=== PATIENT | female | born 1930 | race Caucasian/White ===

== ENCOUNTER 2016-10-31 07:40 | Observation (INO) | payer MEDICARE, OTHER ==
[~2016-10-31] VITALS: Ht 162.6 cm; Wt 54.0 kg
[~2016-10-31 07:40] MED LIST: AC325T PO; ACET-2267 PO; ASP81TEC PO; ASPI-983 PO; ATOR40TA70 PO; CALC-656 PO; CALC-80 PO; CIPR-226 PO; DIGO250T PO; DIGO250T96 PO; ESCI10TA PO; HYDR25TA4 PO; KCL10CCR PO; LOTE5DRO4 OU; MECL-105 PO; MECL25TA3 PO; MULT1TAB63 PO; NF-LOTEOS OU; OMG1KC PO; ONDA4TAB8 PO; PANT40TA PO; PANT40TA3 PO; PNT40TEC PO; POTA10TA10 PO; POTA10TA14 PO; PRAV40TA PO; PROM25TA14 PO; PROP10DR3 OU; SCOP1PAT TD; TYLENOL PO; WARF-47 PO; WARF4TAB PO; WARF4TAB7 PO; WARF6TAB19 PO; WARF6TAB6 PO; WRF2T PO; WRF5T PO
--- OUTSIDE RECORDS SUMMARY | 2016-10-31 07:45 | XMS REPORT | Continuity of Care Document ---
Author Author [facility] Organization [facility] Address Unknown Phone Unavailable Care Team Providers Care Fire Patrol Name Role Phone KAT VIGIL DO PCP Insurance Providers Payer Name Policy Number Subscriber Name Relationship [employer] [id number] Rishi Potter 19 Self / Same As Patient Comm Crossover Enter Ins Name [id number] Rishi Potter Self / Same As Patient Advance Directives Directive Response Recorded Date/Time Advance Directives Yes 08/26/16 1:00pm Health Care Power of Talk Show Host No 08/26/16 1:00pm Organ Donor No 08/26/16 1:00pm Resuscitation Status DNR-Pt Request 08/26/16 1:00pm Chief Complaint and Reason for Visit Chief Complaint Eye Problems Reason for Visit Right eye injury Problems Active Problems Medical Problem Onset Date Status Altered mental status Unknown Acute BPPV (benign paroxysmal positional vertigo) Unknown Acute Cerebral microvascular disease Unknown Acute Cholelithiasis without cholecystitis Unknown Acute Gastroenteritis Unknown Acute Generalized abdominal pain Unknown Acute Hallucinations Unknown Acute Right eye injury Unknown Acute Urinary tract infection Unknown Acute Medications Current Home Medications Medication Dose Units Route Directions Days/Qty Instructions Start Date Calcium Carbonate/Vitamin D3 1 Each 1 Tab Oral Twice A Day 04/20/14 Fish Oil 1,000 Mg 1,000 Mg Oral Three Times A Day 04/20/14 Atorvastatin Calcium 40 Mg 40 Mg Oral Bedtime 04/18/15 Loteprednol Etabonate 5 Ml 1 Drop Each Eye Daily 04/18/15 Digoxin 250 Mcg 250 Mcg Oral Every 48 Hours 04/18/15 Acetaminophen 500 Mg 500 Mg Oral Every 4HRS as needed for Pain 02/03 Warfarin Sodium 6 Mg 6 Mg Oral 1500 02/04/16 Pantoprazole Sodium 40 Mg 40 Mg Oral Twice A Day 02/04/16 Past Home Medications Medication Directions Ordered Status Calcium Carbonate/Vitamin D3 1 Each Tablet, 2 Tab Oral Daily 08/12/11 Discontinued Loteprednol Etabonate 5 Ml Drops.susp, 1 Drop Each Eye Daily 08/12/11 Discontinued Propylene Glycol 10 Ml Drops, 1 Drop Each Eye As Needed 08/12/11 Discontinued Aspirin 81 Mg Tabec, 162 Mg Oral Daily 08/12/11 Discontinued Acetaminophen 325 Mg Tablet, 650 Mg Oral Every 4HRS as needed 08/12/11 Discontinued Pravastatin Sodium 40 Mg Tablet, 40 Mg Oral Daily 08/12/11 Discontinued Digoxin 0.25 Mg Tab, 0.25 Mg Oral Daily 02/13/13 Discontinued Potassium Chloride 10 Meq Capcr, 10 Meq Oral Give Every 12 Hrs On Schedule Discontinued Warfarin Sodium 5 Mg Tablet, 1 Each Oral Daily 02/13/13 Discontinued Pantoprazole Sod 40 Mg Tab, 40 Mg Oral Daily@07,19 02/13/13 Discontinued Aspirin 81 Mg Tabec, 81 Mg Oral Daily 02/13/13 Discontinued Warfarin Sodium 2 Mg Tablet, 2 Mg Oral As Directed 02/14/13 Discontinued Warfarin Sodium 4 Mg Tablet, 4 Mg Oral As Directed 02/14/13 Discontinued Warfarin Sodium 4 Mg Tablet, 8 Mg Oral 04/20/14 Discontinued Warfarin Sodium 6 Mg Tablet, 6 Mg Oral 04/20/14 Discontinued Pantoprazole Sodium 40 Mg Tablet.dr, 40 Mg Oral Daily 04/20/14 Discontinued Acetaminophen 325 Mg Tab, 325 Mg Oral 04/20/14 Discontinued [Tylenol] , 500 Mg Oral As Needed 04/20/14 Discontinued Meclizine Hcl 25 Mg Tablet, 25 Mg Oral Bedtime 04/20/14 Discontinued Scopolamine 1 Each Patch.td72, 1 Each Transderm Q72 Hours for Dizziness 04/14 Discontinued Ondansetron 4 Mg Tab.rapdis, 4 Mg Oral Every 4HRS for Nausea/Vomiting Discontinued Meclizine Hcl 25 Mg Tablet, 1-2 Tab Oral Every 6 Hours for Dizziness Discontinued Ciprofloxacin Hcl 250 Mg Tablet, 250 Mg Oral Twice A Day 04/16/15 Discontinued Scopolamine 1 Each Patch.td72, 1 Patch Transderm Every 72 Hours 04/18/15 Discontinued Promethazine Hcl (Phenergan Tablet) 25 Mg Tablet, 25 Mg Oral Twice A Day as needed for Nausea/Vomiting 04/18/15 Discontinued Warfarin Sodium 2 Mg Tablet, 6 Mg Oral Daily 04/18/15 Discontinued Pantoprazole Sodium 40 Mg Tablet.dr, 40 Mg Oral Twice A Day 04/18/15 Discontinued Potassium Chloride 10 Meq Tablet.er, 10 Meq Oral Twice A Day 04/18/15 Discontinued Ciprofloxacin Hcl 250 Mg Tablet, 250 Mg Oral Twice A Day 04/18/15 Discontinued Aspirin 81 Mg Tablet.dr, 81 Mg Oral Daily 04/22/15 Discontinued Warfarin Sodium 2 Mg Tablet, 4 Mg Oral Daily 04/22/15 Discontinued Escitalopram Oxalate 10 Mg Tablet, 10 Mg Oral Daily 04/22/15 Discontinued Hydrochlorothiazide 25 Mg Tablet, 25 Mg Oral Daily 02/04/16 Discontinued Potassium Chloride 10 Meq Tab.er.prt, 10 Meq Oral Twice A Day 02/04/16 Discontinued Social History Social History Problem Response Recorded Date/Time Alcohol Use Denies Use 02/04/2016 7:00am Recreational Drug Use No 02/04/2016 7:00am Recent Foreign Travel No 08/26/2016 12:52pm Recent Infectious Disease Exposure No 08/26/2016 12:52pm Sexually Transmitted Disease No 08/26/2016 1:00pm Smoking Status Never a Smoker 08/26/2016 1:00pm Do you dip or chew tobacco? No 02/04/2016 2:11am Recent Hopitalizations Y GALLBLADDER IN DECEMBER OR JANUARY 2016 08/26/2016 1:00pm Sexually Transmitted Disease No 08/26/2016 1:00pm Query Response Start Date Stop Date Smoking Status Never a Smoker Hospital Discharge Instructions No hospital discharge instructions. Plan of Care Discharge Date 08/26/16 2:32pm Disposition 01 HOME, SELF-CARE Condition at Discharge Stable Instructions/Education Provided Eye Contusion (DC) Prescriptions See Medication Section Referrals KAT VIGIL DO - Primary Care Physician Additional Instructions/Education All discharge instructions reviewed with patient and/or family. Voiced understanding. Follow-up with your eye doctor directly after leaving here. Return for worse pain, fever, vomiting, vision or balance problems, weakness, headache, coordination problems or other concerns as needed. Functional Status No functional status results. Allergies, Adverse Reactions, Alerts Allergen Type Severity Reaction Status Last Updated Penicillins ([id number]) Allergy Mild Active 04/18/15 Sulfa (Sulfonamide Antibiotics) ([id number]) Allergy Mild Active guaifenesin ([id number]) Allergy Unknown Active 04/18/15 potassium guaiacolsulfonate Allergy Unknown Active 04/18/15 nitrofurantoin ([id number]) Allergy Intermediate Active 04/18/15 Omeprazole Allergy Mild Active 04/18/15 Celecoxib Adverse Reaction Unknown SICK TO STOMACH Active 04/18/15 Rosuvastatin Adverse Reaction Unknown NAUSEA Active 04/18/15 Protoni Allergy Mild Active 02/05/16 Immunizations No immunization records. Vital Signs Acute Vital Signs Vital Response Date/Time Temperature (Fahrenheit) 98.3 degrees F (97.6 - 99.5) 08/26/2016 12:52pm Temperature (Calculated Celsius) 36.40226 degrees C (36.4 - 37.5) 08/26/2016 12:52pm Temperature Source Temporal 08/26/2016 12:52pm Pulse Rate (adult) 100 bpm (60 - 90) 08/26/2016 12:52pm Respiratory Rate 20 bpm (12 - 24) 08/26/2016 12:52pm O2 Sat by Pulse Oximetry 96 % (88 - 100) 08/26/2016 12:52pm Blood Pressure 121/74 mm Hg 08/26/2016 12:52pm Blood Pressure Mean 90 mm Hg 08/26/2016 12:52pm Pain Numeric Pain Scale 1 08/26/2016 12:52pm Height (Feet) 5 feet 08/26/2016 12:52pm Height (Inches) 7.00 inches 08/26/2016 12:52pm Height (Calculated Centimeters) 170.632205 cm 08/26/2016 12:52pm Weight (Pounds) 119 pounds 08/26/2016 12:52pm Weight (Ounces) 0.0 oz 08/26/2016 12:52pm Weight (Calculated Grams) 79768.493 gm 08/26/2016 12:52pm Weight (Calculated Kilograms) 53.957132 kilograms 08/26/2016 12:52pm Calculated BMI 18.6 08/26/2016 12:52pm Capillary Refill Capillary Refill Less Than 3 Seconds 08/26/2016 12:52pm Results No known relevant diagnostic tests, laboratory data and/or discharge summary. Procedures No known history of procedures. Encounters Encounter Location Arrival/Admit Date Discharge/Depart Date Attending Provider Departed Emergency Room [facility] 08/26/16 12:30pm 2:32pm TENNILLE MCCRAY MD Recent Diagnosis
--- NOTE | 2016-10-31 07:54 | ED Chest Pain ---
General Stated Complaint: CP Source: patient, EMS Exam Limitations: no limitations History of Present Illness Time seen by provider: 07:51 Initial Comments This 86-year-old white female presents after she experienced chest pain this morning after she awoke. The chest pain which was sharp and anterior in character and location was spontaneously resolved within 10 minutes. The patient had a similar episode of chest pain self-limited yesterday. The patient has a history of cardiac disease specifically congestive heart failure. She denies previous myocardial infarction, cardiac catheterization, or bypass surgery. She is under the care of Dr. Menon. The patient's previous EKG. March 2015 demonstrates atrial fibrillation. Patient is on Protonix. She is on Digoxin. The patient takes Coumadin. EMS gave for 4 baby aspirins in route. Allergies and Home Medications Allergies Coded Allergies: nitrofurantoin (Verified Allergy, Intermediate, 04/18/15) Penicillins (Verified Allergy, Mild, 04/18/15) Sulfa (Sulfonamide Antibiotics) (Verified Allergy, Mild, 04/18/15) omeprazole (Verified Allergy, Mild, 04/18/15) guaifenesin (Verified Allergy, Unknown, 04/18/15) potassium guaiacolsulfonate (Verified Allergy, Unknown, 04/18/15) celecoxib (Unverified Adverse Reaction, Unknown, SICK TO STOMACH, 04/18/15) rosuvastatin (Unverified Adverse Reaction, Unknown, NAUSEA, 04/18/15) Uncoded Allergies: Protoni (Allergy, Mild, 02/05/16) NOTE THAT PT TAKES PROTONIX AT HOME Home Medications Acetaminophen 500 Mg Tablet 500 MG PO Q4H PRN PRN PAIN (Reported) Atorvastatin Calcium 40 Mg Tablet 40 MG PO HS (Reported) Calcium Carbonate/Vitamin D3 1 Each Tablet 1 TAB PO BID (Reported) Digoxin 250 Mcg Tablet 250 MCG PO Q48H (Reported) Loteprednol Etabonate 5 Ml Drops 1 DROP OU DAILY (Reported) [place] 3 Polyunsat Fatty Acids 1,000 Mg Cap 1,000 MG PO TID (Reported) Pantoprazole Sodium 40 Mg Tablet.dr 40 MG PO BID (Reported) Warfarin Sodium 6 Mg Tablet 6 MG PO 1500 (Reported) Review of Systems Constitutional: No chills, No fever, No weakness EENTM: No Symptoms Reported Respiratory: Denies Cough, Shortness of Air Cardiovascular: Chest PainDenies Palpitations Gastrointestinal: Denies Abdominal Pain, Denies Diarrhea, Denies Nausea Genitourinary: Denies Burning, Denies Frequency Musculoskeletal: No back pain Skin: No rash Psychiatric/Neurological: Anxiety (the patient clearly was anxious in the emergency department concerning her presentation.) Endocrine: No Symptoms Reported Hematologic/Lymphatic: No Symptoms Reported Past Lviuinc-Nmfjnh-Cqerne Hx Patient Social History Recent Hopitalizations: Yes (GALLBLADDER IN DECEMBER OR JANUARY 2016) Immunizations Up To Date Tetanus Booster (TDap): Less than 5yrs PED Vaccines UTD: No Date of Pneumonia Vaccine: Aug 30, 2015 Date of Influenza Vaccine: Jun 12, 2012 Seasonal Allergies Seasonal Allergies: No Surgeries HX Surgeries: Yes (FISTULA REPAIR,CORNEA TRANSPLANT,CARDIAC CATH,SKYLAR W/ PERF ESOPHAGUS/REPAIR ) Surgeries: Abdominal, Cardiac, Eye Surgery, Gallbladder, Hysterectomy, Tracheostomy Respiratory Hx Respiratory Disorders: Yes (RESP.FAILURE-TRACH/VENTILATOR/REMOVAL, CHEST TUBE/REMOVAL) Respiratory Disorders: Pneumonia Cardiovascular Hx Cardiac Disorders: Yes (CHF) Cardiac Disorders: Atrial Fibrillation, Cardiomyopathy, Coronary Artery Disease , High Cholesterol, Hypertension, Irregular Heartbeat Neurological Hx Neurological Disorders: No (DENIES, BUT HAS PARESTHESIAS TO TOES) Reproductive System Hx Reproductive Disorders: No 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, 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 Genitourinary Hx Genitourinary Disorders: Yes Genitourinary Disorders: UTI-Chronic Gastrointestinal Hx Gastrointestinal Disorders: Yes (PERFORATED ESOPHAGUS/REPAIR, G-TUBE/ REMOVAL,DYSPHAGIA) Gastrointestinal Disorders: Gastroesophageal Reflux, Polyps Musculoskeletal Hx Musculoskeletal Disorders: Yes (WALKS WITH WALKER) Musculoskeletal Disorders: Osteoporosis, Arthritis, Chronic Back Pain Endocrine Hx Endocrine Disorders: No HEENT HX ENT Disorders: Yes HEENT Disorders: Cataract Loss of Vision: Bilateral Hearing Impairment: Hard of Hearing Cancer Hx Cancer: No Psychosocial Hx Psychiatric Problems: No Integumentary HX Skin/Integumentary Disorder: No Blood Transfusions Hx Blood Disorders: No Adverse Reaction to a Blood Tr: No Reviewed Nursing Assessment Reviewed/Agree w Nursing PMH: Yes Family Medical History Significant Family History: Cancer Family Medial History: FH: arrhythmia FH: breast cancer Physical Exam Vital Signs Vital Sign - Last 12Hours 10/31/16 07:40 Temp 97.5 Pulse 115 Resp 18 B/P 108/78 Pulse Ox 95 O2 Delivery Room Air Capillary Refill : General Appearance: Cachetic Mild Distress HEENT: No Scleral Icterus (L) Neck: No Non Tender, No Supple Respiratory: Lungs Clear Cardiovascular: No No Murmur, Irregularly Irregular Gastrointestinal: Normal Bowel Sounds No Pulsatile Mass Extremity: Normal Capillary Refill Normal Range of Motion Neurologic/Psychiatric: Oriented x3 No Motor/Sensory Deficits Skin: Normal Color Warm/Dry Date of ETT Placement: Feb 07, 2016 Time of ETT Placement: 1710 Progress/Results/Core Measures Results/Orders Lab Results Laboratory Tests Test 10/31/16 08:00 Range/Units Activated Partial Thromboplast Time 34 24-35 SEC Alanine Aminotransferase (ALT/SGPT) 35 0-55 U/L Albumin 3.1 L 3.2-4.5 G/DL Alkaline Phosphatase 74 40-136 U/L Anion Gap 15 H 5-14 MMOL/L Aspartate Amino Transf (AST/SGOT) 31 5-34 U/L B-Type Natriuretic Peptide 794.2 H <100.0 PG/ML BUN/Creatinine Ratio 29 Basophils # (Auto) 0.0 0.0-0.1 10^3/uL Basophils (%) (Auto) 0 0-10 % Blood Urea Nitrogen 30 H 7-18 MG/DL Calcium Level 8.7 8.5-10.1 MG/DL Carbon Dioxide Level 27 21-32 MMOL/L Chloride Level 102 98-107 MMOL/L Creatinine 1.02 0.60-1.30 MG/DL D-Dimer 0.34 0.00-0.49 UG/ML Digoxin Level < 0.30 L 0.80-2.00 NG/ML Eosinophils # (Auto) 0.0 0.0-0.3 10^3/uL Eosinophils (%) (Auto) 0 0-10 % Estimat Glomerular Filtration Rate 52 Glucose Level 91 70-105 MG/DL Hematocrit 41 35-52 % Hemoglobin 13.2 11.5-16.0 G/DL INR Comment 3.3 H 0.8-1.4 Lymphocytes # (Auto) 0.6 L 1.0-4.0 X 10^3 Lymphocytes (%) (Auto) 10 L 12-44 % Magnesium Level 1.5 L 1.8-2.4 MG/DL Mean Corpuscular Hemoglobin 29 25-34 PG Mean Corpuscular Hemoglobin Concent 32 32-36 G/DL Mean Corpuscular Volume 91 80-99 FL Mean Platelet Volume 11.4 H 7.4-10.4 FL Monocytes # (Auto) 0.4 0.0-1.0 X 10^3 Monocytes (%) (Auto) 6 0-12 % Myoglobin 71.6 10.0-92.0 NG/ML Neutrophils # (Auto) 5.3 1.8-7.8 X 10^3 Neutrophils (%) (Auto) 84 H 42-75 % Platelet Count 125 L 130-400 10^3/uL Potassium Level 3.8 3.6-5.0 MMOL/L Prothrombin Time 33.7 H 12.2-14.7 SEC Red Blood Count 4.56 4.35-5.85 10^6/uL Red Cell Distribution Width 15.6 H 10.0-14.5 % Sodium Level 144 135-145 MMOL/L Total Bilirubin 1.8 H 0.1-1.0 MG/DL Total Protein 5.4 L 6.4-8.2 G/DL Troponin I < 0.30 <0.30 NG/ML White Blood Count 6.2 4.3-11.0 10^3/uL My Orders Orders-TRISH, LORY Roach MD Cbc With Automated Diff (10/31/16 07:44) Magnesium (10/31/16 07:44) Chest 1 View, Ap/Pa Only (10/31/16 07:44) Ekg Tracing (10/31/16 07:44) Cardiac Profile 1 (10/31/16 07:44) Comprehensive Metabolic Panel (10/31/16 07:44) Myoglobin Serum (10/31/16 07:44) Protime With Inr (10/31/16 07:44) Partial Thromboplastin Time (10/31/16 07:44) O2 (10/31/16 07:44) Monitor-Rhythm Ecg Trace Only (10/31/16 07:44) Lipid Panel (11/01/16 06:00) Saline Lock/Iv-Start (10/31/16 07:44) BNP (10/31/16 07:44) Fibrin Degradation Products (10/31/16 07:44) Digoxin (10/31/16 07:54) Vital Signs/I&O Vital Sign - Last 12Hours 10/31/16 10/31/16 07:40 07:40 Temp 97.5 Pulse 115 Resp 18 B/P 108/78 Pulse Ox 95 O2 Delivery Room Air Room Air Progress Note : Time: 09:33 Progress Note The patient's evaluation demonstrated atrial fibrillation on the EKG unchanged from the patient's previous tracing. The patient's troponin was normal. The patient's BNP was normal. The patient's d-dimer was normal. The patient's digoxin level was subtherapeutic at less than 0.3. The patient's INR was elevated at 3.3. Consultation with Dr. Bond was undertaken. Given the patient's cardiac history and the presentation for her chest pain this morning the patient was admitted to an observation bed. Orders were then written for repeat troponins and EKGs 3. At the time of the patient's admission she had remained pain-free in the emergency department. Departure Communication Time/Spoke to Admitting Phy: 09:[address] Beltran. Impression Impression: Primary Impression: Chest pain Qualified Code: R07.9 - Chest pain, unspecified Disposition: ADMITTED INPATIENT Condition: Improved Decision to Admit Reason: Admit from ER (General) Decision to Admit/Date: Oct 31, 2016 Time/Decision to Admit Time: 09:35 Departure-Patient Inst. Referrals: KAT VIGIL DO (PCP/Family) Primary Care Physician LORY CHAMBERS MD Oct 31, 2016 07:54
[2016-10-31 08:11] LABS: BASOPHILS % (AUTO) 0 % (0-10); EOSINOPHILS % (AUTO) 0 % (0-10); LYMPHOCYTES # (AUTO) 0.6 X 10^3 (1.0-4.0); LYMPHOCYTES % (AUTO) 10 % (12-44); MEAN CORPUSCULAR HEMOGLOBIN 29 PG (25-34); MEAN CORPUSCULAR HGB CONC 32 G/DL (32-36); MEAN CORPUSCULAR VOLUME 91 FL (80-99); MEAN PLATELET VOLUME 11.4 FL (7.4-10.4); MONOCYTES # (AUTO) 0.4 X 10^3 (0.0-1.0); MONOCYTES % (AUTO) 6 % (0-12); NEUTROPHILS # (AUTO) 5.3 X 10^3 (1.8-7.8); NEUTROPHILS % (AUTO) 84 % (42-75); PLATELET COUNT 125 10^3/uL (130-400); RED BLOOD COUNT 4.56 10^6/uL (4.35-5.85); RED CELL DISTRIBUTION WIDTH 15.6 % (10.0-14.5); WHITE BLOOD COUNT 6.2 10^3/uL (4.3-11.0)
[2016-10-31 08:24] LABS: INR 3.3 (0.8-1.4); PROTHROMBIN TIME PATIENT 33.7 SEC (12.2-14.7)
[2016-10-31 08:29] LABS: ALANINE AMINOTRANSFERASE 35 U/L (0-55); ALBUMIN 3.1 G/DL (3.2-4.5); ANION GAP 15 MMOL/L (5-14); ASPARTATE AMINO TRANSFERASE 31 U/L (5-34); BILIRUBIN,TOTAL 1.8 MG/DL (0.1-1.0); BLOOD UREA NITROGEN 30 MG/DL (7-18); BUN/CREATININE RATIO 29; CALCIUM 8.7 MG/DL (8.5-10.1); CARBON DIOXIDE 27 MMOL/L (21-32); CHLORIDE 102 MMOL/L (98-107); CREATININE SERUM 1.02 MG/DL (0.60-1.30); GFR ESTIMATED 52; GLUCOSE 91 MG/DL (70-105); MAGNESIUM 1.5 MG/DL (1.8-2.4); POTASSIUM 3.8 MMOL/L (3.6-5.0); SODIUM 144 MMOL/L (135-145); TOTAL PROTEIN 5.4 G/DL (6.4-8.2)
[2016-10-31 08:36] LABS: MYOGLOBIN SERUM 71.6 NG/ML (10.0-92.0)
--- NOTE | 2016-10-31 11:00 | Consultation-Cardiology ---
HPI-Cardiology Cardiology Consultation Date of Consultation 10/31/16 Date of Admission Indication: chest pain HPI 86-year-old lady with history of mitral valve stenosis, permanent atrial fibrillation, was in her usual state of health until this morning woke up, started having chest pain and felt lightheaded. Came into the emergency room. Currently feeling better. No further episode of chest pain, patient expressed that she is hungry and asking for food. Did not eat breakfast this morning. Denied any palpitation, syncope or near syncopal episodes. Denied any claudication. Denied any chest pain prior to that but reporting episodes of dizziness in the morning. Home Medications & Allergies Allergies: Coded Allergies: nitrofurantoin (Verified Allergy, Intermediate, 04/18/15) Penicillins (Verified Allergy, Mild, 04/18/15) Sulfa (Sulfonamide Antibiotics) (Verified Allergy, Mild, 04/18/15) omeprazole (Verified Allergy, Mild, 04/18/15) guaifenesin (Verified Allergy, Unknown, 04/18/15) potassium guaiacolsulfonate (Verified Allergy, Unknown, 04/18/15) celecoxib (Unverified Adverse Reaction, Unknown, SICK TO STOMACH, 04/18/15) rosuvastatin (Unverified Adverse Reaction, Unknown, NAUSEA, 04/18/15) Uncoded Allergies: Protoni (Allergy, Mild, 02/05/16) NOTE THAT PT TAKES PROTONIX AT HOME Home Medication List Reviewed: Yes TUG-Dgzony-Xwymdt Hx Patient Social History Alcohol Use: Denies Use Recreational Drug Use: No Smoking Status: Never a Smoker Recent Foreign Travel: No Recent Infectious Disease Expo: No Recent Hopitalizations: Yes (GALLBLADDER IN DECEMBER OR JANUARY 2016) Immunizations Up To Date Tetanus Booster (TDap): Less than 5yrs Date of Pneumonia Vaccine: Aug 30, 2015 Date of Influenza Vaccine: Jun 12, 2012 Past Medical History past medical history as discussed below Family Medical History Significant Family History: Cancer Family History: FH: arrhythmia FH: breast cancer Constitutional: see HPI malaise weight loss EENTM: no symptoms reported see HPI Respiratory: see HPI dyspnea on exertion Cardiovascular: see HPI chest painNo edema, No Hx of Intervention, No palpitations, No syncope, No vascular heart diseas, No other Gastrointestinal: see HPI loss of appetite Genitourinary: no symptoms reported see HPI Musculoskeletal: no symptoms reported see HPI Skin: no symptoms reported see HPI Psychiatric/Neurological: No Symptoms Reported See HPI Reviewed Test Results Reviewed Test Results Lab Laboratory Tests Test 10/31/16 08:00 Range/Units Activated Partial Thromboplast Time 34 24-35 SEC Alanine Aminotransferase (ALT/SGPT) 35 0-55 U/L Albumin 3.1 L 3.2-4.5 G/DL Alkaline Phosphatase 74 40-136 U/L Anion Gap 15 H 5-14 MMOL/L Aspartate Amino Transf (AST/SGOT) 31 5-34 U/L B-Type Natriuretic Peptide 794.2 H <100.0 PG/ML BUN/Creatinine Ratio 29 Basophils # (Auto) 0.0 0.0-0.1 10^3/uL Basophils (%) (Auto) 0 0-10 % Blood Urea Nitrogen 30 H 7-18 MG/DL Calcium Level 8.7 8.5-10.1 MG/DL Carbon Dioxide Level 27 21-32 MMOL/L Chloride Level 102 98-107 MMOL/L Creatinine 1.02 0.60-1.30 MG/DL D-Dimer 0.34 0.00-0.49 UG/ML Digoxin Level < 0.30 L 0.80-2.00 NG/ML Eosinophils # (Auto) 0.0 0.0-0.3 10^3/uL Eosinophils (%) (Auto) 0 0-10 % Estimat Glomerular Filtration Rate 52 Glucose Level 91 70-105 MG/DL Hematocrit 41 35-52 % Hemoglobin 13.2 11.5-16.0 G/DL INR Comment 3.3 H 0.8-1.4 Lymphocytes # (Auto) 0.6 L 1.0-4.0 X 10^3 Lymphocytes (%) (Auto) 10 L 12-44 % Magnesium Level 1.5 L 1.8-2.4 MG/DL Mean Corpuscular Hemoglobin 29 25-34 PG Mean Corpuscular Hemoglobin Concent 32 32-36 G/DL Mean Corpuscular Volume 91 80-99 FL Mean Platelet Volume 11.4 H 7.4-10.4 FL Monocytes # (Auto) 0.4 0.0-1.0 X 10^3 Monocytes (%) (Auto) 6 0-12 % Myoglobin 71.6 10.0-92.0 NG/ML Neutrophils # (Auto) 5.3 1.8-7.8 X 10^3 Neutrophils (%) (Auto) 84 H 42-75 % Platelet Count 125 L 130-400 10^3/uL Potassium Level 3.8 3.6-5.0 MMOL/L Prothrombin Time 33.7 H 12.2-14.7 SEC Red Blood Count 4.56 4.35-5.85 10^6/uL Red Cell Distribution Width 15.6 H 10.0-14.5 % Sodium Level 144 135-145 MMOL/L Total Bilirubin 1.8 H 0.1-1.0 MG/DL Total Protein 5.4 L 6.4-8.2 G/DL Troponin I < 0.30 <0.30 NG/ML White Blood Count 6.2 4.3-11.0 10^3/uL Physical Exam Vital Signs Vital Sign - Last 12Hours 10/31/16 07:40 Temp 97.5 Pulse 115 Resp 18 B/P 108/78 Pulse Ox 95 O2 Delivery Room Air Capillary Refill : Less Than 3 Seconds General Appearance: No Apparent Distress WD/WN Eyes: Bilateral Eye EOMI, Bilateral Eye Normal Inspection, Bilateral Eye PERRL HEENT: PERRL/EOMI TMs Normal Normal ENT Inspection Pharynx Normal Neck: Full Range of Motion Normal Inspection Non Tender Supple Respiratory: Chest Non Tender Lungs Clear Normal Breath Sounds No Accessory Muscle Use No Respiratory Distress Cardiovascular: No Edema No JVD Normal Peripheral Pulses Diastolic Murmur Systolic Murmur Gallop/S3 Irregularly Irregular Gastrointestinal: Normal Bowel Sounds No Organomegaly No Pulsatile Mass Non Tender Soft Back: Normal Inspection No CVA Tenderness No Vertebral Tenderness Extremity: Normal Capillary Refill Normal Inspection Normal Range of Motion Non Tender No Calf Tenderness No Pedal Edema Neurologic/Psychiatric: Alert Oriented x3 No Motor/Sensory Deficits Normal Mood/Affect Skin: Normal Color Warm/Dry Lymphatic: No Adenopathy A/P-Cardiology Admission Diagnosis chest pain nonspecific etiology Coronary artery disease Permanent atrial fibrillation Mitral valve stenosis Assessment/Plan Chest pain, nonspecific etiology, atypical in presentation lasted for about 10 minutes this morning, had a stress test done with Dr. Menon in April 2016 and reported no significant ischemia. Mild to moderate coronary artery disease per cardiac catheterization July 2011, continue to monitor Status post trauma to the face with bruise on her right periorbital area, had recent surgery. Permanent atrial fibrillation, on Coumadin therapy, rate is controlled. Continue to monitor Status post esophageal tear status post repair in November 2012, currently stable. Valvular heart disease, severe mitral valve stenosis, severe pulmonary hypertension, followed and managed by Dr. Menon. Loss of appetite, weight loss. Has been deteriorating over the past 6 months. Advised to start on protein supplement, was initiated on boost but could not afford it. History of vent-dependent respiratory failure-resolved, continue to monitor. Hypertension, restart medication and monitor blood pressure Hyperlipidemia, continue to monitor lipids History of elevated LFTs when on statin therapy, monitor liver enzymes. Mild bilateral carotid stenosis, last ultrasound was done in November 2015, continue to monitor Clinical Quality Measures AMI/AHF: ASA po Prior to arrival: Yes ADDIE MONTEIRO MD Oct 31, 2016 11:00
[2016-10-31] MEDS ORDERED: NITROGLYCERIN SUBLINGUAL 0.4 MG TAB (NITROSTAT) SL PRN (11:45)
[2016-10-31] MEDS ORDERED: ACETAMINOPHEN 325 MG TABLET/CAPLET (TYLENOL) PO PRN (11:45)
[2016-10-31 12:06] VITALS: BP 107/58
[2016-10-31] MEDS ORDERED: WARF6TAB6 PO (12:43)
[2016-10-31] MEDS ORDERED: HYDR12.56 PO (12:43)
[2016-10-31] MEDS ORDERED: [UNRECOGNIZED DRUG - CODE] PO (12:44)
[2016-10-31] MEDS: ASPIRIN 81 MG CHEW (CHILDREN'S ASA) PO SCH (12:58)
[2016-10-31] MEDS ORDERED: HYPR10GE4 OD (13:03)
[2016-10-31] MEDS ORDERED: DIFL5DRO OD (13:03)
--- NOTE | 2016-10-31 15:40 | Diagnostic Imaging Report ---
EXAMINATION: Chest radiograph, portable AP view. DATE: October 31, 2016 at 0823 hours. INDICATION: 86-year-old female, chest pain. COMPARISON: April 28, 2016. FINDINGS: There is redemonstrated cardiomegaly. There is no identified pneumothorax. There is nonspecific left basilar airspace consolidation which appears increased since comparison exam. There are bilateral interstitial opacities which are also increased. There are somewhat nodular opacities projecting over the right upper lobe measuring 9 and 8 mm in size which are not seen previously. IMPRESSION: 1. Nonspecific left basilar airspace consolidation which may relate to small effusion, atelectasis, and/or infiltrate. This also could potentially relate to overlapping soft tissues. 2. New bilateral predominantly interstitial opacities. Differential diagnostic considerations would include pulmonary interstitial edema and atypical infection. 3. Newly noted nodular opacities projecting over the right upper lobe which measure 9 and 8 mm in size. Consider dedicated CT chest for further assessment. Dictated by: Dictated on workstation # [id number]
--- NOTE | 2016-10-31 15:50 | History & Physicial ---
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 THE PATIENT STATES THAT SHE IS FEELING BETTER COMPARED TO HOW SHE FELT ON ADMISSION TO THE HOSPITAL. SHE STATES THAT SHE HAD CHEST PAIN ON AWAKENING THIS MORNING. SHE STATES THAT SHE HAD A SMALL PIECE OF MEAT LAST NIGHT, AND THEN CHEST PAIN THIS MORNING. Date of Admission Oct 31, 2016 at 09:27 I consulted on this patient on 10/31/16 15:38 Attending Physician Peace Vigil DO Admitting Physician WEST LOPEZ MD Consult Allergies and Home Medications Allergies Coded Allergies: nitrofurantoin (Verified Allergy, Intermediate, 04/18/15) Penicillins (Verified Allergy, Mild, 04/18/15) Sulfa (Sulfonamide Antibiotics) (Verified Allergy, Mild, 04/18/15) omeprazole (Verified Allergy, Mild, 04/18/15) guaifenesin (Verified Allergy, Unknown, 04/18/15) potassium guaiacolsulfonate (Verified Allergy, Unknown, 04/18/15) celecoxib (Unverified Adverse Reaction, Unknown, SICK TO STOMACH, 04/18/15) rosuvastatin (Unverified Adverse Reaction, Unknown, NAUSEA, 04/18/15) Uncoded Allergies: Protoni (Allergy, Mild, 02/05/16) NOTE THAT PT TAKES PROTONIX AT HOME Home Medications Acetaminophen 500 Mg Tablet 500 MG PO Q4H PRN PRN PAIN (Reported) Atorvastatin Calcium 40 Mg Tablet 40 MG PO HS (Reported) Calcium Carbonate/Vitamin D3 1 Each Tablet 1 TAB PO BID (Reported) Difluprednate 5 Ml Drops 5 ML OD BID (Reported) Digoxin 250 Mcg Tablet 250 MCG PO Q48H (Reported) Hydrochlorothiazide 12.5 Mg Tablet 12.5 MG PO Q48HRS (Reported) Hypromellose 10 Gm Gel..gram. 10 GM OD QID (Reported) Loteprednol Etabonate 5 Ml Drops 1 DROP OU DAILY (Reported) [place] 3 Polyunsat Fatty Acids 1,000 Mg Cap 1,000 MG PO TID (Reported) Pantoprazole Sodium 40 Mg Tablet.dr 40 MG PO BID (Reported) Phenazopyrid/Cran/Vit C/B.coag 1 Each Tablet 2 EACH PO DAILY (Reported) Warfarin Sodium 6 Mg Tablet 6 MG PO M,W,T,F,S,S (Reported) TAKE ONE TABLET BY MOUTH ONCE DAILY EXCEPT ONE AND A HALF TABLETS WEDNESDAY ONLY Warfarin Sodium 6 Mg Tablet 9 MG PO WEDNESDAY (Reported) Past [id number] Hx Patient Social History Marrital Status: Living Status: LIVES WITH FAMILY Employed/Student: retired Alcohol Use: Denies Use Recreational Drug Use: No Smoking Status: Never a Smoker 2nd Hand Smoke Exposure: Yes Physical Abuse Screen: No Sexual Abuse: No Recent Foreign Travel: No Contact w/other who traveled: No Recent Hopitalizations: Yes (GALLBLADDER IN DECEMBER OR JANUARY 2016) Recent Infectious Disease Expo: No Immunizations Up To Date Tetanus Booster (TDap): Less than 5yrs Date of Pneumonia Vaccine: Aug 30, 2015 Date of Influenza Vaccine: Jun 12, 2012 Seasonal Allergies Seasonal Allergies: No Surgeries HX Surgeries: Yes (FISTULA REPAIR,CORNEA TRANSPLANT,CARDIAC CATH,SKYLAR W/ PERF ESOPHAGUS/REPAIR ) Surgeries: Abdominal, Cardiac, Eye Surgery, Gallbladder, Hysterectomy, Tracheostomy Respiratory Hx Respiratory Disorders: Yes (RESP.FAILURE-TRACH/VENTILATOR/REMOVAL, CHEST TUBE/REMOVAL) Cardiovascular Hx Cardiovascular Disorders: Yes (CHF) Cardiac Disorders: Atrial Fibrillation, Cardiomyopathy, Coronary Artery Disease , High Cholesterol, Hypertension, Irregular Heartbeat Neurological Hx Neurological Disorders: Yes (DENIES, BUT HAS PARESTHESIAS TO TOES) Reproductive System : No Hx Reproductive Disorders: No Sexually Transmitted Disease: No Female Reproductive Disorders: Denies Genitourinary Hx Genitourinary Disorders: Yes Genitourinary Disorders: UTI-Chronic Gastrointestinal Hx Gastrointestinal Disorders: Yes (PERFORATED ESOPHAGUS/REPAIR, G-TUBE/ REMOVAL,DYSPHAGIA) Gastrointestinal Disorders: Gastroesophageal Reflux, Polyps Musculoskeletal Hx Musculoskeletal Disorders: Yes (WALKS WITH WALKER) Musculoskeletal Disorders: Osteoporosis, Arthritis, Chronic Back Pain Endocrine Hx Endocrine Disorders: No HEENT HX ENT Disorders: Yes HEENT Disorders: Cataract Loss of Vision: Bilateral Hearing Impairment: Hard of Hearing Cancer Hx Cancer: No Psychosocial Hx Psychiatric Problems: No Integumentary HX Skin/Integumentary Disorder: No Blood Transfusions Hx Blood Disorders: No Adverse Reaction to a Blood Tr: No Reviewed Nursing Assessment Reviewed/Agree w Nursing PMH: Yes Family Medical History Significant Family History: Cancer Family Hx: FH: arrhythmia FH: breast cancer Constitutional: No chills, No fever, malaise weakness EENTM: No hoarseness, No throat pain Respiratory: No cough, No dyspnea on exertion, short of breath Cardiovascular: chest painNo palpitations Gastrointestinal: abdominal pain (EPIGASTRIC DISCOMFORT) Genitourinary: no symptoms reported Musculoskeletal: muscle weakness Skin: no symptoms reported Psychiatric/Neurological: Numbness All Other Systems Reviewed Negative Unless Noted: Yes Physical Exam Vital Signs Vital Sign - Last 12Hours 10/31/16 07:40 Temp 97.5 Pulse 115 Resp 18 B/P 108/78 Pulse Ox 95 O2 Delivery Room Air Capillary Refill : Less Than 3 Seconds General Appearance: No Apparent Distress Thin Eyes: Bilateral Eye EOMI, Bilateral Eye Normal Inspection, Bilateral Eye PERRL HEENT: PERRL/EOMI Pharynx Normal Neck: Full Range of Motion Supple Respiratory: Chest Non Tender Lungs Clear Normal Breath Sounds No Accessory Muscle Use No Respiratory Distress Cardiovascular: Regular Rate, Rhythm Gastrointestinal: Normal Bowel Sounds Soft Tenderness (IN EPIGASTRIUM) Rectal: Deferred Extremity: No Calf Tenderness No Pedal Edema Neurologic/Psychiatric: Alert No Motor/Sensory Deficits Normal Mood/Affect Other (ORIENTED TO SELF AND PLACE) Skin: Warm/Dry Lymphatic: No Adenopathy Assessment/Plan Assessment and Plan CHEST PAIN EPIGASTRIC DISCOMFORT ATRIAL FIBRILLATION CHRONIC ANTICOAGULATION ESOPHAGEAL REFLUX CHEST PAIN - CONSULT TO DR. MONTEIRO - CHEST PAIN RESOLVED AND CARDIAC ENZYMES ARE NORMALIZED. EPIGASTRIC DISCOMFORT - RESTART PPI - START CARAFATE ATRIAL FIBRILLATION - PT ON DIGOXIN - CONTINUE - CHRONIC ANTICOAGULATION - CONTINUE WITH WARFARIN CHRONIC ANTICOAGULATION- CONTINUE WITH WARFARIN ESOPHAGEAL REFLUX - RESTART PPI AND CARAFATE. Admission Diagnosis CHEST PAIN EPIGASTRIC DISCOMFORT ATRIAL FIBRILLATION CHRONIC ANTICOAGULATION ESOPHAGEAL REFLUX Clinical Quality Measures AMI/AHF: ASA po Prior to arrival: Yes WEST LOPEZ MD Oct 31, 2016 15:50
[2016-10-31 16:00] VITALS: BP 107/61
[2016-10-31] MEDS ORDERED: FLU TRIvalent (5 YOA+) 2016-17 (AFLURIA) 0.5 ML IM ONE (16:45)
[2016-10-31] MEDS: DIGOXIN 0.25 MG (LANOXIN) TAB PO SCH (17:57)
[2016-10-31 20:01] VITALS: BP 104/62
[2016-10-31] MEDS: ATORVASTATIN 40 MG (LIPITOR) TABLET PO SCH (20:44)
[2016-10-31] MEDS: PANTOPRAZOLE 40 MG (PROTONIX) TAB PO SCH (20:44)
[2016-10-31] MEDS: SUCRALFATE 1 GM (CARAFATE) TAB PO SCH (20:44)
[2016-10-31] MEDS: ACETAMINOPHEN 500 MG TAB (TYLENOL) PO PRN (20:44)
[2016-11-01] VITALS: BP 99/55
[2016-11-01 04:00] VITALS: BP 102/61
[2016-11-01 05:39] LABS: CHOLESTEROL 112 MG/DL (< 200); DIRECT LDL 56 MG/DL (1-129); TRIGLYCERIDES 34 MG/DL (<150); VLDL CHOLESTEROL 7 MG/DL (5-40)
[2016-11-01] MEDS: SUCRALFATE 1 GM (CARAFATE) TAB PO SCH ×4 (06:22→20:12)
[2016-11-01 07:50] VITALS: BP 116/57
[2016-11-01] MEDS: ASPIRIN 81 MG CHEW (CHILDREN'S ASA) PO SCH (08:46)
[2016-11-01] MEDS: PANTOPRAZOLE 40 MG (PROTONIX) TAB PO SCH ×2 (08:46→20:12)
[2016-11-01 11:39] LABS: BILIRUBIN,URINE NEGATIVE (NEGATIVE); KETONES,URINE NEGATIVE (NEGATIVE); LEUKOCYTE ESTERASE ,URINE 1+ (NEGATIVE); NITRITE,URINE NEGATIVE (NEGATIVE); PH,URINE 5 (5-9); PROTEIN,URINE 2+ (NEGATIVE); UROBILINOGEN,URINE 1 MG/DL (NORMAL)
[2016-11-01 11:41] VITALS: BP 105/51
[2016-11-01 11:47] LABS: SQUAMOUS EPITHELIAL CELL,UR 25-50 /HPF
--- NOTE | 2016-11-01 12:13 | Diagnostic Imaging Report ---
EXAMINATION: CHEST (PA AND LATERAL) CLINICAL INDICATION: 86-year-old female, fever and chest pain. COMPARISON: October 31, 2016. FINDINGS: Stable overall appearance of the cardiomediastinal silhouette. The heart is enlarged. There is no identified pneumothorax. There is no large layering pleural effusion. The lungs are hyperexpanded with widening of the retrosternal airspace. There is nonspecific left basilar airspace consolidation. Areas of previously noted nodularity in the right upper lung are not well-seen on the current exam. IMPRESSION: 1. Findings of emphysema with nonspecific left basilar airspace consolidation. Bilateral interstitial opacities appear similar to recent exam. 2. Previously noted areas of nodularity in the right upper lung are not well seen on today's radiograph. Dictated by: Dictated on workstation # [id number]
[2016-11-01] MEDS ORDERED: PATIENT MAY USE OWN MEDS, ALL MC SCH (13:45)
[2016-11-01] MEDS: [UNRECOGNIZED DRUG - OTHER] OD SCH ×4 (14:26→20:12)
[2016-11-01] MEDS: LOTEMAX 0.5% OU SCH (14:28)
[2016-11-01] MEDS ORDERED: ENOXAPARIN 30 MG/0.3 ML (LOVENOX) SYR SC SCH (14:45)
--- NOTE | 2016-11-01 14:50 | Progress Note (SOAP) ---
Subjective Subjective/Events-last exam PT STATES THAT SHE IS FEELING BETTER TODAY. SHE REPORTS THAT SHE IS NOT HAVING ANY ABDOMINAL PAIN, NO DIZZINESS, NO CHEST PAIN. Review of Systems General: No Chills, Fatigue HEENT: No Head Aches Pulmonary: No Dyspnea, No Cough Gastrointestinal: No: Constipation, Nausea Genitourinary: No Dysuria Neurological: : Confusion: Weakness Objective Exam Vital Signs Date Time Temp Pulse Resp B/P Pulse Ox O2 Delivery O2 Flow Rate FiO2 11/01/16 11:41 99.9 95 20 105/51 92 Room Air 11/01/16 09:19 100.1 11/01/16 07:50 100.0 104 20 116/57 93 Room Air 11/01/16 04:00 99.2 84 21 102/61 94 Room Air 11/01/16 01:00 100 11/01/16 00:00 99.3 92 19 99/55 92 Room Air 10/31/16 20:30 92 Room Air 10/31/16 20:01 100.0 98 16 104/62 92 Room Air 10/31/16 19:00 101 10/31/16 16:00 99.8 93 20 107/61 97 Room Air I & O 11/01/16 07:00 Intake Total 1200 ml Output Total 100 ml Balance 1100 ml Capillary Refill : Less Than 3 Seconds General Appearance: No Apparent Distress WD/WN HEENT: PERRL/EOMI Pharynx Normal Neck: Full Range of Motion Supple Respiratory: Chest Non Tender Lungs Clear Normal Breath Sounds Cardiovascular: Regular Rate, Rhythm Gastrointestinal: normal bowel sounds non tender soft Extremity: Normal Capillary Refill No Calf Tenderness No Pedal Edema Neurologic/Psychiatric: Alert No Motor/Sensory Deficits Normal Mood/Affect Skin: Warm/Dry Lymphatic: No Adenopathy Results Lab Laboratory Tests 10/31/16 16:05: Troponin I < 0.30 10/31/16 22:00: Troponin I < 0.30 11/01/16 04:00: Troponin I < 0.30, Cholesterol Level 112, HDL Cholesterol 42, LDL Cholesterol Direct 56, Triglycerides Level 34, VLDL Cholesterol 7 11/01/16 11:15: Urine Bacteria FEWH, Urine Bilirubin NEGATIVE, Urine Casts NONE, Urine Clarity CLEAR, Urine Color YELLOW, Urine Crystals NONE, Urine Culture Indicated YES, Urine Glucose (UA) NEGATIVE, Urine Ketones NEGATIVE, Urine Leukocyte Esterase 1+ H, Urine Mucus NEGATIVE, Urine Nitrite NEGATIVE, Urine Protein 2+H, Urine RBC 0- 2, Urine RBC (Auto) 2+H, Urine Specific [place] 1.015L, Urine Squamous Epithelial Cells 25-50H, Urine Urobilinogen 1, Urine WBC 10-25H, Urine pH 5 Assessment/Plan Assessment/Plan Assess & Plan/Chief Complaint CHEST PAIN EPIGASTRIC DISCOMFORT ATRIAL FIBRILLATION CHRONIC ANTICOAGULATION ESOPHAGEAL REFLUX URINARY TRACT INFECTION CHEST PAIN - CONSULT TO DR. MONTEIRO - CHEST PAIN RESOLVED AND CARDIAC ENZYMES ARE NORMALIZED. EPIGASTRIC DISCOMFORT - RESTART PPI - START CARAFATE ATRIAL FIBRILLATION - PT ON DIGOXIN - CONTINUE - CHRONIC ANTICOAGULATION - CONTINUE WITH WARFARIN CHRONIC ANTICOAGULATION- CONTINUE WITH WARFARIN - CHECK INR TOMORROW. URINARY TRACT INFECTION - START ON LEVAQUIN ESOPHAGEAL REFLUX - RESTART PPI AND CARAFATE. Clinical Quality Measures AMI/AHF: ASA po Prior to arrival: Yes DVT/VTE Risk/Contraindication: Risk Factor Score Per Nursin RFS Level Per Nursing on Admit: 2=Moderate WEST LOPEZ MD Nov 01, 2016 14:50
[2016-11-01] MEDS ORDERED: LEVOFLOXACIN 500 MG/100 ML IV 100 ML IV SCH (15:00)
[2016-11-01 16:00] VITALS: BP 108/71
[2016-11-01] MEDS: ACETAMINOPHEN 500 MG TAB (TYLENOL) PO PRN (16:12)
[2016-11-01 20:00] VITALS: BP 103/67
[2016-11-01] MEDS: ATORVASTATIN 40 MG (LIPITOR) TABLET PO SCH (20:12)
[2016-11-02] VITALS: BP 96/63
[2016-11-02 04:00] VITALS: BP 100/70
[2016-11-02] MEDS: SUCRALFATE 1 GM (CARAFATE) TAB PO SCH ×4 (05:26→21:26)
[2016-11-02 05:53] LABS: MEAN PLATELET VOLUME 11.4 FL (7.4-10.4); RED BLOOD COUNT 4.15 10^6/uL (4.35-5.85); RED CELL DISTRIBUTION WIDTH 15.4 % (10.0-14.5); WHITE BLOOD COUNT 6.4 10^3/uL (4.3-11.0)
[2016-11-02 05:54] LABS: PROTHROMBIN TIME PATIENT 30.7 SEC (12.2-14.7)
[2016-11-02 06:16] LABS: ALANINE AMINOTRANSFERASE 26 U/L (0-55); ALBUMIN 2.6 G/DL (3.2-4.5); ANION GAP 9 MMOL/L (5-14); ASPARTATE AMINO TRANSFERASE 20 U/L (5-34); BILIRUBIN,TOTAL 1.1 MG/DL (0.1-1.0); BLOOD UREA NITROGEN 28 MG/DL (7-18); BUN/CREATININE RATIO 37; CARBON DIOXIDE 28 MMOL/L (21-32); CHLORIDE 104 MMOL/L (98-107); CREATININE SERUM 0.76 MG/DL (0.60-1.30); GFR ESTIMATED > 60; GLUCOSE 98 MG/DL (70-105); POTASSIUM 3.6 MMOL/L (3.6-5.0); SODIUM 141 MMOL/L (135-145); TOTAL PROTEIN 4.7 G/DL (6.4-8.2)
[2016-11-02] MEDS ORDERED: CATHETER FLUSH 10 ML SYR IV PRN (07:30)
[2016-11-02 08:00] VITALS: BP 110/67
[2016-11-02] MEDS: ASPIRIN 81 MG CHEW (CHILDREN'S ASA) PO SCH (09:37)
[2016-11-02] MEDS: PANTOPRAZOLE 40 MG (PROTONIX) TAB PO SCH ×2 (09:37→21:26)
[2016-11-02] MEDS: LOTEMAX 0.5% OU SCH (09:37)
[2016-11-02] MEDS: [UNRECOGNIZED DRUG - OTHER] OD SCH ×4 (09:39→21:32)
[2016-11-02] MEDS ORDERED: WARF-48 PO ×2 (11:32)
--- NOTE | 2016-11-02 11:50 | Physical Therapy Evaluation ---
PT Evaluation-General Medical Diagnosis Admission Date Oct 31, 2016 at 09:27 Medical Diagnosis: CP/possible angina Onset Date: Oct 31, 2016 Therapy Diagnosis Therapy Diagnosis: debility Height/Weight Height (Feet): 5 Height (Inches): 4.00 Weight (Pounds): 119 Weight (Ounces): 0.0 Precautions Precautions/Isolations: Fall Prevention, Standard Precautions Referral Physician: Richard Reason for Referral: Evaluation/Treatment Medical History Pertinent Medical History: Atrial Fib, CAD, Dementia, GERD, HTN Current History woke up with sharp CP Reviewed History: Yes Social History Home: Single Level Current Living Status: Other Family Prior/Core FIM Prior Level of Function Functional [place] Measure 0=Not Assessed/NA 4=Minimal Assistance 1=Total Assistance 5=Supervision or Setup 2=Maximal Assistance 6=Modified [place] 3=Moderate Assistance 7=Complete [place] Bed Mobility: 5 Transfers (B,C,W/C) (FIM): 5 Gait: 5 uses FWW at home PT Evaluation-Current Subjective Patient agrees to PT. Pain Numeric Pain Scale: 0-No Pain Location: No Pain Reported Objective Patient Orientation: Confused Problem Solving: Fair ROM/Strength ROM Lower Extremities bilateral LE WFL Strenght Lower Extremities bilateral LE WFL Integumentary/Posture Integumentary refer to nursing notes Bowel Incontinence: No Bladder Incontinence: No Posture slightly kyphotic Neuromuscular (Tone, Coordination, Reflexes) diminished coordination Sensory Vision: Functional Hearing: Impaired Sensation Right Lower Extremit: Intact Sensation Left Lower Extremity: Intact Transfers Functional [place] Measure 0=Not Assessed/NA 4=Minimal Assistance 1=Total Assistance 5=Supervision or Setup 2=Maximal Assistance 6=Modified [place] 3=Moderate Assistance 7=Complete [place] Transfers (B, C, W/C) (FIM): 5 Scootin Rollin Supine to/from Sit: 5 Sit to/from Stand: 5 Gait Mode of Locomotion: Walk Anticipated Mode of Locomotion: Walk Gait (FIM): 5 Distance (FIM): 3=150 ft Distance: 150' Gait Level of Assist: 5 Gait Persons Needed: 1 Gait Assistive Device: FWW Comments/Gait Description shuffle gait sequence with minimal foot clearance Balance Sitting Static: Normal Sitting Dynamic: Normal Standing Static: Normal Standing Dynamic: Good Assessment/Needs 86 y.o. female, will benefit from short term skilled PT to address functional strength and mobility to ensure safe return to home with family. Rehab Potential: Fair Post Rehab Potential-Barriers: dementia PT Alf Goals Pharmacist Goals PT Alf Goals Time Frame: Nov 06, 2016 Transfers (B,C,W/C) (FIM): 5 Gait (FIM): 5 Gait distance (FIM): 3=150 ft Distance: 200' Gait Level of Assist: 5 Gait Assistive Device: FWW PT Plan Problem List Problem List: Functional Strength, Safety, Gait Treatment/Plan Treatment Plan: Continue Plan of Care Treatment Plan: Bed Mobility, Education, Functional Activity Monty, Functional Strength, Gait, Safety, Therapeutic Exercise, Transfers Treatment Duration: Nov 06, 2016 # of days/week 5 Visits Per Week: 5 Pt/Family Agrees w/Plan: Yes Safety Risks/Education Patient Education: Safety Issues Teaching Recipient: Patient Teaching Methods: Discussion Response to Teaching: Reinforcement Needed Discharge Recommendations Therapy D/C Recommendations: Home w/ Family Support Time/GCodes Time In: 1051 Time Out: 1111 Total Billed Treatment Time: 20 Total Billed Treatment 1 visit EVLowC 20 min G Codes Necessary: Yes PT/OT Therapy GCodes Therapy Functional Limitation: Physical Therapy Test(s)/Tool used to determine: Level of Assistance Scale Functional Limitation-Current Charge Code: MOBCUR Modifier: CJ Functional Limitation-Goal Charge Code: MOBGOAL Modifier: COURTNEY DANG PT Nov 02, 2016 11:50
[2016-11-02 12:00] VITALS: BP 108/71
[2016-11-02] MEDS: CATHETER FLUSH 10 ML SYR IV SCH ×2 (13:35→22:00)
[2016-11-02] MEDS ORDERED: LEVOFLOXACIN 500 MG TAB (LEVAQUIN) PO SCH (15:00)
[2016-11-02] MEDS: DIGOXIN 0.25 MG (LANOXIN) TAB PO SCH (15:32)
[2016-11-02 16:08] VITALS: BP 96/54
--- NOTE | 2016-11-02 19:17 | Progress Note (SOAP) ---
Subjective Subjective/Events-last exam Fwup chest pain, chronic atrial fibrillation, GERD, weakness, UTI. No further CP. Has not been up to ambulate yet. Objective Exam Vital Signs Date Time Temp Pulse Resp B/P Pulse Ox O2 Delivery O2 Flow Rate FiO2 11/02/16 16:08 97.9 99 16 96/54 97 Room Air 11/02/16 13:00 100 11/02/16 12:00 98.5 88 16 108/71 95 Room Air 11/02/16 08:00 98.0 51 20 110/67 91 Room Air 11/02/16 07:00 105 11/02/16 04:00 99.1 106 18 100/70 92 Room Air 11/02/16 00:00 98.2 109 20 96/63 92 Room Air 11/01/16 20:00 98.6 91 20 103/67 94 Room Air I & O 11/02/16 07:00 Intake Total 940 ml Output Total 625 ml Balance 315 ml Capillary Refill : Less Than 3 Seconds General Appearance: No Apparent Distress Respiratory: Lungs Clear Cardiovascular: Systolic Murmur Irregularly Irregular Gastrointestinal: normal bowel sounds non tender soft Extremity: Non Tender No Calf Tenderness No Pedal Edema Neurologic/Psychiatric: Alert Results Lab Laboratory Tests 11/02/16 05:10: Alanine Aminotransferase (ALT/SGPT) 26, Albumin 2.6L, Alkaline Phosphatase 71, Anion Gap 9, Aspartate Amino Transf (AST/SGOT) 20, BUN/Creatinine Ratio 37, Blood Urea Nitrogen 28H, Calcium Level 8.0L, Carbon Dioxide Level 28, Chloride Level 104, Creatinine 0.76, Estimat Glomerular Filtration Rate > 60, Glucose Level 98, Hematocrit 38, Hemoglobin 11.8, INR Comment 3.0H, Mean Corpuscular Hemoglobin 28, Mean Corpuscular Hemoglobin Concent 32, Mean Corpuscular Volume 90, Mean Platelet Volume 11.4H, Platelet Count 116L, Potassium Level 3.6, Prothrombin Time 30.7H, Red Blood Count 4.15L, Red Cell Distribution Width 15.4H , Sodium Level 141, Total Bilirubin 1.1H, Total Protein 4.7L, White Blood Count 6.4 Microbiology 11/01/16 Urine Culture - Preliminary, Resulted NO GROWTH Assessment/Plan Assessment/Plan Assess & Plan/Chief Complaint 1. Chest Pain--resolved, appears noncardiac 2. Chronic Atrial Fibrillation--rate controlled 3. GERD--on protonix 4. UTI--on Levaquin 5. Weakness--start PT Clinical Quality Measures AMI/AHF: ASA po Prior to arrival: Yes DVT/VTE Risk/Contraindication: Risk Factor Score Per Nursin RFS Level Per Nursing on Admit: 2=Moderate KAT VIGIL DO Nov 02, 2016 19:17
[2016-11-02 20:08] VITALS: BP 115/56
[2016-11-02] MEDS: ATORVASTATIN 40 MG (LIPITOR) TABLET PO SCH (21:25)
[2016-11-03 00:10] VITALS: BP 114/56
[2016-11-03 04:00] VITALS: BP 97/67
[2016-11-03] MEDS: SUCRALFATE 1 GM (CARAFATE) TAB PO SCH ×2 (06:39→11:58)
[2016-11-03] MEDS: CATHETER FLUSH 10 ML SYR IV SCH (06:41)
[2016-11-03 08:04] VITALS: BP 109/74
[2016-11-03] MEDS ORDERED: MILK OF MAGNESIA 400 MG/5 ML 30 ML UDC PO NR (09:09)
[2016-11-03] MEDS ORDERED: SENNA W/DOCUSATE (SENOKOT S) TABLET PO NR (09:10)
[2016-11-03] MEDS: ASPIRIN 81 MG CHEW (CHILDREN'S ASA) PO SCH (09:15)
[2016-11-03] MEDS: PANTOPRAZOLE 40 MG (PROTONIX) TAB PO SCH (09:15)
[2016-11-03] MEDS: LOTEMAX 0.5% OU SCH (09:16)
[2016-11-03] MEDS: [UNRECOGNIZED DRUG - OTHER] OD SCH ×2 (09:16→12:57)
--- NOTE | 2016-11-03 09:26 | Discharge Inst-Simple/Standard ---
Discharge Inst-Standard Patient Instructions/Follow Up Plan of Care/Instructions/FU: Fwup 1 month Activity as Tolerated: Yes Discharge Diet: Low Sodium Diet, Cardiac Diet KAT VIGIL DO Nov 03, 2016 9:26 am
--- NOTE | 2016-11-03 11:58 | Physical Therapy Daily Note ---
PT Daily Note-Current Subjective Patient is in recliner, dressed and agrees to ambulate. Pain Numeric Pain Scale: 0-No Pain Location: No Pain Reported Mental Status Patient Orientation: Confused Transfers Functional [place] Measure 0=Not Assessed/NA 4=Minimal Assistance 1=Total Assistance 5=Supervision or Setup 2=Maximal Assistance 6=Modified [place] 3=Moderate Assistance 7=Complete IndependenceIRFPAI Quality Coding Scale 6 Independent with activity with or without an assistive device 5 Patient requires set up or clean up by helper. Patient completes activity by themselves 4 Supervision or touching assist (CGA). [place] provide cues , steadying assist 3 The helper provides less than half the effort to complete the activity 2 The helper provides more than half the effort to complete the activity 1 Dependent. The helper does all the effort to complete an activity 7 Patient refused to complete or attempt activity 9 The patient did not perform the activity before the current illness or injury 88 Not attempted due to Medical conditions or safety concerns Transfers (B, C, W/C) (FIM): 6 Scootin Sit to/from Stand: 6 Gait Training Gait (FIM): 6 Distance (FIM): 3=150 ft Distance: 350' Gait Level of Assist: 6 Gait Assistive Device: FWW steady; patient is easily distracted by environment Assessment Patient dismissing to home on this date with family. Goals met. 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 Goals PT Usp Goals Time Frame: Nov 06, 2016 Transfers (B,C,W/C) (FIM): 5 Gait (FIM): 5 Gait distance (FIM): 3=150 ft Distance: 200' Gait Level of Assist: 5 Gait Assistive Device: FWW PT Plan Treatment/Plan Treatment Plan: Discontinue PT Treatment Plan: Bed Mobility, Education, Functional Activity Monty, Functional Strength, Gait, Safety, Therapeutic Exercise, Transfers Treatment Duration: Nov 06, 2016 Visits Per Week: 5 Time/GCodes Time In: 1126 Time Out: 1134 Total Billed Treatment Time: 8 Total Billed Treatment 1 visit GT 8 min DC G Codes Necessary: Yes PT/OT Therapy GCodes Therapy Functional Limitation: Physical Therapy Test(s)/Tool used to determine: Level of Assistance Scale Functional Limitation-Current Charge Code: MOBCUR Modifier: CJ Functional Limitation-Goal Charge Code: MOBGOAL Modifier: CI Functional Limitation-D/C Charge Codes: [facility] Modifier: CI COURTNEY MARTINEZ PT Nov 03, 2016 11:57
[2016-11-03 12:58] VITALS: BP 112/55
--- NOTE | 2016-11-03 22:00 | Discharge Summary ---
Diagnosis/Chief Complaint Date of Admission Oct 31, 2016 at 11:30 am Date of Discharge Nov 03, 2016 at 1:15 pm Discharge Date: Nov 03, 2016 Admission Diagnosis Admission Diagnosis CHEST PAIN EPIGASTRIC DISCOMFORT ATRIAL FIBRILLATION CHRONIC ANTICOAGULATION ESOPHAGEAL REFLUX Discharge Diagnosis 1. Chest Pain--resolved, noncardiac in etiology, likely GI 2. GERD--stable 3. Chronic Atrial Fibrillation--rate controlled 4. Weakness--improving 5. Hypotension--stable Discharge Summary Hospital Course Hospital Course This is an 86 year old female admitted to [facility] with complaint of chest pain. She had no further chest pain after her hospital admission. She was seen by cardiology and it was felt that her chest pain was noncardiac in nature. She did have epigastric pain as well and was covered with protonix for GI etiology of her chest pain. She was also covered for a possible UTI but her urine culture was negative at the time of discharge. She remained in chronic atrial fibrillation with controlled rate. PT was started for gait and the patient was able to ambulate with a walker with frequent cues. It was decided she could be discharged home with homehealth for nursing and PT. Labs Laboratory Tests 10/31/16 22:00: 11/01/16 04:00: 11/01/16 11:15: Urine Bacteria FEWH, Urine Leukocyte Esterase 1+H, Urine Protein 2+H, Urine RBC (Auto) 2+H, Urine Specific [place] 1.015L, Urine Squamous Epithelial Cells 25- 50H, Urine WBC 10-25H 11/02/16 05:10: Albumin 2.6L, Blood Urea Nitrogen 28H, Calcium Level 8.0L, INR Comment 3.0H, Mean Platelet Volume 11.4H, Platelet Count 116L, Prothrombin Time 30.7H, Red Blood Count 4.15L, Red Cell Distribution Width 15.4H, Total Bilirubin 1.1H, Total Protein 4.7L Procedures None. Discharge Physical Examination Allergies: Coded Allergies: nitrofurantoin (Verified Allergy, Intermediate, 04/18/15) Penicillins (Verified Allergy, Mild, 04/18/15) Sulfa (Sulfonamide Antibiotics) (Verified Allergy, Mild, 04/18/15) omeprazole (Verified Allergy, Mild, 04/18/15) guaifenesin (Verified Allergy, Unknown, 04/18/15) potassium guaiacolsulfonate (Verified Allergy, Unknown, 04/18/15) celecoxib (Unverified Adverse Reaction, Unknown, SICK TO STOMACH, 04/18/15) rosuvastatin (Unverified Adverse Reaction, Unknown, NAUSEA, 04/18/15) Uncoded Allergies: Protoni (Allergy, Mild, 02/05/16) NOTE THAT PT TAKES PROTONIX AT HOME Vitals & I&Os Vital Signs Date Time Temp Pulse Resp B/P Pulse Ox O2 Delivery O2 Flow Rate FiO2 11/03/16 13:14 11/03/16 12:58 98.0 104 16 95 Room Air General Appearance: Alert, Cooperative, No Acute Distress Respiratory: Clear to Auscultation Cardiovascular: Other (irregularly irregular) Abdominal: Normal Bowel Sounds, Soft, No Tenderness Extremities: No Clubbing, No Cyanosis, No Edema Psych/Mental Status: Mood NL Discharge Home Medications Reviewed and agree with Discharge Medication list on patient's Discharge Instruction sheet Instructions to Patient/Family Please see electonic discharge instructions given to patient. Clinical Quality Measures AMI/AHF: ASA po Prior to arrival: Yes DVT/VTE Risk/Contraindication: Risk Factor Score Per Nursin RFS Level Per Nursing on Admit: 2=Moderate KAT VIGIL DO Nov 03, 2016 10:00 pm
[2016-11-13] MEDS ORDERED: MAGN400T6 PO (10:42)
[2016-11-13] MEDS ORDERED: ESCI10TA PO (10:46)
== END 2016-11-03 09:24 | disposition home health service (06) ==
LOC: EDUNIT# 07:40 → ER 07:41 → UNDOADMOB 09:27 → 4TH 09:27
PROVIDERS: ADMIT Family Medicine; ATTEND Family Medicine
DX: R07.89 Other chest pain (principal); K21.9 Gastro-esophageal reflux disease without esophagitis; I48.2 Chronic atrial fibrillation; R53.1 Weakness; I95.9 Hypotension, unspecified; I11.0 Hypertensive heart disease with heart failure; I50.9 Heart failure, unspecified; I05.0 Rheumatic mitral stenosis; I42.9 Cardiomyopathy, unspecified; I25.10 Atherosclerotic heart disease of native coronary artery without angina pectoris; I27.2 Other secondary pulmonary hypertension; E78.5 Hyperlipidemia, unspecified; I65.23 Occlusion and stenosis of bilateral carotid arteries; Z79.01 Long term (current) use of anticoagulants
CPT/HCPCS: 36415; 71010; 71020; 80053; 80061; 80162; 81000; 83735; 83874; 83880; 84484; 85025; 85027; 85379; 85610; 85730; 87088; 93005; 93041; G0378

== ENCOUNTER 2016-11-07 17:10 | Inpatient (IN) | payer MEDICARE, OTHER ==
[~2016-11-07] VITALS: Ht 170.2 cm; Wt 54.9 kg
[~2016-11-07 17:10] MED LIST changes: +DIFL5DRO OD; +HYDR12.56 PO; +HYPR10GE4 OD; +WARF-48 PO; +[UNRECOGNIZED DRUG - CODE] PO
--- OUTSIDE RECORDS SUMMARY | 2016-11-07 17:15 | XMS REPORT | Continuity of Care Document ---
Author Author [facility] Organization [facility] Address Unknown Phone Unavailable Care Team Providers Care Cook Box Filler Name Role Phone KAT VIGIL DO PCP Insurance Providers Payer Name Policy Number Subscriber Name Relationship [employer] [id number] Rishi Potter 19 Self / Same As Patient Comm Crossover Enter Ins Name [id number] Rishi Potter Self / Same As Patient Advance Directives Directive Response Recorded Date/Time Advance Directives Yes 08/26/16 1:00pm Health Care Power of Tile Ditcher No 08/26/16 1:00pm Organ Donor No 08/26/16 [...] Type Severity Reaction Status Last Updated Penicillins ([id number]) Allergy Mild Active 04/18/15 Sulfa (Sulfonamide Antibiotics) ([id number]) Allergy Mild Active guaifenesin ([id number]) Allergy Unknown Active 04/18/15 potassium guaiacolsulfonate Allergy Unknown Active 04/18/15 nitrofurantoin ([id number]) Allergy Intermediate Active 04/18/15 Omeprazole Allergy Mild Active 04/18/15 Celecoxib Adverse Reaction Unknown SICK TO STOMACH Active 04/18/15 Rosuvastatin Adverse Reaction Unknown NAUSEA Active 04/18/15 Protoni Allergy Mild Active 02/05/16 Immunizations No immunization records. Vital Signs Acute Vital Signs Vital Response Date/Time Temperature (Fahrenheit) 98.3 degrees F (97.6 - 99.5) 08/26/2016 12:52pm Temperature (Calculated Celsius) 36.87407 degrees C (36.4 - 37.5) 08/26/2016 12:52pm [...] 7.00 inches 08/26/2016 12:52pm Height (Calculated Centimeters) 170.831727 cm 08/26/2016 12:52pm Weight (Pounds) 119 pounds 08/26/2016 12:52pm Weight (Ounces) 0.0 oz 08/26/2016 12:52pm Weight (Calculated Grams) 08708.493 gm 08/26/2016 12:52pm Weight (Calculated Kilograms) 53.901475 kilograms 08/26/2016 12:52pm Calculated BMI 18.6 08/26/2016 12:52pm Capillary Refill Capillary Refill Less Than 3 Seconds 08/26/2016 12:52pm Results No known relevant diagnostic tests, laboratory data and/or discharge summary. Procedures No known history of procedures. Encounters Encounter Location Arrival/Admit Date Discharge/Depart Date Attending Provider Departed Emergency Room [facility] 08/26/16 12:30pm 2:32pm TENNILLE MCCRAY MD Recent Diagnosis
[2016-11-07 18:56] LABS: BASOPHILS % (AUTO) 0 % (0-10); EOSINOPHILS % (AUTO) 0 % (0-10); LYMPHOCYTES # (AUTO) 0.9 X 10^3 (1.0-4.0); LYMPHOCYTES % (AUTO) 10 % (12-44); MEAN CORPUSCULAR HEMOGLOBIN 29 PG (25-34); MEAN CORPUSCULAR HGB CONC 32 G/DL (32-36); MEAN CORPUSCULAR VOLUME 89 FL (80-99); MEAN PLATELET VOLUME 10.2 FL (7.4-10.4); MONOCYTES # (AUTO) 0.5 X 10^3 (0.0-1.0); MONOCYTES % (AUTO) 5 % (0-12); NEUTROPHILS # (AUTO) 7.2 X 10^3 (1.8-7.8); NEUTROPHILS % (AUTO) 84 % (42-75); PLATELET COUNT 168 10^3/uL (130-400); RED BLOOD COUNT 4.69 10^6/uL (4.35-5.85); RED CELL DISTRIBUTION WIDTH 15.1 % (10.0-14.5); WHITE BLOOD COUNT 8.5 10^3/uL (4.3-11.0)
[2016-11-07] MEDS ORDERED: NS IV 1000 ML 1,000 ML IV ONE (19:05)
[2016-11-07] MEDS ORDERED: fentaNYL INJECTION 100 MCG/2 ML AMP IVP ONE (19:15)
--- NOTE | 2016-11-07 19:15 | ED Abdominal Pain ---
General Chief Complaint: Abdominal/GI Problems Stated Complaint: STOMACH PAIN Nursing Triage Note: TO ER WITH COMPLAINTS OF MIDLINE ABDOMINAL PAIN SINCE THIS AFTERNOON. PATIENT WAS RECENTLY ADMITTED FOR UTI. PATIENT DENIES ANY FURTHER COMPLAINTS. Sepsis Screen: No Definite Risk Source of Information: Patient Exam Limitations: No Limitations History of Present Illness Time Seen By Provider: 18:20 Initial Comments This 86-year-old woman presents to the emergency room with complaints of upper abdominal pain starting this afternoon. She denies nausea, vomiting, diarrhea, constipation, or fever. She was recently discharged from the hospital after being evaluated for chest pain. She was admitted from October 31 through November 03. She was diagnosed with noncardiac chest pain thought to be of GI origin. She was started on Protonix. A stress test performed last April was negative. She denies any respiratory symptoms. She is a relatively poor historian and seems distracted by her pain. She requests DNR. Dr. Ramos is her primary care provider and Dr. 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 She has atrial fibrillation and is on warfarin for anticoagulation. Allergies and Home Medications Allergies Coded Allergies: nitrofurantoin (Verified Allergy, Intermediate, 04/18/15) Penicillins (Verified Allergy, Mild, 04/18/15) Sulfa (Sulfonamide Antibiotics) (Verified Allergy, Mild, 04/18/15) omeprazole (Verified Allergy, Mild, 04/18/15) guaifenesin (Verified Allergy, Unknown, 04/18/15) potassium guaiacolsulfonate (Verified Allergy, Unknown, 04/18/15) celecoxib (Unverified Adverse Reaction, Unknown, SICK TO STOMACH, 04/18/15) rosuvastatin (Unverified Adverse Reaction, Unknown, NAUSEA, 04/18/15) Uncoded Allergies: Protoni (Allergy, Mild, 02/05/16) NOTE THAT PT TAKES PROTONIX AT HOME Home Medications Acetaminophen 500 Mg Tablet 500 MG PO Q4H PRN PRN PAIN (Reported) Atorvastatin Calcium 40 Mg Tablet 40 MG PO HS (Reported) Calcium Carbonate/Vitamin D3 1 Each Tablet 1 TAB PO BID (Reported) Difluprednate 5 Ml Drops 1 DROP OD UD (Reported) 1 DROP OD TID X 7 DAYS, 1 DROP OD BID X 7, THEN 1 DROP OD DAILY X 7 PATIENT STATES THAT SHE SHOULD START HER 1 DROP OD DAILY SCHEDULE TOMORROW. Digoxin 250 Mcg Tablet 250 MCG PO Q48H (Reported) Hydrochlorothiazide 12.5 Mg Tablet 12.5 MG PO Q48HRS (Reported) Hypromellose 10 Gm Gel..gram. 1 DROP OD QID (Reported) Loteprednol Etabonate 5 Ml Drops 1 DROP OU DAILY (Reported) [place] 3 Polyunsat Fatty Acids 1,000 Mg Cap 1,000 MG PO TID (Reported) Pantoprazole Sodium 40 Mg Tablet.dr 40 MG PO BID (Reported) Phenazopyrid/Cran/Vit C/B.coag 1 Each Tablet 2 TAB PO DAILY@1200 (Reported) Warfarin Sodium 5 Mg Tablet 7.5 MG PO Tu (Reported) TAKES 1 & 1/2 OF A (5 MG) TABLET Warfarin Sodium 5 Mg Tablet 5 MG PO SuMoWe (Reported) Review of Systems Constitutional: no symptoms reported EENTM: No Symptoms Reported Respiratory: No Symptoms Reported Cardiovascular: No Symptoms Reported Gastrointestinal: See HPI Genitourinary: No Symptoms Reported Musculoskeletal: no symptoms reported Skin: no symptoms reported Psychiatric/Neurological: No Symptoms Reported Endocrine: No Symptoms Reported Past Epvprbq-Xuanxt-Fugwll Hx Patient Social History Alcohol Use: Denies Use Recreational Drug Use: No Smoking Status: Never a Smoker 2nd Hand Smoke Exposure: Yes Recent Foreign Travel: No Contact w/Someone Who Travel: No Recent Infectious Disease Expo: No Recent Hopitalizations: Yes Immunizations Up To Date Tetanus Booster (TDap): Less than 5yrs PED Vaccines UTD: No Date of Pneumonia Vaccine: Aug 30, 2015 Date of Influenza Vaccine: Jun 12, 2012 Seasonal Allergies Seasonal Allergies: No Surgeries HX Surgeries: Yes (FISTULA REPAIR,CORNEA TRANSPLANT,CARDIAC CATH,SKYLAR W/ PERF ESOPHAGUS/REPAIR ) Surgeries: Abdominal, Cardiac, Eye Surgery, Gallbladder, Hysterectomy, Tracheostomy Respiratory Hx Respiratory Disorders: Yes (RESP.FAILURE-TRACH/VENTILATOR/REMOVAL, CHEST TUBE/REMOVAL) Respiratory Disorders: Pneumonia Cardiovascular Hx Cardiac Disorders: Yes (CHF) Cardiac Disorders: Atrial Fibrillation, Cardiomyopathy, Coronary Artery Disease , High Cholesterol, Hypertension, Irregular Heartbeat Neurological Hx Neurological Disorders: Yes (DENIES, BUT HAS PARESTHESIAS TO TOES) Reproductive System Hx Reproductive Disorders: No Sexually Transmitted Disease: No HIV/AIDS: No Female Reproductive Disorders: 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, Menopausal Genitourinary Hx Genitourinary Disorders: Yes Genitourinary Disorders: UTI-Chronic Gastrointestinal Hx Gastrointestinal Disorders: Yes (PERFORATED ESOPHAGUS/REPAIR, G-TUBE/ REMOVAL,DYSPHAGIA) Gastrointestinal Disorders: Gastroesophageal Reflux, Polyps Musculoskeletal Hx Musculoskeletal Disorders: Yes (WALKS WITH WALKER) Musculoskeletal Disorders: Osteoporosis, Arthritis, Chronic Back Pain Endocrine Hx Endocrine Disorders: No HEENT HX ENT Disorders: Yes HEENT Disorders: Cataract, Eye Injury Loss of Vision: Bilateral Hearing Impairment: Hard of Hearing, Bilateral Hearing Aide Cancer Hx Cancer: No Psychosocial Hx Psychiatric Problems: No Integumentary HX Skin/Integumentary Disorder: No Blood Transfusions Hx Blood Disorders: No Adverse Reaction to a Blood Tr: No Family Medical History Significant Family History: Cancer Family Medial History: FH: arrhythmia FH: breast cancer Physical Exam Vital Signs VS - Last 72 Hours, by Label 11/07/16 11/07/16 18:40 19:12 Temp 98.5 98.5 Pulse 99 Resp 18 B/P 149/100 Pulse Ox 94 O2 Delivery Room Air Capillary Refill : Less Than 3 Seconds General Appearance: WD/WN moderate distress HEENT: PERRL/EOMI normal ENT inspection other (oropharynx dry.) Neck: normal inspection Respiratory: lungs clear normal breath sounds no respiratory distress no accessory muscle use Cardiovascular: regular rate, rhythm no edema no murmur Gastrointestinal: normal bowel sounds soft tenderness (epigastrium and central abdomen) Extremities: normal inspection no pedal edema Neurologic/Psychiatric: 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 tested no motor/sensory deficits alert oriented x 3 other ([place] somewhat dulled) Skin: normal color warm/dry Date of ETT Placement: Feb 07, 2016 Time of ETT Placement: 1710 Progress/Results/Core Measures Results/Orders Lab Results Laboratory Tests Test 11/07/16 18:47 11/07/16 20:28 Range/Units Activated Partial Thromboplast Time 33 24-35 SEC Alanine Aminotransferase (ALT/SGPT) 42 0-55 U/L Albumin 3.3 3.2-4.5 G/DL Alkaline Phosphatase 79 40-136 U/L Anion Gap 12 5-14 MMOL/L Aspartate Amino Transf (AST/SGOT) 29 5-34 U/L BUN/Creatinine Ratio 29 Basophils # (Auto) 0.0 0.0-0.1 10^3/uL Basophils (%) (Auto) 0 0-10 % Blood Urea Nitrogen 23 H 7-18 MG/DL Calcium Level 8.8 8.5-10.1 MG/DL Carbon Dioxide Level 28 21-32 MMOL/L Chloride Level 103 98-107 MMOL/L Creatinine 0.79 0.60-1.30 MG/DL Eosinophils # (Auto) 0.0 0.0-0.3 10^3/uL Eosinophils (%) (Auto) 0 0-10 % Estimat Glomerular Filtration Rate > 60 Glucose Level 109 H 70-105 MG/DL Hematocrit 42 35-52 % Hemoglobin 13.4 11.5-16.0 G/DL INR Comment 2.2 H 0.8-1.4 Lipase 19 8-78 U/L Lymphocytes # (Auto) 0.9 L 1.0-4.0 X 10^3 Lymphocytes (%) (Auto) 10 L 12-44 % Mean Corpuscular Hemoglobin 29 25-34 PG Mean Corpuscular Hemoglobin Concent 32 32-36 G/DL Mean Corpuscular Volume 89 80-99 FL Mean Platelet Volume 10.2 7.4-10.4 FL Monocytes # (Auto) 0.5 0.0-1.0 X 10^3 Monocytes (%) (Auto) 5 0-12 % Neutrophils # (Auto) 7.2 1.8-7.8 X 10^3 Neutrophils (%) (Auto) 84 H 42-75 % Platelet Count 168 130-400 10^3/uL Potassium Level 3.9 3.6-5.0 MMOL/L Prothrombin Time 24.6 H 12.2-14.7 SEC Red Blood Count 4.69 4.35-5.85 10^6/uL Red Cell Distribution Width 15.1 H 10.0-14.5 % Sodium Level 143 135-145 MMOL/L Total Bilirubin 0.7 0.1-1.0 MG/DL Total Protein 5.7 L 6.4-8.2 G/DL White Blood Count 8.5 4.3-11.0 10^3/uL Urine Bacteria TRACE /HPF Urine Bilirubin NEGATIVE NEGATIVE Urine Casts NONE /LPF Urine Clarity SLIGHTLY CLOUDY Urine Color YELLOW Urine Crystals NONE /LPF Urine Culture Indicated YES Urine Glucose (UA) NEGATIVE NEGATIVE Urine Ketones NEGATIVE NEGATIVE Urine Leukocyte Esterase 2+ H NEGATIVE Urine Mucus MODERATE H /LPF Urine Nitrite NEGATIVE NEGATIVE Urine Protein 1+ H NEGATIVE Urine RBC NONE /HPF Urine RBC (Auto) 1+ H NEGATIVE Urine Specific [place] 1.020 1.016-1.022 Urine Squamous Epithelial Cells 5-10 /HPF Urine Urobilinogen NORMAL NORMAL MG/DL Urine WBC 25-50 H /HPF Urine pH 5 5-9 My Orders Orders-MADDIE KAYE MD Cbc With Automated Diff (11/07/16 18:20) Comprehensive Metabolic Panel (11/07/16 18:20) Lipase (11/07/16 18:20) Ua Culture If Indicated (11/07/16 18:20) Saline Lock/Iv-Start (11/07/16 18:20) Fentanyl Injection (Sublimaze Injection (11/07/16 19:15) Ns Iv 1000 Ml (Sodium Chloride 0.9%) (11/07/16 19:05) Protime With Inr (11/07/16 19:15) Partial Thromboplastin Time (11/07/16 19:15) Ct Abdomen/Pelvis W (11/07/16 19:35) Iohexol Injection (Omnipaque 350 Mg/Ml 1 (11/07/16 20:00) Ns (Ivpb) (Sodium Chloride 0.9% Ivpb Bag (11/07/16 20:00) Urine Culture (11/07/16 20:28) Meropenem (Merrem 500 Mg) (11/07/16 21:00) Sodium Chloride (Add-[place]) (Ns (Add-V (11/07/16 20:53) Meropenem (Merrem 500 Mg) (11/07/16 20:53) Famotidine Injection (Pepcid Injection) (11/07/16 21:15) Magnesium (11/07/16 21:10) Medications Given in ED Current Medications Medications Dose Ordered Sig/Daniella Route Start Time Stop Time Status Last Admin Dose Admin Fentanyl Citrate 25 mcg 25 mcg ONCE ONCE IVP 11/07/16 19:15 11/07/16 19:16 DC 11/07/16 19:12 25 MCG Iohexol 100 ml ONCE ONCE IV 11/07/16 20:00 11/07/16 20:01 DC 11/07/16 20:00 100 ML Meropenem/Sodium Chloride 100 ml @ 200 mls/hr ONCE ONCE IV 11/07/16 21:00 11/07/16 21:29 11/07/16 21:00 200 MLS/HR Sodium Chloride 1,000 ml @ 0 mls/hr Q0M ONCE IV 11/07/16 19:05 11/07/16 19:06 DC 11/07/16 19:12 0 MLS/HR Sodium Chloride 100 ml 100 ml ONCE ONCE IV 11/07/16 20:00 11/07/16 20:01 DC 11/07/16 20:00 80 ML Vital Signs/I&O Vital Sign - Last 12Hours 11/07/16 11/07/16 18:40 19:12 Temp 98.5 98.5 Pulse 99 Resp 18 B/P 149/100 Pulse Ox 94 O2 Delivery Room Air Blood Pressure Mean: 116 Progress Note #1: Progress Note Patient was treated with fentanyl for pain. A liter of normal saline was infused. CT scan was performed with contrast that showed ileus versus early small bowel obstruction. Progress Note #2: Time: 21:13 Progress Note Case was discussed with Evan Shell who is agreeable to admission. He agrees with treatment of urinary tract infection with meropenem. Meropenem was selected because of penicillin allergy. Fluoroquinolones were avoided because of age and use of warfarin. Dr. Shell requested consultation with surgery. Dr. Landis was contacted and is agreeable to consultation. He requested a magnesium level be checked and a 2 view abdominal x-ray be performed in the morning. He requested only ice chips for diet and GI prophylaxis with antacids. Pepcid and Protonix were ordered. Patient remains comfortable after receiving fentanyl. Meropenem and Pepcid were administered in the ER. Diagnostic Imaging Diagonstic Imaging: CT Plain Films/CT/US/NM/MRI: abdomen, pelvis Comments CT abdomen and pelvis viewed by me and report reviewed. See report below: NAME: RISHI CHILEL [facility] REC#: [id number] PT STATUS: REG ER : 1930 PHYSICIAN: MADDIE KAYE MD ADMIT DATE: 11/07/16/ER Draft Date of Exam:11/07/16 CT ABDOMEN/PELVIS W PROCEDURE: CT abdomen and pelvis with contrast. TECHNIQUE: Multiple contiguous axial images were obtained through the abdomen and pelvis after administration of intravenous contrast. Indication: Severe midabdominal pain starting today. Comparison: 02/04/2016. Discussion: Subsegmental atelectasis present within the bilateral lung bases. Cardiomegaly is stable. Small bilateral pleural effusions are present. Mild ascites is present. The liver, pancreas, spleen, stomach, and adrenal glands are unremarkable. Exophytic left renal cyst is stable. 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 No renal stone or hydronephrosis. The uterus is surgically absent. The urinary bladder is unremarkable. There are multiple fluid-filled small bowel loops noted throughout the abdomen. There is additional gas and stool noted within the colon. Findings are nonspecific and could represent adynamic ileus or early or partial small bowel obstruction. The distal most small bowel loops are not completely decompressed though are less dilated than the more proximal small bowel. Recommend continued radiographic followup. The abdominal aorta is normal in caliber. No pneumatosis or pneumoperitoneum. No pathologically enlarged lymph nodes identified. No acute osseous abnormality identified. Impression: 1. Abnormal small bowel gas pattern is nonspecific. There is gas and stool within the colon. Findings could represent adynamic ileus or early or partial small bowel obstruction. Recommend continued followup. No free air. 2. Mild ascites. 3. Small bilateral pleural effusions. 4. Cardiomegaly. Dictated on workstation # [id number] Dict: 11/07/162027 Trans: 11/07/162036 [facility] [id number] Interpreted by: KUMAR AVELAR MD Departure Communication Communication Dr. Evan Shell Communication/Consulting Dr. Landis Impression Impression: Primary Impression: Upper abdominal pain Additional Impressions: Ileus Urinary tract infection Qualified Code: N39.0 - Urinary tract infection, site not specified Disposition: ADMITTED INPATIENT Condition: Improved Time/Decision to Admit Time: 20:45 Departure-Patient Inst. Referrals: KAT RAMOS DO (PCP/Family) Primary Care Physician MADDIE KAYE MD Nov 07, 2016 19:15
[2016-11-07 19:19] LABS: ALANINE AMINOTRANSFERASE 42 U/L (0-55); ALBUMIN 3.3 G/DL (3.2-4.5); ANION GAP 12 MMOL/L (5-14); ASPARTATE AMINO TRANSFERASE 29 U/L (5-34); BILIRUBIN,TOTAL 0.7 MG/DL (0.1-1.0); BLOOD UREA NITROGEN 23 MG/DL (7-18); BUN/CREATININE RATIO 29; CALCIUM 8.8 MG/DL (8.5-10.1); CARBON DIOXIDE 28 MMOL/L (21-32); CHLORIDE 103 MMOL/L (98-107); CREATININE SERUM 0.79 MG/DL (0.60-1.30); GFR ESTIMATED > 60; GLUCOSE 109 MG/DL (70-105); LIPASE 19 U/L (8-78); POTASSIUM 3.9 MMOL/L (3.6-5.0); SODIUM 143 MMOL/L (135-145); TOTAL PROTEIN 5.7 G/DL (6.4-8.2)
[2016-11-07 19:35] LABS: INR 2.2 (0.8-1.4); PROTHROMBIN TIME PATIENT 24.6 SEC (12.2-14.7)
[2016-11-07] MEDS ORDERED: NS 100 ML (IVPB) BAG IV ONE (20:00)
[2016-11-07] MEDS ORDERED: IOHEXOL 350 MG/ML 100 ML (OMNIPAQUE 350) VIAL IV ONE (20:00)
[2016-11-07 20:32] LABS: BILIRUBIN,URINE NEGATIVE (NEGATIVE); KETONES,URINE NEGATIVE (NEGATIVE); LEUKOCYTE ESTERASE ,URINE 2+ (NEGATIVE); NITRITE,URINE NEGATIVE (NEGATIVE); PH,URINE 5 (5-9); PROTEIN,URINE 1+ (NEGATIVE); UROBILINOGEN,URINE NORMAL (NORMAL)
--- NOTE | 2016-11-07 20:37 | Diagnostic Imaging Report ---
PROCEDURE: CT abdomen and pelvis with contrast. TECHNIQUE: Multiple contiguous axial images were obtained through the abdomen and pelvis after administration of intravenous contrast. Indication: Severe midabdominal pain starting today. Comparison: 02/04/2016. Discussion: Subsegmental atelectasis present within the bilateral lung bases. Cardiomegaly is stable. Small bilateral pleural effusions are present. Mild ascites is present. The liver, pancreas, spleen, stomach, and adrenal glands are unremarkable. Exophytic left renal cyst is stable. 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 No renal stone or hydronephrosis. The uterus is surgically absent. The urinary bladder is unremarkable. There are multiple fluid-filled small bowel loops noted throughout the abdomen. There is additional gas and stool noted within the colon. Findings are nonspecific and could represent adynamic ileus or early or partial small bowel obstruction. The distal most small bowel loops are not completely decompressed though are less dilated than the more proximal small bowel. Recommend continued radiographic followup. The abdominal aorta is normal in caliber. No pneumatosis or pneumoperitoneum. No pathologically enlarged lymph nodes identified. No acute osseous abnormality identified. Impression: 1. Abnormal small bowel gas pattern is nonspecific. There is gas and stool within the colon. Findings could represent adynamic ileus or early or partial small bowel obstruction. Recommend continued followup. No free air. 2. Mild ascites. 3. Small bilateral pleural effusions. 4. Cardiomegaly. Dictated by: Dictated on workstation # [id number]
[2016-11-07 20:45] LABS: WBC,URINE 25-50 /HPF
[2016-11-07] MEDS ORDERED: SODIUM CHLORIDE (ADD-VANTAGE) 100 ML IV ONE (20:53)
[2016-11-07] MEDS ORDERED: MEROPENEM 500 MG VIAL (MERREM) IV ONE (20:53)
[2016-11-07] MEDS ORDERED: MEROPENEM 500 MG in NS (IVPB) 100 ML IV ONE (21:00)
[2016-11-07] MEDS ORDERED: FAMOTIDINE 20MG/2ML IV (PEPCID) IVP ONE (21:15)
[2016-11-07] MEDS ORDERED: ONDANSETRON 4 MG/2 ML (SDV) Z0FRAN ONE (22:25)
[2016-11-07 22:35] VITALS: BP 124/69
[2016-11-07] MEDS ORDERED: MAGNESIUM 1 GM/D5W 100 ML IVPB IV ONE (23:15)
[2016-11-07] MEDS ORDERED: ONDANSETRON 4 MG/2 ML (SDV) Z0FRAN IV PRN (23:15)
[2016-11-07] MEDS ORDERED: fentaNYL INJECTION 100 MCG/2 ML AMP IV PRN (23:15)
[2016-11-07] MEDS: D5 1/2 NS W/KCL 20 MEQ/L 1,000 ML IV SCH (23:31)
[2016-11-07] MEDS: PANTOPRAZOLE 40 MG/10 ML (PROTONIX) VIAL IV SCH (23:31)
[2016-11-08] VITALS: BP 131/84
[2016-11-08 04:00] VITALS: BP 106/60
[2016-11-08 05:35] LABS: BASOPHILS % (AUTO) 0 % (0-10); EOSINOPHILS % (AUTO) 0 % (0-10); LYMPHOCYTES # (AUTO) 0.8 X 10^3 (1.0-4.0); LYMPHOCYTES % (AUTO) 10 % (12-44); MEAN CORPUSCULAR HEMOGLOBIN 28 PG (25-34); MEAN CORPUSCULAR HGB CONC 31 G/DL (32-36); MEAN CORPUSCULAR VOLUME 91 FL (80-99); MONOCYTES # (AUTO) 0.3 X 10^3 (0.0-1.0); MONOCYTES % (AUTO) 4 % (0-12); NEUTROPHILS # (AUTO) 6.7 X 10^3 (1.8-7.8); NEUTROPHILS % (AUTO) 86 % (42-75); PLATELET COUNT 140 10^3/uL (130-400); RED BLOOD COUNT 4.02 10^6/uL (4.35-5.85); WHITE BLOOD COUNT 7.8 10^3/uL (4.3-11.0)
[2016-11-08] MEDS: MEROPENEM 500 MG/NS 100 ML IVPB IV SCH ×6 (05:48→20:01)
[2016-11-08 06:01] LABS: ALANINE AMINOTRANSFERASE 31 U/L (0-55); ALBUMIN 2.6 G/DL (3.2-4.5); ANION GAP 7 MMOL/L (5-14); ASPARTATE AMINO TRANSFERASE 24 U/L (5-34); BILIRUBIN,TOTAL 0.5 MG/DL (0.1-1.0); BLOOD UREA NITROGEN 17 MG/DL (7-18); BUN/CREATININE RATIO 23; CALCIUM 7.7 MG/DL (8.5-10.1); CARBON DIOXIDE 30 MMOL/L (21-32); CHLORIDE 107 MMOL/L (98-107); CREATININE SERUM 0.74 MG/DL (0.60-1.30); GFR ESTIMATED > 60; GLUCOSE 126 MG/DL (70-105); LIPASE 22 U/L (8-78); SODIUM 144 MMOL/L (135-145); TOTAL PROTEIN 4.4 G/DL (6.4-8.2)
[2016-11-08] MEDS ORDERED: FLU TRIvalent (5 YOA+) 2016-17 (AFLURIA) 0.5 ML IM ONE (07:30)
[2016-11-08 08:00] VITALS: BP 101/69
[2016-11-08] MEDS: FAMOTIDINE 20MG/2ML IV (PEPCID) IVP SCH ×2 (09:47→20:01)
--- NOTE | 2016-11-08 10:44 | History & Physicial ---
History of Present Illness History of Present Illness Reason for visit/HPI cc: severe abdominal pain 86 yo F admitted for concern for ileus vs early pSBO- Onset was earlier in the day of 11/07/16. Pt was actually recently discharged from [facility]16 for chest discomfort due to GERD. Current pain is severe in mid-abdomen- Denies hematoemesis or hematochezia. Pt this AM reports feeling a little better. She denies flatus or BM. She was asleep when I talked with her and was not very conversant. Fentanyl is controlling her pain but also makes her drowsy. IVF started, ice chips for po. Pt also noted to have UTI, culture pending - ED started her on meropenem due to penicillin/sulfa/macrobid allergy. Pt has history of afib with INR 2.[address] Landis consulted. no significant number of abdominal surgeries. Date of Admission Nov 07, 2016 at 21:41 I consulted on this patient on 11/08/16 10:38 Attending Physician Peace Ramos DO Admitting Physician Evan Arzola MD Consult Dr. Landis Allergies and Home Medications Allergies Coded Allergies: nitrofurantoin (Verified Allergy, Intermediate, 04/18/15) Penicillins (Verified Allergy, Mild, 04/18/15) Sulfa (Sulfonamide Antibiotics) (Verified Allergy, Mild, 04/18/15) omeprazole (Verified Allergy, Mild, 04/18/15) guaifenesin (Verified Allergy, Unknown, 04/18/15) potassium guaiacolsulfonate (Verified Allergy, Unknown, 04/18/15) celecoxib (Unverified Adverse Reaction, Unknown, SICK TO STOMACH, 04/18/15) rosuvastatin (Unverified Adverse Reaction, Unknown, NAUSEA, 04/18/15) Uncoded Allergies: Protoni (Allergy, Mild, 02/05/16) NOTE THAT PT TAKES PROTONIX AT HOME Home Medications Acetaminophen 500 Mg Tablet 500 MG PO Q4H PRN PRN PAIN (Reported) Atorvastatin Calcium 40 Mg Tablet 40 MG PO HS (Reported) Calcium Carbonate/Vitamin D3 1 Each Tablet 1 TAB PO BID (Reported) Difluprednate 5 Ml Drops 1 DROP OD UD (Reported) 1 DROP OD TID X 7 DAYS, 1 DROP OD BID X 7, THEN 1 DROP OD DAILY X 7 PATIENT STATES THAT SHE SHOULD START HER 1 DROP OD DAILY SCHEDULE TOMORROW. Digoxin 250 Mcg Tablet 250 MCG PO Q48H (Reported) Hydrochlorothiazide 12.5 Mg Tablet 12.5 MG PO Q48HRS (Reported) Hypromellose 10 Gm Gel..gram. 1 DROP OD QID (Reported) Loteprednol Etabonate 5 Ml Drops 1 DROP OU DAILY (Reported) [place] 3 Polyunsat Fatty Acids 1,000 Mg Cap 1,000 MG PO TID (Reported) Pantoprazole Sodium 40 Mg Tablet.dr 40 MG PO BID (Reported) Phenazopyrid/Cran/Vit C/B.coag 1 Each Tablet 2 TAB PO DAILY@1200 (Reported) Warfarin Sodium 5 Mg Tablet 7.5 MG PO Tu (Reported) TAKES 1 & 1/2 OF A (5 MG) TABLET Warfarin Sodium 5 Mg Tablet 5 MG PO SuMoWe (Reported) Past Lpluivg-Vlbrag-Bijfcp Hx Patient Social History Alcohol Use: Denies Use Recreational Drug Use: No Smoking Status: Never a Smoker 2nd Hand Smoke Exposure: Yes Physical Abuse Screen: No Sexual Abuse: No Recent Foreign Travel: No Contact w/other who traveled: No Recent Hopitalizations: Yes Recent Infectious Disease Expo: No Immunizations Up To Date Tetanus Booster (TDap): Less than 5yrs Date of Pneumonia Vaccine: Aug 30, 2015 Date of Influenza Vaccine: Jun 12, 2012 Seasonal Allergies Seasonal Allergies: No Surgeries HX Surgeries: Yes (FISTULA REPAIR,CORNEA TRANSPLANT,CARDIAC CATH,SKYLAR W/ PERF ESOPHAGUS/REPAIR ) Surgeries: Abdominal, Cardiac, Eye Surgery, Gallbladder, Hysterectomy, Tracheostomy Respiratory Hx Respiratory Disorders: Yes (RESP.FAILURE-TRACH/VENTILATOR/REMOVAL, CHEST TUBE/REMOVAL) Cardiovascular Hx Cardiovascular Disorders: Yes (CHF) Cardiac Disorders: Atrial Fibrillation, Cardiomyopathy, Coronary Artery Disease , High Cholesterol, Hypertension, Irregular Heartbeat Neurological Hx Neurological Disorders: Yes (DENIES, BUT HAS PARESTHESIAS TO TOES) Reproductive System Hx Reproductive Disorders: No Sexually Transmitted Disease: No HIV/AIDS: No Female Reproductive Disorders: Denies Genitourinary Hx Genitourinary Disorders: Yes Genitourinary Disorders: UTI-Chronic Gastrointestinal Hx Gastrointestinal Disorders: Yes (PERFORATED ESOPHAGUS/REPAIR, G-TUBE/ REMOVAL,DYSPHAGIA) Gastrointestinal Disorders: Gastroesophageal Reflux, Polyps Musculoskeletal Hx Musculoskeletal Disorders: Yes (WALKS WITH WALKER) Musculoskeletal Disorders: Osteoporosis, Arthritis, Chronic Back Pain Endocrine Hx Endocrine Disorders: No HEENT HX ENT Disorders: Yes HEENT Disorders: Cataract, Eye Injury Loss of Vision: Bilateral Hearing Impairment: Hard of Hearing, Bilateral Hearing Aide Cancer Hx Cancer: No Psychosocial Hx Psychiatric Problems: No Behavioral Health Disorders: Depression Integumentary HX Skin/Integumentary Disorder: No Blood Transfusions Hx Blood Disorders: No Adverse Reaction to a Blood Tr: No Family Medical History Significant Family History: Cancer Family Hx: FH: arrhythmia FH: breast cancer Constitutional: No chills, No diaphoresis EENTM: No eye pain Respiratory: No cough, No dyspnea on exertion Cardiovascular: No chest pain Gastrointestinal: abdominal painNo hematemesis, heartburnNo melena, No nausea , No vomiting Genitourinary: No dysuria Musculoskeletal: No back pain, No joint pain Skin: no symptoms reported Psychiatric/Neurological: Denies Anxiety, Denies Depressed Physical Exam Vital Signs Vital Sign - Last 12Hours 11/07/16 11/07/16 18:40 22:30 Temp 98.5 Pulse 99 Resp 18 B/P 149/100 Pulse Ox 94 O2 Delivery Room Air O2 Flow Rate 2.00 Capillary Refill : Less Than 3 Seconds General Appearance: No Apparent Distress (sleeping) HEENT: PERRL/EOMI Neck: Non Tender Supple Respiratory: Chest Non Tender Lungs Clear Cardiovascular: Regular Rate, Rhythm Gastrointestinal: Non Tender Soft Abnormal Bowel Sounds (hypoactive) Distended (slight)No Guarding Rectal: Deferred Back: No CVA Tenderness Extremity: Non Tender Pedal Edema (1+, venous stasis) Neurologic/Psychiatric: Normal Mood/Affect Other (sleeping, awakens to talk but was ready to go back to sleep after I examined her.) Skin: Warm/Dry Assessment/Plan Assessment and Plan 86 yo F admitted 11/07/16 Abdominal pain secondary to ileus vs early pSBO- diffuse- bowel rest, IVF, pain control (fentanyl 25mcg q4hr prn)- Dr. Landis consulted urinary tract infection- culture pending, meropenem. was on levofloxacin for UTI 11/02/16 Atrial Fibrillation- INR 2.2- follows with Dr Menon. rechecking INR in AM. resume warfarin for now. continue digoxin HTN- cont hctz GERD- continue PPI hypomagnesemia- rechecking in AM Dispo: urine culture pending, tincture time to see if her bowels improve. Clinical Quality Measures DVT/VTE Risk/Contraindication: Risk Factor Score Per Nursin RFS Level Per Nursing on Admit: 3=High EVAN ARZOLA MD Nov 08, 2016 10:44
[2016-11-08] MEDS: D5 1/2 NS W/KCL 20 MEQ/L 1,000 ML IV SCH ×3 (11:09→23:34)
[2016-11-08] MEDS: DIGOXIN 0.25 MG (LANOXIN) TAB PO SCH (11:10)
[2016-11-08 12:00] VITALS: BP 128/67
--- NOTE | 2016-11-08 12:36 | CONSULTATION REPORT ---
DATE OF ADMISSION: 11/07/2016 DATE OF CONSULTATION: 11/08/2016 ATTENDING PRIMARY CARE PHYSICIAN: Dr. Peace Ramos. ADMITTING PHYSICIAN: Dr. Evan Shell. Ms. Tana Potter is an 86-year-old female who was brought in by her family members due to epigastric pain. She was just recently discharged from the hospital for chest discomfort due to gastroesophageal reflux disease. On presentation she reported that the pain was her chief complaint. She did not report any nausea or vomiting. She also reported that she had a bowel movement home however has not since being here in the hospital. She reports that she feels much better and the pain has improved. She is currently on Protonix IV daily. She is also tolerating ice chips without any difficulty. Urinary tract infection was also identified upon what upon work-up. PAST MEDICAL HISTORY: 1. Atrial fibrillation. 2. Cardiomyopathy. 3. Coronary artery disease. 4. Hypercholesterolemia. 5. Hypertension. 6. Chronic urinary tract infection. 7. Gastroesophageal reflux disease. 8. Osteoporosis. 9. Degenerative joint disease. 10. Hearing loss. 11. Visual loss. 12. Depression. PAST SURGERIES: 1. Total hysterectomy. 2. Laparoscopic cholecystectomy. 3. Tracheostomy. 4. Bilateral corneal implants. ALLERGIES: 1. NITROFURANTOIN. 2. PENICILLIN. 3. SULFA. 4. OMEPRAZOLE. 5. KLONOPIN. 6. POTASSIUM. 7. CELECOXIB. 8. ROSUVASTATIN. MEDICATIONS: 1. Atorvastatin 40 mg daily. 2. Difluprednate eyedrops daily. 3. Digoxin 250 mcg q OD. 4. Hydrochlorothiazide 12.5 mg q OD. 5. Protonix 40 mg b.i.d. 6. Coumadin 7.5 mg one day a week, 5 mg 6 days a week. SOCIAL HISTORY: Negative smoke. Negative alcohol. FAMILY HISTORY: Noncontributory. VITAL SIGNS: Temperature 96, blood pressure 101/69, pulse 85, respirations 16, pulse oximetry 97% on 2 liters nasal cannula. REVIEW OF SYSTEMS: This is a well-nourished female currently in no acute distress. She is not experiencing any shortness of breath or difficulty breathing. No chest pain, palpitations, diaphoresis. No nausea, vomiting, with no abdominal pain at this time. There is mild abdominal distention. No fever, chills, no recent inadvertent weight loss. PHYSICAL EXAMINATION: CHEST: Bilateral rhonchi. HEART: Regular. EXTREMITIES: No lower extremity edema negative Homans sign. HEENT: No scleral icterus, no cervical lymphadenopathy. ABDOMEN: Soft, mildly distended. There is no abdominal pain upon palpation. LABS: WBC 7.8, hemoglobin 11.4, hematocrit 37, platelets 140, UA leukocyte esterase +2. ASSESSMENT AND PLAN: This is an 86-year-old female with an ileus most likely secondary to urinary tract infection. She also has a long-standing history of gastroesophageal reflux disease, as well as peptic ulcer disease, requiring Protonix 40 mg b.i.d. She reports that her pain was more epigastric. Since receiving IV Protonix she does not report any pain. At this time, we will start a clear liquid diet and advance as tolerated. We will also proceed with ambulation to facilitate bowel function as well. Job ID: [id number] Dictated Date: 11/08/2016 11:32:41 School Crossing Guard Date: 11/08/2016 12:23:57/jama
--- NOTE | 2016-11-08 13:54 | Diagnostic Imaging Report ---
INDICATION: Lower abdominal pain. TECHNIQUE: Supine and upright view of the abdomen 10:28 AM CORRELATION STUDY: None FINDINGS: Scattered gas filled loops of bowel to be present. No differentiating air-fluid levels requiring high degree bowel obstruction. There is some gas within small bowel. Suture line over the left mid abdomen. There is presence of small pleural effusions. Cardiac enlargement. IMPRESSION: 1. Nonobstructive appearing bowel gas pattern. A few gas-filled loops of bowel may reflect mild ileus. 2. Findings compatible with bilateral pleural effusion along with atelectasis or infiltrate at the lung bases. Dictated by: Dictated on workstation # [id number]
[2016-11-08 16:00] VITALS: BP 122/68
[2016-11-08] MEDS: warFARin 5 MG (COUMADIN) TAB PO SCH (17:49)
[2016-11-08 20:00] VITALS: BP 120/56
[2016-11-08] MEDS: PANTOPRAZOLE 40 MG/10 ML (PROTONIX) VIAL IV SCH (23:34)
[2016-11-09] VITALS: BP 91/62
[2016-11-09 04:00] VITALS: BP 120/74
[2016-11-09] MEDS: MEROPENEM 500 MG/NS 100 ML IVPB IV SCH ×2 (04:53)
[2016-11-09 05:21] LABS: BASOPHILS % (AUTO) 0 % (0-10); EOSINOPHILS % (AUTO) 0 % (0-10); LYMPHOCYTES # (AUTO) 0.4 X 10^3 (1.0-4.0); LYMPHOCYTES % (AUTO) 6 % (12-44); MEAN CORPUSCULAR HEMOGLOBIN 29 PG (25-34); MEAN CORPUSCULAR HGB CONC 31 G/DL (32-36); MEAN CORPUSCULAR VOLUME 94 FL (80-99); MEAN PLATELET VOLUME 10.9 FL (7.4-10.4); MONOCYTES # (AUTO) 0.5 X 10^3 (0.0-1.0); MONOCYTES % (AUTO) 7 % (0-12); NEUTROPHILS # (AUTO) 6.9 X 10^3 (1.8-7.8); NEUTROPHILS % (AUTO) 88 % (42-75); PLATELET COUNT 138 10^3/uL (130-400); RED BLOOD COUNT 4.63 10^6/uL (4.35-5.85); RED CELL DISTRIBUTION WIDTH 15.4 % (10.0-14.5); WHITE BLOOD COUNT 7.8 10^3/uL (4.3-11.0)
[2016-11-09 05:30] LABS: INR 2.2 (0.8-1.4); PROTHROMBIN TIME PATIENT 24.2 SEC (12.2-14.7)
[2016-11-09 05:45] LABS: ANION GAP 8 MMOL/L (5-14); BLOOD UREA NITROGEN 8 MG/DL (7-18); BUN/CREATININE RATIO 11; CALCIUM 8.2 MG/DL (8.5-10.1); CARBON DIOXIDE 30 MMOL/L (21-32); CHLORIDE 105 MMOL/L (98-107); CREATININE SERUM 0.71 MG/DL (0.60-1.30); GFR ESTIMATED > 60; GLUCOSE 105 MG/DL (70-105); MAGNESIUM 1.7 MG/DL (1.8-2.4); POTASSIUM 4.5 MMOL/L (3.6-5.0); SODIUM 143 MMOL/L (135-145)
[2016-11-09 08:00] VITALS: BP 130/76
[2016-11-09] MEDS: cefTRIAXone INJECTION 1,000 MG in NS (IVPB) 50 ML IV SCH (08:42)
--- NOTE | 2016-11-09 09:37 | Physical Therapy Evaluation ---
PT Evaluation-General Medical Diagnosis Admission Date Nov 07, 2016 at 21:41 Medical Diagnosis: UTI/ileus Onset Date: Nov 07, 2016 Therapy Diagnosis Therapy Diagnosis: generalized weakness/debility Height/Weight Height (Feet): 5 Height (Inches): 7.00 Weight (Pounds): 121 Weight (Ounces): 6.0 Precautions Precautions/Isolations: Fall Prevention, Standard Precautions Referral Physician: Suleman Medical History Pertinent Medical History: Atrial Fib, CAD, Dementia, GERD, Heart Failure, HTN Additional Medical History recent DC from hospital 11/03/16 secondary to GERD Current History midline abdominal pain Reviewed History: Yes Social History Home: Single Level Current Living Status: Alone (family live near by) Entry Into Home: Level Entry Prior/Core FIM Prior Level of Function Functional [place] Measure 0=Not Assessed/NA 4=Minimal Assistance 1=Total Assistance 5=Supervision or Setup 2=Maximal Assistance 6=Modified [place] 3=Moderate Assistance 7=Complete P[place] Bed Mobility: 6 Transfers (B,C,W/C) (FIM): 6 Gait: 6 uses FWW PT Evaluation-Current Subjective Patient agrees to PT. No c/o at this time. Pain Numeric Pain Scale: 0-No Pain Location: No Pain Reported Objective Patient Orientation: Person, Time, Situation Problem Solving: Fair Attachments: Oxygen (2L), IV ROM/Strength ROM Lower Extremities bilateral LE WFL Strenght Lower Extremities right knee flexion/extension 4/5; hip flexion 4/5; ankle dorsi/plantarflexion 4/ 5 left knee flexion/extension 4/5; hip flexion 4/5; ankle dorsi/plantarflexion 4/5 Integumentary/Posture Integumentary refer to nursing notes Bowel Incontinence: No Bladder Incontinence: No Posture WFL Neuromuscular (Tone, Coordination, Reflexes) slightly diminished coordination Sensory Vision: Blind Legally Hearing: Functional Sensation Right Lower Extremit: Intact Sensation Left Lower Extremity: Intact Transfers Functional [place] Measure 0=Not Assessed/NA 4=Minimal Assistance 1=Total Assistance 5=Supervision or Setup 2=Maximal Assistance 6=Modified [place] 3=Moderate Assistance 7=Complete [place] Transfers (B, C, W/C) (FIM): 5 Scootin Rollin Supine to/from Sit: 5 Gait Mode of Locomotion: Walk Anticipated Mode of Locomotion: Walk Gait (FIM): 1 Distance (FIM): 1=up to 49 ft (45') Distance: 45' Gait Level of Assist: 5 Gait Assistive Device: FWW Comments/Gait Description functional Balance Sitting Static: Normal Sitting Dynamic: Normal Standing Static: Fair Standing Dynamic: Fair Assessment/Needs 86 y.o. female, will benefit from skilled PT to address functional mobility to improve current LOF and to safely return to home at maximum LOF. Rehab Potential: Fair Post Rehab Potential-Barriers: multiple hospital stays PT Jail Goals Jail Goals PT Jail Goals Time Frame: Nov 16, 2016 Transfers (B,C,W/C) (FIM): 6 Gait (FIM): 6 Gait distance (FIM): 3=150 ft Gait Level of Assist: 6 Gait Assistive Device: FWW PT Plan Problem List Problem List: Activity Tolerance, Functional Strength Treatment/Plan Treatment Plan: Continue Plan of Care Treatment Plan: Education, Functional Activity Monty, Functional Strength, Gait , Safety, Therapeutic Exercise, Transfers Treatment Duration: Nov 16, 2016 # of days/week 5-6 Visits Per Week: 5-6 Pt/Family Agrees w/Plan: Yes Safety Risks/Education Patient Education: Safety Issues Teaching Recipient: Patient Teaching Methods: Discussion Response to Teaching: Verbalize Understanding Discharge Recommendations Therapy D/C Recommendations: Home w/ Family Support, Physical Therapy Home Care Time/GCodes Time In: 856 Time Out: 916 Total Billed Treatment Time: 20 Total Billed Treatment visit EVModC 20 min COURTNEY MARTINEZ PT Nov 09, 2016 09:37
[2016-11-09] MEDS: HYDROCHLOROTHIAZIDE 12.5 MG (HCTZ) CAP PO SCH (11:09)
[2016-11-09] MEDS: D5 1/2 NS W/KCL 20 MEQ/L 1,000 ML IV SCH ×2 (11:10→23:56)
[2016-11-09 12:00] VITALS: BP 104/39
[2016-11-09 16:00] VITALS: BP 111/58
[2016-11-09] MEDS: warFARin 5 MG (COUMADIN) TAB PO SCH (17:42)
--- NOTE | 2016-11-09 19:14 | Progress Note (SOAP) ---
Subjective Subjective/Events-last exam Fwup UTI, ileus, weakness, chronic atrial fibillation. No complaints of abdominal pain. Objective Exam Vital Signs Date Time Temp Pulse Resp B/P Pulse Ox O2 Delivery O2 Flow Rate FiO2 11/09/16 16:00 99.0 84 20 111/58 93 2.00 11/09/16 12:00 99.4 88 20 104/39 98 2.00 11/09/16 09:00 96 Nasal Cannula 2.00 11/09/16 08:00 99.4 99 20 130/76 96 2.00 11/09/16 04:00 94 16 120/74 94 Nasal Cannula 2.00 11/09/16 00:00 99.4 86 20 91/62 92 Nasal Cannula 2.00 11/08/16 20:00 97.5 76 18 120/56 98 Nasal Cannula 1.50 11/08/16 20:00 97 Nasal Cannula 2.00 I & O 11/09/16 07:00 Intake Total 3540 ml Output Total 1435 ml Balance 2105 ml Capillary Refill : Less Than 3 Seconds General Appearance: No Apparent Distress Respiratory: Lungs Clear Cardiovascular: Systolic Murmur Irregularly Irregular Gastrointestinal: normal bowel sounds non tender soft Extremity: Non Tender No Calf Tenderness No Pedal Edema Neurologic/Psychiatric: Alert Results Lab Laboratory Tests 11/09/16 04:35: Anion Gap 8, BUN/Creatinine Ratio 11, Basophils # (Auto) 0.0, Basophils (%) ( Auto) 0, Blood Urea Nitrogen 8, Calcium Level 8.2L, Carbon Dioxide Level 30, Chloride Level 105, Creatinine 0.71, Eosinophils # (Auto) 0.0, Eosinophils (%) ( Auto) 0, Estimat Glomerular Filtration Rate > 60, Glucose Level 105, Hematocrit 43, Hemoglobin 13.2, INR Comment 2.2H, Lymphocytes # (Auto) 0.4L, Lymphocytes (% ) (Auto) 6L, Magnesium Level 1.7L, Mean Corpuscular Hemoglobin 29, Mean Corpuscular Hemoglobin Concent 31L, Mean Corpuscular Volume 94, Mean Platelet Volume 10.9H, Monocytes # (Auto) 0.5, Monocytes (%) (Auto) 7, Neutrophils # ( Auto) 6.9, Neutrophils (%) (Auto) 88H, Platelet Count 138, Potassium Level 4.5, Prothrombin Time 24.2H, Red Blood Count 4.63, Red Cell Distribution Width 15.4H , Sodium Level 143, White Blood Count 7.8 Microbiology 11/07/16 Urine Culture - Final, Complete Escherichia Coli Assessment/Plan Assessment/Plan Assess & Plan/Chief Complaint 1. UTI--growing out E. Coli, change meropenem to rocephin 2. Ileus--improving, advance to soft diet 3. Weakness--start PT 4. Chronic Atrial Fibrillation--rate controlled, on Coumadin, Monitor PT/INR Clinical Quality Measures DVT/VTE Risk/Contraindication: Risk Factor Score Per Nursin RFS Level Per Nursing on Admit: 3=High KAT VIGIL DO Nov 09, 2016 7:14 pm
[2016-11-09 20:00] VITALS: BP 127/68
[2016-11-09] MEDS ORDERED: MAGNESIUM OXIDE (MAG-OX)400 MG TAB PO NR (20:00)
[2016-11-09] MEDS ORDERED: FAMOTIDINE 20MG/2ML IV (PEPCID) IV SCH (21:00)
[2016-11-09] MEDS: PANTOPRAZOLE 40 MG/10 ML (PROTONIX) VIAL IV SCH (22:24)
[2016-11-10 04:00] VITALS: BP 112/67
[2016-11-10 07:34] LABS: INR 2.1 (0.8-1.4); PROTHROMBIN TIME PATIENT 23.6 SEC (12.2-14.7)
[2016-11-10 08:00] VITALS: BP 97/59
--- NOTE | 2016-11-10 08:23 | Progress Note (SOAP) ---
Subjective Subjective/Events-last exam Fwup UTI, ileus, weakness, chronic atrial fibillation. Eating well. Minimal abdominal pain. Had 2 BMs per patient. Objective Exam Vital Signs Date Time Temp Pulse Resp B/P Pulse Ox O2 Delivery O2 Flow Rate FiO2 11/10/16 04:00 97.9 80 20 112/67 95 Nasal Cannula 2.00 2.00 11/09/16 22:00 2.00 11/09/16 21:00 Nasal Cannula 2.00 11/09/16 20:00 100.5 97 20 127/68 95 2.00 11/09/16 16:00 99.0 84 20 111/58 93 2.00 11/09/16 12:00 99.4 88 20 104/39 98 2.00 11/09/16 09:00 96 Nasal Cannula 2.00 I & O 11/10/16 07:00 Intake Total 3220 ml Output Total 1350 ml Balance 1870 ml Capillary Refill : Less Than 3 Seconds General Appearance: No Apparent Distress Respiratory: Lungs Clear Cardiovascular: Systolic Murmur Irregularly Irregular Gastrointestinal: normal bowel sounds soft tenderness (epigastrice, RLQ/LLQ/ suprapubic) Extremity: Non Tender No Calf Tenderness No Pedal Edema Neurologic/Psychiatric: Alert Results Lab Laboratory Tests 11/10/16 07:05: INR Comment 2.1H, Prothrombin Time 23.6H Microbiology 11/07/16 Urine Culture - Final, Complete Escherichia Coli Assessment/Plan Assessment/Plan Assess & Plan/Chief Complaint 1. UTI--growing out E. Coli, continue rocephin 2. Ileus--improving, on soft diet 3. Weakness--continue PT 4. Chronic Atrial Fibrillation--rate controlled, on Coumadin, Monitor PT/INR 5. Artist And Repertoire Manager for discharge planning--may need to consider SNF Clinical Quality Measures DVT/VTE Risk/Contraindication: Risk Factor Score Per Nursin RFS Level Per Nursing on Admit: 3=High KAT VIGIL DO Nov 10, 2016 08:23
[2016-11-10] MEDS: MAGNESIUM OXIDE (MAG-OX)400 MG TAB PO SCH ×2 (08:55→18:07)
[2016-11-10] MEDS: cefTRIAXone INJECTION 1,000 MG in NS (IVPB) 50 ML IV SCH (08:55)
[2016-11-10] MEDS ORDERED: PANTOPRAZOLE 40 MG/10 ML (PROTONIX) VIAL IV SCH (09:00)
--- NOTE | 2016-11-10 10:39 | Physical Therapy Daily Note ---
PT Daily Note-Current Subjective Patient is very agreeable to participate with PT. No c/o at this time. Pain Numeric Pain Scale: 0-No Pain Location: No Pain Reported Mental Status Patient Orientation: Normal For Age Attachments: Oxygen (2L NC) Transfers Functional [place] Measure 0=Not Assessed/NA 4=Minimal Assistance 1=Total Assistance 5=Supervision or Setup 2=Maximal Assistance 6=Modified [place] 3=Moderate Assistance 7=Complete IndependenceIRFPAI Quality Coding Scale 6 Independent with activity with or without an assistive device 5 Patient requires set up or clean up by helper. Patient completes activity by themselves 4 Supervision or touching assist (CGA). [place] provide cues , steadying assist 3 The helper provides less than half the effort to complete the activity 2 The helper provides more than half the effort to complete the activity 1 Dependent. The helper does all the effort to complete an activity 7 Patient refused to complete or attempt activity 9 The patient did not perform the activity before the current illness or injury 88 Not attempted due to Medical conditions or safety concerns Transfers (B, C, W/C) (FIM): 5 Scootin Sit to/from Stand: 5 Gait Training Gait (FIM): 5 Distance (FIM): 3=150 ft Distance: 300' x 2 Gait Level of Assist: 5 Gait Assistive Device: FWW assist for O2 tank; safe and functional with FWW Assessment Current Status: Good Progress Patient progressing with treatment and is highly motivated. PT to continue with POC. PT Fleet Mechanic Goals Fleet Mechanic Goals PT Halfway Goals Time Frame: Nov 16, 2016 Transfers (B,C,W/C) (FIM): 6 Gait (FIM): 6 Gait distance (FIM): 3=150 ft Gait Level of Assist: 6 Gait Assistive Device: FWW PT Plan Treatment/Plan Treatment Plan: Continue Plan of Care Treatment Plan: Education, Functional Activity Monty, Functional Strength, Gait , Safety, Therapeutic Exercise, Transfers Treatment Duration: Nov 16, 2016 Visits Per Week: 5-6 Time/GCodes Time In: 1005 Time Out: 1028 Total Billed Treatment Time: 23 Total Billed Treatment 1 visit FA x 2 23 min COURTNEY MARTINEZ PT Nov 10, 2016 10:39
[2016-11-10] MEDS ORDERED: CATHETER FLUSH 10 ML SYR IV PRN (11:00)
[2016-11-10] MEDS: DIGOXIN 0.25 MG (LANOXIN) TAB PO SCH (11:17)
--- NOTE | 2016-11-10 12:11 | Progress Note (SOAP) ---
Subjective Subjective/Events-last exam doing well. no abd pain. tolerating reg diet and having BM's. Objective Exam Vital Signs Date Time Temp Pulse Resp B/P Pulse Ox O2 Delivery O2 Flow Rate FiO2 11/10/16 11:28 2.00 11/10/16 09:00 96 Nasal Cannula 3.00 11/10/16 08:00 98.2 114 20 97/59 96 Nasal Cannula 3.00 11/10/16 04:00 97.9 80 20 112/67 95 Nasal Cannula 2.00 2.00 11/09/16 22:00 2.00 11/09/16 21:00 Nasal Cannula 2.00 11/09/16 20:00 100.5 97 20 127/68 95 2.00 11/09/16 16:00 99.0 84 20 111/58 93 2.00 I & O 11/10/16 06:59 Intake Total 3220 ml Output Total 1350 ml Balance 1870 ml Capillary Refill : Less Than 3 Seconds General Appearance: No Apparent Distress HEENT: PERRL/EOMI Neck: Full Range of Motion Respiratory: Decreased Breath Sounds Cardiovascular: Regular Rate, Rhythm Gastrointestinal: normal bowel sounds non tender soft Extremity: Normal Capillary Refill Neurologic/Psychiatric: Alert Oriented x3 Skin: Normal Color Lymphatic: No Adenopathy Results Lab Laboratory Tests 11/10/16 07:05: INR Comment 2.1H, Prothrombin Time 23.6H Microbiology 11/07/16 Urine Culture - Final, Complete Escherichia Coli Assessment/Plan Assessment/Plan Assess & Plan/Chief Complaint ileus secondary UTI. doing better now. continue PT and ambulation. ok for home when ok with PMD Clinical Quality Measures DVT/VTE Risk/Contraindication: Risk Factor Score Per Nursin RFS Level Per Nursing on Admit: 3=High SUSAN LLAMAS MD Nov 10, 2016 12:11 pm
[2016-11-10] MEDS: CATHETER FLUSH 10 ML SYR IV SCH ×2 (13:32→22:00)
[2016-11-10 16:30] VITALS: BP 117/68
[2016-11-10] MEDS ORDERED: ONDANSETRON 4 MG (ZOFRAN) ORAL DISSOLVE TAB PO PRN (17:15)
[2016-11-10] MEDS: warFARin 5 MG (COUMADIN) TAB PO SCH (18:07)
[2016-11-10] MEDS: PANTOPRAZOLE 40 MG (PROTONIX) TAB PO SCH (18:07)
[2016-11-10] MEDS: FAMOTIDINE 20 MG (PEPCID) TABLET PO SCH (20:33)
[2016-11-11] VITALS: BP 122/81
[2016-11-11 05:39] LABS: INR 1.9 (0.8-1.4); PROTHROMBIN TIME PATIENT 21.7 SEC (12.2-14.7)
[2016-11-11] MEDS: CATHETER FLUSH 10 ML SYR IV SCH ×3 (06:00→22:00)
[2016-11-11] MEDS: PANTOPRAZOLE 40 MG (PROTONIX) TAB PO SCH ×2 (06:46→17:51)
[2016-11-11] MEDS: MAGNESIUM OXIDE (MAG-OX)400 MG TAB PO SCH ×2 (08:43→17:51)
[2016-11-11] MEDS: LIDOCAINE 1% INJ 20 ML (XYLOCAINE) VIAL INJ SCH (08:43)
[2016-11-11] MEDS: cefTRIAXone 1 GM (ROCEPHIN) VIAL IM SCH (08:44)
--- NOTE | 2016-11-11 09:29 | Progress Note (SOAP) ---
Subjective Subjective/Events-last exam This note is for 11/09/16. Patient seen with Dr. Landis. Patient report doing well. no abdominal pain. Having BMs. Tolerating soft diet with no N/V. Objective Exam Vital Signs Date Time Temp Pulse Resp B/P Pulse Ox O2 Delivery O2 Flow Rate FiO2 11/11/16 07:49 96 2.00 11/11/16 00:00 97.7 89 18 122/81 96 Nasal Cannula 2.00 11/10/16 21:00 Nasal Cannula 2.00 11/10/16 16:30 97.6 88 21 117/68 96 Nasal Cannula 2.00 11/10/16 11:28 2.00 I & O 11/11/16 07:00 Intake Total 1340 ml Output Total 150 ml Balance 1190 ml Capillary Refill : Less Than 3 Seconds General Appearance: No Apparent Distress WD/WN HEENT: PERRL/EOMI Neck: Full Range of Motion Normal Inspection Non Tender Supple Respiratory: No Accessory Muscle Use No Respiratory Distress Decreased Breath Sounds Cardiovascular: Regular Rate, Rhythm No Edema No JVD Gastrointestinal: normal bowel sounds non tender soft Extremity: Normal Capillary Refill Normal Inspection Neurologic/Psychiatric: Alert Oriented x3 Skin: Normal Color Warm/Dry Lymphatic: No Adenopathy Results Lab Laboratory Tests 11/11/16 04:40: INR Comment 1.9H, Prothrombin Time 21.7H Microbiology 11/07/16 Urine Culture - Final, Complete Escherichia Coli Assessment/Plan Assessment/Plan Assess & Plan/Chief Complaint A 86 year old female with ileus secondary to UTI. PT and Ambulation. Will increase diet to DYS3. Continue with ABX and medical management at his time. Clinical Quality Measures DVT/VTE Risk/Contraindication: Risk Factor Score Per Nursin RFS Level Per Nursing on Admit: 3=High CAROLINA PEDRO APRN Nov 11, 2016 9:29 am
[2016-11-11] MEDS: HYDROCHLOROTHIAZIDE 12.5 MG (HCTZ) CAP PO SCH (12:21)
--- NOTE | 2016-11-11 14:01 | Physical Therapy Daily Note ---
PT Daily Note-Current Subjective Pt seems vague at times (muttering) but able to state her history and show me her leg exercises independently. Denies pain. Mental Status Patient Orientation: Person Transfers Functional [place] Measure 0=Not Assessed/NA 4=Minimal Assistance 1=Total Assistance 5=Supervision or Setup 2=Maximal Assistance 6=Modified [place] 3=Moderate Assistance 7=Complete IndependenceIRFPAI Quality Coding Scale 6 Independent with activity with or without an assistive device 5 Patient requires set up or clean up by helper. Patient completes activity by themselves 4 Supervision or touching assist (CGA). [place] provide cues , steadying assist 3 The helper provides less than half the effort to complete the activity 2 The helper provides more than half the effort to complete the activity 1 Dependent. The helper does all the effort to complete an activity 7 Patient refused to complete or attempt activity 9 The patient did not perform the activity before the current illness or injury 88 Not attempted due to Medical conditions or safety concerns Transfers (B, C, W/C) (FIM): 5 Scootin Supine to/from Sit: 4 Sit to/from Stand: 5 Bed to/from Chair: 5 Weight Bearing Weight Bearing Restriction: Weight Bearing/Tolerated Gait Training Gait (FIM): 5 Distance: 200 ft with FWW Gait Level of Assist: 5 Gait Persons Needed: 1 Moves well with walker. 200 ft on room air. O2 sats range from 89% to 91%. Exercises Supine Ex: Bridging, Ankle pumps, Glut sets, Heel Slides, Hip abd/add Supine Reps: 10 Seated Therapy Exercises: Biceps, Sit to stand, Shoulder Flex, Long arc quads Seated Reps: 10 Standing: Heel/toe raises, Marching, Sit to Stand Standing Reps: 10 Assessment Current Status: Good Progress Incontinent of urine walking to the bathroom. Moves well with FWW. Surprised me by demonstrating all her LE strengthening ex by herself. Needs standby assist for safe transfers and amb. PT [facility] Goals Sap Data Architect Goals PT Sap Data Architect Goals Time Frame: Nov 16, 2016 Transfers (B,C,W/C) (FIM): 6 Gait (FIM): 6 Gait distance (FIM): 3=150 ft Gait Level of Assist: 6 Gait Assistive Device: FWW PT Plan Treatment/Plan Treatment Plan: Continue Plan of Care Treatment Plan: Education, Functional Activity Monty, Functional Strength, Gait , Safety, Therapeutic Exercise, Transfers Treatment Duration: Nov 16, 2016 Visits Per Week: 5-6 Time/GCodes Time In: 115 Time Out: 145 Total Billed Treatment Time: 30 Total Billed Treatment Visit, Gt, Ex G Codes Necessary: TAMIA Pedraza PT Nov 11, 2016 14:01
[2016-11-11 16:20] VITALS: BP 125/75
[2016-11-11] MEDS: warFARin 5 MG (COUMADIN) TAB PO SCH (17:51)
--- NOTE | 2016-11-11 18:26 | Progress Note (SOAP) ---
Subjective Subjective/Events-last exam Fwup UTI, ileus, weakness, chronic atrial fibillation. Eating well and had BM this AM. Denies abdominal pain. Objective Exam Vital Signs Date Time Temp Pulse Resp B/P Pulse Ox O2 Delivery O2 Flow Rate FiO2 11/11/16 16:20 97.4 81 24 125/75 93 2.00 11/11/16 09:00 Room Air 11/11/16 08:00 98.4 96 20 98 2.00 11/11/16 07:49 96 2.00 11/11/16 00:00 97.7 89 18 122/81 96 Nasal Cannula 2.00 11/10/16 21:00 Nasal Cannula 2.00 I & O 11/11/16 07:00 Intake Total 1540 ml Output Total 950 ml Balance 590 ml Capillary Refill : Less Than 3 Seconds General Appearance: No Apparent Distress Neck: Supple Respiratory: Lungs Clear Cardiovascular: Systolic Murmur Irregularly Irregular Gastrointestinal: normal bowel sounds non tender soft Extremity: Non Tender No Calf Tenderness No Pedal Edema Neurologic/Psychiatric: Alert Results Lab Laboratory Tests 11/11/16 04:40: INR Comment 1.9H, Prothrombin Time 21.7H Microbiology 11/07/16 Urine Culture - Final, Complete Escherichia Coli Assessment/Plan Assessment/Plan Assess & Plan/Chief Complaint 1. UTI--growing out E. Coli, continue rocephin 2. Ileus--improving, advance diet 3. Weakness--continue PT 4. Chronic Atrial Fibrillation--rate controlled, on Coumadin, Monitor PT/INR 5. SWING bed eval Clinical Quality Measures DVT/VTE Risk/Contraindication: Risk Factor Score Per Nursin RFS Level Per Nursing on Admit: 3=High KAT VIGIL DO Nov 11, 2016 6:26 pm
[2016-11-11 19:25] VITALS: BP 124/61
[2016-11-11] MEDS: FAMOTIDINE 20 MG (PEPCID) TABLET PO SCH (22:10)
[2016-11-12 01:30] VITALS: BP 127/86
[2016-11-12] MEDS: CATHETER FLUSH 10 ML SYR IV SCH ×3 (06:00→21:01)
[2016-11-12] MEDS: PANTOPRAZOLE 40 MG (PROTONIX) TAB PO SCH ×2 (06:59→17:25)
[2016-11-12 07:22] LABS: INR 1.9 (0.8-1.4); PROTHROMBIN TIME PATIENT 21.3 SEC (12.2-14.7)
[2016-11-12 08:00] VITALS: BP 127/86
[2016-11-12] MEDS: cefTRIAXone 1 GM (ROCEPHIN) VIAL IM SCH (09:53)
[2016-11-12] MEDS: LIDOCAINE 1% INJ 20 ML (XYLOCAINE) VIAL INJ SCH (09:53)
[2016-11-12] MEDS: MAGNESIUM OXIDE (MAG-OX)400 MG TAB PO SCH ×2 (09:53→18:29)
[2016-11-12] MEDS: DIGOXIN 0.25 MG (LANOXIN) TAB PO SCH (11:47)
--- NOTE | 2016-11-12 11:57 | Physical Therapy Daily Note ---
PT Daily Note-Current Subjective Patient is in bed and agrees to PT. Pain Numeric Pain Scale: 0-No Pain Location: No Pain Reported Mental Status Patient Orientation: Person, Time, Situation Attachments: Oxygen (2L) Transfers Functional [place] Measure 0=Not Assessed/NA 4=Minimal Assistance 1=Total Assistance 5=Supervision or Setup 2=Maximal Assistance 6=Modified [place] 3=Moderate Assistance 7=Complete IndependenceIRFPAI Quality Coding Scale 6 Independent with activity with or without an assistive device 5 Patient requires set up or clean up by helper. Patient completes activity by themselves 4 Supervision or touching assist (CGA). [place] provide cues , steadying assist 3 The helper provides less than half the effort to complete the activity 2 The helper provides more than half the effort to complete the activity 1 Dependent. The helper does all the effort to complete an activity 7 Patient refused to complete or attempt activity 9 The patient did not perform the activity before the current illness or injury 88 Not attempted due to Medical conditions or safety concerns Transfers (B, C, W/C) (FIM): 5 Scootin Rollin Supine to/from Sit: 5 Sit to/from Stand: 5 Gait Training Gait (FIM): 5 Distance (FIM): 3=150 ft Distance: 750' Gait Level of Assist: 5 Gait Assistive Device: FWW safe and functional with FWW; assist for O2 tank Exercises Supine Ex: Ankle pumps, Quad Set, Heel Slides, Straight leg raise Supine Reps: 10 Seated Therapy Exercises: Ankle pumps, Long arc quads Seated Reps: 10 Assessment Patient tolerated treatment well and is up in recliner with needs met. PT Long-Term Goals Raking Machine Operator Goals PT Raking Machine Operator Goals Time Frame: Nov 16, 2016 Transfers (B,C,W/C) (FIM): 6 Gait (FIM): 6 Gait distance (FIM): 3=150 ft Gait Level of Assist: 6 Gait Assistive Device: FWW PT Plan Treatment/Plan Treatment Plan: Continue Plan of Care Treatment Plan: Education, Functional Activity Monty, Functional Strength, Gait , Safety, Therapeutic Exercise, Transfers Treatment Duration: Nov 16, 2016 Visits Per Week: 5-6 Time/GCodes Time In: 1100 Time Out: 1123 Total Billed Treatment Time: 23 Total Billed Treatment 1 visit FA x 2 23 min COURTNEY MARTINEZ PT Nov 12, 2016 11:57
--- NOTE | 2016-11-12 12:31 | Progress Note (SOAP) ---
Subjective Subjective/Events-last exam Fwup UTI, ileus, weakness, chronic atrial fibillation. Tolerating regular diet. No increase in abdominal pain. Objective Exam Vital Signs Date Time Temp Pulse Resp B/P Pulse Ox O2 Delivery O2 Flow Rate FiO2 11/12/16 08:00 97.9 93 16 127/86 98 Nasal Cannula 2.00 11/12/16 07:54 99 2.00 11/12/16 01:30 98.0 81 16 127/86 90 Nasal Cannula 2.50 11/11/16 21:00 Room Air 11/11/16 19:25 98.8 83 20 124/61 93 Room Air 11/11/16 16:20 97.4 81 24 125/75 93 2.00 I & O 11/12/16 07:00 Intake Total 1120 ml Output Total 1050 ml Balance 70 ml Capillary Refill : Less Than 3 Seconds General Appearance: No Apparent Distress Neck: Supple Respiratory: Lungs Clear Cardiovascular: Systolic Murmur Irregularly Irregular Gastrointestinal: normal bowel sounds non tender soft Extremity: Non Tender No Calf Tenderness No Pedal Edema Neurologic/Psychiatric: Alert Other (confused at times) Results Lab Laboratory Tests 11/12/16 06:50: INR Comment 1.9H, Prothrombin Time 21.3H Microbiology 11/07/16 Urine Culture - Final, Complete Escherichia Coli Assessment/Plan Assessment/Plan Assess & Plan/Chief Complaint 1. UTI--growing out E. Coli, continue rocephin 2. Ileus--improving, tolerating advanced diet 3. Weakness--continue PT 4. Chronic Atrial Fibrillation--rate controlled, on Coumadin, Monitor PT/INR 5. SWING bed eval--awaiting Clinical Quality Measures DVT/VTE Risk/Contraindication: Risk Factor Score Per Nursin RFS Level Per Nursing on Admit: 3=High KAT VIGIL DO Nov 12, 2016 12:31 pm
[2016-11-12 15:30] VITALS: BP 109/64
[2016-11-12] MEDS: warFARin 5 MG (COUMADIN) TAB PO SCH (18:29)
[2016-11-12] MEDS: FAMOTIDINE 20 MG (PEPCID) TABLET PO SCH (21:01)
[2016-11-13] VITALS: BP 120/76
[2016-11-13] MEDS: CATHETER FLUSH 10 ML SYR IV SCH (04:23)
[2016-11-13] MEDS: PANTOPRAZOLE 40 MG (PROTONIX) TAB PO SCH (05:58)
[2016-11-13 07:15] LABS: INR 1.8 (0.8-1.4); PROTHROMBIN TIME PATIENT 20.8 SEC (12.2-14.7)
[2016-11-13 08:00] VITALS: BP_SYST 111; BP_SYST 113; BP_DIAS 47; BP_DIAS 68
[2016-11-13] MEDS: LIDOCAINE 1% INJ 20 ML (XYLOCAINE) VIAL INJ SCH (10:01)
[2016-11-13] MEDS: MAGNESIUM OXIDE (MAG-OX)400 MG TAB PO SCH (10:01)
[2016-11-13] MEDS: cefTRIAXone 1 GM (ROCEPHIN) VIAL IM SCH (10:01)
[2016-11-13] MEDS: HYDROCHLOROTHIAZIDE 12.5 MG (HCTZ) CAP PO SCH (10:02)
[2016-11-13] MEDS ORDERED: MAGN400T6 PO (10:42)
--- NOTE | 2016-11-13 10:45 | Discharge Inst-Skilled Nursing ---
Discharge Inst-Skilled NF Patient Instructions Patient Problems: Weakness Confusion/Vascular Dementia Recurrent UTIs Chronic Atrial Fibrillation Goal: Get stronger and transition to assisted living facility Consult/Follow Up/Orders Follow Up Appt.: Fwup with me in 2 weeks Skilled NF Admit to: [facility] Certification (SNF) I certify that SNF services are required to be given on an inpatient basis because of the above named patient's need for long-term care on a continuing basis for the conditions(s) for which he/she was receiving inpatient hospital services prior to his/her transfer to the SNF. Long-Term Facility Order: Nursing Services, Applications Support Engineer-Evaluate & Treat, Physical Therapy-Evaluate & Treat Discharge Diet: Cardiac Diet Daily Activity as Tolerated: Yes New & Resume Previous Orders New & Resume Previous Orders PT/INR in 1 week Peace Ramos Nov 13, 2016 10:43 PEACE RAMOS DO Nov 13, 2016 10:45 am
[2016-11-13] MEDS ORDERED: ESCI10TA PO (10:46)
--- NOTE | 2016-11-13 10:48 | Physical Therapy Daily Note ---
PT Daily Note-Current Subjective Patient is in bed and agrees to PT. Patient states she is going to NH today. Pain Numeric Pain Scale: 0-No Pain Location: No Pain Reported Mental Status Patient Orientation: Confused Transfers Functional [place] Measure 0=Not Assessed/NA 4=Minimal Assistance 1=Total Assistance 5=Supervision or Setup 2=Maximal Assistance 6=Modified [place] 3=Moderate Assistance 7=Complete IndependenceIRFPAI Quality Coding Scale 6 Independent with activity with or without an assistive device 5 Patient requires set up or clean up by helper. Patient completes activity by themselves 4 Supervision or touching assist (CGA). [place] provide cues , steadying assist 3 The helper provides less than half the effort to complete the activity 2 The helper provides more than half the effort to complete the activity 1 Dependent. The helper does all the effort to complete an activity 7 Patient refused to complete or attempt activity 9 The patient did not perform the activity before the current illness or injury 88 Not attempted due to Medical conditions or safety concerns Transfers (B, C, W/C) (FIM): 5 Scootin Rollin Supine to/from Sit: 5 Sit to/from Stand: 5 safe and functional with SBA due to confusion Gait Training Gait (FIM): 5 Distance (FIM): 3=150 ft Distance: 700' Gait Level of Assist: 5 Gait Assistive Device: FWW slow, steady, functional gait sequence. Patient does fatigue with activity. Exercises Supine Ex: Ankle pumps, Heel Slides, Straight leg raise Supine Reps: 10 (to increase functional strength and mobility) Assessment Patient is very upset she is not returning to home and going to NH. Patient is unaware of safety concerns secondary to confusion. PT Jail Goals Jail Goals PT Jail Goals Time Frame: Nov 16, 2016 Transfers (B,C,W/C) (FIM): 6 Gait (FIM): 6 Gait distance (FIM): 3=150 ft Gait Level of Assist: 6 Gait Assistive Device: FWW PT Plan Treatment/Plan Treatment Plan: Discontinue PT Treatment Plan: Education, Functional Activity Monty, Functional Strength, Gait , Safety, Therapeutic Exercise, Transfers Treatment Duration: Nov 16, 2016 Visits Per Week: 5-6 Time/GCodes Time In: 1005 Time Out: 1028 Total Billed Treatment Time: 23 Total Billed Treatment 1 visit FA x 2 23 min COURTNEY MARTINEZ PT Nov 13, 2016 10:48
--- NOTE | 2016-11-13 10:52 | Progress Note (SOAP) ---
Subjective Subjective/Events-last exam Fwup UTI, ileus, weakness, chronic atrial fibillation. Patient confused this AM. Long discussion with her about going to SNF to get stronger then transitioning to assisted living. Also, discussed with son, Ramana, who agrees. She is agreeable at this time to exploring [facility] for snf. Objective Exam Vital Signs Date Time Temp Pulse Resp B/P Pulse Ox O2 Delivery O2 Flow Rate FiO2 11/13/16 09:39 2.00 11/13/16 08:00 98.5 80 20 113/68 99 Nasal Cannula 2.00 11/13/16 00:00 98.4 59 18 120/76 97 Room Air 11/12/16 21:00 Room Air 11/12/16 15:30 98.6 77 20 109/64 98 Nasal Cannula 2.00 I & O 11/13/16 07:00 Intake Total 1630 ml Output Total 675 ml Balance 955 ml Capillary Refill : Less Than 3 Seconds General Appearance: No Apparent Distress Respiratory: Lungs Clear Cardiovascular: Systolic Murmur Irregularly Irregular Gastrointestinal: normal bowel sounds non tender soft Extremity: Non Tender No Calf Tenderness No Pedal Edema Neurologic/Psychiatric: Alert Results Lab Laboratory Tests 11/13/16 06:06: INR Comment 1.8H, Prothrombin Time 20.8H Microbiology 11/07/16 Urine Culture - Final, Complete Escherichia Coli Assessment/Plan Assessment/Plan Assess & Plan/Chief Complaint 1. UTI--growing out E. Coli, treatment complete 2. Ileus--improving, tolerating advanced diet 3. Weakness--continue PT/OT 4. Chronic Atrial Fibrillation--rate controlled, on Coumadin, Monitor PT/INR 5. To SNF today if possible Clinical Quality Measures DVT/VTE Risk/Contraindication: Risk Factor Score Per Nursin RFS Level Per Nursing on Admit: 3=High KAT VIGIL DO Nov 13, 2016 10:52
[2016-11-13 15:10] VITALS: BP 113/68
[2016-11-13] MEDS ORDERED: warFARin 3 MG (COUMADIN) TAB PO SCH (18:00)
--- NOTE | 2016-11-25 19:36 | Discharge Summary ---
Diagnosis/Chief Complaint Date of Admission Nov 07, 2016 at 21:41 Date of Discharge Nov 13, 2016 at 14:50 Admission Diagnosis Admission Diagnosis 86 yo F admitted 11/07/16 Abdominal pain secondary to ileus vs early pSBO- diffuse- bowel rest, IVF, pain control (fentanyl 25mcg q4hr prn)- Dr. Landis consulted urinary tract infection- culture pending, meropenem. was on levofloxacin for UTI 11/02/16 Atrial Fibrillation- INR 2.2- follows with Dr Menon. rechecking INR in AM. resume warfarin for now. continue digoxin HTN- cont hctz GERD- continue PPI hypomagnesemia- rechecking in AM Dispo: urine culture pending, tincture time to see if her bowels improve. Discharge Diagnosis 1. UTI--growing out E. Coli, treatment complete 2. Ileus--improving, tolerating advanced diet 3. Weakness--continue PT/OT 4. Chronic Atrial Fibrillation--rate controlled, on Coumadin, Monitor PT/INR 5. Patient agreeable to SNF Discharge Summary Hospital Course Hospital Course This is an 86 year old female admitted with ileus and UTI. He abdominal pain improved by hospital day number 2 and she was tolerating clear liquids. Her urine culture grew out E. coli which was sensitive to rocephin and she completed a full treatment course during her hospital stay. Her diet was slowly advanced with no increase in abdominal pain and she was having normal bowel movements. PT was started for strengthening. It was noted that the patient had intermittent confusion during her hospital stay and this prolonged her hospital stay. She was resistant to SNF placement initially but after a long discussion with her, she agreed to short-term placement for strengthening. I discussed this with her son who has POA and he was agreeable to the SNF as well and we discussed possible transition for SNF to [place]. Procedures None. Discharge Physical Examination Allergies: Coded Allergies: nitrofurantoin (Verified Allergy, Intermediate, 04/18/15) Penicillins (Verified Allergy, Mild, 04/18/15) Sulfa (Sulfonamide Antibiotics) (Verified Allergy, Mild, 04/18/15) omeprazole (Verified Allergy, Mild, 04/18/15) guaifenesin (Verified Allergy, Unknown, 04/18/15) potassium guaiacolsulfonate (Verified Allergy, Unknown, 04/18/15) celecoxib (Unverified Adverse Reaction, Unknown, SICK TO STOMACH, 04/18/15) rosuvastatin (Unverified Adverse Reaction, Unknown, NAUSEA, 04/18/15) Uncoded Allergies: Protoni (Allergy, Mild, 02/05/16) NOTE THAT PT TAKES PROTONIX AT HOME General Appearance: Alert, No Acute Distress Respiratory: Clear to Auscultation Cardiovascular: Other (irregularly irregular) Abdominal: Normal Bowel Sounds, Soft, No Tenderness Extremities: No Clubbing, No Cyanosis, No Edema Neuro: Other (walker to ambulate) Psych/Mental Status: Other (confused) Discharge Home Medications Reviewed and agree with Discharge Medication list on patient's Discharge Instruction sheet Instructions to Patient/Family Please see electonic discharge instructions given to patient. Clinical Quality Measures DVT/VTE Risk/Contraindication: Risk Factor Score Per Nursin RFS Level Per Nursing on Admit: 3=High KAT VIGIL DO Nov 25, 2016 19:36
== END 2016-11-13 14:50 | DRG 389 ==
LOC: EDUNIT# 17:10 → ER 17:11 → 4TH 21:41
PROVIDERS: ADMIT Family Medicine; ATTEND Family Medicine
DX: K56.7 Ileus, unspecified (principal); N39.0 Urinary tract infection, site not specified; B96.20 Unspecified Escherichia coli [E. coli] as the cause of diseases classified elsewhere; K21.9 Gastro-esophageal reflux disease without esophagitis; I48.2 Chronic atrial fibrillation; I42.9 Cardiomyopathy, unspecified; I10 Essential (primary) hypertension; Z66 Do not resuscitate; I25.10 Atherosclerotic heart disease of native coronary artery without angina pectoris; E78.00 Pure hypercholesterolemia, unspecified; E83.42 Hypomagnesemia; M81.0 Age-related osteoporosis without current pathological fracture; F32.9 Major depressive disorder, single episode, unspecified; M19.91 Primary osteoarthritis, unspecified site; M54.9 Dorsalgia, unspecified; H91.93 Unspecified hearing loss, bilateral; H54.3 Unqualified visual loss, both eyes; Z79.01 Long term (current) use of anticoagulants; Z86.79 Personal history of other diseases of the circulatory system
CPT/HCPCS: 36415; 74020; 74177; 80048; 80053; 81000; 83690; 83735; 85025; 85610; 85730; 87088; 87186; 94664; 94760; 96361; 96365; 96375

== ENCOUNTER → 2017-02-14 | Outpatient (CLI) | payer MEDICARE, OTHER ==
[~2017-02-14] MED LIST changes: +MAGN400T6 PO
== END ==
LOC: LAB 11:15
PROVIDERS: ATTEND Nurse Practitioner Family
DX: N30.91 Cystitis, unspecified with hematuria (principal)
CPT/HCPCS: 87088; 87186

== ENCOUNTER 2017-02-21 07:54 | Outpatient (RCR) | payer MEDICARE, OTHER ==
[2017-02-19 10:59] VITALS: BP 94/77
[2017-02-19] MEDS: SODIUM CHLORIDE IV SCH ×2 (11:29)
[2017-02-19] MEDS: GENTAMICIN IV SCH ×2 (11:29)
[2017-02-19 12:55] VITALS: BP 94/77
[2017-02-20] MEDS: CATHETER FLUSH 10 ML SYR IV PRN ×2 (08:10→09:10)
[2017-02-20] MEDS: GENTAMICIN IV SCH ×2 (08:11)
[2017-02-20] MEDS: SODIUM CHLORIDE IV SCH ×2 (08:11)
[2017-02-20 09:12] VITALS: BP 91/61
[~2017-02-21] VITALS: Ht 170.2 cm; Wt 52.2 kg
[2017-02-21] MEDS: CATHETER FLUSH 10 ML SYR IV PRN ×2 (07:58→08:58)
[2017-02-21] MEDS: SODIUM CHLORIDE IV SCH ×2 (07:59)
[2017-02-21] MEDS: GENTAMICIN IV SCH ×2 (07:59)
[2017-02-21 09:00] VITALS: BP 102/67
== END 2017-05-20 | disposition home or self-care (01) ==
LOC: SDC 07:54
PROVIDERS: ATTEND Family Medicine
DX: N39.0 Urinary tract infection, site not specified (principal); B96.20 Unspecified Escherichia coli [E. coli] as the cause of diseases classified elsewhere
CPT/HCPCS: 96365

== ENCOUNTER 2017-03-01 21:26 | Emergency (ER) | payer MEDICARE, OTHER ==
[~2017-03-01] VITALS: Ht 160 cm; Wt 49.9 kg
--- NOTE | 2017-03-01 21:56 | ED EENT ---
History of Present Illness General Chief Complaint: Eye Problems Stated Complaint: CONTACT LENSE STUCK IN LT EYE Nursing Triage Note: pt ambulated to room. pt states that her left contact lens is stuck. Source: patient, family Exam Limitations: no limitations History of Present Illness Time seen by provider: 21:53 Initial Comments To ER accompanied by her son from [place] assisted living with reports of a possible contact being stuck in the left eye. She wears hard contact lenses and was attempting to remove the left contact lens tonight and was unable to do so. She feels as though it may still be in her eye. She had her roommate at the long term also attempt to remove it with her fingers. 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 Timing/Duration: abrupt Severity: mild Associated Symptoms: denies symptoms Allergies and Home Medications Allergies Coded Allergies: nitrofurantoin (Verified Allergy, Intermediate, 04/18/15) Penicillins (Verified Allergy, Mild, 04/18/15) Sulfa (Sulfonamide Antibiotics) (Verified Allergy, Mild, 04/18/15) omeprazole (Verified Allergy, Mild, 04/18/15) guaifenesin (Verified Allergy, Unknown, 04/18/15) potassium guaiacolsulfonate (Verified Allergy, Unknown, 04/18/15) celecoxib (Unverified Adverse Reaction, Unknown, SICK TO STOMACH, 04/18/15) rosuvastatin (Unverified Adverse Reaction, Unknown, NAUSEA, 04/18/15) Uncoded Allergies: Protoni (Allergy, Mild, 02/05/16) NOTE THAT PT TAKES PROTONIX AT HOME Home Medications Acetaminophen 500 Mg Tablet, 500 MG PO Q4H PRN for PAIN, (Reported) Atorvastatin Calcium 40 Mg Tablet, 40 MG PO HS, (Reported) Difluprednate 5 Ml Drops, 1 DROP OD UD, (Reported) 1 DROP OD TID X 7 DAYS, 1 DROP OD BID X 7, THEN 1 DROP OD DAILY X 7 PATIENT STATES THAT SHE SHOULD START HER 1 DROP OD DAILY SCHEDULE TOMORROW. Digoxin 250 Mcg Tablet, 250 MCG PO Q48H, (Reported) Escitalopram Oxalate 10 Mg Tablet, 10 MG PO DAILY, #30 Prescribed by: KAT VIGIL on 11/13/16 1046 Hydrochlorothiazide 12.5 Mg Tablet, 12.5 MG PO Q48HRS, (Reported) Hypromellose 10 Gm Gel..gram., 1 DROP OD QID, (Reported) Loteprednol Etabonate 5 Ml Drops, 1 DROP OU DAILY, (Reported) Magnesium Oxide 400 Mg Tablet, 400 MG PO DAILY, #30 Prescribed by: KAT VIGIL on 11/13/16 1042 Pantoprazole Sodium 40 Mg Tablet.dr, 40 MG PO BID, (Reported) Warfarin Sodium 5 Mg Tablet, 7.5 MG PO Tu, (Reported) TAKES 1 & 1/2 OF A (5 MG) TABLET Warfarin Sodium 5 Mg Tablet, 5 MG PO [id number], (Reported) Review of Systems Constitutional: see HPI Eyes: See HPI Ears: No Symptoms Reported Nose: no symptoms reported Mouth: no symptoms reported Throat: no symptoms reported Respiratory: no symptoms reported Cardiovascular: no symptoms reported Musculoskeletal: no symptoms reported Past [id number]-Edtyvb-Jmmvvn Hx Patient Social History Alcohol Use: Denies Use Recreational Drug Use: No Smoking Status: Never a Smoker 2nd Hand Smoke Exposure: No Recent Foreign Travel: No Contact w/Someone Who Travel: No Recent Infectious Disease Expo: No Recent Hopitalizations: Yes Immunizations Up To Date Tetanus Booster (TDap): Less than 5yrs PED Vaccines UTD: No Date of Pneumonia Vaccine: Aug 30, 2015 Date of Influenza Vaccine: Jun 12, 2012 Seasonal Allergies Seasonal Allergies: No Surgeries HX Surgeries: Yes (FISTULA REPAIR,CORNEA TRANSPLANT,CARDIAC CATH,SKYLAR W/ PERF ESOPHAGUS/REPAIR ) Surgeries: Abdominal, Cardiac, Eye Surgery, Gallbladder, Hysterectomy, Tracheostomy Respiratory Hx Respiratory Disorders: Yes (RESP.FAILURE-TRACH/VENTILATOR/REMOVAL, CHEST TUBE/REMOVAL) Respiratory Disorders: Pneumonia Cardiovascular Hx Cardiac Disorders: Yes (CHF) Cardiac Disorders: Atrial Fibrillation, Cardiomyopathy, Coronary Artery Disease , High Cholesterol, Hypertension, Irregular Heartbeat Neurological Hx Neurological Disorders: Yes (DENIES, BUT HAS PARESTHESIAS TO TOES) Reproductive System Hx Reproductive Disorders: No Sexually Transmitted Disease: No HIV/AIDS: No Female Reproductive Disorders: Denies AUDIT INTERN History: Hysterectomy, Menopausal Genitourinary Hx Genitourinary Disorders: Yes Genitourinary Disorders: UTI-Chronic Gastrointestinal Hx Gastrointestinal Disorders: Yes (PERFORATED ESOPHAGUS/REPAIR, G-TUBE/ REMOVAL,DYSPHAGIA) Gastrointestinal Disorders: Gastroesophageal Reflux, Polyps Musculoskeletal Hx Musculoskeletal Disorders: Yes (WALKS WITH WALKER) Musculoskeletal Disorders: Osteoporosis, Arthritis, Chronic Back Pain Endocrine Hx Endocrine Disorders: No HEENT HX ENT Disorders: Yes HEENT Disorders: Cataract, Eye Injury Loss of Vision: Bilateral Hearing Impairment: Hard of Hearing, Bilateral Hearing Aide Cancer Hx Cancer: No Psychosocial Hx Psychiatric Problems: No Behavioral Health Disorders: Depression Integumentary HX Skin/Integumentary Disorder: No Blood Transfusions Hx Blood Disorders: No Adverse Reaction to a Blood Tr: No Family Medical History Significant Family History: Cancer Family Medial History: FH: arrhythmia FH: breast cancer Physical Exam Vital Signs Vital Sign - Last 12Hours 03/01/17 21:37 Temp 97.9 Pulse 86 Resp 16 B/P (MAP) 141/86 Pulse Ox 96 O2 Delivery Room Air General Appearance: WD/WN, no apparent distress Eyes: bilateral eye EOMI, bilateral eye PERRL, bilateral eye normal inspection , bilateral eye other (there is no scleral injection left eye. There is no corneal abrasion. There is no area of dye uptake. There is no hyphema. There is no contact lens seen either on the cornea or within the upper or lower conjunctival sacs.) Mouth/Throat: normal mouth inspection, pharynx normal Neck: non-tender, full range of motion Respiratory: no respiratory distress, no accessory muscle use Gastrointestinal: non tender, soft Skin: normal color, warm/dry Date of ETT Placement: Feb 07, 2016 Time of ETT Placement: 1710 Progress/Results/Core Measures Results/Orders My Orders Orders - JHON RAHMAN APRN Tetracaine 0.5% Ophth Lulu Sdv (Tetracai (03/01/17 22:00) Fluorescein Strips ([id number]) (03/01/17 22:00) Balanced Salt Irrigation Soln (Bss Irrig (03/01/17 22:00) Vital Signs/I&O Vital Sign - Last 12Hours 03/01/17 21:37 Temp 97.9 Pulse 86 Resp 16 B/P (MAP) 141/86 Pulse Ox 96 O2 Delivery Room Air Blood Pressure Mean: 104 Departure Communication Progress Notes I did advise the patient and her son that we should prescribe an antibiotic so that she does not get these corneal transplants infected. They both state that they would like to withhold antibiotics as she is scheduled to see her sweet dough mixer in 2 days. If the sweet dough mixer feels that she needs an antibiotic then they could prescribe it at that time. Impression Impression: Primary Impression: left eye foreign body sensation Disposition: 01 HOME, SELF-CARE Condition: Stable Departure-Patient Inst. Decision time for Depature: 21:56 Referrals: KAT VIGIL DO (PCP/Family) Primary Care Physician Patient Instructions: NO INSTRUCTIONS GIVEN Add. Discharge Instructions: All discharge instructions reviewed with patient and/or family. Voiced understanding. JHON RAHMAN OUTREACH ASSISTANT Mar 01, 2017 21:56
[2017-03-01] MEDS ORDERED: TETRACAINE 0.5% OPHTH SOLN 4 ML BTL (SINGLE DOSE ONLY) OP ONE (22:00)
[2017-03-01] MEDS ORDERED: BSS 15 ML IR ONE (22:00)
[2017-03-01] MEDS ORDERED: FLUORESCEIN (FLUOR-I-STRIPS) 1 MG STRP OU ONE (22:00)
[2017-03-01 22:07] VITALS: BP 141/86
[2017-03-02] MEDS ORDERED: TETRACAINE 0.5% OPHTH SOLN 4 ML BTL (SINGLE DOSE ONLY) ONE (05:19)
[2017-03-02] MEDS ORDERED: FLUORESCEIN (FLUOR-I-STRIPS) 1 MG STRP ONE (05:19)
[2017-03-02] MEDS ORDERED: BSS 15 ML ONE (05:19)
== END 2017-03-01 22:07 | disposition home or self-care (01) ==
LOC: EDUNIT# 21:26 → ER 21:27
DX: H57.8 Other specified disorders of eye and adnexa (principal); F32.9 Major depressive disorder, single episode, unspecified; I48.91 Unspecified atrial fibrillation; I11.0 Hypertensive heart disease with heart failure; I50.9 Heart failure, unspecified; I25.10 Atherosclerotic heart disease of native coronary artery without angina pectoris; E78.00 Pure hypercholesterolemia, unspecified; K21.9 Gastro-esophageal reflux disease without esophagitis; M19.90 Unspecified osteoarthritis, unspecified site; M81.0 Age-related osteoporosis without current pathological fracture; M54.9 Dorsalgia, unspecified; G89.29 Other chronic pain; Z79.01 Long term (current) use of anticoagulants; Z93.0 Tracheostomy status; Z98.41 Cataract extraction status, right eye; Z98.42 Cataract extraction status, left eye; Z94.7 Corneal transplant status
CPT/HCPCS: 99282

== ENCOUNTER → 2017-09-02 | Outpatient (CLI) | payer MEDICARE, OTHER ==
[~2017-09-02] MED LIST changes: +HYDR-757 PO
--- NOTE | 2017-09-02 16:04 | Diagnostic Imaging Report ---
INDICATION: Right shoulder pain status post fall. COMPARISON: None. FINDINGS: Three views of the right shoulder were obtained. There is no fracture, dislocation, or other acute bony abnormality identified. The soft tissues appear unremarkable. No radiopaque foreign bodies identified. The visualized portions of the right lung are clear. IMPRESSION: No acute fractures or dislocations of the right shoulder. Dictated by: Dictated on workstation # [id number]
--- NOTE | 2017-09-02 16:05 | Diagnostic Imaging Report ---
INDICATION: Wrist pain status post recent fall. COMPARISON: None. FINDINGS: Three views of the right wrist demonstrate no acute fracture or dislocation. Old ulnar styloid fracture is noted. Moderate degenerative changes at the first carpometacarpal joint space are also present. There are no focal osseous lesions. No avascular necrosis is seen. The visualized soft tissue structures are unremarkable. There are no radiopaque foreign bodies. IMPRESSION: 1. No acute fracture or dislocation in the right wrist. 2. Old ulnar styloid fracture. Dictated by: Dictated on workstation # [id number]
--- NOTE | 2017-09-02 16:21 | Diagnostic Imaging Report ---
INDICATION: Fall. COMPARISON: None. FINDINGS: Four radiographic views of the right elbow were obtained. There is abnormal elevation of the anterior fat pad. There is also subtle obliquely oriented lucency involving the proximal ulna. There is extension into the humeroulnar joint space and displacement of the fracture fragment by approximately 4 mm. Proximal radius and distal humerus appear to be intact. Joint spaces are otherwise maintained. Note is made of moderate soft tissue swelling. IMPRESSION: Acute fracture of the proximal ulna of the right elbow as described above. Dictated by: Dictated on workstation # [id number]
== END ==
LOC: RAD 15:27
PROVIDERS: ATTEND Family Medicine
DX: S52.001A Unspecified fracture of upper end of right ulna, initial encounter for closed fracture (principal); M25.511 Pain in right shoulder; M25.531 Pain in right wrist; Z87.81 Personal history of (healed) traumatic fracture; W19.XXXA Unspecified fall, initial encounter
CPT/HCPCS: 73030; 73080; 73110

== ENCOUNTER 2017-09-03 12:24 | Emergency (ER) | payer MEDICARE, OTHER ==
[~2017-09-03] VITALS: Ht 170.2 cm; Wt 59.0 kg
[~2017-09-03 12:24] MED LIST changes: -HYDR-757 PO
[2017-09-03] MEDS ORDERED: HYDR-757 PO (13:03)
--- NOTE | 2017-09-03 13:03 | ED Upper Extremity ---
General Chief Complaint: Upper Extremity Stated Complaint: ELBOW INJ Source: patient, family Exam Limitations: no limitations History of Present Illness Time seen by provider: 12:58 Initial Comments To ER accompanied by her son from [facility] with reports of a right elbow fracture. Patient states that she [facility] was [facility] some [facility]. She was sent here for outpatient x-rays. Upon review of these x-rays by radiology was determined a proximal ulnar fracture. She presents today for splinting and evaluation. Onset: yesterday Severity: moderate Pain/Injury Location: right elbow Method of Injury: fell Modifying Factors: Worse With Movement Allergies and Home Medications Allergies Coded Allergies: nitrofurantoin (Verified Allergy, Intermediate, 04/18/15) Penicillins (Verified Allergy, Mild, 04/18/15) Sulfa (Sulfonamide Antibiotics) (Verified Allergy, Mild, 04/18/15) omeprazole (Verified Allergy, Mild, 04/18/15) guaifenesin (Verified Allergy, Unknown, 04/18/15) potassium guaiacolsulfonate (Verified Allergy, Unknown, 04/18/15) celecoxib (Unverified Adverse Reaction, Unknown, SICK TO STOMACH, 04/18/15) rosuvastatin (Unverified Adverse Reaction, Unknown, NAUSEA, 04/18/15) Uncoded Allergies: Protoni (Allergy, Mild, 02/05/16) NOTE THAT PT TAKES PROTONIX AT HOME Home Medications Acetaminophen 500 Mg Tablet, 500 MG PO Q4H PRN for PAIN, (Reported) Atorvastatin Calcium 40 Mg Tablet, 40 MG PO HS, (Reported) Difluprednate 5 Ml Drops, 1 DROP OD UD, (Reported) 1 DROP OD TID X 7 DAYS, 1 DROP OD BID X 7, THEN 1 DROP OD DAILY X 7 PATIENT STATES THAT SHE SHOULD START HER 1 DROP OD DAILY SCHEDULE TOMORROW. Digoxin 250 Mcg Tablet, 250 MCG PO Q48H, (Reported) Escitalopram Oxalate 10 Mg Tablet, 10 MG PO DAILY, #30 Prescribed by: KAT VIGIL on 11/13/16 1046 Hydrochlorothiazide 12.5 Mg Tablet, 12.5 MG PO Q48HRS, (Reported) Hydrocodone/Acetaminophen 1 Each Tablet, 0.5 EACH PO Q4H PRN for PAIN-MODERATE TO SEVERE, #10 Prescribed by: JHON RAHMAN on 09/03/17 1303 Hypromellose 10 Gm Gel..gram., 1 DROP OD QID, (Reported) Loteprednol Etabonate 5 Ml Drops, 1 DROP OU DAILY, (Reported) Magnesium Oxide 400 Mg Tablet, 400 MG PO DAILY, #30 Prescribed by: KAT VIGIL on 11/13/16 1042 Pantoprazole Sodium 40 Mg Tablet.dr, 40 MG PO BID, (Reported) Warfarin Sodium 5 Mg Tablet, 7.5 MG PO Tu, (Reported) TAKES 1 & 1/2 OF A (5 MG) TABLET Warfarin Sodium 5 Mg Tablet, 5 MG PO [id number], (Reported) Constitutional: see HPI EENTM: see HPI Respiratory: no symptoms reported Cardiovascular: no symptoms reported Genitourinary: no symptoms reported Musculoskeletal: see HPI Skin: no symptoms reported Psychiatric/Neurological: No Symptoms Reported Past Tnzquoh-[id number]-Oqysmg Hx Patient Social History 2nd Hand Smoke Exposure: No Recent Foreign Travel: No Contact w/Someone Who Travel: No Recent Hopitalizations: Yes Immunizations Up To Date Tetanus Booster (TDap): Less than 5yrs PED Vaccines UTD: No Date of Pneumonia Vaccine: Aug 30, 2015 Date of Influenza Vaccine: Jun 12, 2012 Seasonal Allergies Seasonal Allergies: No Surgeries History of Surgeries: Yes (FISTULA REPAIR,CORNEA TRANSPLANT,CARDIAC CATH,SKYLAR W / PERF ESOPHAGUS/REPAIR ) Surgeries: Abdominal, Cardiac, Eye Surgery, Gallbladder, Hysterectomy, Tracheostomy Respiratory History of Respiratory Disorde: Yes (RESP.FAILURE-TRACH/VENTILATOR/REMOVAL, CHEST TUBE/REMOVAL) Respiratory Disorders: Pneumonia Currently Using CPAP: No Currently Using BIPAP: No Cardiovascular History of Cardiac Disorders: Yes (CHF) Cardiac Disorders: Atrial Fibrillation, Cardiomyopathy, Coronary Artery Disease , High Cholesterol, Hypertension, Irregular Heartbeat Neurological History of Neurological Disord: Yes (DENIES, BUT HAS PARESTHESIAS TO TOES) Reproductive System Hx Reproductive Disorders: No Sexually Transmitted Disease: No HIV/AIDS: No Female 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, 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 Genitourinary History of Genitourinary Disor: Yes Genitourinary Disorders: UTI-Chronic Gastrointestinal History of Gastrointestinal Di: Yes (PERFORATED ESOPHAGUS/REPAIR, G-TUBE/ REMOVAL,DYSPHAGIA) Gastrointestinal Disorders: Gastroesophageal Reflux, Polyps Musculoskeletal History of Musculoskeletal Dis: Yes (WALKS WITH WALKER) Musculoskeletal Disorders: Osteoporosis, Arthritis, Chronic Back Pain Endocrine History of Endocrine Disorders: No HEENT HEENT Disorders: Cataract, Eye Injury Loss of Vision: Bilateral Hearing Impairment: Hard of Hearing, Bilateral Hearing Aide Cancer History of Cancer: No Did You Recieve Any Treatments: No Psychosocial History of Psychiatric Problem: Yes Behavioral Health Disorders: Depression Integumentary History of Skin or Integumenta: No Blood Transfusions History of Blood Disorders: No Adverse Reaction to a Blood Tr: No Family Medical History Significant Family History: Cancer Family Medial History: FH: arrhythmia FH: breast cancer Physical Exam Vital Signs Vital Sign - Last 12Hours 09/03/17 12:54 Temp 98.0 Pulse 71 Resp 20 B/P (MAP) 102/57 (72) Pulse Ox 94 O2 Delivery Room Air Capillary Refill : General Appearance: WD/WN, no apparent distress HEENT: PERRL/EOMI, normal ENT inspection Neck: non-tender, full range of motion Respiratory: normal breath sounds, no respiratory distress, no accessory muscle use Gastrointestinal: normal bowel sounds, non tender, soft Shoulder: normal inspection, non-tender Elbow/Forearm: Right, ecchymosis, swelling (the skin is not tight. She has increased pain with range of motion of the elbow. Distally she is neurovascularly intact. No evidence of compartment syndrome. No increased pain with passive range of motion of the wrist.) Wrist: Yes normal inspection, Yes non-tender Hand: normal inspection, non-tender Neurologic/Tendon: normal sensation, normal motor functions Neurologic/Psychiatric: alert, normal mood/affect Skin: normal color, warm/dry Date of ETT Placement: Feb 07, 2016 Time of ETT Placement: 1710 Progress/Results/Core Measures Results/Orders Vital Signs/I&O Vital Sign - Last 12Hours 09/03/17 12:54 Temp 98.0 Pulse 71 Resp 20 B/P (MAP) 102/57 (72) Pulse Ox 94 O2 Delivery Room Air Departure Communication (Admissions) Progress Notes We'll place the patient in a posterior long-arm splint and have her follow-up orthopedics. Since she uses a walker to ambulate I will write for an arm attachment for the walker. Impression Impression: Primary Impression: Elbow fracture, right Disposition: 01 HOME, SELF-CARE Condition: Stable Departure-Patient Inst. Decision time for Depature: 13:00 Referrals: MADIE FOX MD, [facility]ATHAN [facility],MIKEL SUMMERS,KAT MALDONADO DO (PCP/Family) Primary Care Physician MAN ZAMBRANO DO Patient Instructions: Elbow Fracture (DC) Add. Discharge Instructions: 1. Return to ER for any concerns 2. Keep the splint on at all times. 3. Call an orthopedist today to make appointment for follow up. Kay listed the local orthopedists. All discharge instructions reviewed with patient and/or family. Voiced understanding. Scripts Hydrocodone/Acetaminophen ([place] 5-325 Tablet) 1 Each Tablet 0.5 EACH PO Q4H Y for PAIN-MODERATE TO SEVERE, #10 TAB Prov: JHON RAHMAN APRN 09/03/17 Copy Copies To 1: KAT VIGIL PETER J APRN Sep 03, 2017 13:03
[2017-09-03 14:30] VITALS: BP 106/69
--- OUTSIDE RECORDS SUMMARY | 2017-09-04 00:20 | XMS REPORT | Continuity of Care Document ---
Author Author [facility] Organization [facility] Address Unknown Phone Unavailable Allergies Active Description Code Type Severity Reaction Onset Reported/Identified Relationship to Patient Clinical Status Yes nitrofurantoin [id number] Drug Allergy Moderate N/A 04/18/2015 Yes omeprazole [id number] Drug Allergy Mild N/A 04/18/2015 Yes Penicillins [id number] Drug Allergy Mild N/A 04/18/2015 Yes Sulfa (Sulfonamide Antibiotics) [id number] Drug Allergy Mild N/A 2014 Yes celecoxib [id number] Drug Allergy Unknown SICK TO STOMACH 04/18/2015 Yes guaifenesin [id number] Drug Allergy Unknown N/A 04/18/2015 Yes potassium guaiacolsulfonate [id number] Drug Allergy Unknown N/A 2014 Yes rosuvastatin [id number] Drug Allergy Unknown NAUSEA 04/18/2015 Yes Protoni Protoni Mild N/A 02/05/2016 Medications There is no data. 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 08/12/2011 Ot 424.1 AORTIC VALVE DISORDER 08/12/2011 Ot 794.30 ABN CARDIOVASC STUDY NOS 12/06/2012 Ot 272.4 HYPERLIPIDEMIA NEC/NOS 12/06/2012 Ot 401.9 HYPERTENSION NOS 12/06/2012 Ot 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 12/06/2012 Ot 427.31 ATRIAL FIBRILLATION 12/06/2012 Ot 428.0 CONGESTIVE HEART FAILURE NOS 12/06/2012 Ot 428.31 ACUTE DIASTOLIC HRT FAILURE 12/06/2012 Ot 429.89 ILL-DEFINED HRT DIS NEC 12/06/2012 Ot 512.1 IATROGENIC PNEUMOTHORAX 12/06/2012 Ot 530.81 ESOPHAGEAL REFLUX 12/06/2012 Ot 715.90 OSTEOARTHROS NOS-UNSPEC 12/06/2012 Ot 785.51 CARDIOGENIC SHOCK 02/15/2013 HARLEEN GREER MD Ot 272.4 HYPERLIPIDEMIA NEC/NOS 02/15/2013 HARLEEN GREER MD E Ot 273.8 DIS PLAS PROTEIN MET NEC 02/15/2013 HARLEEN GREER MD Ot 276.8 HYPOPOTASSEMIA 02/15/2013 HARLEEN GREER MD Ot 285.9 ANEMIA NOS 02/15/2013 HARLEEN GREER MD Ot 401.9 HYPERTENSION NOS 02/15/2013 HARLEEN GREER MD E Ot 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 02/15/2013 HARLEEN GREER MD Ot 427.31 ATRIAL FIBRILLATION 02/15/2013 HARLEEN GREER MD E Ot 510.9 EMPYEMA W/O FISTULA 02/15/2013 HARLEEN GREER MD E Ot 530.81 ESOPHAGEAL REFLUX 02/15/2013 HARLEEN GREER MD Ot 715.90 OSTEOARTHROS NOS-UNSPEC 02/15/2013 HARLEEN GREER MD Ot 796.3 LOW BLOOD PRESS READING 02/15/2013 HARLEEN GREER MD Ot 799.3 DEBILITY NOS 02/15/2013 HARLEEN GREER MD Ot V57.1 PHYSICAL THERAPY NEC 02/15/2013 HARLEEN GREER MD Ot V57.21 ENCOUNTER FOR OCCUPATIONAL THERAPY 02/15/2013 HARLEEN GREER MD Ot V58.75 AFTERCARE POST SURGERY TEETH,ORAL CAVITY 04/20/2014 Ot 386.11 BENIGN PARXYSMAL VERTIGO 04/20/2014 Ot 427.31 ATRIAL FIBRILLATION 04/20/2014 Ot 428.0 CONGESTIVE HEART FAILURE NOS 04/20/2014 Ot 780.4 DIZZINESS AND GIDDINESS 04/20/2014 Ot V58.61 ANTICOAGULANTS,LT,CURRENT USE 04/20/2014 Ot V58.69 OTH MED,LT, CURRENT USE 04/14/2015 MITZI ANGUIANO DO Ot 272.0 PURE HYPERCHOLESTEROLEM 04/14/2015 MITZI ANGUIANO DO Ot 386.11 BENIGN PARXYSMAL VERTIGO 04/14/2015 MITZI ANGUIANO DO Ot 401.9 HYPERTENSION NOS 04/14/2015 MITZI ANGUIANO DO Ot 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 04/14/2015 MITZI ANGUIANO DO Ot 425.4 PRIM CARDIOMYOPATHY NEC 04/14/2015 MITZI ANGUIANO DO Ot 427.31 ATRIAL FIBRILLATION 04/14/2015 MITZI ANGUIANO DO Ot 780.4 DIZZINESS AND GIDDINESS 04/16/2015 VARGAS BRENNAN, MADDIE Pittman Ot 348.9 BRAIN CONDITION NOS 04/16/2015 VARGAS BRENNAN, MADDIE Pittman Ot 427.31 ATRIAL FIBRILLATION 04/16/2015 VARGAS BRENNAN, MADDIE Pittman Ot 599.0 URIN TRACT INFECTION NOS 04/16/2015 VARGAS BRENNAN, MADDIE T Ot 780.1 HALLUCINATIONS 04/16/2015 VARGAS BRENNAN, MADDIE T Ot 780.97 ALTERED MENTAL STATUS 04/16/2015 VARGAS BRENNAN, MADDIE Pittman Ot V58.61 ANTICOAGULANTS,LT,CURRENT USE 04/16/2015 MADDIE KAYE MD Ot V58.69 OTH MED,LT,CURRENT USE 04/20/2015 KAT VIGIL DO S Ot 272.0 04/20/2015 EVANGELISTANDFUAD GALLARDO DOQUELINE S Ot 276.51 04/20/2015 EVANGELISTAND DOFUADKAT S Ot 294.20 04/20/2015 EVANGELISTAND DO, KAT S Ot 308.9 04/20/2015 EVANGELISTANDSAMI DOFUADKAT S Ot 338.29 04/20/2015 EVANGELISTANDSAMI DOFUADKAT S Ot 401.9 04/20/2015 EVANGELISTANDFUAD GALLARDO DOQUELINE S Ot 414.01 04/20/2015 EVANGELISTANDGURWINDER GALLARDO DOLINE S Ot 425.4 04/20/2015 EVANGELISTANDFUAD GALLARDO DOQUELINE S Ot 427.31 04/20/2015 ORENDER DO, KAT S Ot 428.0 04/20/2015 ORENDER DO, KAT S Ot 530.81 04/20/2015 ORENDER DO, KAT S Ot 593.9 04/20/2015 [facility] Ot 599.0 04/20/2015 [facility], KAT S Ot 716.90 04/20/2015 [facility], KAT S Ot 724.5 04/20/2015 [facility], KAT S Ot 733.00 04/20/2015 [facility], KAT S Ot 782.0 04/20/2015 [facility], KAT S Ot 788.30 04/20/2015 [facility], KAT S Ot V15.88 04/21/2015 [facility], KAT S Ot 272.0 04/21/2015 [facility], KAT S Ot 276.51 04/21/2015 [facility], KAT S Ot 294.20 04/21/2015 [facility], KAT S Ot 308.9 04/21/2015 [facility], KAT S Ot 338.29 04/21/2015 [facility], KAT S Ot 401.9 04/21/2015 [facility], KAT S Ot 414.01 04/21/2015 [facility], KAT S Ot 425.4 04/21/2015 [facility], KAT S Ot 427.31 04/21/2015 [facility], KAT S Ot 428.0 04/21/2015 [facility], KAT S Ot 530.81 04/21/2015 [facility], KAT S Ot 593.9 04/21/2015 [facility], KAT S Ot 599.0 04/21/2015 [facility], KAT S Ot 716.90 04/21/2015 [facility], KAT S Ot 724.5 04/21/2015 [facility], KAT S Ot 733.00 04/21/2015 [facility], KAT S Ot 782.0 04/21/2015 [facility], KAT S Ot 788.30 04/21/2015 [facility], KAT S Ot V15.88 04/22/2015 [facility], KAT S Ot 272.0 04/22/2015 [facility], KAT S Ot 276.51 04/22/2015 [facility], KAT S Ot 294.20 04/22/2015 [facility], KAT S Ot 308.9 04/22/2015 [facility], KAT S Ot 338.29 04/22/2015 [facility], KAT S Ot 401.9 04/22/2015 [facility] DO, KAT S Ot 414.01 04/22/2015 [facility] DO, KAT S Ot 425.4 04/22/2015 [facility] DO, KAT S Ot 427.31 04/22/2015 [facility] DO, KAT S Ot 428.0 04/22/2015 [facility], KAT S Ot 530.81 04/22/2015 [facility], KAT S Ot 593.9 04/22/2015 [facility] DO, KAT S Ot 599.0 04/22/2015 [facility] DO, KAT S Ot 716.90 04/22/2015 [facility], KAT S Ot 724.5 04/22/2015 [facility], KAT S Ot 733.00 04/22/2015 [facility], KAT S Ot 782.0 04/22/2015 [facility], KAT S Ot 788.30 04/22/2015 [facility], KAT S Ot V15.88 04/22/2015 [facility], KAT S Ot 272.0 PURE HYPERCHOLESTEROLEM 04/22/2015 [facility], KAT S Ot 276.51 DEHYDRATION 04/22/2015 [facility], KAT S Ot 294.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, UNSPECIFIED, 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 04/22/2015 [facility], KAT S Ot 308.9 ACUTE STRESS REACT NOS 04/22/2015 [facility], KAT S Ot 311 DEPRESSIVE DISORDER NEC 04/22/2015 [facility], KAT S Ot 338.29 OTHER CHRONIC PAIN 04/22/2015 GURWINDER VIGIL DOLINE S Ot 401.9 HYPERTENSION NOS 04/22/2015 GURWINDER VIGIL DOLINE S Ot 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 04/22/2015 MUSA VALDEZ KAT S Ot 425.4 PRIM CARDIOMYOPATHY NEC 04/22/2015 GURWINDER VIGIL DOLINE S Ot 427.31 ATRIAL FIBRILLATION 04/22/2015 GURWINDER VIGIL DOLINE S Ot 428.0 CONGESTIVE HEART FAILURE NOS 04/22/2015 FUAD VIGIL DOQUELINE S Ot 530.81 ESOPHAGEAL REFLUX 04/22/2015 GURWINDER VIGIL DOLINE S Ot 593.9 RENAL URETERAL DIS NOS 04/22/2015 GURWINDER VIGIL DOLINE S Ot 599.0 URIN TRACT INFECTION NOS 04/22/2015 GURWINDER VIGIL DOLINE S Ot 716.90 ARTHROPATHY NOS-UNSPEC 04/22/2015 MUSA VALDEZ KAT S Ot 724.5 BACKACHE NOS 04/22/2015 MUSA VALDEZ KAT S Ot 733.00 OSTEOPOROSIS NOS 04/22/2015 GURWINDER VIGIL DOLINE S Ot 780.79 OTH MALAISE FATIGUE 04/22/2015 GURWINDER VIGIL DOLINE S Ot 782.0 SKIN SENSATION DISTURB 04/22/2015 GURWINDER VIGIL DOLINE S Ot 788.30 04/22/2015 MUSA VALDEZ KAT S Ot V15.88 HISTORY OF FALL 05/21/2015 JAYCESAMI KAT S Ot 427.31 05/21/2015 MUSA VALDEZ KAT S Ot 428.0 06/05/2015 ADDIE MONTEIRO MD Ot V58.61 06/05/2015 ADDIE MONTEIRO MD Ot V58.83 06/24/2015 ADDIE MONTEIRO MD Ot V58.61 06/24/2015 ADDIE MONTEIRO MD Ot V58.83 12/30/2015 Ot V76.12 OTH SCREEN MAMMO-MALIGN NEOPLASM OF [place] 12/30/2015 Ot 429.3 CARDIOMEGALY 12/30/2015 Ot 786.2 COUGH 12/30/2015 Ot 786.50 CHEST PAIN NOS 12/30/2015 Ot 401.9 HYPERTENSION NOS 12/30/2015 Ot 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 12/30/2015 Ot 786.50 CHEST PAIN NOS 12/30/2015 Ot V58.66 LONG-TERM ( CURRENT) USE OF ASPIRIN 12/30/2015 Ot V58.69 OTH MED,LT, CURRENT USE 12/30/2015 ADDIE MONTEIRO MD Ot 427.31 ATRIAL FIBRILLATION 12/30/2015 ADDIE MONTEIRO MD, Ot V58.61 ANTICOAGULANTS,LT,CURRENT USE 12/30/2015 ADDIE MONTEIRO MD, Ot V58.83 ENCOUNTER FOR THERAPEUTIC DRUG MONITORIN 12/30/2015 ADDIE MONTEIRO MD, Ot V58.61 ANTICOAGULANTS,LT,CURRENT USE 12/30/2015 ADDIE MONTEIRO MD, Ot V58.61 ANTICOAGULANTS,LT,CURRENT USE 12/30/2015 ADDIE MONTEIRO MD, Ot V58.83 ENCOUNTER FOR THERAPEUTIC DRUG MONITORIN 12/30/2015 ADDIE MONTEIRO MD, Ot V58.61 ANTICOAGULANTS,LT,CURRENT USE 12/30/2015 ADDIE MONTEIRO MD Ot V67.9 FOLLOW-UP EXAM NOS 12/30/2015 KAT VIGIL DO S Ot 397.0 TRICUSPID VALVE DISEASE 12/30/2015 GURWINDER VIGIL DOLINE S Ot 416.8 CHR PULMON HEART DIS NEC 12/30/2015 FUAD VIGIL DOQUELINE S Ot 424.0 MITRAL VALVE DISORDER 12/30/2015 GURWINDER VIGIL DOLINE S Ot 427.31 ATRIAL FIBRILLATION 12/30/2015 GURWINDER VIGIL DOLINE S Ot 433.10 CAROTID ARTERY OCCLUSION W O CEREBRAL IN 12/30/2015 GURWINDER VIGIL DOLINE S Ot 785.2 CARDIAC MURMURS NEC 12/30/2015 GURWINDER VIGIL DOLINE S Ot 427.31 ATRIAL FIBRILLATION 12/30/2015 GURWINDER VIGIL DOLINE S Ot 428.0 CONGESTIVE HEART FAILURE NOS 12/30/2015 ADDIE MONTEIRO MD, Ot V58.61 ANTICOAGULANTS,LT,CURRENT USE 12/30/2015 ADDIE MONTEIRO MD, Ot V58.83 ENCOUNTER FOR THERAPEUTIC DRUG MONITORIN 12/30/2015 ADDIE MONTEIRO MD, Ot V58.61 ANTICOAGULANTS,LT,CURRENT USE 12/30/2015 ADDIE MONTEIRO MD Ot V58.83 ENCOUNTER FOR THERAPEUTIC DRUG MONITORIN 01/01/2016 ADDIE MONTEIRO MD Ot E78.2 MIXED HYPERLIPIDEMIA 01/01/2016 ADDIE MONTEIRO MD Ot I10 ESSENTIAL (PRIMARY) HYPERTENSION 01/01/2016 ADDIE MONTEIRO MD Ot I25.10 ATHSCL HEART DISEASE OF [place] CORONARY 01/01/2016 ADDIE MONTEIRO MD Ot R07.9 CHEST PAIN, UNSPECIFIED 01/01/2016 ADDIE MONTEIRO MD Ot E78.2 MIXED HYPERLIPIDEMIA 01/01/2016 ADDIE MONTEIRO MD Ot I10 ESSENTIAL (PRIMARY) HYPERTENSION 01/01/2016 ADDIE MONTEIRO MD Ot I25.10 ATHSCL HEART DISEASE OF [place] CORONARY 01/01/2016 ADDIE MONTEIRO MD Ot R07.9 CHEST PAIN, UNSPECIFIED 01/03/2016 ADDIE MONTEIRO MD Ot E78.2 MIXED HYPERLIPIDEMIA 01/03/2016 ADDIE MONTEIRO MD Ot I10 ESSENTIAL (PRIMARY) HYPERTENSION 01/03/2016 ADDIE MONTEIRO MD Ot I25.10 ATHSCL HEART DISEASE OF [place] CORONARY 01/03/2016 ADDIE MONTEIRO MD Ot R07.9 CHEST PAIN, UNSPECIFIED 01/03/2016 ADDIE MONTEIRO MD Ot E78.2 MIXED HYPERLIPIDEMIA 01/03/2016 ADDIE MONTEIRO MD Ot I10 ESSENTIAL (PRIMARY) HYPERTENSION 01/03/2016 ADDIE MONTEIRO MD Ot I25.10 ATHSCL HEART DISEASE OF [place] CORONARY 01/03/2016 ADDIE MONTEIRO MD Ot R07.9 CHEST PAIN, UNSPECIFIED 01/21/2016 ADDIE MONTEIRO MD Ot E78.2 MIXED HYPERLIPIDEMIA 01/21/2016 ADDIE MONTEIRO MD Ot I10 ESSENTIAL (PRIMARY) HYPERTENSION 01/21/2016 ADDIE MONTEIRO MD Ot I25.10 ATHSCL HEART DISEASE OF [place] CORONARY 01/21/2016 ADDIE MONTEIRO MD Ot R07.9 CHEST PAIN, UNSPECIFIED 01/24/2016 ADDIE MONTEIRO MD Ot E78.2 MIXED HYPERLIPIDEMIA 01/24/2016 ADDIE MONTEIRO MD Ot I10 ESSENTIAL (PRIMARY) HYPERTENSION 01/24/2016 ADDIE MONTEIRO MD Ot I25.10 ATHSCL HEART DISEASE OF [place] CORONARY 01/24/2016 ADDIE MONTEIRO MD Ot R07.9 CHEST PAIN, UNSPECIFIED 02/04/2016 Ot V76.12 OTH SCREEN MAMMO-MALIGN NEOPLASM OF [place] 02/04/2016 Ot 429.3 CARDIOMEGALY 02/04/2016 Ot 786.2 COUGH 02/04/2016 Ot 786.50 CHEST PAIN NOS 02/04/2016 Ot 401.9 HYPERTENSION NOS 02/04/2016 Ot 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 02/04/2016 Ot 786.50 CHEST PAIN NOS 02/04/2016 Ot V58.66 LONG-TERM ( CURRENT) USE OF ASPIRIN 02/04/2016 Ot V58.69 OTH MED,LT, CURRENT USE 02/04/2016 DADIE MONTEIRO MD Ot 427.31 ATRIAL FIBRILLATION 02/04/2016 ADDIE MONTEIRO MD, Ot V58.61 ANTICOAGULANTS,LT,CURRENT USE 02/04/2016 ADDIE MONTEIRO MD Ot V58.83 ENCOUNTER FOR THERAPEUTIC DRUG MONITORIN 02/04/2016 ADDIE MONTEIRO MD Ot V58.61 ANTICOAGULANTS,LT,CURRENT USE 02/04/2016 ADDIE MONTEIRO MD, Ot V58.61 ANTICOAGULANTS,LT,CURRENT USE 02/04/2016 ADDIE MONTEIRO MD Ot V58.83 ENCOUNTER FOR THERAPEUTIC DRUG MONITORIN 02/04/2016 ADDIE MONTEIRO MD, Ot V58.61 ANTICOAGULANTS,LT,CURRENT USE 02/04/2016 ADDIE MONTEIRO MD Ot V67.9 FOLLOW-UP EXAM NOS 02/04/2016 KAT VIGIL DO Ot 397.0 TRICUSPID VALVE DISEASE 02/04/2016 KAT VIGIL DO Ot 416.8 CHR PULMON HEART DIS NEC 02/04/2016 KAT VIGIL DO Ot 424.0 MITRAL VALVE DISORDER 02/04/2016 KAT VIGIL DO Ot 427.31 ATRIAL FIBRILLATION 02/04/2016 KAT VIGIL DO Ot 433.10 CAROTID ARTERY OCCLUSION W O CEREBRAL IN 02/04/2016 KAT VIGIL DO Ot 785.2 CARDIAC MURMURS NEC 02/04/2016 KAT VIGIL DO Ot 427.31 ATRIAL FIBRILLATION 02/04/2016 KAT VIGIL DO Ot 428.0 CONGESTIVE HEART FAILURE NOS 02/04/2016 ADDIE MONTEIRO MD Ot V58.61 ANTICOAGULANTS,LT,CURRENT USE 02/04/2016 ADDIE MONTEIRO MD Ot V58.83 ENCOUNTER FOR THERAPEUTIC DRUG MONITORIN 02/04/2016 ADDIE MONTEIRO MD Ot V58.61 ANTICOAGULANTS,LT,CURRENT USE 02/04/2016 ADDIE MONTEIRO MD Ot V58.83 ENCOUNTER FOR THERAPEUTIC DRUG MONITORIN 02/04/2016 ADDIE MONTEIRO MD Ot E78.2 MIXED HYPERLIPIDEMIA 02/04/2016 ADDIE MONTEIRO MD Ot I10 ESSENTIAL (PRIMARY) HYPERTENSION 02/04/2016 ADDIE MONTEIRO MD Ot I25.10 ATHSCL HEART DISEASE OF [place] CORONARY 02/04/2016 ADDIE MONTEIRO MD Ot R07.9 CHEST PAIN, UNSPECIFIED 02/12/2016 MARIFER DICKERSON MD Ot D69.6 THROMBOCYTOPENIA, UNSPECIFIED 02/12/2016 MARIFER DICKERSON MD Ot E44.1 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[place]ORIE MALNUTRITION 02/12/2016 MARIFER DICKERSON MD Ot E78.0 PURE HYPERCHOLESTEROLEMIA 02/12/2016 MARIFER DICKERSON MD Ot E86.0 DEHYDRATION 02/12/2016 MARIFER DICKERSON MD Ot E87.6 HYPOKALEMIA 02/12/2016 MARIFER DICKERSON MD Ot G89.29 OTHER CHRONIC PAIN 02/12/2016 MARIFER DICKERSON MD Ot 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 02/12/2016 MARIFER DICKERSON MD Ot I10 ESSENTIAL (PRIMARY) HYPERTENSION 02/12/2016 MARIFER DICKERSON MD Ot I25.10 ATHSCL HEART DISEASE OF [place] CORONARY 02/12/2016 MARIFER DICKERSON MD Ot I42.9 CARDIOMYOPATHY, UNSPECIFIED 02/12/2016 MARIFER DICKERSON MD Ot I48.2 CHRONIC ATRIAL FIBRILLATION 02/12/2016 MARIFER DICKERSON MD Ot I50.9 HEART FAILURE, UNSPECIFIED 02/12/2016 MARIFER DICKERSON MD Ot I95.9 HYPOTENSION, UNSPECIFIED 02/12/2016 MARIFER DICKERSON MD Ot J95.821 ACUTE POSTPROCEDURAL RESPIRATORY FAILURE 02/12/2016 MARIFER DICKERSON MD Ot K21.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 02/12/2016 TUAN BRENNAN, MARIFER Canales Ot K80.00 CALCULUS OF GALLBLADDER W ACUTE CHOLECYS 02/12/2016 MARIFER DICKERSON MD Ot M19.90 UNSPECIFIED OSTEOARTHRITIS, UNSPECIFIED 02/12/2016 MARIFER DICKERSON MD Ot M54.9 DORSALGIA, UNSPECIFIED 02/12/2016 MARIFER DICKERSON MD Ot M81.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 02/12/2016 MARIFER DICKERSON MD Ot N39.0 URINARY TRACT INFECTION, SITE NOT SPECIF 02/12/2016 MARIFER DICKERSON MD Ot R64 CACHEXIA 02/12/2016 MARIFER DICKERSON MD Ot D69.6 THROMBOCYTOPENIA, UNSPECIFIED 02/12/2016 MARIFER DICKERSON MD Ot E44.1 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[place]IE MALNUTRITION 02/12/2016 MARIFER DICKERSON MD Ot E78.0 PURE HYPERCHOLESTEROLEMIA 02/12/2016 MARIFER DICKERSON MD Ot E86.0 DEHYDRATION 02/12/2016 MARIFER DICKERSON MD Ot E87.6 HYPOKALEMIA 02/12/2016 MARIFER DICKERSON MD Ot G89.29 OTHER CHRONIC PAIN 02/12/2016 MARIFER DICKERSON MD Ot 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 02/12/2016 MARIFER DICKERSON MD Ot I10 ESSENTIAL (PRIMARY) HYPERTENSION 02/12/2016 MARIFER DICKERSON MD Ot I25.10 ATHSCL HEART DISEASE OF [place] CORONARY 02/12/2016 MARIFER DICKERSON MD Ot I42.9 CARDIOMYOPATHY, UNSPECIFIED 02/12/2016 MARIFER DICKERSON MD Ot I48.2 CHRONIC ATRIAL FIBRILLATION 02/12/2016 MARIFER DICKERSON MD Ot I50.9 HEART FAILURE, UNSPECIFIED 02/12/2016 MARIFER DICKERSON MD Ot I95.9 HYPOTENSION, UNSPECIFIED 02/12/2016 MARIFER DICKERSON MD Ot J95.821 ACUTE POSTPROCEDURAL RESPIRATORY FAILURE 02/12/2016 MARIFER DICKERSON MD Ot K21.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 02/12/2016 MARIFER DICKERSON MD Ot K80.00 CALCULUS OF GALLBLADDER W ACUTE CHOLECYS 02/12/2016 MARIFER DICKERSON MD Ot M19.90 UNSPECIFIED OSTEOARTHRITIS, UNSPECIFIED 02/12/2016 MARIFER DICKERSON MD Ot M54.9 DORSALGIA, UNSPECIFIED 02/12/2016 MARIFER DICKERSON MD Ot M81.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 02/12/2016 MARIFER DICKERSON MD, Ot N39.0 URINARY TRACT INFECTION, SITE NOT SPECIF 02/12/2016 MARIFER DICKERSON MD Ot R64 CACHEXIA 02/20/2016 ORENDER DO, KAT S Ot I10 ESSENTIAL (PRIMARY) HYPERTENSION 02/20/2016 ORENDER DO, KAT S Ot Z79.01 SENIOR LIVING (CURRENT) USE OF ANTICOAGULANT 03/17/2016 ORENDER DO, KAT S Ot I10 ESSENTIAL (PRIMARY) HYPERTENSION 03/17/2016 FUAD VIGIL DOQUELINE S Ot Z79.01 THREAD SPOOLER (CURRENT) USE OF ANTICOAGULANT 03/18/2016 ADDIE MONTEIRO MD, Ot Z79.01 THREAD SPOOLER (CURRENT) USE OF ANTICOAGULANT 03/18/2016 ADDIE MONTEIRO MD Ot Z51.81 ENCOUNTER FOR THERAPEUTIC DRUG LEVEL MON 03/18/2016 ADDIE MONTEIRO MD Ot Z79.01 THREAD SPOOLER (CURRENT) USE OF ANTICOAGULANT 03/20/2016 ADDIE MONTEIRO MD Ot Z51.81 ENCOUNTER FOR THERAPEUTIC DRUG LEVEL MON 03/20/2016 ADDIE MONTEIRO MD Ot Z79.01 SENIOR LIVING (CURRENT) USE OF ANTICOAGULANT 04/10/2016 ADDIE MONTEIRO MD Ot Z51.81 ENCOUNTER FOR THERAPEUTIC DRUG LEVEL MON 04/10/2016 ADDIE MONTEIRO MD Ot Z79.01 SENIOR LIVING (CURRENT) USE OF ANTICOAGULANT 04/17/2016 ADDIE MONTEIRO MD Ot Z51.81 ENCOUNTER FOR THERAPEUTIC DRUG LEVEL MON 04/17/2016 ADDIE MONTEIRO MD Ot Z79.01 THREAD SPOOLER (CURRENT) USE OF ANTICOAGULANT 04/28/2016 Ot V76.12 OTH SCREEN MAMMO-MALIGN NEOPLASM OF [place] 04/28/2016 Ot 429.3 CARDIOMEGALY 04/28/2016 Ot 786.2 COUGH 04/28/2016 Ot 786.50 CHEST PAIN NOS 04/28/2016 Ot 401.9 HYPERTENSION NOS 04/28/2016 Ot 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 04/28/2016 Ot 786.50 CHEST PAIN NOS 04/28/2016 Ot V58.66 LONG-TERM ( CURRENT) USE OF ASPIRIN 04/28/2016 Ot V58.69 OTH MED,LT, CURRENT USE 04/28/2016 ADDIE MONTEIRO MD Ot 427.31 ATRIAL FIBRILLATION 04/28/2016 ADDIE MONTEIRO MD Ot V58.61 ANTICOAGULANTS,LT,CURRENT USE 04/28/2016 ADDIE MONTEIRO MD Ot V58.83 ENCOUNTER FOR THERAPEUTIC DRUG MONITORIN 04/28/2016 ADDIE MONTEIRO MD Ot V58.61 ANTICOAGULANTS,LT,CURRENT USE 04/28/2016 ADDIE MONTEIRO MD Ot V58.61 ANTICOAGULANTS,LT,CURRENT USE 04/28/2016 ADDIE MONTEIRO MD Ot V58.83 ENCOUNTER FOR THERAPEUTIC DRUG MONITORIN 04/28/2016 ADDIE MONTEIRO MD Ot V58.61 ANTICOAGULANTS,LT,CURRENT USE 04/28/2016 ADDIE MONTEIRO MD Ot V67.9 FOLLOW-UP EXAM NOS 04/28/2016 KAT VIGIL DO S Ot 397.0 TRICUSPID VALVE DISEASE 04/28/2016 FUAD VIGIL DOQUELINE S Ot 416.8 CHR PULMON HEART DIS NEC 04/28/2016 FUAD VIGIL DOQUELINE S Ot 424.0 MITRAL VALVE DISORDER 04/28/2016 FUAD VIGIL DOQUELINE S Ot 427.31 ATRIAL FIBRILLATION 04/28/2016 FUAD VIGIL DOQUELINE S Ot 433.10 CAROTID ARTERY OCCLUSION W O CEREBRAL IN 04/28/2016 GURWINDER VIGIL DOLINE S Ot 785.2 CARDIAC MURMURS NEC 04/28/2016 FUAD VIGIL DOQUELINE S Ot 427.31 ATRIAL FIBRILLATION 04/28/2016 FUAD VIGIL DOQUELINE S Ot 428.0 CONGESTIVE HEART FAILURE NOS 04/28/2016 ADDIE MONTEIRO MD Ot V58.61 ANTICOAGULANTS,LT,CURRENT USE 04/28/2016 ADDIE MONTEIRO MD Ot V58.83 ENCOUNTER FOR THERAPEUTIC DRUG MONITORIN 04/28/2016 ADDIE MONTEIRO MD Ot V58.61 ANTICOAGULANTS,LT,CURRENT USE 04/28/2016 ADDIE MONTEIRO MD Ot V58.83 ENCOUNTER FOR THERAPEUTIC DRUG MONITORIN 04/28/2016 ADDIE MONTEIRO MD, Ot E78.2 MIXED HYPERLIPIDEMIA 04/28/2016 ADDIE MONTEIRO MD Ot I10 ESSENTIAL (PRIMARY) HYPERTENSION 04/28/2016 ADDIE MONTEIRO MD Ot I25.10 ATHSCL HEART DISEASE OF [place] CORONARY 04/28/2016 ADDIE MONTEIRO MD Ot R07.9 CHEST PAIN, UNSPECIFIED 04/28/2016 ORENDER GURWINDER VALDEZLINE S Ot I10 ESSENTIAL (PRIMARY) HYPERTENSION 04/28/2016 KAT VIGIL DO S Ot Z79.01 SENIOR LIVING (CURRENT) USE OF ANTICOAGULANT 04/28/2016 ADDIE MONTEIRO MD Ot Z51.81 ENCOUNTER FOR THERAPEUTIC DRUG LEVEL MON 04/28/2016 ADDIE MONTEIRO MD, Ot Z79.01 THREAD SPOOLER (CURRENT) USE OF ANTICOAGULANT 04/28/2016 ADDIE MONTEIRO MD, Ot Z51.81 ENCOUNTER FOR THERAPEUTIC DRUG LEVEL MON 04/28/2016 ADDIE MONTEIRO MD, Ot Z79.01 THREAD SPOOLER (CURRENT) USE OF ANTICOAGULANT 04/29/2016 ROBSON ADAIR DIRECTOR BUSINESS TRAVEL Ot R05 COUGH 04/29/2016 ROBSON ADAIR DIRECTOR BUSINESS TRAVEL Ot R20.2 PARESTHESIA OF SKIN 04/29/2016 ROBSON ADAIR DIRECTOR BUSINESS TRAVEL Ot Z86.73 PRSNL HX OF TIA (TIA), AND CEREB INFRC W 05/04/2016 ROBSON ADAIR DIRECTOR BUSINESS TRAVEL Ot R05 COUGH 05/04/2016 ROBSON ADAIR DIRECTOR BUSINESS TRAVEL Ot R20.2 PARESTHESIA OF SKIN 05/04/2016 ROBSON ADAIR DIRECTOR BUSINESS TRAVEL Ot Z86.73 PRSNL HX OF TIA (TIA), AND CEREB INFRC W 05/21/2016 MENDEL SALDANA MD, FACC, FACP CCDS Ot I25.10 ATHSCL HEART DISEASE OF [place] CORONARY 05/21/2016 MENDEL SALDANA MD, FACC, FACP CCDS Ot I25.10 ATHSCL HEART DISEASE OF [place] CORONARY 05/21/2016 MENDEL SALDANA MD, FACC, FACP CCDS Ot I34.0 NONRHEUMATIC MITRAL (VALVE) INSUFFICIENC 05/21/2016 MENDEL SALDANA MD, FACC, FACP CCDS Ot I48.2 CHRONIC ATRIAL FIBRILLATION 05/21/2016 LES MD FACC, ALI FACP CCDS Ot I51.7 CARDIOMEGALY 05/22/2016 LES BRENNAN [facility], MENDEL FACP CCDS Ot I25.10 ATHSCL HEART DISEASE OF [place] CORONARY 05/22/2016 LES BRENNAN FACC, MENDEL FACP CCDS Ot I34.0 NONRHEUMATIC MITRAL (VALVE) INSUFFICIENC 05/22/2016 LES NUÑEZ, MENDEL FACP CCDS Ot I48.2 CHRONIC ATRIAL FIBRILLATION 05/22/2016 LES BRENNAN FACC, MENDEL FACP CCDS Ot I51.7 CARDIOMEGALY 05/27/2016 ROBSON ADAIR DIRECTOR BUSINESS TRAVEL Ot R05 COUGH 05/27/2016 GIOVANY ROBSON N DIRECTOR BUSINESS TRAVEL Ot R20.2 PARESTHESIA OF SKIN 05/27/2016 GIOVANY ROBSON N DIRECTOR BUSINESS TRAVEL Ot Z86.73 PRSNL HX OF TIA (TIA), AND CEREB INFRC W 05/28/2016 ROBSON ADAIR DIRECTOR BUSINESS TRAVEL Ot R05 COUGH 05/28/2016 GIOVANY ROBSON N DIRECTOR BUSINESS TRAVEL Ot R20.2 PARESTHESIA OF SKIN 05/28/2016 ROBSON ADAIR DIRECTOR BUSINESS TRAVEL Ot Z86.73 PRSNL HX OF TIA (TIA), AND CEREB INFRC W 06/04/2016 Ot 429.3 CARDIOMEGALY 06/04/2016 Ot 786.2 COUGH 06/04/2016 Ot 786.50 CHEST PAIN NOS 06/04/2016 Ot 401.9 HYPERTENSION NOS 06/04/2016 Ot 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 06/04/2016 Ot 786.50 CHEST PAIN NOS 06/04/2016 Ot V58.66 LONG-TERM ( CURRENT) USE OF ASPIRIN 06/04/2016 Ot V58.69 OTH MED,LT, CURRENT USE 06/04/2016 ADDIE MONTEIRO MD Ot 427.31 ATRIAL FIBRILLATION 06/04/2016 ADDIE MONTEIRO MD Ot V58.61 ANTICOAGULANTS,LT,CURRENT USE 06/04/2016 ADDIE MONTEIRO MD Ot V58.83 ENCOUNTER FOR THERAPEUTIC DRUG MONITORIN 06/04/2016 ADDIE MONTEIRO MD Ot V58.61 ANTICOAGULANTS,LT,CURRENT USE 06/04/2016 ADDIE MONTEIRO MD Ot V58.61 ANTICOAGULANTS,LT,CURRENT USE 06/04/2016 ADDIE MONTEIRO MD Ot V58.83 ENCOUNTER FOR THERAPEUTIC DRUG MONITORIN 06/04/2016 ADDIE MONTEIRO MD Ot V58.61 ANTICOAGULANTS,LT,CURRENT USE 06/04/2016 ADDIE MONTEIRO MD Ot V67.9 FOLLOW-UP EXAM NOS 06/04/2016 FUAD VIGIL DOQUELINE S Ot 397.0 TRICUSPID VALVE DISEASE 06/04/2016 MUSA VALDEZ KAT S Ot 416.8 CHR PULMON HEART DIS NEC 06/04/2016 MUSA VALDEZ KAT S Ot 424.0 MITRAL VALVE DISORDER 06/04/2016 EVANGELISTANDSAMI DO, KAT S Ot 427.31 ATRIAL FIBRILLATION 06/04/2016 MUSA VALDEZ KAT S Ot 433.10 CAROTID ARTERY OCCLUSION W O CEREBRAL IN 06/04/2016 MUSA VALDEZ KAT S Ot 785.2 CARDIAC MURMURS NEC 06/04/2016 MUSA VALDEZ KAT S Ot 427.31 ATRIAL FIBRILLATION 06/04/2016 MUSA VALDEZ KAT S Ot 428.0 CONGESTIVE HEART FAILURE NOS 06/04/2016 ADDIE MONTEIRO MD Ot V58.61 ANTICOAGULANTS,LT,CURRENT USE 06/04/2016 ADDIE MONTEIRO MD Ot V58.83 ENCOUNTER FOR THERAPEUTIC DRUG MONITORIN 06/04/2016 ADDIE MONTEIRO MD, Ot V58.61 ANTICOAGULANTS,LT,CURRENT USE 06/04/2016 ADDIE MONTEIRO MD, Ot V58.83 ENCOUNTER FOR THERAPEUTIC DRUG MONITORIN 06/04/2016 ADDIE MONTEIRO MD Ot E78.2 MIXED HYPERLIPIDEMIA 06/04/2016 ADDIE MONTEIRO MD Ot I10 ESSENTIAL (PRIMARY) HYPERTENSION 06/04/2016 ADDIE MONTEIRO MD Ot I25.10 ATHSCL HEART DISEASE OF [place] CORONARY 06/04/2016 ADDIE MONTEIRO MD Ot R07.9 CHEST PAIN, UNSPECIFIED 06/04/2016 FUAD VIGIL DOQUELINE S Ot I10 ESSENTIAL (PRIMARY) HYPERTENSION 06/04/2016 FUAD VIGIL DOQUELINE S Ot Z79.01 SENIOR LIVING (CURRENT) USE OF ANTICOAGULANT 06/04/2016 ADDIE MONTEIRO MD Ot Z51.81 ENCOUNTER FOR THERAPEUTIC DRUG LEVEL MON 06/04/2016 ADDIE MONTEIRO MD, Ot Z79.01 THREAD SPOOLER (CURRENT) USE OF ANTICOAGULANT 06/04/2016 ADDIE MONTEIRO MD Ot Z51.81 ENCOUNTER FOR THERAPEUTIC DRUG LEVEL MON 06/04/2016 ADDIE MONTEIRO MD Ot Z79.01 SENIOR LIVING (CURRENT) USE OF ANTICOAGULANT 06/04/2016 LES BRENNAN FACC, MENDEL FACP CCDS Ot I25.10 ATHSCL HEART DISEASE OF [place] CORONARY 06/04/2016 LES BRENNAN FACC, ALI FACP CCDS Ot I34.0 NONRHEUMATIC MITRAL (VALVE) INSUFFICIENC 06/04/2016 LES BRENNAN FACC, MENDEL FACP CCDS Ot I48.2 CHRONIC ATRIAL FIBRILLATION 06/04/2016 LES BRENNAN FACC, ALI FACP CCDS Ot I51.7 CARDIOMEGALY 06/04/2016 ROBSON ADAIR DIRECTOR BUSINESS TRAVEL Ot R05 COUGH 06/04/2016 ROBSON ADAIR DIRECTOR BUSINESS TRAVEL Ot R20.2 PARESTHESIA OF SKIN 06/04/2016 ROBSON ADAIR DIRECTOR BUSINESS TRAVEL Ot Z86.73 PRSNL HX OF TIA (TIA), AND CEREB INFRC W 06/04/2016 CRISTAL BUSTAMANTE OUTSIDE PROPERTY AGENT Ot I08.1 RHEUMATIC DISORDERS OF BOTH MITRAL AND T 06/04/2016 CRISTAL BUSTAMANTE OUTSIDE PROPERTY AGENT Ot I10 ESSENTIAL (PRIMARY) HYPERTENSION 06/04/2016 CRISTAL BUSTAMANTE OUTSIDE PROPERTY AGENT Ot I25.10 ATHSCL HEART DISEASE OF [place] CORONARY 06/04/2016 CRISTAL BUSTAMANTE OUTSIDE PROPERTY AGENT Ot I48.2 CHRONIC ATRIAL FIBRILLATION 06/11/2016 LES BRENNAN FACC, MENDEL FACP CCDS Ot I25.10 ATHSCL HEART DISEASE OF [place] CORONARY 06/11/2016 LES BRENNAN FACC, MENDEL FACP CCDS Ot I34.0 NONRHEUMATIC MITRAL (VALVE) INSUFFICIENC 06/11/2016 LES BRENNAN FACC, ALI FACP CCDS Ot I48.2 CHRONIC ATRIAL FIBRILLATION 06/11/2016 LES BRENNAN FACC, ALI FACP CCDS Ot I51.7 CARDIOMEGALY 06/16/2016 LES BRENNAN FACC, ALI FACP CCDS Ot I25.10 ATHSCL HEART DISEASE OF [place] CORONARY 06/16/2016 LES BRENNAN FACC, ALI FACP CCDS Ot I34.0 NONRHEUMATIC MITRAL (VALVE) INSUFFICIENC 06/16/2016 LES BRENNAN FACC, ALI FACP CCDS Ot I48.2 CHRONIC ATRIAL FIBRILLATION 06/16/2016 LES BRENNAN [facility], ALI FACP CCDS Ot I51.7 CARDIOMEGALY 06/24/2016 CRISTAL BUSTAMANTE L OUTSIDE PROPERTY AGENT Ot I08.1 RHEUMATIC DISORDERS OF BOTH MITRAL AND T 06/24/2016 BAIMA, CRISTAL L OUTSIDE PROPERTY AGENT Ot I10 ESSENTIAL (PRIMARY) HYPERTENSION 06/24/2016 BAIMA, CRISTAL L OUTSIDE PROPERTY AGENT Ot I25.10 ATHSCL HEART DISEASE OF [place] CORONARY 06/24/2016 BAIMA, CRISTAL L OUTSIDE PROPERTY AGENT Ot I48.2 CHRONIC ATRIAL FIBRILLATION 06/26/2016 BAIMA, CRISTAL L OUTSIDE PROPERTY AGENT Ot I08.1 RHEUMATIC DISORDERS OF BOTH MITRAL AND T 06/26/2016 BAIMA, CRISTAL L OUTSIDE PROPERTY AGENT Ot I10 ESSENTIAL (PRIMARY) HYPERTENSION 06/26/2016 BAIMA, CRISTAL L OUTSIDE PROPERTY AGENT Ot I25.10 ATHSCL HEART DISEASE OF [place] CORONARY 06/26/2016 JANJOANN WHITEHER L OUTSIDE PROPERTY AGENT Ot I48.2 CHRONIC ATRIAL FIBRILLATION 07/30/2016 MADDIE KAYE MD Ot 348.9 BRAIN CONDITION NOS 07/30/2016 MADDIE KAYE MD T Ot 427.31 ATRIAL FIBRILLATION 07/30/2016 MADDIE KAYE MD Ot 599.0 URIN TRACT INFECTION NOS 07/30/2016 MADDIE KAYE MD T Ot 780.1 HALLUCINATIONS 07/30/2016 MADDIE KAYE MD T Ot 780.97 ALTERED MENTAL STATUS 07/30/2016 MADDIE KAYE MD Ot V58.61 ANTICOAGULANTS,LT,CURRENT USE 07/30/2016 MADDIE KAYE MD Ot V58.69 OTH MED,LT,CURRENT USE 08/26/2016 TENNILLE MCCRAY MD Ot I10 ESSENTIAL (PRIMARY) HYPERTENSION 08/26/2016 TENNILLE MCCRAY MD Ot I25.10 ATHSCL HEART DISEASE OF [place] CORONARY 08/26/2016 TENNILLE MCCRAY MD Ot I48.2 CHRONIC ATRIAL FIBRILLATION 08/26/2016 TENNILLE MCCRAY MD Ot S05.8X1A OTHER INJURIES OF RIGHT EYE AND ORBIT, I 08/26/2016 TENNILLE MCCRAY MD Ot W20.8XXA OTH CAUSE OF STRIKE BY THROWN, PROJECTED 08/26/2016 TENNILLE MCCRAY MD Ot 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, 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 08/26/2016 TENNILLE MCCRAY MD Ot Y99.8 OTHER EXTERNAL CAUSE STATUS 08/26/2016 TENNILLE MCCRAY MD Ot Z79.01 SENIOR LIVING (CURRENT) USE OF ANTICOAGULANT 08/26/2016 TENNILLE MCCRAY MD Ot Z79.899 OTHER SENIOR LIVING (CURRENT) DRUG THERAPY 08/26/2016 TENNILLE MCCRAY MD Ot 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 08/27/2016 TENNILLE MCCRAY MD Ot I10 ESSENTIAL (PRIMARY) HYPERTENSION 08/27/2016 TENNILLE MCCRAY MD Ot I25.10 ATHSCL HEART DISEASE OF [place] CORONARY 08/27/2016 TENNILLE MCRCAY MD Ot I48.2 CHRONIC ATRIAL FIBRILLATION 08/27/2016 TENNILLE MCCRAY MD Ot S05.8X1A OTHER INJURIES OF RIGHT EYE AND ORBIT, I 08/27/2016 TENNILLE MCCRAY MD, Ot W20.8XXA OTH CAUSE OF STRIKE BY THROWN, PROJECTED 08/27/2016 TENNILLE MCCRAY MD Ot Y92.512 [employer], 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 08/27/2016 TENNILLE MCCRAY MD Ot Y99.8 OTHER EXTERNAL CAUSE STATUS 08/27/2016 TENNILLE MCCRAY MD Ot Z79.01 SENIOR LIVING (CURRENT) USE OF ANTICOAGULANT 08/27/2016 TENNILLE MCCRAY MD Ot Z79.899 OTHER SENIOR LIVING (CURRENT) DRUG THERAPY 08/27/2016 TENNILLE MCCRAY MD Ot 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 09/30/2016 MADDIE KAYE MD Ot 348.9 BRAIN CONDITION NOS 09/30/2016 MADDIE KAYE MD Ot 427.31 ATRIAL FIBRILLATION 09/30/2016 MADDIE KAYE MD Ot 599.0 URIN TRACT INFECTION NOS 09/30/2016 MADDIE KAYE MD Ot 780.1 HALLUCINATIONS 09/30/2016 BRUEGGEMANN MD, MADDIE T Ot 780.97 ALTERED MENTAL STATUS 09/30/2016 MADDIE AKYE MD Ot V58.61 ANTICOAGULANTS,LT,CURRENT USE 09/30/2016 MADDIE KAYE MD T Ot V58.69 OTH MED,LT,CURRENT USE 10/28/2016 MADDIE KAYE MD Ot 348.9 BRAIN CONDITION NOS 10/28/2016 MADDIE KAYE MD Ot 427.31 ATRIAL FIBRILLATION 10/28/2016 MADDIE KAYE MD Ot 599.0 URIN TRACT INFECTION NOS 10/28/2016 MADDIE KAYE MD T Ot 780.1 HALLUCINATIONS 10/28/2016 MADIDE KAYE MD Ot 780.97 ALTERED MENTAL STATUS 10/28/2016 MADDIE KAYE MD Ot V58.61 ANTICOAGULANTS,LT,CURRENT USE 10/28/2016 MADDIE KAYE MD Ot V58.69 OTH MED,LT,CURRENT USE 11/03/2016 GURWINDER VIGIL DOLINE S Ot E78.5 HYPERLIPIDEMIA, UNSPECIFIED 11/03/2016 FUAD VIGIL DOQUELINE S Ot 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 11/03/2016 FUAD VIGIL DOQUELINE S Ot I11.0 HYPERTENSIVE HEART DISEASE WITH HEART FA 11/03/2016 MUSA VALDEZ KAT S Ot I25.10 ATHSCL HEART DISEASE OF [place] CORONARY 11/03/2016 FUAD VIGIL DOQUELINE S Ot I27.2 OTHER SECONDARY PULMONARY HYPERTENSION 11/03/2016 FUAD VIGIL DOQUELINE S Ot I42.9 CARDIOMYOPATHY, UNSPECIFIED 11/03/2016 MUSA VALDEZ KAT S Ot I48.2 CHRONIC ATRIAL FIBRILLATION 11/03/2016 FUAD VIGIL DOQUELINE S Ot I50.9 HEART FAILURE, UNSPECIFIED 11/03/2016 FUAD VIGIL DOQUELINE S Ot I65.23 OCCLUSION AND STENOSIS OF BILATERAL [place] 11/03/2016 MUSA VALDEZ KAT S Ot I95.9 HYPOTENSION, UNSPECIFIED 11/03/2016 FUAD VIGIL DOQUELINE S Ot K21.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 11/03/2016 FUAD VIGIL DOQUELINE S Ot R07.89 OTHER CHEST PAIN 11/03/2016 EVANGELISTANDER DO, KAT S Ot R53.1 WEAKNESS 11/03/2016 EVANGELISTANDER DO KAT S Ot Z79.01 THREAD SPOOLER (CURRENT) USE OF ANTICOAGULANT 11/03/2016 EVANGELISTANDER DO, KAT S Ot E78.5 HYPERLIPIDEMIA, UNSPECIFIED 11/03/2016 EVANGELISTANDER DO, KAT S Ot 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 11/03/2016 EVANGELISTANDER DO KAT S Ot I11.0 HYPERTENSIVE HEART DISEASE WITH HEART FA 11/03/2016 EVANGELISTANDER DO KAT S Ot I25.10 ATHSCL HEART DISEASE OF [place] CORONARY 11/03/2016 EVANGELISTAND DO KAT S Ot I27.2 OTHER SECONDARY PULMONARY HYPERTENSION 11/03/2016 EVANGELISTANDER DO KAT S Ot I42.9 CARDIOMYOPATHY, UNSPECIFIED 11/03/2016 EVANGELISTANDER DO KAT S Ot I48.2 CHRONIC ATRIAL FIBRILLATION 11/03/2016 EVANGELISTANDER KAT S Ot I50.9 HEART FAILURE, UNSPECIFIED 11/03/2016 EVANGELISTANDER DO KAT S Ot I65.23 OCCLUSION AND STENOSIS OF BILATERAL [place] 11/03/2016 EVANGELISTANDER DO KAT S Ot I95.9 HYPOTENSION, UNSPECIFIED 11/03/2016 EVANGELISTANDER DO, KAT S Ot K21.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 11/03/2016 EVANGELISTANDER DO KAT S Ot R07.89 OTHER CHEST PAIN 11/03/2016 EVANGELISTANDER DOFUADKAT S Ot R53.1 WEAKNESS 11/03/2016 EVANGELISTANDER DO KAT S Ot Z79.01 THREAD SPOOLER (CURRENT) USE OF ANTICOAGULANT 11/12/2016 EVANGELISTANDER DO KAT S Ot B96.20 UNSP ESCHERICHIA COLI THE CAUSE OF DI 11/12/2016 EVANGELISTANDER DO KAT S Ot E78.00 PURE HYPERCHOLESTEROLEMIA, UNSPECIFIED 11/12/2016 EVANGELISTANDER DO, KAT S Ot E83.42 HYPOMAGNESEMIA 11/12/2016 EVANGELISTANDER DOFUADKAT S Ot F32.9 MAJOR DEPRESSIVE DISORDER, SINGLE EPISOD 11/12/2016 EVANGELISTANDER DO, KAT S Ot H54.3 UNQUALIFIED VISUAL LOSS, BOTH EYES 11/12/2016 MUSA VALDEZ, KAT S Ot H91.93 UNSPECIFIED HEARING LOSS, BILATERAL 11/12/2016 MUSA VALDEZ KAT S Ot I10 ESSENTIAL (PRIMARY) HYPERTENSION 11/12/2016 MUSA VALDEZ, KAT S Ot I25.10 ATHSCL HEART DISEASE OF [place] CORONARY 11/12/2016 MUSA VALDEZ KAT S Ot I42.9 CARDIOMYOPATHY, UNSPECIFIED 11/12/2016 EVANGELISTANDSAMI VALDEZ, KAT S Ot I48.2 CHRONIC ATRIAL FIBRILLATION 11/12/2016 MUSA VALDEZ, KAT S Ot K21.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 11/12/2016 MUSA VALDEZ KAT S Ot K56.7 ILEUS, UNSPECIFIED 11/12/2016 MUSA VALDEZ KAT S Ot M19.91 PRIMARY OSTEOARTHRITIS, UNSPECIFIED SITE 11/12/2016 MUSA VALDEZ KAT S Ot M54.9 DORSALGIA, UNSPECIFIED 11/12/2016 MUSA VALDEZ KAT S Ot M81.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 11/12/2016 MUSA VALDEZ KAT S Ot N39.0 URINARY TRACT INFECTION, SITE NOT SPECIF 11/12/2016 MUSA VALDEZ KAT S Ot Z66 DO NOT RESUSCITATE 11/12/2016 MUSA VALDEZ KAT S Ot Z79.01 SENIOR LIVING (CURRENT) USE OF ANTICOAGULANT 11/12/2016 MUSA VALDEZ KAT S Ot Z86.79 PERSONAL HISTORY OF OTHER DISEASES OF TH 11/13/2016 MUSA VALDEZ KAT S Ot B96.20 UNSP ESCHERICHIA COLI THE CAUSE OF DI 11/13/2016 MUSA VALDEZ KAT S Ot E78.00 PURE HYPERCHOLESTEROLEMIA, UNSPECIFIED 11/13/2016 MUSA VALDEZ KAT S Ot E83.42 HYPOMAGNESEMIA 11/13/2016 MUSA VALDEZ KAT S Ot F32.9 MAJOR DEPRESSIVE DISORDER, SINGLE EPISOD 11/13/2016 MUSA VALDEZ KAT S Ot H54.3 UNQUALIFIED VISUAL LOSS, BOTH EYES 11/13/2016 MUSA VALDEZ KAT S Ot H91.93 UNSPECIFIED HEARING LOSS, BILATERAL 11/13/2016 MUSA VALDEZ KAT S Ot I10 ESSENTIAL (PRIMARY) HYPERTENSION 11/13/2016 MUSA VALDEZ KAT S Ot I25.10 ATHSCL HEART DISEASE OF [place] CORONARY 11/13/2016 MUSA VALDEZ KAT S Ot I42.9 CARDIOMYOPATHY, UNSPECIFIED 11/13/2016 MUSA VALDEZ KAT S Ot I48.2 CHRONIC ATRIAL FIBRILLATION 11/13/2016 MUSA VALDEZ KAT S Ot K21.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 11/13/2016 MUSA VALDEZ KAT S Ot K56.7 ILEUS, UNSPECIFIED 11/13/2016 MUSA VALDEZ KAT S Ot M19.91 PRIMARY OSTEOARTHRITIS, UNSPECIFIED SITE 11/13/2016 MUSA VALDEZ KAT S Ot M54.9 DORSALGIA, UNSPECIFIED 11/13/2016 MUSA VALDEZ KAT S Ot M81.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 11/13/2016 MUSA VALDEZ KAT S Ot N39.0 URINARY TRACT INFECTION, SITE NOT SPECIF 11/13/2016 MUSA VALDEZ KAT S Ot Z66 DO NOT RESUSCITATE 11/13/2016 MUSA VALDEZ KAT S Ot Z79.01 THREAD SPOOLER (CURRENT) USE OF ANTICOAGULANT 11/13/2016 MUSA VALDEZ KAT S Ot Z86.79 PERSONAL HISTORY OF OTHER DISEASES OF TH 11/13/2016 MUSA VALDEZ KAT S Ot B96.20 UNSP ESCHERICHIA COLI THE CAUSE OF DI 11/13/2016 MUSA VALDEZ KAT S Ot E78.00 PURE HYPERCHOLESTEROLEMIA, UNSPECIFIED 11/13/2016 MUSA VALDEZ KAT S Ot E83.42 HYPOMAGNESEMIA 11/13/2016 EVANGELISTAALEC VALDEZ KAT S Ot F32.9 MAJOR DEPRESSIVE DISORDER, SINGLE EPISOD 11/13/2016 MUSA VALDEZ KAT S Ot H54.3 UNQUALIFIED VISUAL LOSS, BOTH EYES 11/13/2016 MUSA VALDEZ KAT S Ot H91.93 UNSPECIFIED HEARING LOSS, BILATERAL 11/13/2016 ORENDER DO, KAT S Ot I10 ESSENTIAL (PRIMARY) HYPERTENSION 11/13/2016 EVANGELISTANDER , KAT S Ot I25.10 ATHSCL HEART DISEASE OF [place] CORONARY 11/13/2016 EVANGELISTANDER DO, KAT S Ot I42.9 CARDIOMYOPATHY, UNSPECIFIED 11/13/2016 EVANGELISTANDER DO, KAT S Ot I48.2 CHRONIC ATRIAL FIBRILLATION 11/13/2016 EVANGELISTANDER , KAT S Ot K21.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 11/13/2016 EVANGELISTANDER DO, KAT S Ot K56.7 ILEUS, UNSPECIFIED 11/13/2016 EVANGELISTANDER DO, KAT S Ot M19.91 PRIMARY OSTEOARTHRITIS, UNSPECIFIED SITE 11/13/2016 EVANGELISTANDER , KAT S Ot M54.9 DORSALGIA, UNSPECIFIED 11/13/2016 EVANGELISTANDER DO, KAT S Ot M81.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 11/13/2016 EVANGELISTANDSAMI VALDEZ, KAT S Ot N39.0 URINARY TRACT INFECTION, SITE NOT SPECIF 11/13/2016 EVANGELISTANDER , KAT S Ot Z66 DO NOT RESUSCITATE 11/13/2016 EVANGELISTANDSAMI VALDEZ, KAT S Ot Z79.01 THREAD SPOOLER (CURRENT) USE OF ANTICOAGULANT 11/13/2016 MUSA VALDEZ, KAT S Ot Z86.79 PERSONAL HISTORY OF OTHER DISEASES OF TH 11/28/2016 VARGAS BRENNAN, MADDIE Pittman Ot 348.9 BRAIN CONDITION NOS 11/28/2016 MADDIE KAYE MD Ot 427.31 ATRIAL FIBRILLATION 11/28/2016 MADDIE KAYE MD Ot 599.0 URIN TRACT INFECTION NOS 11/28/2016 MADDIE KAYE MD Ot 780.1 HALLUCINATIONS 11/28/2016 MADDIE KAYE MD Ot 780.97 ALTERED MENTAL STATUS 11/28/2016 MADDIE KAYE MD Ot V58.61 ANTICOAGULANTS,LT,CURRENT USE 11/28/2016 MADDIE KAYE MD Ot V58.69 OTH MED,LT,CURRENT USE 02/15/2017 JULIO CÉSAR PARKER APRN Ot R31.9 HEMATURIA, UNSPECIFIED 02/15/2017 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 Ot R31.9 HEMATURIA, UNSPECIFIED 02/16/2017 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 Ot R31.9 HEMATURIA, UNSPECIFIED 02/19/2017 ADDIE MONTEIRO MD Ot 427.31 ATRIAL FIBRILLATION 02/19/2017 ADDIE MONTEIRO MD, Ot V58.61 ANTICOAGULANTS,LT,CURRENT USE 02/19/2017 ADDIE MONTEIRO MD Ot V58.83 ENCOUNTER FOR THERAPEUTIC DRUG MONITORIN 02/19/2017 ADDIE MONTEIRO MD Ot V58.61 ANTICOAGULANTS,LT,CURRENT USE 02/19/2017 ADDIE MONTEIRO MD, Ot V58.61 ANTICOAGULANTS,LT,CURRENT USE 02/19/2017 ADDIE MONTEIRO MD Ot V58.83 ENCOUNTER FOR THERAPEUTIC DRUG MONITORIN 02/19/2017 ADDIE MONTEIRO MD Ot V58.61 ANTICOAGULANTS,LT,CURRENT USE 02/19/2017 ADDIE MONTEIRO MD Ot V67.9 FOLLOW-UP EXAM NOS 02/19/2017 KAT VIGIL DO S Ot 397.0 TRICUSPID VALVE DISEASE 02/19/2017 KAT VIGIL DO S Ot 416.8 CHR PULMON HEART DIS NEC 02/19/2017 GURWINDER VIGIL DOLINE S Ot 424.0 MITRAL VALVE DISORDER 02/19/2017 GURWINDER VIGIL DOLINE S Ot 427.31 ATRIAL FIBRILLATION 02/19/2017 GURWINDER VIGIL DOLINE S Ot 433.10 CAROTID ARTERY OCCLUSION W O CEREBRAL IN 02/19/2017 GURWINDER VIGIL DOLINE S Ot 785.2 CARDIAC MURMURS NEC 02/19/2017 KAT VIGIL DO S Ot 427.31 ATRIAL FIBRILLATION 02/19/2017 GURWINDER VIGIL DOLINE S Ot 428.0 CONGESTIVE HEART FAILURE NOS 02/19/2017 ADDIE MONTEIRO MD Ot V58.61 ANTICOAGULANTS,LT,CURRENT USE 02/19/2017 ADDIE MONTEIRO MD Ot V58.83 ENCOUNTER FOR THERAPEUTIC DRUG MONITORIN 02/19/2017 ADDIE MONTEIRO MD Ot V58.61 ANTICOAGULANTS,LT,CURRENT USE 02/19/2017 ADDIE MONTEIRO MD Ot V58.83 ENCOUNTER FOR THERAPEUTIC DRUG MONITORIN 02/19/2017 ADDIE MONTEIRO MD Ot E78.2 MIXED HYPERLIPIDEMIA 02/19/2017 ADDIE MONTEIRO MD Ot I10 ESSENTIAL (PRIMARY) HYPERTENSION 02/19/2017 ADDIE MONTEIRO MD, Ot I25.10 ATHSCL HEART DISEASE OF [place] CORONARY 02/19/2017 ADDIE MONTEIRO MD Ot R07.9 CHEST PAIN, UNSPECIFIED 02/19/2017 ORENDER DO KAT S Ot I10 ESSENTIAL (PRIMARY) HYPERTENSION 02/19/2017 ORENDER FUAD VALDEZKAT S Ot Z79.01 THREAD SPOOLER (CURRENT) USE OF ANTICOAGULANT 02/19/2017 ADDIE MONTEIRO MD, Ot Z51.81 ENCOUNTER FOR THERAPEUTIC DRUG LEVEL MON 02/19/2017 ADDIE MONTEIRO MD, Ot Z79.01 THREAD SPOOLER (CURRENT) USE OF ANTICOAGULANT 02/19/2017 ADDIE MONTEIRO MD, Ot Z51.81 ENCOUNTER FOR THERAPEUTIC DRUG LEVEL MON 02/19/2017 ADDIE MONTEIRO MD, Ot Z79.01 SENIOR LIVING (CURRENT) USE OF ANTICOAGULANT 02/19/2017 LES BRENNAN FACC, MENDEL FACFreddie CCDS Ot I25.10 ATHSCL HEART DISEASE OF [place] CORONARY 02/19/2017 LES BRENNAN FACC, MENDEL FACP CCDS Ot I34.0 NONRHEUMATIC MITRAL (VALVE) INSUFFICIENC 02/19/2017 LES BRENNAN FACC, MENDEL FACFreddie CCDS Ot I48.2 CHRONIC ATRIAL FIBRILLATION 02/19/2017 LES BRENNAN FACC, ALI FACP CCDS Ot I51.7 CARDIOMEGALY 02/19/2017 ROBSON ADAIR DIRECTOR BUSINESS TRAVEL Ot R05 COUGH 02/19/2017 ROBSON ADAIR DIRECTOR BUSINESS TRAVEL Ot R20.2 PARESTHESIA OF SKIN 02/19/2017 ROBSON ADAIR DIRECTOR BUSINESS TRAVEL Ot Z86.73 PRSNL HX OF TIA (TIA), AND CEREB INFRC W 02/19/2017 CRISTAL BUSTAMANTE OUTSIDE PROPERTY AGENT Ot I08.1 RHEUMATIC DISORDERS OF BOTH MITRAL AND T 02/19/2017 CRISTAL BUSTAMANTE OUTSIDE PROPERTY AGENT Ot I10 ESSENTIAL (PRIMARY) HYPERTENSION 02/19/2017 CRISTAL BUSTAMANTE OUTSIDE PROPERTY AGENT Ot I25.10 ATHSCL HEART DISEASE OF [place] CORONARY 02/19/2017 CRISTAL BUSTAMANTE OUTSIDE PROPERTY AGENT Ot I48.2 CHRONIC ATRIAL FIBRILLATION 02/19/2017 ELENA, JULIO CÉSAR R DIRECTOR BUSINESS TRAVEL Ot N30.91 CYSTITIS, UNSPECIFIED WITH HEMATURIA 02/24/2017 KAT VIGIL DO Ot B96.20 UNSP ESCHERICHIA COLI THE CAUSE OF DI 02/24/2017 KAT VIGIL DO Ot N39.0 URINARY TRACT INFECTION, SITE NOT SPECIF 02/27/2017 VARGAS BRENNAN, MADDIE Pittman Ot 348.9 BRAIN CONDITION NOS 02/27/2017 VARGAS BRENNAN, MADDIE Pittman Ot 427.31 ATRIAL FIBRILLATION 02/27/2017 VARGAS BRENNAN, MADDIE Pittman Ot 599.0 URIN TRACT INFECTION NOS 02/27/2017 VARGAS BRENNAN, MADDIE Pittman Ot 780.1 HALLUCINATIONS 02/27/2017 MADDIE KAYE MD Ot 780.97 ALTERED MENTAL STATUS 02/27/2017 MADDIE KAYE MD Ot V58.61 ANTICOAGULANTS,LT,CURRENT USE 02/27/2017 MADDIE KAYE MD Ot V58.69 OTH MED,LT,CURRENT USE 03/01/2017 JHON RAHMAN APRN Ot E78.00 PURE HYPERCHOLESTEROLEMIA, UNSPECIFIED 03/01/2017 JHON RAHMAN APRN Ot F32.9 MAJOR DEPRESSIVE DISORDER, SINGLE EPISOD 03/01/2017 JHON RAHMAN APRN Ot G89.29 OTHER CHRONIC PAIN 03/01/2017 JHON RAHMAN APRN Ot H57.8 OTHER SPECIFIED DISORDERS OF EYE AND ADN 03/01/2017 JHON RAHMAN APRN Ot I11.0 HYPERTENSIVE HEART DISEASE WITH HEART FA 03/01/2017 JHON RAHMAN APRN Ot I25.10 ATHSCL HEART DISEASE OF [place] CORONARY 03/01/2017 JHON RAHMAN APRN Ot I48.91 UNSPECIFIED ATRIAL FIBRILLATION 03/01/2017 JHON RAHMAN APRN Ot I50.9 HEART FAILURE, UNSPECIFIED 03/01/2017 JHON RAHMAN APRN Ot K21.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 03/01/2017 JHON RAHMAN APRN Ot M19.90 UNSPECIFIED OSTEOARTHRITIS, UNSPECIFIED 03/01/2017 JHON RAHMAN APRN Ot M54.9 DORSALGIA, UNSPECIFIED 03/01/2017 JHON RAHMAN APRN Ot M81.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 03/01/2017 JHON RAHMAN APRN Ot Z79.01 SENIOR LIVING (CURRENT) USE OF ANTICOAGULANT 03/01/2017 JHON RAHMAN APRN Ot Z93.0 TRACHEOSTOMY STATUS 03/01/2017 JHON RAHMAN APRN Ot 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 03/01/2017 JHON RAHMAN APRN Ot Z98.41 CATARACT EXTRACTION STATUS, RIGHT EYE 03/01/2017 JHON RAHMAN APRN Ot Z98.42 CATARACT EXTRACTION STATUS, LEFT EYE 03/03/2017 JHON RAHMAN APRN Ot Z01.89 ENCOUNTER FOR OTHER SPECIFIED SPECIAL EX 03/04/2017 JHON RAHMAN APRN Ot E78.00 PURE HYPERCHOLESTEROLEMIA, UNSPECIFIED 03/04/2017 JHON RAHMAN APRN Ot F32.9 MAJOR DEPRESSIVE DISORDER, SINGLE EPISOD 03/04/2017 JHON RAHMAN APRN Ot G89.29 OTHER CHRONIC PAIN 03/04/2017 JHON RAHMAN APRN Ot H57.8 OTHER SPECIFIED DISORDERS OF EYE AND ADN 03/04/2017 JHON RAHMAN APRN Ot I11.0 HYPERTENSIVE HEART DISEASE WITH HEART FA 03/04/2017 JHON RAHMAN APRN Ot I25.10 ATHSCL HEART DISEASE OF [place] CORONARY 03/04/2017 JHON RAHMAN APRN Ot I48.91 UNSPECIFIED ATRIAL FIBRILLATION 03/04/2017 JHON RAHMAN APRN Ot I50.9 HEART FAILURE, UNSPECIFIED 03/04/2017 JHON RAHMAN APRN Ot K21.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 03/04/2017 JHON RAHMAN APRN Ot M19.90 UNSPECIFIED OSTEOARTHRITIS, UNSPECIFIED 03/04/2017 JHON RAHMAN APRN Ot M54.9 DORSALGIA, UNSPECIFIED 03/04/2017 JHON RAHMAN APRN Ot M81.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 03/04/2017 JHON RAHMAN APRN Ot Z79.01 THREAD SPOOLER (CURRENT) USE OF ANTICOAGULANT 03/04/2017 JHON RAHMAN APRN Ot Z93.0 TRACHEOSTOMY STATUS 03/04/2017 JHON RAHMAN APRN Ot 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 03/04/2017 JHON RAHMAN APRN Ot Z98.41 CATARACT EXTRACTION STATUS, RIGHT EYE 03/04/2017 JHON RAHMAN DIRECTOR BUSINESS TRAVEL Ot Z98.42 CATARACT EXTRACTION STATUS, LEFT EYE 03/08/2017 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 Ot N30.91 CYSTITIS, UNSPECIFIED WITH HEMATURIA 03/22/2017 ORENDER DO, KAT S Ot B96.20 UNSP ESCHERICHIA COLI THE CAUSE OF DI 03/22/2017 ORENDER DO, KAT S Ot N39.0 URINARY TRACT INFECTION, SITE NOT SPECIF 03/26/2017 ORENDER DO, KAT S Ot B96.20 UNSP ESCHERICHIA COLI THE CAUSE OF DI 03/26/2017 ORENDER DO, KAT S Ot N39.0 URINARY TRACT INFECTION, SITE NOT SPECIF 05/20/2017 ORENDER DO, KAT S Ot B96.20 UNSP ESCHERICHIA COLI THE CAUSE OF DI 05/20/2017 ORENDER DO, KAT S Ot N39.0 URINARY TRACT INFECTION, SITE NOT SPECIF 05/24/2017 ORENDER DO, KAT S Ot B96.20 UNSP ESCHERICHIA COLI THE CAUSE OF DI 05/24/2017 ORENDER DO, KAT S Ot N39.0 URINARY TRACT INFECTION, SITE NOT SPECIF Procedures Code Description Performed By Performed On 34.09 OTHER PLEURAL INCISION 12/06/2012 38.91 ARTERIAL CATHETERIZATION 12/06/2012 38.93 VENOUS CATHETERIZATION NEC 12/06/2012 88.72 DX ULTRASOUND-HEART 12/06/2012 96.04 INSERT ENDOTRACHEAL TUBE 12/06/2012 96.71 CONTINUOUS INVASIVE MECHANICAL VENTILATI 12/06/2012 [id number] RESECTION OF GALLBLADDER, PERCUTANEOUS E 02/07/2016 [id number] RESPIRATORY VENTILATION, LESS THAN 24 CO 02/07/2016 [id number] ROBOTIC ASSISTED PROCEDURE OF TRUNK LUISITO 02/07/2016 Results Test Result Range Complete blood count (CBC) with automated white blood cell (WBC) differential - 04/28/16 12:51 Blood leukocytes automated count (number/volume) 4.1 10*3/uL 4.3-11.0 Blood erythrocytes automated count (number/volume) 4.52 10*6/uL 4.35-5.85 Venous blood hemoglobin measurement (mass/volume) 12.9 g/dL 11.5-16.0 Blood hematocrit (volume fraction) 41 % 35-52 Automated erythrocyte mean corpuscular volume 91 [foz_us] 80-99 Automated erythrocyte mean corpuscular hemoglobin (mass per erythrocyte) 29 pg 25-34 Automated erythrocyte mean corpuscular hemoglobin concentration measurement ( mass/volume) 31 g/dL 32-36 Automated erythrocyte distribution width ratio 14.9 % 10.0-14.5 Automated blood platelet count (count/volume) 126 10*3/uL 130-400 Automated blood platelet mean volume measurement 10.8 [foz_us] 7.4-10.4 Automated blood neutrophils/100 leukocytes 66 % 42-75 Automated blood lymphocytes/100 leukocytes 26 % 12-44 Blood monocytes/100 leukocytes 7 % 0-12 Automated blood eosinophils/100 leukocytes 0 % 0-10 Automated blood basophils/100 leukocytes 0 % 0-10 Blood neutrophils automated count (number/volume) 2.7 10*3 1.8-7.8 Blood lymphocytes automated count (number/volume) 1.1 10*3 1.0-4.0 Blood monocytes automated count (number/volume) 0.3 10*3 0.0-1.0 Automated eosinophil count 0.0 10*3/uL 0.0-0.3 Automated blood basophil count (count/volume) 0.0 10*3/uL 0.0-0.1 PT panel in platelet poor plasma by coagulation assay - 04/28/16 12:51 Prothrombin time (PT) in platelet poor plasma by coagulation assay 28.1 s 12.2-14.7 INR in platelet poor plasma or blood by coagulation assay 2.7 0.8-1.4 Complete blood count (CBC) with automated white blood cell (WBC) differential - 10/31/16 08:00 Blood leukocytes automated count (number/volume) 6.2 10*3/uL 4.3-11.0 Blood erythrocytes automated count (number/volume) 4.56 10*6/uL 4.35-5.85 Venous blood hemoglobin measurement (mass/volume) 13.2 g/dL 11.5-16.0 Blood hematocrit (volume fraction) 41 % 35-52 Automated erythrocyte mean corpuscular volume 91 [foz_us] 80-99 Automated erythrocyte mean corpuscular hemoglobin (mass per erythrocyte) 29 pg 25-34 Automated erythrocyte mean corpuscular hemoglobin concentration measurement ( mass/volume) 32 g/dL 32-36 Automated erythrocyte distribution width ratio 15.6 % 10.0-14.5 Automated blood platelet count (count/volume) 125 10*3/uL 130-400 Automated blood platelet mean volume measurement 11.4 [foz_us] 7.4-10.4 Automated blood neutrophils/100 leukocytes 84 % 42-75 Automated blood lymphocytes/100 leukocytes 10 % 12-44 Blood monocytes/100 leukocytes 6 % 0-12 Automated blood eosinophils/100 leukocytes 0 % 0-10 Automated blood basophils/100 leukocytes 0 % 0-10 Blood neutrophils automated count (number/volume) 5.3 10*3 1.8-7.8 Blood lymphocytes automated count (number/volume) 0.6 10*3 1.0-4.0 Blood monocytes automated count (number/volume) 0.4 10*3 0.0-1.0 Automated eosinophil count 0.0 10*3/uL 0.0-0.3 Automated blood basophil count (count/volume) 0.0 10*3/uL 0.0-0.1 PT panel in platelet poor plasma by coagulation assay - 10/31/16 08:00 Prothrombin time (PT) in platelet poor plasma by coagulation assay 33.7 s 12.2-14.7 INR in platelet poor plasma or blood by coagulation assay 3.3 0.8-1.4 Activated partial thromboplastin time (aPTT) in platelet poor plasma bycoagulation assay - 10/31/16 08:00 Activated partial thromboplastin time (aPTT) in platelet poor plasma bycoagulation assay 34 s 24-35 Fibrin D-dimer FEU measurement in platelet poor plasma (mass/volume) - 08:00 Fibrin D-dimer FEU measurement in platelet poor plasma (mass/volume) 0.34 ug/mL 0.00-0.49 Comprehensive metabolic panel - 10/31/16 08:00 Serum or plasma sodium measurement (moles/volume) 144 mmol/L 135-145 Serum or plasma potassium measurement (moles/volume) 3.8 mmol/L 3.6-5.0 Serum or plasma chloride measurement (moles/volume) 102 mmol/L 98-107 Carbon dioxide 27 mmol/L 21-32 Serum or plasma anion gap determination (moles/volume) 15 mmol/L 5-14 Serum or plasma urea nitrogen measurement (mass/volume) 30 mg/dL 7-18 Serum or plasma creatinine measurement (mass/volume) 1.02 mg/dL 0.60-1.30 Serum or plasma urea nitrogen/creatinine mass ratio 29 NRG Serum or plasma creatinine measurement with calculation of estimated glomerular filtration rate 52 NRG Serum or plasma glucose measurement (mass/volume) 91 mg/dL 70-105 Serum or plasma calcium measurement (mass/volume) 8.7 mg/dL 8.5-10.1 Serum or plasma total bilirubin measurement (mass/volume) 1.8 mg/dL 0.1-1.0 Serum or plasma alkaline phosphatase measurement (enzymatic activity/volume) 74 U/L 40-136 Serum or plasma aspartate aminotransferase measurement (enzymatic activity/ volume) 31 U/L 5-34 Serum or plasma alanine aminotransferase measurement (enzymatic activity/volume ) 35 U/L 0-55 Serum or plasma protein measurement (mass/volume) 5.4 g/dL 6.4-8.2 Serum or plasma albumin measurement (mass/volume) 3.1 g/dL 3.2-4.5 Magnesium - 10/31/16 08:00 Magnesium 1.5 mg/dL 1.8-2.4 Serum or plasma troponin i.cardiac measurement (mass/volume) - 10/31/16 08:00 Serum or plasma troponin i.cardiac measurement (mass/volume) < ng/ mL <0.30 Myoglobin, serum - 10/31/16 08:00 Myoglobin, serum 71.6 ng/mL 10.0-92.0 Serum or plasma lithium measurement (moles/volume) - 10/31/16 08:00 BNP level 794.2 pg/mL <100.0 Digoxin - 10/31/16 08:00 Digoxin < ng/mL 0.80-2.00 Serum or plasma troponin i.cardiac measurement (mass/volume) - 10/31/16 16:05 Serum or plasma troponin i.cardiac measurement (mass/volume) < ng/ mL <0.30 Serum or plasma troponin i.cardiac measurement (mass/volume) - 10/31/16 22:00 Serum or plasma troponin i.cardiac measurement (mass/volume) < ng/ mL <0.30 Serum or plasma troponin i.cardiac measurement (mass/volume) - 11/01/16 04:00 Serum or plasma troponin i.cardiac measurement (mass/volume) < ng/ mL <0.30 Lipid 1996 panel - 11/01/16 04:00 Serum or plasma triglyceride measurement (mass/volume) 34 mg/dL <150 Serum or plasma cholesterol measurement (mass/volume) 112 mg/dL < 200 Serum or plasma cholesterol in HDL measurement (mass/volume) 42 mg/ dL 40-60 Cholesterol in LDL [mass/volume] in serum or plasma by direct assay 56 mg/dL 1-129 Serum or plasma cholesterol in VLDL measurement (mass/volume) 7 mg/ dL 5-40 Complete urinalysis with reflex to culture - 11/01/16 11:15 Urine color determination YELLOW NRG Urine clarity determination CLEAR NRG Urine pH measurement by test strip 5 5-9 Specific gravity of urine by test strip 1.015 1.016- 1.022 Urine protein assay by test strip, semi-quantitative 2+ NEGATIVE Urine glucose detection by automated test strip NEGATIVE NEGATIVE Erythrocytes detection in urine sediment by light microscopy 2+ NEGATIVE Urine ketones detection by automated test strip NEGATIVE NEGATIVE Urine nitrite detection by test strip NEGATIVE NEGATIVE Urine total bilirubin detection by test strip NEGATIVE NEGATIVE Urine urobilinogen measurement by automated test strip (mass/volume) 1 mg/dL NORMAL Urine leukocyte esterase detection by dipstick 1+ NEGATIVE Automated urine sediment erythrocyte count by microscopy (number/high power field) [HPF] NRG Automated urine sediment leukocyte count by microscopy (number/high power field ) [HPF] NRG Bacteria detection in urine sediment by light microscopy FEW NRG Squamous epithelial cells detection in urine sediment by light microscopy 25-50 NRG Crystals detection in urine sediment by light microscopy NONE NRG Casts detection in urine sediment by light microscopy NONE NRG Mucus detection in urine sediment by light microscopy NEGATIVE NRG Complete urinalysis with reflex to culture YES NRG Bacterial urine culture - 11/01/16 11:15 URINE CULTURE RESULTS <10,000/ML NRG Automated blood complete blood count (hemogram) panel - 11/02/16 05:10 Blood leukocytes automated count (number/volume) 6.4 10*3/uL 4.3-11.0 Blood erythrocytes automated count (number/volume) 4.15 10*6/uL 4.35-5.85 Venous blood hemoglobin measurement (mass/volume) 11.8 g/dL 11.5-16.0 Blood hematocrit (volume fraction) 38 % 35-52 Automated erythrocyte mean corpuscular volume 90 [foz_us] 80-99 Automated erythrocyte mean corpuscular hemoglobin (mass per erythrocyte) 28 pg 25-34 Automated erythrocyte mean corpuscular hemoglobin concentration measurement ( mass/volume) 32 g/dL 32-36 Automated erythrocyte distribution width ratio 15.4 % 10.0-14.5 Automated blood platelet count (count/volume) 116 10*3/uL 130-400 Automated blood platelet mean volume measurement 11.4 [foz_us] 7.4-10.4 PT panel in platelet poor plasma by coagulation assay - 11/02/16 05:10 Prothrombin time (PT) in platelet poor plasma by coagulation assay 30.7 s 12.2-14.7 INR in platelet poor plasma or blood by coagulation assay 3.0 0.8-1.4 Comprehensive metabolic panel - 11/02/16 05:10 Serum or plasma sodium measurement (moles/volume) 141 mmol/L 135-145 Serum or plasma potassium measurement (moles/volume) 3.6 mmol/L 3.6-5.0 Serum or plasma chloride measurement (moles/volume) 104 mmol/L 98-107 Carbon dioxide 28 mmol/L 21-32 Serum or plasma anion gap determination (moles/volume) 9 mmol/L 5-14 Serum or plasma urea nitrogen measurement (mass/volume) 28 mg/dL 7-18 Serum or plasma creatinine measurement (mass/volume) 0.76 mg/dL 0.60-1.30 Serum or plasma urea nitrogen/creatinine mass ratio 37 NRG Serum or plasma creatinine measurement with calculation of estimated glomerular filtration rate > NRG Serum or plasma glucose measurement (mass/volume) 98 mg/dL 70-105 Serum or plasma calcium measurement (mass/volume) 8.0 mg/dL 8.5-10.1 Serum or plasma total bilirubin measurement (mass/volume) 1.1 mg/dL 0.1-1.0 Serum or plasma alkaline phosphatase measurement (enzymatic activity/volume) 71 U/L 40-136 Serum or plasma aspartate aminotransferase measurement (enzymatic activity/ volume) 20 U/L 5-34 Serum or plasma alanine aminotransferase measurement (enzymatic activity/volume ) 26 U/L 0-55 Serum or plasma protein measurement (mass/volume) 4.7 g/dL 6.4-8.2 Serum or plasma albumin measurement (mass/volume) 2.6 g/dL 3.2-4.5 Magnesium - 11/07/16 18:41 Magnesium 1.6 mg/dL 1.8-2.4 Complete blood count (CBC) with automated white blood cell (WBC) differential - 11/07/16 18:47 Blood leukocytes automated count (number/volume) 8.5 10*3/uL 4.3-11.0 Blood erythrocytes automated count (number/volume) 4.69 10*6/uL 4.35-5.85 Venous blood hemoglobin measurement (mass/volume) 13.4 g/dL 11.5-16.0 Blood hematocrit (volume fraction) 42 % 35-52 Automated erythrocyte mean corpuscular volume 89 [foz_us] 80-99 Automated erythrocyte mean corpuscular hemoglobin (mass per erythrocyte) 29 pg 25-34 Automated erythrocyte mean corpuscular hemoglobin concentration measurement ( mass/volume) 32 g/dL 32-36 Automated erythrocyte distribution width ratio 15.1 % 10.0-14.5 Automated blood platelet count (count/volume) 168 10*3/uL 130-400 Automated blood platelet mean volume measurement 10.2 [foz_us] 7.4-10.4 Automated blood neutrophils/100 leukocytes 84 % 42-75 Automated blood lymphocytes/100 leukocytes 10 % 12-44 Blood monocytes/100 leukocytes 5 % 0-12 Automated blood eosinophils/100 leukocytes 0 % 0-10 Automated blood basophils/100 leukocytes 0 % 0-10 Blood neutrophils automated count (number/volume) 7.2 10*3 1.8-7.8 Blood lymphocytes automated count (number/volume) 0.9 10*3 1.0-4.0 Blood monocytes automated count (number/volume) 0.5 10*3 0.0-1.0 Automated eosinophil count 0.0 10*3/uL 0.0-0.3 Automated blood basophil count (count/volume) 0.0 10*3/uL 0.0-0.1 Comprehensive metabolic panel - 11/07/16 18:47 Serum or plasma sodium measurement (moles/volume) 143 mmol/L 135-145 Serum or plasma potassium measurement (moles/volume) 3.9 mmol/L 3.6-5.0 Serum or plasma chloride measurement (moles/volume) 103 mmol/L 98-107 Carbon dioxide 28 mmol/L 21-32 Serum or plasma anion gap determination (moles/volume) 12 mmol/L 5-14 Serum or plasma urea nitrogen measurement (mass/volume) 23 mg/dL 7-18 Serum or plasma creatinine measurement (mass/volume) 0.79 mg/dL 0.60-1.30 Serum or plasma urea nitrogen/creatinine mass ratio 29 NRG Serum or plasma creatinine measurement with calculation of estimated glomerular filtration rate > NRG Serum or plasma glucose measurement (mass/volume) 109 mg/dL 70-105 Serum or plasma calcium measurement (mass/volume) 8.8 mg/dL 8.5-10.1 Serum or plasma total bilirubin measurement (mass/volume) 0.7 mg/dL 0.1-1.0 Serum or plasma alkaline phosphatase measurement (enzymatic activity/volume) 79 U/L 40-136 Serum or plasma aspartate aminotransferase measurement (enzymatic activity/ volume) 29 U/L 5-34 Serum or plasma alanine aminotransferase measurement (enzymatic activity/volume ) 42 U/L 0-55 Serum or plasma protein measurement (mass/volume) 5.7 g/dL 6.4-8.2 Serum or plasma albumin measurement (mass/volume) 3.3 g/dL 3.2-4.5 Lipase - 11/07/16 18:47 Lipase 19 U/L 8-78 PT panel in platelet poor plasma by coagulation assay - 11/07/16 18:47 Prothrombin time (PT) in platelet poor plasma by coagulation assay 24.6 s 12.2-14.7 INR in platelet poor plasma or blood by coagulation assay 2.2 0.8-1.4 Activated partial thromboplastin time (aPTT) in platelet poor plasma bycoagulation assay - 11/07/16 18:47 Activated partial thromboplastin time (aPTT) in platelet poor plasma bycoagulation assay 33 s 24-35 Complete urinalysis with reflex to culture - 11/07/16 20:28 Urine color determination YELLOW NRG Urine clarity determination SLIGHTLY CLOUDY NRG Urine pH measurement by test strip 5 5-9 Specific gravity of urine by test strip 1.020 1.016- 1.022 Urine protein assay by test strip, semi-quantitative 1+ NEGATIVE Urine glucose detection by automated test strip NEGATIVE NEGATIVE Erythrocytes detection in urine sediment by light microscopy 1+ NEGATIVE Urine ketones detection by automated test strip NEGATIVE NEGATIVE Urine nitrite detection by test strip NEGATIVE NEGATIVE Urine total bilirubin detection by test strip NEGATIVE NEGATIVE Urine urobilinogen measurement by automated test strip (mass/volume) NORMAL NORMAL Urine leukocyte esterase detection by dipstick 2+ NEGATIVE Automated urine sediment erythrocyte count by microscopy (number/high power field) NONE NRG Automated urine sediment leukocyte count by microscopy (number/high power field ) [HPF] NRG Bacteria detection in urine sediment by light microscopy TRACE NRG Squamous epithelial cells detection in urine sediment by light microscopy 5-10 NRG Crystals detection in urine sediment by light microscopy NONE NRG Casts detection in urine sediment by light microscopy NONE NRG Mucus detection in urine sediment by light microscopy MODERATE NRG Complete urinalysis with reflex to culture YES NRG Bacterial urine culture - 11/07/16 20:28 Bacterial urine culture [id number] NRG COLONY COUNT >100,000/ML NRG FTX;REPORTABLE SENSITIVITY REPORTED 11/09/16 7:00 NRG Bacterial susceptibility panel - 11/07/16 20:28 Gentamicin susceptibility test by minimum inhibitory concentration < = NRG Trimethoprim/sulfamethoxazole susceptibility test by minimum inhibitoryconcentration <= NRG Ampicillin susceptibility test by minimum inhibitory concentration > = NRG Tobramycin susceptibility test by minimum inhibitory concentration < = NRG Cefazolin susceptibility test by minimum inhibitory concentration < = NRG Ceftriaxone susceptibility test by minimum inhibitory concentration <= NRG Ampicillin/sulbactam susceptibility test by minimum inhibitory concentration 16 NRG Piperacillin/tazobactam susceptibility test by minimum inhibitory concentration <= NRG Ciprofloxacin susceptibility test by minimum inhibitory concentration >= NRG Meropenem susceptibility test by minimum inhibitory concentration < = NRG Nitrofurantoin susceptibility test by minimum inhibitory concentration <= NRG Aztreonam susceptibility test by minimum inhibitory concentration < = NRG Extended spectrum beta lactamase (ESBL) producing bacteria susceptibility test by minimum inhibitory concentration - NRG Complete blood count (CBC) with automated white blood cell (WBC) differential - 11/08/16 04:38 Blood leukocytes automated count (number/volume) 7.8 10*3/uL 4.3-11.0 Blood erythrocytes automated count (number/volume) 4.02 10*6/uL 4.35-5.85 Venous blood hemoglobin measurement (mass/volume) 11.4 g/dL 11.5-16.0 Blood hematocrit (volume fraction) 37 % 35-52 Automated erythrocyte mean corpuscular volume 91 [foz_us] 80-99 Automated erythrocyte mean corpuscular hemoglobin (mass per erythrocyte) 28 pg 25-34 Automated erythrocyte mean corpuscular hemoglobin concentration measurement ( mass/volume) 31 g/dL 32-36 Automated erythrocyte distribution width ratio 15.0 % 10.0-14.5 Automated blood platelet count (count/volume) 140 10*3/uL 130-400 Automated blood platelet mean volume measurement 11.0 [foz_us] 7.4-10.4 Automated blood neutrophils/100 leukocytes 86 % 42-75 Automated blood lymphocytes/100 leukocytes 10 % 12-44 Blood monocytes/100 leukocytes 4 % 0-12 Automated blood eosinophils/100 leukocytes 0 % 0-10 Automated blood basophils/100 leukocytes 0 % 0-10 Blood neutrophils automated count (number/volume) 6.7 10*3 1.8-7.8 Blood lymphocytes automated count (number/volume) 0.8 10*3 1.0-4.0 Blood monocytes automated count (number/volume) 0.3 10*3 0.0-1.0 Automated eosinophil count 0.0 10*3/uL 0.0-0.3 Automated blood basophil count (count/volume) 0.0 10*3/uL 0.0-0.1 Comprehensive metabolic panel - 11/08/16 04:38 Serum or plasma sodium measurement (moles/volume) 144 mmol/L 135-145 Serum or plasma potassium measurement (moles/volume) 4.0 mmol/L 3.6-5.0 Serum or plasma chloride measurement (moles/volume) 107 mmol/L 98-107 Carbon dioxide 30 mmol/L 21-32 Serum or plasma anion gap determination (moles/volume) 7 mmol/L 5-14 Serum or plasma urea nitrogen measurement (mass/volume) 17 mg/dL 7-18 Serum or plasma creatinine measurement (mass/volume) 0.74 mg/dL 0.60-1.30 Serum or plasma urea nitrogen/creatinine mass ratio 23 NRG Serum or plasma creatinine measurement with calculation of estimated glomerular filtration rate > NRG Serum or plasma glucose measurement (mass/volume) 126 mg/dL 70-105 Serum or plasma calcium measurement (mass/volume) 7.7 mg/dL 8.5-10.1 Serum or plasma total bilirubin measurement (mass/volume) 0.5 mg/dL 0.1-1.0 Serum or plasma alkaline phosphatase measurement (enzymatic activity/volume) 61 U/L 40-136 Serum or plasma aspartate aminotransferase measurement (enzymatic activity/ volume) 24 U/L 5-34 Serum or plasma alanine aminotransferase measurement (enzymatic activity/volume ) 31 U/L 0-55 Serum or plasma protein measurement (mass/volume) 4.4 g/dL 6.4-8.2 Serum or plasma albumin measurement (mass/volume) 2.6 g/dL 3.2-4.5 Lipase - 11/08/16 04:38 Lipase 22 U/L 8-78 PT panel in platelet poor plasma by coagulation assay - 11/09/16 04:35 Prothrombin time (PT) in platelet poor plasma by coagulation assay 24.2 s 12.2-14.7 INR in platelet poor plasma or blood by coagulation assay 2.2 0.8-1.4 Complete blood count (CBC) with automated white blood cell (WBC) differential - 11/09/16 04:35 Blood leukocytes automated count (number/volume) 7.8 10*3/uL 4.3-11.0 Blood erythrocytes automated count (number/volume) 4.63 10*6/uL 4.35-5.85 Venous blood hemoglobin measurement (mass/volume) 13.2 g/dL 11.5-16.0 Blood hematocrit (volume fraction) 43 % 35-52 Automated erythrocyte mean corpuscular volume 94 [foz_us] 80-99 Automated erythrocyte mean corpuscular hemoglobin (mass per erythrocyte) 29 pg 25-34 Automated erythrocyte mean corpuscular hemoglobin concentration measurement ( mass/volume) 31 g/dL 32-36 Automated erythrocyte distribution width ratio 15.4 % 10.0-14.5 Automated blood platelet count (count/volume) 138 10*3/uL 130-400 Automated blood platelet mean volume measurement 10.9 [foz_us] 7.4-10.4 Automated blood neutrophils/100 leukocytes 88 % 42-75 Automated blood lymphocytes/100 leukocytes 6 % 12-44 Blood monocytes/100 leukocytes 7 % 0-12 Automated blood eosinophils/100 leukocytes 0 % 0-10 Automated blood basophils/100 leukocytes 0 % 0-10 Blood neutrophils automated count (number/volume) 6.9 10*3 1.8-7.8 Blood lymphocytes automated count (number/volume) 0.4 10*3 1.0-4.0 Blood monocytes automated count (number/volume) 0.5 10*3 0.0-1.0 Automated eosinophil count 0.0 10*3/uL 0.0-0.3 Automated blood basophil count (count/volume) 0.0 10*3/uL 0.0-0.1 Whole blood basic metabolic panel - 11/09/16 04:35 Serum or plasma sodium measurement (moles/volume) 143 mmol/L 135-145 Serum or plasma potassium measurement (moles/volume) 4.5 mmol/L 3.6-5.0 Serum or plasma chloride measurement (moles/volume) 105 mmol/L 98-107 Carbon dioxide 30 mmol/L 21-32 Serum or plasma anion gap determination (moles/volume) 8 mmol/L 5-14 Serum or plasma urea nitrogen measurement (mass/volume) 8 mg/dL 7-18 Serum or plasma creatinine measurement (mass/volume) 0.71 mg/dL 0.60-1.30 Serum or plasma urea nitrogen/creatinine mass ratio 11 NRG Serum or plasma creatinine measurement with calculation of estimated glomerular filtration rate > NRG Serum or plasma glucose measurement (mass/volume) 105 mg/dL 70-105 Serum or plasma calcium measurement (mass/volume) 8.2 mg/dL 8.5-10.1 Magnesium - 11/09/16 04:35 Magnesium 1.7 mg/dL 1.8-2.4 PT panel in platelet poor plasma by coagulation assay - 11/10/16 07:05 Prothrombin time (PT) in platelet poor plasma by coagulation assay 23.6 s 12.2-14.7 INR in platelet poor plasma or blood by coagulation assay 2.1 0.8-1.4 PT panel in platelet poor plasma by coagulation assay - 11/11/16 04:40 Prothrombin time (PT) in platelet poor plasma by coagulation assay 21.7 s 12.2-14.7 INR in platelet poor plasma or blood by coagulation assay 1.9 0.8-1.4 PT panel in platelet poor plasma by coagulation assay - 11/12/16 06:50 Prothrombin time (PT) in platelet poor plasma by coagulation assay 21.3 s 12.2-14.7 INR in platelet poor plasma or blood by coagulation assay 1.9 0.8-1.4 PT panel in platelet poor plasma by coagulation assay - 11/13/16 06:06 Prothrombin time (PT) in platelet poor plasma by coagulation assay 20.8 s 12.2-14.7 INR in platelet poor plasma or blood by coagulation assay 1.8 0.8-1.4 Bacterial urine culture - 02/14/17 11:15 Bacterial urine culture SEE COMMEN NRG COLONY COUNT . NRG FTX;REPORTABLE SENSITIVITY REPORTED 02/16 07:15 NRG Bacterial susceptibility panel - 02/14/17 11:15 Gentamicin susceptibility test by minimum inhibitory concentration < = NRG Trimethoprim/sulfamethoxazole susceptibility test by minimum inhibitoryconcentration >= NRG Ampicillin susceptibility test by minimum inhibitory concentration > = NRG Tobramycin susceptibility test by minimum inhibitory concentration < = NRG Cefazolin susceptibility test by minimum inhibitory concentration > = NRG Ceftriaxone susceptibility test by minimum inhibitory concentration >= NRG Ampicillin/sulbactam susceptibility test by minimum inhibitory concentration >= NRG Ciprofloxacin susceptibility test by minimum inhibitory concentration >= NRG Meropenem susceptibility test by minimum inhibitory concentration < = NRG Nitrofurantoin susceptibility test by minimum inhibitory concentration <= NRG Aztreonam susceptibility test by minimum inhibitory concentration R NRG Extended spectrum beta lactamase (ESBL) producing bacteria susceptibility test by minimum inhibitory concentration + NRG Encounters ACCT No. Visit Date/Time Discharge Status Pt. Type Provider Facility Loc./Unit Complaint [id number] 05/21/2017 00:20:00 05/21/2017 23:59:59 CLS Preadmit KAT VIGIL DO [facility] UTI [id number] 02/21/2017 07:54:00 05/20/2017 00:01:00 DIS Outpatient KAT VIGIL DO [facility] UTI [id number] 03/01/2017 21:27:00 03/01/2017 22:07:00 DIS Emergency JHON RAHMAN APRN [facility] ER CONTACT LENSE STUCK IN LT EYE [id number] 02/14/2017 11:15:00 02/14/2017 23:59:59 CLS Outpatient JULIO CÉSAR PARKER APRN [facility] LAB UTI W/ HEMATURIA SITE UNSPECIFIED [id number] 11/13/2016 08:56:00 11/13/2016 23:59:59 CLS Preadmit [facility] KAT VALDEZ SWB [id number] 11/07/2016 21:41:00 11/13/2016 14:50:00 DIS Inpatient ORENDER DO, KAT S [facility] 4TH ILEUS, ABDOMINAL PAIN , UTI [id number] 11/05/2016 07:48:00 11/05/2016 23:59:59 CLS Preadmit KAT VIGIL DO S [facility] ANTICOAG THERAPY [id number] 10/31/2016 11:30:00 11/03/2016 13:15:00 DIS Inpatient KAT VIGIL DO S [facility] 4TH CHEST PAIN,POSSIBLE ANGIA [id number] 08/26/2016 12:30:00 08/26/2016 14:32:00 DIS Emergency MAHENDRA BRENNAN, TENNILLE Crawford [facility] ER FACIAL INJURY [id number] 06/03/2016 08:49:00 06/03/2016 23:59:59 CLS Outpatient CRISTAL BUSTAMANTE [facility] CARD CAD,HTN,TR [id number] 05/21/2016 07:05:00 05/21/2016 23:59:59 CLS Outpatient LES BRENNAN FACC, MENDEL CARO CCDS [facility] CARD CAD,LVH,MR [id number] 04/28/2016 12:35:00 04/28/2016 23:59:59 CLS Outpatient ROBSON ADAIR APRN [facility] RAD H/O TIAS, PARASTHESIAS, CHRONIC COUGH [id number] 03/19/2016 15:13:00 03/19/2016 23:59:59 CLS Outpatient ADDIE MONTEIRO MD [facility] ANTICOAG THERAPY [id number] 03/16/2016 13:54:00 03/16/2016 23:59:59 CLS Outpatient ADDIE MONTEIRO MD [facility] ANTICOAG THERAPY [id number] 02/19/2016 10:28:00 02/19/2016 23:59:59 CLS Outpatient KAT VIGIL DO S [facility] ANTICAOG THERAPY, HTN [id number] 02/06/2016 13:15:00 02/12/2016 12:17:00 DIS Inpatient TUAN BRENNAN, MARIFER [place]ales [facility] 4TH ABDOMINAL PAIN,UTI, CHOLELITHIASIS [id number] 12/30/2015 11:20:00 12/30/2015 23:59:59 CLS Outpatient ADDIE MONTEIRO MD [facility] CAD,CHEST PAIN SYNDROME, HTN,MIXED HLP [id number] 06/21/2015 09:42:00 06/21/2015 23:59:59 CLS Preadmit ADDIE MONTEIRO MD [facility] ANTICOAGU THERAPY [id number] 05/28/2015 11:29:00 05/28/2015 23:59:59 CLS Outpatient ADDIE MONTEIRO MD [facility] ANTICOAG THERAPY [id number] 05/14/2015 10:10:00 05/14/2015 23:59:59 CLS Outpatient ADDIE MONTEIRO MD [facility] ANTICOAG THERAPY [id number] 04/29/2015 16:10:00 04/29/2015 23:59:59 CLS Outpatient KAT VIGIL DO [facility] AFIB, CHF [id number] 04/18/2015 11:36:00 04/22/2015 13:53:00 DIS Inpatient KAT VIGIL DO [facility] 4TH UTI [id number] 04/16/2015 15:30:00 04/16/2015 17:29:00 DIS Outpatient MADDIE KAYE MD [facility] ER AMS/FALL [id number] 04/14/2015 07:32:00 04/14/2015 10:45:00 DIS Emergency SILVOI SUNDAY VALDEZA K [facility] ER DIZZINESS,VOMITING [id number] 05/23/2014 10:39:00 05/23/2014 23:59:59 CLS Outpatient KAT VIGIL DO [facility] RIKA,AFIB, CARIDAC MURMUR [id number] 03/27/2013 11:30:00 03/27/2013 23:59:59 CLS Outpatient ADDIE MONTEIRO MD [facility] ANTICOAGULANT THERAPY [id number] 03/13/2013 10:25:00 03/13/2013 23:59:59 CLS Outpatient ADDIE MONTEIRO MD [facility] ANTICOAG THERAPY [id number] 03/06/2013 11:09:00 03/06/2013 23:59:59 CLS Outpatient ADDIE MONTEIRO MD [facility] ANTICOAGULANT THERAPY [id number] 02/27/2013 11:00:00 02/27/2013 23:59:59 CLS Outpatient ADDIE MONTEIRO MD [facility] ANTICOAG THERAPY [id number] 02/20/2013 10:25:00 02/20/2013 23:59:59 CLS Outpatient ADDIE MONTEIRO MD [facility] A FIB [id number] 01/27/2013 13:20:00 02/15/2013 10:25:00 DIS Inpatient ZOEY BRENNAN, HARLEEN Mojica [facility] CRITICAL CARE MYOPATHY [id number] 04/20/2014 12:40:00 Document Registration [id number] 12/03/2012 23:41:00 Document Registration [id number] 08/12/2011 07:04:00 Document Registration [id number] 07/28/2011 10:25:00 Document Registration [id number] 07/21/2011 11:15:00 Document Registration [id number] 01/13/2011 08:55:00 Document Registration [id number] 01/05/2011 07:51:00 Document Registration [id number] 11/28/2010 12:09:00 Document Registration
== END 2017-09-03 14:30 | disposition home or self-care (01) ==
LOC: EDUNIT# 12:24 → ER 12:26
DX: S42.401A Unspecified fracture of lower end of right humerus, initial encounter for closed fracture (principal); I48.91 Unspecified atrial fibrillation; I42.9 Cardiomyopathy, unspecified; I25.10 Atherosclerotic heart disease of native coronary artery without angina pectoris; E78.00 Pure hypercholesterolemia, unspecified; I11.0 Hypertensive heart disease with heart failure; I50.9 Heart failure, unspecified; K21.9 Gastro-esophageal reflux disease without esophagitis; F32.9 Major depressive disorder, single episode, unspecified; M81.0 Age-related osteoporosis without current pathological fracture; Z79.01 Long term (current) use of anticoagulants; Z86.010 Personal history of colon polyps; Z80.3 Family history of malignant neoplasm of breast; Z90.710 Acquired absence of both cervix and uterus; Z93.0 Tracheostomy status; Z87.440 Personal history of urinary (tract) infections; Z87.01 Personal history of pneumonia (recurrent); W19.XXXA Unspecified fall, initial encounter; Y92.129 Unspecified place in nursing home as the place of occurrence of the external cause
CPT/HCPCS: 29105

== ENCOUNTER 2018-01-16 08:07 | Observation (INO) | payer MEDICARE, OTHER ==
[~2018-01-16] VITALS: Ht 157.5 cm; Wt 61.8 kg
[~2018-01-16 08:07] MED LIST changes: +HYDR-757 PO; -SCOP1PAT TD; +SCOP1PAT11 TD; +WARF6TAB49 PO; -WARF6TAB6 PO
[2018-01-16] MEDS ORDERED: RT-ALBUTEROL/IPRATROPIUM 3 ML (DUONEB) VIAL ONE (08:10)
[2018-01-16 08:28] LABS: BASOPHILS % (AUTO) 0 % (0-10); EOSINOPHILS % (AUTO) 0 % (0-10); HEMATOCRIT 40 % (35-52); HEMOGLOBIN 12.1 G/DL (11.5-16.0); LYMPHOCYTES # (AUTO) 0.4 X 10^3 (1.0-4.0); LYMPHOCYTES % (AUTO) 8 % (12-44); MEAN CORPUSCULAR HEMOGLOBIN 28 PG (25-34); MEAN CORPUSCULAR HGB CONC 30 G/DL (32-36); MEAN CORPUSCULAR VOLUME 92 FL (80-99); MEAN PLATELET VOLUME 11.1 FL (7.4-10.4); MONOCYTES # (AUTO) 0.2 X 10^3 (0.0-1.0); MONOCYTES % (AUTO) 4 % (0-12); NEUTROPHILS # (AUTO) 4.5 X 10^3 (1.8-7.8); NEUTROPHILS % (AUTO) 88 % (42-75); PLATELET COUNT 131 10^3/uL (130-400); RED BLOOD COUNT 4.35 10^6/uL (4.35-5.85); RED CELL DISTRIBUTION WIDTH 19.1 % (10.0-14.5); WHITE BLOOD COUNT 5.1 10^3/uL (4.3-11.0)
[2018-01-16 08:46] LABS: ALANINE AMINOTRANSFERASE 49 U/L (0-55); ALBUMIN 3.4 GM/DL (3.2-4.5); ALKALINE PHOSPHATASE 80 U/L (40-136); BILIRUBIN,TOTAL 0.9 MG/DL (0.1-1.0); BUN/CREATININE RATIO 21; CALCIUM 8.6 MG/DL (8.5-10.1); CARBON DIOXIDE 28 MMOL/L (21-32); CHLORIDE 108 MMOL/L (98-107); CREATININE SERUM 0.92 MG/DL (0.60-1.30); GFR ESTIMATED 58; GLUCOSE 112 MG/DL (70-105); POTASSIUM 4.8 MMOL/L (3.6-5.0); SODIUM 144 MMOL/L (135-145); TOTAL PROTEIN 5.7 GM/DL (6.4-8.2)
[2018-01-16 08:47] LABS: BILIRUBIN,URINE NEGATIVE (NEGATIVE); CLARITY,URINE CLEAR; COLOR,URINE YELLOW; GLUCOSE, URINE (UA) NEGATIVE (NEGATIVE); KETONES,URINE NEGATIVE (NEGATIVE); LEUKOCYTE ESTERASE ,URINE 3+ (NEGATIVE); NITRITE,URINE POSITIVE (NEGATIVE); PH,URINE 5 (5-9); PROTEIN,URINE 2+ (NEGATIVE); UROBILINOGEN,URINE NORMAL (NORMAL)
[2018-01-16 08:48] LABS: BAND NEUTROPHILS 1 %; LYMPHOCYTES % (MANUAL) 11 %; MONOCYTES % (MANUAL) 5 %; NEUTROPHILS % (MANUAL) 83 %; RBC MORPH NORMAL
[2018-01-16 08:54] LABS: BACTERIA,URINE LARGE /HPF; WBC,URINE >100 /HPF
--- NOTE | 2018-01-16 08:57 | ED General ---
General Chief Complaint: Respiratory Problems Stated Complaint: SHORTNESS OF AIR Nursing Triage Note: ARRIVED VIA EMS TO ROOM 07. EMS STATES SHE WAS FOUND IN ROOM NOT WANTING TO GO TO BREAKFAST AND HAD A PULSE OX ON ROOM AIR OF 77%. PT STATES SHE FEELS WEAK AND HAD DIARRHEA STARTING YESTERDAY AFTERNOON. DENIES COUGH OR CONGESTION. Nursing Sepsis Screen: No Definite Risk Source of Information: Patient Exam Limitations: No Limitations History of Present Illness Date Seen by Provider: January 16, 2018 Time Seen by Provider: 08:52 Initial Comments The patient is an 87-year-old white female brought by ambulance from [facility]. They apparently found her to be hypoxic this morning. She stated to the nurses that she had had diarrhea most of yesterday. She is a very vague and poor historian. Timing/Duration: 4-6 Hours Allergies and Home Medications Allergies Coded Allergies: nitrofurantoin (Verified Allergy, Intermediate, 04/18/15) Penicillins (Verified Allergy, Mild, 04/18/15) Sulfa (Sulfonamide Antibiotics) (Verified Allergy, Mild, 04/18/15) omeprazole (Verified Allergy, Mild, 04/18/15) guaifenesin (Verified Allergy, Unknown, 04/18/15) potassium guaiacolsulfonate (Verified Allergy, Unknown, 04/18/15) celecoxib (Unverified Adverse Reaction, Unknown, SICK TO STOMACH, 04/18/15) rosuvastatin (Unverified Adverse Reaction, Unknown, NAUSEA, 04/18/15) Uncoded Allergies: Protoni (Allergy, Mild, 02/05/16) NOTE THAT PT TAKES PROTONIX AT HOME Home Medications Acetaminophen 500 Mg Tablet, 500 MG PO Q4H PRN for PAIN, (Reported) Atorvastatin Calcium 40 Mg Tablet, 40 MG PO HS, (Reported) Difluprednate 5 Ml Drops, 1 DROP OD UD, (Reported) 1 DROP OD TID X 7 DAYS, 1 DROP OD BID X 7, THEN 1 DROP OD DAILY X 7 PATIENT STATES THAT SHE SHOULD START HER 1 DROP OD DAILY SCHEDULE TOMORROW. Digoxin 250 Mcg Tablet, 250 MCG PO Q48H, (Reported) Escitalopram Oxalate 10 Mg Tablet, 10 MG PO DAILY Prescribed by: KAT VIGIL on 11/13/16 1046 Hydrochlorothiazide 12.5 Mg Tablet, 12.5 MG PO Q48HRS, (Reported) Hydrocodone/Acetaminophen 1 Each Tablet, 0.5 EACH PO Q4H PRN for PAIN-MODERATE TO SEVERE Prescribed by: JHON RAHMAN on 09/03/17 1303 Hypromellose 10 Gm Gel..gram., 1 DROP OD QID, (Reported) Loteprednol Etabonate 5 Ml Drops, 1 DROP OU DAILY, (Reported) Magnesium Oxide 400 Mg Tablet, 400 MG PO DAILY Prescribed by: KAT VIGIL on 11/13/16 1042 Pantoprazole Sodium 40 Mg Tablet.dr, 40 MG PO BID, (Reported) Warfarin Sodium 5 Mg Tablet, 7.5 MG PO Tu, (Reported) TAKES 1 & 1/2 OF A (5 MG) TABLET Warfarin Sodium 5 Mg Tablet, 5 MG PO [facility], (Reported) Patient Home Medication List Home Medication List Reviewed: Yes Review of Systems Constitutional: other (pleasant but very vague as a historian.) EENTM: no symptoms reported Respiratory: other (hypoxia as the noted by assisted living facility and EMS.) Cardiovascular: no symptoms reported Gastrointestinal: diarrhea Musculoskeletal: other (pain in the hips knees and feet) Skin: no symptoms reported Psychiatric/Neurological: No Symptoms Reported Hematologic/Lymphatic: No Symptoms Reported Immunological/Allergic: no symptoms reported Past Afiiolk-Rztbcz-Uhbhhg Hx Patient Social History Alcohol Use: Denies Use Recreational Drug Use: No Smoking Status: Unknown if Ever Smoked 2nd Hand Smoke Exposure: No Recent Foreign Travel: No Contact w/Someone Who Travel: No Recent Infectious Disease Expo: No Recent Hopitalizations: No Immunizations Up To Date Tetanus Booster (TDap): Less than 5yrs PED Vaccines UTD: No Date of Pneumonia Vaccine: Aug 30, 2015 Date of Influenza Vaccine: Jun 17, 2017 Seasonal Allergies Seasonal Allergies: No Past Medical History Surgeries: Yes (FISTULA REPAIR,CORNEA TRANSPLANT,CARDIAC CATH,SKYLAR W/ PERF ESOPHAGUS/REPAIR ) Abdominal, Cardiac, Eye Surgery, Gallbladder, Hysterectomy, Tracheostomy Respiratory: Yes (RESP.FAILURE-TRACH/VENTILATOR/REMOVAL, CHEST TUBE/REMOVAL) Pneumonia Currently Using CPAP: No Currently Using BIPAP: No Cardiac: Yes (CHF) Atrial Fibrillation, Cardiomyopathy, Coronary Artery Disease, High Cholesterol, Hypertension, Irregular Heartbeat Neurological: Yes (DENIES, BUT HAS PARESTHESIAS TO TOES) Reproductive Disorders: No Female Reproductive Disorders: Denies 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 Sexually Transmitted Disease: No HIV/AIDS: No Genitourinary: Yes UTI-Chronic Gastrointestinal: Yes (PERFORATED ESOPHAGUS/REPAIR, G-TUBE/ REMOVAL,DYSPHAGIA) Gastroesophageal Reflux, Polyps Musculoskeletal: Yes (WALKS WITH WALKER) Osteoporosis, Arthritis, Chronic Back Pain Endocrine: No Cataract, Eye Injury Loss of Vision: Bilateral Hearing Impairment: Hard of Hearing, Bilateral Hearing Aide Cancer: No Did You Recieve Any Treatments: No Psychosocial: Yes Depression Integumentary: No Blood Disorders: No Adverse Reaction/Blood Tranf: No Family Medical History FH: arrhythmia FH: breast cancer Cancer Physical Exam Vital Signs Vital Signs - First Documented 01/16/18 08:07 Temp 98.9 Pulse 100 Resp 20 B/P (MAP) 119/70 (86) Pulse Ox 77 O2 Delivery Room Air O2 Flow Rate 3.00 Capillary Refill : Less Than 3 Seconds General Appearance: No Apparent Distress Eyes: Bilateral Eye Normal Inspection HEENT: Normal ENT Inspection Neck: Other (horizontal scar noted over the cricoid cartilage consistent with previous tracheostomy) Respiratory: Chest Non Tender, Lungs Clear, Normal Breath Sounds, No Accessory Muscle Use, No Respiratory Distress Cardiovascular: Irregularly Irregular Gastrointestinal: Normal Bowel Sounds, No Organomegaly, No Pulsatile Mass, Non Tender, Soft Back: Normal Inspection Extremity: Normal Capillary Refill, Normal Inspection, Normal Range of Motion, Non Tender, No Calf Tenderness, No Pedal Edema Neurologic/Psychiatric: Alert, Oriented x3, No Motor/Sensory Deficits, Normal Mood/Affect Skin: Normal Color, Warm/Dry Procedures/Interventions Date of ETT Placement: Feb 07, 2016 Time of ETT Placement: 1710 Progress/Results/Core Measures Suspected Sepsis Recent Fever Within 48 Hours: No Infection Criteria Present: Suspected New Infection New/Unexplained Altered Menta: No Sepsis Screen: No Definite Risk SIRS Temperature:98.9 Pulse: 100 Respiratory Rate: 20 Laboratory Tests 01/16/18 08:16: White Blood Count 5.1 Blood Pressure 119 /70 Mean: 86 Laboratory Tests 01/16/18 08:16: Creatinine 0.92, Platelet Count 131, Total Bilirubin 0.9 Results/Orders Lab Results Laboratory Tests Test 01/16/18 08:16 01/16/18 08:35 Range/Units White Blood Count 5.1 4.3-11.0 10^3/uL Red Blood Count 4.35 4.35-5.85 10^6/uL Hemoglobin 12.1 11.5-16.0 G/DL Hematocrit 40 35-52 % Mean Corpuscular Volume 92 80-99 FL Mean Corpuscular Hemoglobin 28 25-34 PG Mean Corpuscular Hemoglobin Concent 30 L 32-36 G/DL Red Cell Distribution Width 19.1 H 10.0-14.5 % Platelet Count 131 130-400 10^3/uL Mean Platelet Volume 11.1 H 7.4-10.4 FL Neutrophils (%) (Auto) 88 H 42-75 % Lymphocytes (%) (Auto) 8 L 12-44 % Monocytes (%) (Auto) 4 0-12 % Eosinophils (%) (Auto) 0 0-10 % Basophils (%) (Auto) 0 0-10 % Neutrophils # (Auto) 4.5 1.8-7.8 X 10^3 Lymphocytes # (Auto) 0.4 L 1.0-4.0 X 10^3 Monocytes # (Auto) 0.2 0.0-1.0 X 10^3 Eosinophils # (Auto) 0.0 0.0-0.3 10^3/uL Basophils # (Auto) 0.0 0.0-0.1 10^3/uL Neutrophils % (Manual) 83 % Lymphocytes % (Manual) 11 % Monocytes % (Manual) 5 % Band Neutrophils 1 % Dohle Bodies SLIGHT Blood Morphology Comment NORMAL Sodium Level 144 135-145 MMOL/L Potassium Level 4.8 3.6-5.0 MMOL/L Chloride Level 108 H 98-107 MMOL/L Carbon Dioxide Level 28 21-32 MMOL/L Anion Gap 8 5-14 MMOL/L Blood Urea Nitrogen 19 H 7-18 MG/DL Creatinine 0.92 0.60-1.30 MG/DL Estimat Glomerular Filtration Rate 58 BUN/Creatinine Ratio 21 Glucose Level 112 H 70-105 MG/DL Calcium Level 8.6 8.5-10.1 MG/DL Total Bilirubin 0.9 0.1-1.0 MG/DL Aspartate Amino Transf (AST/SGOT) 49 H 5-34 U/L Alanine Aminotransferase (ALT/SGPT) 49 0-55 U/L Alkaline Phosphatase 80 40-136 U/L Troponin I < 0.30 <0.30 NG/ML Total Protein 5.7 L 6.4-8.2 GM/DL Albumin 3.4 3.2-4.5 GM/DL Urine Color YELLOW Urine Clarity CLEAR Urine pH 5 5-9 Urine Specific [place] 1.025 H 1.016-1.022 Urine Protein 2+ H NEGATIVE Urine Glucose (UA) NEGATIVE NEGATIVE Urine Ketones NEGATIVE NEGATIVE Urine Nitrite POSITIVE H NEGATIVE Urine Bilirubin NEGATIVE NEGATIVE Urine Urobilinogen NORMAL NORMAL MG/DL Urine Leukocyte Esterase 3+ H NEGATIVE Urine RBC (Auto) 2+ H NEGATIVE Urine RBC NONE /HPF Urine WBC >100 H /HPF Urine Squamous Epithelial Cells 2-5 /HPF Urine Crystals NONE /LPF Urine Bacteria LARGE H /HPF Urine Casts NONE /LPF Urine Mucus MODERATE H /LPF Urine Culture Indicated YES My Orders Orders - JAZMINE MARTINEZ MD Cbc With Automated Diff (01/16/18 08:10) Comprehensive Metabolic Panel (01/16/18 08:10) Troponin I (01/16/18 08:10) Ua Culture If Indicated (01/16/18 08:10) Ekg Tracing (01/16/18 08:10) Chest 1 View, Ap/Pa Only (01/16/18 08:10) Albuterol/Ipra Inhalation Soln (Duoneb I (01/16/18 08:10) Manual Differential (01/16/18 08:16) Urine Culture (01/16/18 08:35) Furosemide Injection (Lasix Injection) (01/16/18 10:45) Ceftriaxone Injection (Rocephin Injectio (01/16/18 12:00) General/Regular (01/16/18 Lunch) Medications Given in ED Current Medications Medications Dose Ordered Sig/Daniella Route Start Time Stop Time Status Last Admin Dose Admin Albuterol/ Ipratropium 3 ml STK-MED ONCE .ROUTE 01/16/18 08:10 01/16/18 08:15 DC 01/16/18 08:23 3 ML Furosemide 40 mg ONCE ONCE IVP 01/16/18 10:45 01/16/18 10:46 DC 01/16/18 11:22 40 MG Vital Signs/I&O 01/16/18 01/16/18 01/16/18 08:07 08:07 08:24 Temp 98.9 Pulse 100 Resp 20 B/P (MAP) 119/70 (86) Pulse Ox 77 95 O2 Delivery Room Air Nasal Cannula Nasal Cannula O2 Flow Rate 3.00 4.00 Capillary Refill : Less Than 3 Seconds Blood Pressure Mean: 86 Departure Communication (Admissions) The chest x-ray suggests a degree of pulmonary edema. In addition is noted that the patient has an apparent UTI. I have discussed with the hospitalist as we have no beds at this moment and the attempt will be made to obtain O2 at the [facility] and to use Lasix to unload Impression Primary Impression: congestive heart failure Additional Impression: UTI Disposition: Condition: Improved Departure-Patient Inst. Decision time for Depature: 12:14 Referrals: KAT VIGIL DO (PCP/Family) Primary Care Physician Add. Discharge Instructions: All discharge instructions reviewed with patient and/or family. Voiced understanding. Take Lasix 40 mg each a.m. Take potassium 20 mEq each a.m. Notify Dr. VIGIL of patient's performance and vital sign in a.m. O2 at 2 L and or to keep SaO2 above 90 JAZMINE MARTINEZ MD January 16, 2018 08:57
--- NOTE | 2018-01-16 09:13 | Diagnostic Imaging Report ---
Indication: Weakness. Decreased O2 sats. Comparison with 11/01/2016. Findings: Heart size has increased. Pulmonary vasculature is also increased on today's study. Interstitial markings have increased. There has been development of bilateral basilar pleural effusions. IMPRESSION: Findings are consistent with congestive failure with increasing pulmonary edema and pleural effusions. Dictated by: Dictated on workstation # [id number]
[2018-01-16] MEDS ORDERED: FUROSEMIDE 40 MG/4 ML INJ (LASIX) IVP ONE (10:45)
[2018-01-16] MEDS ORDERED: cefTRIAXone INJECTION 1,000 MG in NS (IVPB) 50 ML IV ONE (12:00)
[2018-01-16 15:01] VITALS: BP 90/52
[2018-01-16] MEDS ORDERED: ACETAMINOPHEN 325 MG TABLET/CAPLET (TYLENOL) PO PRN (15:30)
[2018-01-16] MEDS ORDERED: DIGOXIN 0.25 MG (LANOXIN) TAB PO SCH (17:15)
[2018-01-16 17:40] LABS: INR 2.8 (0.8-1.4); PROTHROMBIN TIME PATIENT 29.1 SEC (12.2-14.7)
[2018-01-16] MEDS ORDERED: warFARin 2.5 MG (COUMADIN) TAB PO ONE (18:00)
[2018-01-16 20:00] VITALS: BP 105/56
[2018-01-16] MEDS ORDERED: HYPROMELLOSE OD SCH (21:00)
[2018-01-16] MEDS: PANTOPRAZOLE 40 MG (PROTONIX) TAB PO SCH (21:14)
[2018-01-16] MEDS: ATORVASTATIN 40 MG (LIPITOR) TABLET PO SCH (21:14)
[2018-01-17 00:23] VITALS: BP 117/61
[2018-01-17 04:18] VITALS: BP 110/64
[2018-01-17] MEDS ORDERED: ACETAMINOPHEN 500 MG TAB (TYLENOL) PO PRN (06:45)
[2018-01-17] MEDS ORDERED: HYDROcodone/APAP 5 MG/325 MG (LORTAB) TAB PO PRN (06:45)
[2018-01-17 07:41] LABS: INR 2.8 (0.8-1.4); PROTHROMBIN TIME PATIENT 29.7 SEC (12.2-14.7)
[2018-01-17 07:47] LABS: BUN/CREATININE RATIO 27; CALCIUM 8.6 MG/DL (8.5-10.1); CARBON DIOXIDE 34 MMOL/L (21-32); CHLORIDE 102 MMOL/L (98-107); CREATININE SERUM 0.85 MG/DL (0.60-1.30); GFR ESTIMATED > 60; GLUCOSE 92 MG/DL (70-105); POTASSIUM 4.6 MMOL/L (3.6-5.0); SODIUM 143 MMOL/L (135-145)
[2018-01-17] MEDS: ARTIFICAL TEARS 0.4 ML UNIT DOSE (REFRESH PLUS) OD SCH ×4 (08:05→20:56)
[2018-01-17] MEDS: PANTOPRAZOLE 40 MG (PROTONIX) TAB PO SCH ×2 (08:05→20:56)
[2018-01-17 08:27] VITALS: BP 104/66
[2018-01-17] MEDS ORDERED: NON-FORMULARY MEDICATION 1 EA EA (Loteprednol Etabonate (Lotemax) 1 DROP) OU SCH (09:00)
[2018-01-17] MEDS ORDERED: NON-FORMULARY MEDICATION 1 EA EA (Escitalopram Oxalate (Lexapro) 10 MG) PO SCH (09:00)
[2018-01-17] MEDS ORDERED: PREN-51 PO (09:58)
[2018-01-17] MEDS ORDERED: ONDA4TAB10 PO (09:58)
[2018-01-17] MEDS ORDERED: DIPH1TAB25 PO (09:58)
[2018-01-17] MEDS ORDERED: GUAI237L82 PO (10:00)
[2018-01-17 12:39] VITALS: BP 104/66
[2018-01-17] MEDS ORDERED: KCL 8 MEQ (MICRO K) TABLET PO NR (12:45)
[2018-01-17] MEDS ORDERED: FUROSEMIDE 40 MG/4 ML INJ (LASIX) IVP NR (12:45)
[2018-01-17] MEDS ORDERED: cefTRIAXone INJECTION 1,000 MG in NS (IVPB) 50 ML IV NR (12:45)
[2018-01-17 16:00] VITALS: BP 117/70
--- NOTE | 2018-01-17 18:26 | History & Physicial ---
History of Present Illness History of Present Illness Reason for visit/HPI This is an 87 year old female with a known history of chronic atrial fibrillation who was found in her room at the assisted living facility with an oxygen saturation of 77%. She was brought to the emergency room and found to have a UTI and pulmonary edema on CXR. She was given lasix but was still requiring oxygen so it was decided she would need to be admitted until arrangements could be made for home oxygen. Date of Admission January 16, 2018 at 1:59 pm Date Seen by Provider: January 17, 2018 Time Seen by Provider: 12:35 I consulted on this patient on 01/17/18 18:21 Attending Physician Peace Ramos DO Admitting Physician Peace Ramos DO Consult Allergies and Home Medications Allergies Coded Allergies: nitrofurantoin (Verified Allergy, Intermediate, 04/18/15) Penicillins (Verified Allergy, Mild, 04/18/15) Sulfa (Sulfonamide Antibiotics) (Verified Allergy, Mild, 04/18/15) omeprazole (Verified Allergy, Mild, 04/18/15) guaifenesin (Verified Allergy, Unknown, 04/18/15) potassium guaiacolsulfonate (Verified Allergy, Unknown, 04/18/15) celecoxib (Unverified Adverse Reaction, Unknown, SICK TO STOMACH, 04/18/15) rosuvastatin (Unverified Adverse Reaction, Unknown, NAUSEA, 04/18/15) Uncoded Allergies: Protoni (Allergy, Mild, 02/05/16) NOTE THAT PT TAKES PROTONIX AT HOME Home Medications Acetaminophen 500 Mg Tablet, 500 MG PO Q4H PRN for PAIN, (Reported) Atorvastatin Calcium 40 Mg Tablet, 40 MG PO HS, (Reported) Digoxin 250 Mcg Tablet, 250 MCG PO Q48H, (Reported) Diphenoxylate HCl/Atropine 1 Each Tablet, 1 TAB PO UD PRN for DIARRHEA, ( Reported) 2 TABS AFTER 1ST LOOSE STOOL THEN 1 TAB AFTER EACH LOOSE STOOL - MAX 8 TABS/ DAY Escitalopram Oxalate 10 Mg Tablet, 10 MG PO DAILY Prescribed by: PEACE RAMOS on 11/13/16 1046 Guaifenesin/Dextromethorphan 237 Ml Liquid, 5 ML PO Q4H PRN for COUGH, (Reported ) Hydrocodone/Acetaminophen 1 Each Tablet, 0.5 EACH PO Q4H PRN for PAIN-MODERATE TO SEVERE Prescribed by: JHON RAHMAN on 09/03/17 1303 Hypromellose 10 Gm Gel..gram., 1 DROP OD QID, (Reported) Loteprednol Etabonate 5 Ml Drops, 1 DROP OU DAILY, (Reported) Ondansetron HCl 4 Mg Tablet, 4 MG PO Q6H PRN for NAUSEA/VOMITING-1ST LINE, ( Reported) Pantoprazole Sodium 40 Mg Tablet.dr, 40 MG PO BID, (Reported) Vit #76/Iron,Carb/FA 1 Each Tablet, 1 EACH PO DAILY, (Reported) Warfarin Sodium 5 Mg Tablet, 5 MG PO DAILY, (Reported) Patient Home Medication List Home Medication List Reviewed: Yes Past Vzqnpya-Hmvyog-Xbiqrh Hx Patient Social History Alcohol Use: Denies Use Recreational Drug Use: No Smoking Status: Unknown if Ever Smoked 2nd Hand Smoke Exposure: No Physical Abuse Screen: No Sexual Abuse: No Recent Foreign Travel: No Contact w/other who traveled: No Recent Hopitalizations: No Recent Infectious Disease Expo: No Immunizations Up To Date Tetanus Booster (TDap): Less than 5yrs Pediatric: No Date of Pneumonia Vaccine: Aug 30, 2015 Date of Influenza Vaccine: Jun 17, 2017 Seasonal Allergies Seasonal Allergies: No Surgeries Yes (FISTULA REPAIR,CORNEA TRANSPLANT,CARDIAC CATH,SKYLAR W/ PERF ESOPHAGUS/REPAIR ) Abdominal, Cardiac, Eye Surgery, Gallbladder, Hysterectomy, Tracheostomy Respiratory Yes (RESP.FAILURE-TRACH/VENTILATOR/REMOVAL, CHEST TUBE/REMOVAL) Currently Using CPAP: No Currently Using BIPAP: No Cardiovascular Yes (CHF) Atrial Fibrillation, Cardiomyopathy, Coronary Artery Disease, High Cholesterol, Hypertension, Irregular Heartbeat Neurological Yes (DENIES, BUT HAS PARESTHESIAS TO TOES) Reproductive System Hx Reproductive Disorders: No Sexually Transmitted Disease: No HIV/AIDS: No Female Reproductive Disorders: Denies 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 Genitourinary Yes UTI-Chronic Gastrointestinal Yes (PERFORATED ESOPHAGUS/REPAIR, G-TUBE/ REMOVAL,DYSPHAGIA) Gastroesophageal Reflux, Polyps Musculoskeletal Yes (WALKS WITH WALKER) Osteoporosis, Arthritis, Chronic Back Pain Endocrine History of Endocrine Disorders: No HEENT HEENT Disorders: Cataract, Eye Injury Loss of Vision: Bilateral Hearing Impairment: Hard of Hearing, Bilateral Hearing Aide Cancer No Did You Recieve Any Treatments: No Psychosocial History of Psychiatric Problem: Yes Behavioral Health Disorders: Depression Integumentary History of Skin or Integumenta: No Blood Transfusions History of Blood Disorders: No Adverse Reaction to a Blood Tr: No Family Medical History Significant Family History: Cancer Family Hx: FH: arrhythmia FH: breast cancer Constitutional: weakness EENTM: No see HPI, No no symptoms reported, No ear discharge, No hearing loss, No ear pain, No blurred vision, No double vision, No eye pain, No tearing, No vision loss, No dental problems, No hoarseness, No mouth pain, No mouth swelling , No epistaxis, No nose congestion, No nose pain, No throat pain, No throat swelling, No other Respiratory: short of breath Cardiovascular: No no symptoms reported, No see HPI, No chest pain, No edema, No Hx of Intervention, No palpitations, No syncope, No vascular heart diseas, No other Gastrointestinal: diarrhea Genitourinary: No no symptoms reported, No see HPI, No decreased output, No discharge, No dysuria, No frequency, No hematuria, No hesitancy, No incontinence , No nocturia, No pain, No other Musculoskeletal: muscle weakness Skin: No no symptoms reported, No see HPI, No change in color, No change in hair/nails, No dryness, No hx of skin cancer, No lesions, No lumps, No pruritus , No rash, No other Psychiatric/Neurological: Pre-Existing Deficit, Weakness Physical Exam Vital Signs Vital Signs - First Documented 01/16/18 08:07 Temp 98.9 Pulse 100 Resp 20 B/P (MAP) 119/70 (86) Pulse Ox 77 O2 Delivery Room Air O2 Flow Rate 3.00 Capillary Refill : Less Than 3 Seconds General Appearance: No Apparent Distress HEENT: Pharynx Normal Neck: Supple Respiratory: Lungs Clear Cardiovascular: Systolic Murmur, Gallop/S4, Irregularly Irregular Gastrointestinal: Normal Bowel Sounds, Non Tender, Soft Rectal: Deferred Back: No CVA Tenderness Extremity: Non Tender, No Calf Tenderness, Pedal Edema (trace) Neurologic/Psychiatric: Alert, Oriented x3 Skin: Warm/Dry Comments Laboratory Tests 01/17/18 07:05: Prothrombin Time 29.7H, INR Comment 2.8H, Sodium Level 143, Potassium Level 4.6 , Chloride Level 102, Carbon Dioxide Level 34H, Anion Gap 7, Blood Urea Nitrogen 23H, Creatinine 0.85, Estimat Glomerular Filtration Rate > 60, BUN/ Creatinine Ratio 27, Glucose Level 92, Calcium Level 8.6 Microbiology 01/16/18 Urine Culture - Preliminary, Resulted Klebsiella pneumoniae Assessment/Plan Assessment and Plan 1. Acute Hypoxia due to pulmonary edema--gentle IV lasix and oxygen 2. Acute UTI--cover with rocephin 3. Chronic Atrial Fibrillation--rate controlled, on coumadin Admission Diagnosis Admission Status: Observation Clinical Quality Measures DVT/VTE Risk/Contraindication: Risk Factor Score Per Nursin RFS Level Per Nursing on Admit: 3=High PEACE RAMOS DO January 17, 2018 6:26 pm
[2018-01-17] MEDS: ATORVASTATIN 40 MG (LIPITOR) TABLET PO SCH (20:56)
[2018-01-18 00:25] VITALS: BP 112/59
[2018-01-18] MEDS ORDERED: KCL 8 MEQ (MICRO K) TABLET PO SCH (07:00)
[2018-01-18 07:54] VITALS: BP 117/46
[2018-01-18] MEDS: PANTOPRAZOLE 40 MG (PROTONIX) TAB PO SCH (08:40)
[2018-01-18] MEDS: ARTIFICAL TEARS 0.4 ML UNIT DOSE (REFRESH PLUS) OD SCH ×2 (08:40→14:01)
[2018-01-18] MEDS ORDERED: cefTRIAXone INJECTION 1,000 MG in NS (IVPB) 50 ML IV SCH (09:00)
[2018-01-18] MEDS ORDERED: FUROSEMIDE 40 MG/4 ML INJ (LASIX) IVP SCH (09:00)
[2018-01-18] MEDS ORDERED: FURO-125 PO (14:11)
[2018-01-18] MEDS ORDERED: POTA8CAP9 PO (14:11)
--- NOTE | 2018-01-18 14:13 | Discharge Inst-Simple/Standard ---
Discharge Inst-Standard Discharge Medications New, Converted or Re-Newed RX: Transmitted to Pharmacy Patient Instructions/Follow Up Plan of Care/Instructions/FU: Fwup 1 week Chem 7 in 1 week Activity as Tolerated: Yes Discharge Diet: Cardiac Diet Other Inst to Patient Continuous oxygen at 1L KAT CROWDER DO January 18, 2018 2:13 pm
[2018-01-18] MEDS ORDERED: CEFD300C3 PO (14:16)
[2018-01-18 16:45] VITALS: BP 117/46
== END 2018-01-18 14:11 ==
LOC: EDUNIT# 08:07 → ER 08:08 → UNDOADMOB 13:59 → 4TH 13:59 → UNDODISOB 01-18 16:45
PROVIDERS: ADMIT Internal Medicine; ATTEND Family Medicine
DX: J81.1 Chronic pulmonary edema (principal); N39.0 Urinary tract infection, site not specified; I48.2 Chronic atrial fibrillation; R09.02 Hypoxemia; I42.9 Cardiomyopathy, unspecified; I25.10 Atherosclerotic heart disease of native coronary artery without angina pectoris; E78.00 Pure hypercholesterolemia, unspecified; I10 Essential (primary) hypertension; K21.9 Gastro-esophageal reflux disease without esophagitis; Z86.010 Personal history of colon polyps; M81.0 Age-related osteoporosis without current pathological fracture; F32.9 Major depressive disorder, single episode, unspecified
CPT/HCPCS: 36415; 71045; 80048; 80053; 81000; 84484; 85007; 85027; 85610; 87077; 87088; 87186; 93005; 94640; 94761; 96365; 96375; G0378

== ENCOUNTER 2018-07-24 11:04 | Inpatient (IN) | payer MEDICARE, OTHER, MEDICAID ==
[2018-07-24] VITALS (19 sets, daily range): BP systolic 82–133; BP diastolic 63–93
[~2018-07-24] VITALS: Ht 167.6 cm; Wt 53.5 kg
[~2018-07-24 11:04] MED LIST changes: +CEFD300C3 PO; +DIPH1TAB25 PO; +FURO-125 PO; +GUAI237L82 PO; +HYDR-4226 PO; -HYDR-757 PO; +ONDA4TAB10 PO; +POTA8CAP9 PO; +PREN-51 PO
[2018-07-24] MEDS ORDERED: NS IV 1000 ML 1,000 ML IV SCH ×2 (11:17→12:30)
[2018-07-24 11:42] LABS: BASOPHILS % (AUTO) 0 % (0-10); EOSINOPHILS % (AUTO) 0 % (0-10); HEMATOCRIT 45 % (35-52); HEMOGLOBIN 13.4 G/DL (11.5-16.0); LYMPHOCYTES # (AUTO) 0.4 X 10^3 (1.0-4.0); LYMPHOCYTES % (AUTO) 7 % (12-44); MEAN CORPUSCULAR HEMOGLOBIN 30 PG (25-34); MEAN CORPUSCULAR HGB CONC 30 G/DL (32-36); MEAN CORPUSCULAR VOLUME 99 FL (80-99); MEAN PLATELET VOLUME 10.6 FL (7.4-10.4); MONOCYTES # (AUTO) 0.2 X 10^3 (0.0-1.0); MONOCYTES % (AUTO) 3 % (0-12); NEUTROPHILS # (AUTO) 5.4 X 10^3 (1.8-7.8); NEUTROPHILS % (AUTO) 90 % (42-75); PLATELET COUNT 133 10^3/uL (130-400); RED BLOOD COUNT 4.55 10^6/uL (4.35-5.85); RED CELL DISTRIBUTION WIDTH 15.3 % (10.0-14.5)
--- NOTE | 2018-07-24 12:02 | Diagnostic Imaging Report ---
Portable chest compared to prior study from January 16, 2018. INDICATION: Weakness. FINDINGS: Marked enlargement of the cardiac silhouette is again demonstrated and not appreciably changed from the prior exam. There are chronic interstitial changes present within the lungs. There is obscuration of left hemidiaphragm and left lower lobe consolidation and/or effusion is not excluded. There is also small right effusion. There is no pneumothorax. IMPRESSION: 1. Marked enlargement of the cardiac silhouette with chronic interstitial changes throughout the lungs. 2. Obscuration of left hemidiaphragm. Left lower lobe consolidation and/or effusion cannot be excluded. There is also a right-sided pleural effusion. Dictated by: Dictated on workstation # [id number]
[2018-07-24 12:11] LABS: INR 2.2 (0.8-1.4); PROTHROMBIN TIME PATIENT 24.7 SEC (12.2-14.7)
--- NOTE | 2018-07-24 12:14 | ED General ---
General Chief Complaint: Fever-Adult/Adol Stated Complaint: CONFUSION Nursing Triage Note: Pt brought to ED by daughter in law. Pt needed assistance from vehicle with a wheelchair. Pt resides at [facility]. Daughter in law reports NH reported pt being lethargic and unable to speak coherently this AM. Upon arrival to ED, pt's O2 sats were 66%. Pt placed on [address] Son. Pt O2 sat then 100%, and backed to 2 L. Daughter in law reports NH administering lasix this AM and pt not being able to urinate since. Nursing Sepsis Screen: No Definite Risk Source of Information: Patient Exam Limitations: No Limitations History of Present Illness Date Seen by Provider: Jul 24, 2018 Time Seen by Provider: 11:05 Initial Comments This 88-year-old woman is brought to the emergency room by her daughter with altered mental status and weakness today. She is a resident of [facility]. Staff noticed that she was not herself this morning. Normally she is talkative and able to ambulate. Today she is not talking and appears very weak. She is found to be febrile on assessment. Oxygen saturation during initial vital signs was in the mid 60s. This did correct with biopsy mask. Patient is able to follow some instructions but is not talking comprehensibly. Patient's [id number] confirms that she has a DO NOT RESUSCITATE status. Allergies and Home Medications Allergies Coded Allergies: nitrofurantoin (Verified Allergy, Intermediate, 04/18/15) Penicillins (Verified Allergy, Mild, 04/18/15) Sulfa (Sulfonamide Antibiotics) (Verified Allergy, Mild, 04/18/15) omeprazole (Verified Allergy, Mild, 04/18/15) guaifenesin (Verified Allergy, Unknown, 04/18/15) potassium guaiacolsulfonate (Verified Allergy, Unknown, 04/18/15) celecoxib (Unverified Adverse Reaction, Unknown, SICK TO STOMACH, 04/18/15) rosuvastatin (Unverified Adverse Reaction, Unknown, NAUSEA, 04/18/15) Uncoded Allergies: Protoni (Allergy, Mild, 02/05/16) NOTE THAT PT TAKES PROTONIX AT HOME Home Medications Acetaminophen 500 Mg Tablet, 500 MG PO Q4H PRN for PAIN, (Reported) Atorvastatin Calcium 40 Mg Tablet, 40 MG PO HS, (Reported) Cefdinir 300 Mg Capsule, 300 MG PO BID Prescribed by: KAT VIGIL on 01/18/18 1416 Digoxin 250 Mcg Tablet, 250 MCG PO Q48H, (Reported) Diphenoxylate HCl/Atropine 1 Each Tablet, 1 TAB PO UD PRN for DIARRHEA, ( Reported) 2 TABS AFTER 1ST LOOSE STOOL THEN 1 TAB AFTER EACH LOOSE STOOL - MAX 8 TABS/ DAY Escitalopram Oxalate 10 Mg Tablet, 10 MG PO DAILY Prescribed by: KAT VIGIL on 11/13/16 1046 Furosemide 20 Mg Tablet, 20 MG PO DAILY Prescribed by: KAT VIGIL on 01/18/18 1411 Guaifenesin/Dextromethorphan 237 Ml Liquid, 5 ML PO Q4H PRN for COUGH, (Reported ) Hydrocodone/Acetaminophen 1 Each Tablet, 0.5 EACH PO Q4H PRN for PAIN-MODERATE TO SEVERE Prescribed by: JHON RAHMAN on 09/03/17 1303 Hypromellose 10 Gm Gel..gram., 1 DROP OD QID, (Reported) Loteprednol Etabonate 5 Ml Drops, 1 DROP OU DAILY, (Reported) Ondansetron HCl 4 Mg Tablet, 4 MG PO Q6H PRN for NAUSEA/VOMITING-1ST LINE, ( Reported) Pantoprazole Sodium 40 Mg Tablet.dr, 40 MG PO BID, (Reported) Potassium Chloride 8 Meq Capsule.er, 8 MEQ PO DAILY@0700 Prescribed by: KAT VIGIL on 01/18/18 1411 Vit #76/Iron,Carb/FA 1 Each Tablet, 1 EACH PO DAILY, (Reported) Warfarin Sodium 5 Mg Tablet, 5 MG PO DAILY, (Reported) Patient Home Medication List Home Medication List Reviewed: Yes Review of Systems Review of Systems Constitutional: see HPI EENTM: no symptoms reported Respiratory: see HPI Cardiovascular: no symptoms reported Gastrointestinal: no symptoms reported Genitourinary: no symptoms reported : No Musculoskeletal: no symptoms reported Skin: no symptoms reported Psychiatric/Neurological: See HPI Hematologic/Lymphatic: No Symptoms Reported Past Oewnctk-Uxgzll-Ltnije Hx Patient Social History Alcohol Use: Denies Use Recreational Drug Use: No 2nd Hand Smoke Exposure: No Recent Foreign Travel: No Contact w/Someone Who Travel: No Recent Infectious Disease Expo: No Recent Hopitalizations: No Physical Abuse: No Sexual Abuse: No Immunizations Up To Date Tetanus Booster (TDap): Less than 5yrs PED Vaccines UTD: No Date of Pneumonia Vaccine: Aug 30, 2015 Date of Influenza Vaccine: Jun 17, 2017 Seasonal Allergies Seasonal Allergies: No Past Medical History Surgeries: Yes (FISTULA REPAIR,CORNEA TRANSPLANT,CARDIAC CATH,SKYLAR W/ PERF ESOPHAGUS/REPAIR ) Abdominal, Cardiac, Eye Surgery, Gallbladder, Hysterectomy, Tracheostomy Respiratory: Yes (RESP.FAILURE-TRACH/VENTILATOR/REMOVAL, CHEST TUBE/REMOVAL) Pneumonia Currently Using CPAP: No Currently Using BIPAP: No Cardiac: Yes (CHF) Atrial Fibrillation, Cardiomyopathy, Coronary Artery Disease, High Cholesterol, Hypertension, Irregular Heartbeat Neurological: Yes (DENIES, BUT HAS PARESTHESIAS TO TOES) : No Reproductive Disorders: No Female Reproductive Disorders: 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 Sexually Transmitted Disease: No HIV/AIDS: No Genitourinary: Yes UTI-Chronic Gastrointestinal: Yes (PERFORATED ESOPHAGUS/REPAIR, G-TUBE/ REMOVAL,DYSPHAGIA) Gastroesophageal Reflux, Polyps Musculoskeletal: Yes (WALKS WITH WALKER) Osteoporosis, Arthritis, Chronic Back Pain Endocrine: No Cataract, Eye Injury Loss of Vision: Bilateral Hearing Impairment: Hard of Hearing, Bilateral Hearing Aide Cancer: No Did You Recieve Any Treatments: No Psychosocial: Yes Depression Integumentary: No Blood Disorders: No Adverse Reaction/Blood Tranf: No Family Medical History FH: arrhythmia FH: breast cancer Cancer Physical Exam-Suspected Sepsis Physical Exam Vital Signs Vital Signs - First Documented 07/24/18 07/24/18 11:04 16:21 Temp 100.9 Pulse 105 Resp 50 B/P (MAP) 102/69 (80) Pulse Ox 66 O2 Delivery Room Air O2 Flow Rate 30.00 Capillary Refill : Greater Than 3 Seconds Blood Pressure Mean: 80 Height, Weight, BMI Height: 5'6.00" Weight: 120lbs. 5.0oz. 54.063845ix; 27.4 BMI Method:Estimated General Appearance: No Apparent Distress, WD/WN HEENT: Other (right pupil clouded, presumably blind. Oropharynx very dry) Neck: Normal Inspection Respiratory: Normal Breath Sounds, No Accessory Muscle Use, No Respiratory Distress Cardiovascular: No Edema, Systolic Murmur, Tachycardia Gastrointestinal: Non Tender, Soft Extremity: Normal Inspection, No Pedal Edema Neurologic/Psychiatric: Other (very somnolent. Lethargic. Not able to speak comprehensively. Will follow some instructions such as opening eyes and squeezing hands. Moves all 4 extremities.) Skin: normal color, warm/dry Focused Exam Lactate Level 07/24/18 11:20: Lactic Acid Level 1.44 Lactic Acid Level Procedures/Interventions Date of ETT Placement: Feb 07, 2016 Time of ETT Placement: 1710 Progress/Results/Core Measures Suspected Sepsis Recent Fever Within 48 Hours: Yes Infection Criteria Present: None New/Unexplained Altered Menta: Yes Sepsis Screen: No Definite Risk SIRS Temperature:100.9 Pulse: 105 Respiratory Rate: 50 Laboratory Tests 07/24/18 11:20: White Blood Count 6.0 Blood Pressure 102 /69 Mean: 80 07/24/18 11:20: Lactic Acid Level 1.44 Laboratory Tests 07/24/18 11:20: Creatinine 1.22, INR Comment 2.2H, Platelet Count 133, Total Bilirubin 1.1H Results/Orders Lab Results Laboratory Tests Test 07/24/18 11:20 07/24/18 11:22 07/24/18 11:45 07/24/18 15:04 Range/Units White Blood Count 6.0 4.3-11.0 10^3/uL Red Blood Count 4.55 4.35-5.85 10^6/uL Hemoglobin 13.4 11.5-16.0 G/DL Hematocrit 45 35-52 % Mean Corpuscular Volume 99 80-99 FL Mean Corpuscular Hemoglobin 30 25-34 PG Mean Corpuscular Hemoglobin Concent 30 L 32-36 G/DL Red Cell Distribution Width 15.3 H 10.0-14.5 % Platelet Count 133 130-400 10^3/uL Mean Platelet Volume 10.6 H 7.4-10.4 FL Neutrophils (%) (Auto) 90 H 42-75 % Lymphocytes (%) (Auto) 7 L 12-44 % Monocytes (%) (Auto) 3 0-12 % Eosinophils (%) (Auto) 0 0-10 % Basophils (%) (Auto) 0 0-10 % Neutrophils # (Auto) 5.4 1.8-7.8 X 10^3 Lymphocytes # (Auto) 0.4 L 1.0-4.0 X 10^3 Monocytes # (Auto) 0.2 0.0-1.0 X 10^3 Eosinophils # (Auto) 0.0 0.0-0.3 10^3/uL Basophils # (Auto) 0.0 0.0-0.1 10^3/uL Neutrophils % (Manual) 87 % Lymphocytes % (Manual) 5 % Monocytes % (Manual) 3 % Band Neutrophils 5 % Hypochromasia SLIGHT Anisocytosis SLIGHT Elliptocytes SLIGHT Prothrombin Time 24.7 H 12.2-14.7 SEC INR Comment 2.2 H 0.8-1.4 Activated Partial Thromboplast Time 33 24-35 SEC Sodium Level 145 135-145 MMOL/L Potassium Level 5.3 H 3.6-5.0 MMOL/L Chloride Level 101 98-107 MMOL/L Carbon Dioxide Level 33 H 21-32 MMOL/L Anion Gap 11 5-14 MMOL/L Blood Urea Nitrogen 26 H 7-18 MG/DL Creatinine 1.22 0.60-1.30 MG/DL Estimat Glomerular Filtration Rate 42 BUN/Creatinine Ratio 21 Glucose Level 124 H 70-105 MG/DL Lactic Acid Level 1.44 0.50-2.00 MMOL/L Calcium Level 9.6 8.5-10.1 MG/DL Corrected Calcium 9.6 8.5-10.1 MG/DL Total Bilirubin 1.1 H 0.1-1.0 MG/DL Aspartate Amino Transf (AST/SGOT) 72 H 5-34 U/L Alanine Aminotransferase (ALT/SGPT) 62 H 0-55 U/L Alkaline Phosphatase 127 40-136 U/L B-Type Natriuretic Peptide 846.9 H <100.0 PG/ML Total Protein 7.1 6.4-8.2 GM/DL Albumin 4.0 3.2-4.5 GM/DL Digoxin Level 1.30 0.80-2.00 NG/ML Glucometer 115 H 70-110 MG/DL Urine Color YELLOW Urine Clarity CLEAR Urine pH 5 5-9 Urine Specific Pimento 1.025 H 1.016-1.022 Urine Protein 2+ H NEGATIVE Urine Glucose (UA) NEGATIVE NEGATIVE Urine Ketones NEGATIVE NEGATIVE Urine Nitrite NEGATIVE NEGATIVE Urine Bilirubin NEGATIVE NEGATIVE Urine Urobilinogen 1 NORMAL MG/DL Urine Leukocyte Esterase NEGATIVE NEGATIVE Urine RBC (Auto) 2+ H NEGATIVE Urine RBC 0 /HPF Urine WBC 0 /HPF Urine Crystals PRESENT H /LPF Urine Amorphous Sediment FEW JENNIFER URATES H /LPF Urine Bacteria MODERATE H /HPF Urine Casts PRESENT /LPF Urine Coarse Granular Casts 2-5 H /LPF Urine Mucus NEGATIVE /LPF Urine Culture Indicated NO Blood Gas Puncture Site R RAD Blood Gas Patient Temperature 98.2 Arterial Blood pH 7.23 *L 7.37-7.43 Arterial Blood Partial Pressure CO2 80 *H 35-45 MMHG Arterial Blood Partial Pressure O2 122 H 79-93 MMHG Arterial Blood HCO3 33 H 23-27 MMOL/L Arterial Blood Total CO2 35.2 H 21.0-31.0 MMOL/L Arterial Blood Oxygen Saturation 98 94-100 % Arterial Blood Base Excess 5.6 H -2.5-2.5 MMOL/L Jose Test YES-POS Blood Gas Ventilator Setting NO Blood Gas Inspired Oxygen 3L Micro Results Microbiology 07/24/18 Influenza Types A,B Antigen (SANTOS) - Final, Complete My Orders Orders - MADDIE SON MD Cbc With Automated Diff (07/24/18 11:17) Comprehensive Metabolic Panel (07/24/18 11:17) Blood Culture (07/24/18 11:17) Sputum Culture (07/24/18 11:17) Urinalysis (07/24/18 11:17) Urine Culture (07/24/18 11:17) Protime With Inr (07/24/18 11:17) Partial Thromboplastin Time (07/24/18 11:17) Chest 1 View, Ap/Pa Only (07/24/18 11:17) Saline Lock/Iv-Start (07/24/18 11:17) Saline Lock/Iv-Start (07/24/18 11:17) Vital Signs Adult Sepsis Patie Q15M (07/24/18 11:17) O2 (07/24/18 11:17) Remove Rings In Anticipation O (07/24/18 11:17) Lactic Acid Analyzer (07/24/18 11:17) Ns Iv 1000 Ml (Sodium Chloride 0.9%) (07/24/18 11:17) Influenza A And B Antigens (07/24/18 11:17) Catheter(Urinary) Care .0300, 1500 (07/24/18 11:18) Manual Differential (07/24/18 11:20) Digoxin (07/24/18 12:14) Acetaminophen Tablet/Caplet (Tylenol T (07/24/18 12:30) Saline Lock/Iv-Start (07/24/18 12:30) Ns Iv 1000 Ml (Sodium Chloride 0.9%) (07/24/18 12:30) Ceftriaxone For Iv Use (Rocephin For I (07/24/18 14:00) BNP (07/24/18 13:54) Arterial Blood Gas (07/24/18 13:54) Ekg Tracing (07/24/18 14:15) Monitor-Rhythm Ecg Trace Only (07/24/18 14:15) Methylprednisolone Sod Succ (Solu-Medrol (07/24/18 15:45) Medications Given in ED Current Medications Medications Dose Ordered Sig/Daniella Route Start Time Stop Time Status Last Admin Dose Admin Acetaminophen 650 mg ONCE ONCE PO 07/24/18 12:30 07/24/18 12:32 DC 07/24/18 13:05 650 MG Ceftriaxone Sodium 1000 mg/ Sodium Chloride 50 ml @ 100 mls/hr ONCE ONCE IV 07/24/18 14:00 07/24/18 14:29 DC 07/24/18 14:32 100 MLS/HR Vital Signs/I&O 07/24/18 07/24/18 07/24/18 07/24/18 11:04 16:00 16:15 16:21 Temp 100.9 98.2 Pulse 105 98 87 98 Resp 50 19 15 28 B/P (MAP) 102/69 (80) 114/78 (90) 133/65 (87) Pulse Ox 66 94 93 97 O2 Delivery Room Air Room Air Room Air O2 Flow Rate 30.00 07/24/18 07/24/18 07/24/18 07/24/18 16:30 16:37 16:41 16:45 Temp 98.0 Pulse 92 95 Resp 17 16 B/P (MAP) 108/89 (95) 97/63 (74) Pulse Ox 96 94 O2 Delivery Room Air NIV Bilevel Room Air 07/24/18 07/24/18 07/24/18 07/24/18 17:00 17:15 17:30 17:45 Pulse 93 96 96 104 Resp 18 12 15 16 B/P (MAP) 112/73 (86) 117/75 (89) 101/74 (83) 104/93 (97) Pulse Ox 95 100 100 100 O2 Delivery Room Air Room Air Room Air Room Air 07/24/18 07/24/18 18:00 18:15 Pulse 100 90 Resp 19 9 B/P (MAP) 101/67 (78) 117/82 (94) Pulse Ox 100 97 O2 Delivery Room Air Room Air Capillary Refill : Greater Than 3 Seconds Blood Pressure Mean: 80 Progress Note #1: Progress Note Patient's blood pressures have remained stable. She received 2 L of IVF. She had multiple hypotensive measurements but those were always with artifact because of patient's arm position. She draws her arm up toward her face pinching the blood pressure cuff. Blood pressures are normal when repeated with her arm straight. Patient has not had true hypotension. Respiratory status has recovered with oxygen supplementation alone. Patient has become much more alert after receiving IV fluids and oxygen. There was bacteria noted in the urinalysis. However, there was no leukocytosis or leukocyte esterase in the urine specimen. Urinary tract infection is doubtful. However, because of the respiratory status and bacteria in the urine, Rocephin is being given as a precaution. Blood cultures were drawn. Patient's A. fib has remained stable. Case was discussed with family who requested that the patient be admitted. Patient's son is her medical DURABLE POWER OF FORENSIC MATERIALS ENGINEER. Case was discussed with Dr. Mercado who would like antibiotics continued as a precaution. She requested consultation with cardiology and Dr. Starks. Causes of hypoxia is uncertain. There is no evidence of pneumonia on the chest x-ray. Pulmonary embolism is extremely doubtful since patient is therapeutic on her warfarin therapy. Progress Note #2: Time: 15:41 Progress Note Patient was found to be hypercarbic and acidotic by ABG. Dr. Starks was consulted. He wishes to try BiPAP therapy if patient tolerates it. He also wishes to start steroid therapy with Solu-Medrol 40 mg every 6 hours. The first dose will be administered in the ER. BNP was added at Dr. Mercado's request. It was elevated. There are also some features of congestive failure on the chest x-ray by radiologist read. Patient has received approximately 1500 mL of normal saline at this point. Systolic blood pressure at this time is 105. We will stop the fluids infusing and trial BiPAP as Dr. Starks requested. ECG Initial ECG Impression Date: Jul 24, 2018 Initial ECG Impression Time: 14:19 Initial ECG Rate: 101 Initial ECG Rhythm: A Fib/Flutter Initial ECG Impression: Atrial Fibrillation Comment Atrial fibrillation with no overt ST elevation or depression. Rate at 101. Diagnostic Imaging Diagonstic Imaging: Xray Plain Films/CT/US/NM/MRI: chest Comments Chest x-ray viewed by me and report reviewed. See report below: NAME: RISHI CHILEL [facility] REC#: [id number] PT STATUS: REG ER : 1930 PHYSICIAN: MADDIE SON MD ADMIT DATE: 07/24/18/ER Draft Date of Exam:07/24/18 CHEST 1 VIEW, AP/PA ONLY Portable chest compared to prior study from January 16, 2018. INDICATION: Weakness. FINDINGS: Marked enlargement of the cardiac silhouette is again demonstrated and not appreciably changed from the prior exam. There are chronic interstitial changes present within the lungs. There is obscuration of left hemidiaphragm and left lower lobe consolidation and/or effusion is not excluded. There is also small right effusion. There is no pneumothorax. IMPRESSION: 1. Marked enlargement of the cardiac silhouette with chronic interstitial changes throughout the lungs. 2. Obscuration of left hemidiaphragm. Left lower lobe consolidation and/or effusion cannot be excluded. There is also a right-sided pleural effusion. Dictated on workstation # [id number] Dict: 07/24/18 1146 Trans: 07/24/18 1201 [id number] Interpreted by: GEORGIA LEAHY MD Departure Communication (Admissions) Time/Spoke to Admitting Phy: 13:56 Dr. Mercado Time/Spoke to Consulting Phy: 14:00 Dr. Hutton Case discussed with Dr. Starks at 15:35. Impression Primary Impression: Respiratory failure with hypoxia Qualified Codes: J96.21 - Acute and chronic respiratory failure with hypoxia Additional Impressions: Febrile illness Altered mental status Qualified Codes: R41.82 - Altered mental status, unspecified Atrial fibrillation Qualified Codes: I48.2 - Chronic atrial fibrillation Hypercarbia Congestive heart failure Qualified Codes: I50.9 - Heart failure, unspecified Disposition: 09 ADMITTED INPATIENT Condition: Improved Admissions Decision to Admit Reason: Admit from ER (General) Decision to Admit/Date: Jul 24, 2018 Time/Decision to Admit Time: 13:50 Departure-Patient Inst. Referrals: KAT VIGIL DO (PCP/Family) Primary Care Physician MADDIE SON MD Jul 24, 2018 12:14
[2018-07-24 12:18] LABS: BILIRUBIN,TOTAL 1.1 MG/DL (0.1-1.0); CALCIUM 9.6 MG/DL (8.5-10.1); CREATININE SERUM 1.22 MG/DL (0.60-1.30); POTASSIUM 5.3 MMOL/L (3.6-5.0); TOTAL PROTEIN 7.1 GM/DL (6.4-8.2)
[2018-07-24 12:25] LABS: BILIRUBIN,URINE NEGATIVE (NEGATIVE); CLARITY,URINE CLEAR; COLOR,URINE YELLOW; GLUCOSE, URINE (UA) NEGATIVE (NEGATIVE); KETONES,URINE NEGATIVE (NEGATIVE); LEUKOCYTE ESTERASE ,URINE NEGATIVE (NEGATIVE); NITRITE,URINE NEGATIVE (NEGATIVE); PH,URINE 5 (5-9); PROTEIN,URINE 2+ (NEGATIVE); UROBILINOGEN,URINE 1 MG/DL (NORMAL)
[2018-07-24] MEDS ORDERED: ACETAMINOPHEN 325 MG TABLET PO ONE (12:30)
[2018-07-24 12:39] LABS: AMORPHOUS SEDIMENT,UR FEW AMOR URATES /LPF; BACTERIA,URINE MODERATE /HPF; RBC,URINE 0 /HPF; WBC,URINE 0 /HPF
[2018-07-24 13:15] LABS: ANISOCYTOSIS SLIGHT; BAND NEUTROPHILS 5 %; ELLIPT/OVALOCYTES SLIGHT; LYMPHOCYTES % (MANUAL) 5 %; MONOCYTES % (MANUAL) 3 %; NEUTROPHILS % (MANUAL) 87 %
[2018-07-24 13:16] LABS: HYPOCHROMASIA SLIGHT
[2018-07-24] MEDS ORDERED: cefTRIAXone FOR IV USE 1,000 MG in NS (IVPB) 50 ML IV ONE (14:00)
--- NOTE | 2018-07-24 15:08 | Consultation-Cardiology ---
HPI-Cardiology Cardiology Consultation: Date of Consultation 07/24/18 Date of Admission Attending Physician Karen Mercado DO Admitting Physician Kat Ramos DO Consulting Physician Parker HUTTON MD HPI: Time Seen by a Provider: 15:15 Chief Complaint: Shortness of breath This is a 88-year-old lady with history of dementia. She also has history of chronic atrial fibrillation and congestive heart failure. She follows with Dr. Menon. She was brought to the ER for altered mental status and weakness. On initial triage her oxygen saturation was mid 60s. She was given oxygen therapy. She denies any other complaints. However she is a poor historian due to dementia. She is a DO NOT RESUSCITATE. Review of Systems-Cardiology Review of Systems Constitutional: As described under HPI; No As described under HPI, No no symptoms reported, No chills, No fever, No lightheadedness Eyes: No As described under HPI, No no symptoms reported, No blindness, No blurred vision, No contact lenses, No drainage, No decreased acuity, No foreign body sensation, No pain, No vision change Ears/Nose/Throat: No As described under HPI, No no symptoms reported, No chronic hearing loss, No ear discharge, No ear pain, No nasal drainage, No ulcerations Respiratory: No no symptoms reported; As described under HPI; No As described under HPI, No cough, No orthopnea; shortness of breath; No SOB with excertion Cardiovascular: No no symptoms reported; As described under HPI; No As described under HPI, No chest pain, No edema, No irregular heart rate, No lightheadedness, No palpitations Gastrointestinal: No no symptoms reported, No As described under HPI, No abdomen distended, No abdominal pain, No blood streaked bowels, No constipation , No diarrhea, No nausea, No vomiting, No stool coloration changes Genitourinary: No As described under HPI, No burning, No dysuria, No discharge , No frequency, No flank pain, No hematuria, No urgency : No Skin: no symptoms reported; No rash, No skin related problems, No ulcerations Psychiatric/Neurological: As described under HPI; No anxiety, No depression, No seizure, No focal weakness, No syncope Hematologic: No bleeding abnormalities IIJ-Nzuejk-Ydaody Hx Patient Social History Alcohol Use: Denies Use Recreational Drug Use: No 2nd Hand Smoke Exposure: No Recent Foreign Travel: No Recent Infectious Disease Expo: No Hospitalization with Isolation: Denies Immunizations Up To Date Tetanus Booster (TDap): Less than 5yrs Date of Pneumonia Vaccine: Aug 30, 2015 Date of Influenza Vaccine: Jun 17, 2017 Past Medical History PMH As described under Assessment. Family Medical History Family History: FH: arrhythmia FH: breast cancer Allergies and Home Medications Allergies Coded Allergies: nitrofurantoin (Verified Allergy, Intermediate, 04/18/15) Penicillins (Verified Allergy, Mild, 04/18/15) Sulfa (Sulfonamide Antibiotics) (Verified Allergy, Mild, 04/18/15) omeprazole (Verified Allergy, Mild, 04/18/15) guaifenesin (Verified Allergy, Unknown, 04/18/15) potassium guaiacolsulfonate (Verified Allergy, Unknown, 04/18/15) celecoxib (Unverified Adverse Reaction, Unknown, SICK TO STOMACH, 04/18/15) rosuvastatin (Unverified Adverse Reaction, Unknown, NAUSEA, 04/18/15) Uncoded Allergies: Protoni (Allergy, Mild, 02/05/16) NOTE THAT PT TAKES PROTONIX AT HOME Home Medications Acetaminophen 500 Mg Tablet, 500 MG PO Q4H PRN for PAIN, (Reported) Atorvastatin Calcium 40 Mg Tablet, 40 MG PO HS, (Reported) Cefdinir 300 Mg Capsule, 300 MG PO BID Prescribed by: KAT RAMOS on 01/18/18 1416 Digoxin 250 Mcg Tablet, 250 MCG PO Q48H, (Reported) Diphenoxylate HCl/Atropine 1 Each Tablet, 1 TAB PO UD PRN for DIARRHEA, ( Reported) 2 TABS AFTER 1ST LOOSE STOOL THEN 1 TAB AFTER EACH LOOSE STOOL - MAX 8 TABS/ DAY Escitalopram Oxalate 10 Mg Tablet, 10 MG PO DAILY Prescribed by: KAT RAMOS on 11/13/16 1046 Furosemide 20 Mg Tablet, 20 MG PO DAILY Prescribed by: KAT RAMOS on 01/18/18 1411 Guaifenesin/Dextromethorphan 237 Ml Liquid, 5 ML PO Q4H PRN for COUGH, (Reported ) Hydrocodone/Acetaminophen 1 Each Tablet, 0.5 EACH PO Q4H PRN for PAIN-MODERATE TO SEVERE Prescribed by: JHON RAHMAN on 09/03/17 1303 Hypromellose 10 Gm Gel..gram., 1 DROP OD QID, (Reported) Loteprednol Etabonate 5 Ml Drops, 1 DROP OU DAILY, (Reported) Ondansetron HCl 4 Mg Tablet, 4 MG PO Q6H PRN for NAUSEA/VOMITING-1ST LINE, ( Reported) Pantoprazole Sodium 40 Mg Tablet.dr, 40 MG PO BID, (Reported) Potassium Chloride 8 Meq Capsule.er, 8 MEQ PO DAILY@0700 Prescribed by: KAT RAMOS on 01/18/18 1411 Vit #76/Iron,Carb/FA 1 Each Tablet, 1 EACH PO DAILY, (Reported) Warfarin Sodium 5 Mg Tablet, 5 MG PO DAILY, (Reported) Patient Home Medication List Home Medication List Reviewed: Yes Physical Exam-Cardiology Physical Exam Vital Signs/I&O 07/24/18 07/24/18 07/24/18 07/24/18 11:04 16:00 16:15 16:21 Temp 100.9 98.2 Pulse 105 98 87 98 Resp 50 19 15 28 B/P (MAP) 102/69 (80) 114/78 (90) 133/65 (87) Pulse Ox 66 94 93 97 O2 Delivery Room Air Room Air Room Air O2 Flow Rate 30.00 07/24/18 07/24/18 07/24/18 07/24/18 16:30 16:37 16:41 16:45 Temp 98.0 Pulse 92 95 Resp 17 16 B/P (MAP) 108/89 (95) 97/63 (74) Pulse Ox 96 94 O2 Delivery Room Air NIV Bilevel Room Air 07/24/18 07/24/18 07/24/18 07/24/18 17:00 17:15 17:30 17:45 Pulse 93 96 96 104 Resp 18 12 15 16 B/P (MAP) 112/73 (86) 117/75 (89) 101/74 (83) 104/93 (97) Pulse Ox 95 100 100 100 O2 Delivery Room Air Room Air Room Air Room Air 07/24/18 07/24/18 18:00 18:15 Pulse 100 90 Resp 19 9 B/P (MAP) 101/67 (78) 117/82 (94) Pulse Ox 100 97 O2 Delivery Room Air Room Air Capillary Refill : Greater Than 3 Seconds Constitutional: No appears stated age, No AAO x 3, No apparent distress, No PERRL, No well-developed, No well-nourished, No other HEENT: No PERRL, No normal ENT inspection, No TMs normal, No pharynx normal, No scleral icterus (R), No scleral icterus (L), No pale conjunctivae (R), No pale conjunctivae (L), No photophobia, No TM abnormal (R), No TM abnormal (L), No pharyngeal erythema, No tonsillar exudate, No other, No discharge, No EOMI, No hearing is well preserved, No hard of hearing, No oral hygience is good, No ulceration, No xanthelasmas are seen Neck: No non-tender, No full range of motion, No supple, No normal inspection, No carotid bruit, No limited range of motion, No lymphadenopathy (R), No lymphadenopathy (L), No tender lateral, No tender midline, No thyromegaly, No other, No carotid pulses are 2 + bilaterally, No with good upstrokes Respiratory: No accessory muscle use, No respiratory distress, No chest tender , No chest expansion is symmetric; chest is bilaterally symmetric; No lungs clear to percussion; lungs clear to auscultation; No crackles, No rhonchi, No rales, No stridor, No wheezing, No pleural rub, No other Cardiovascular: No regular rate-rhythm; irregularly irregular; No extra beats, No parasternal heave is noted, No JVD, No edema, No bradycardia, No tachycardia , No point of maximal impulse, No cardiac thrills are palpable; S1 and S2; No gallop/S3, No gallop/S4, No diastolic murmur, No systolic murmur, No friction rub, No click, No other Gastrointestinal: No tender, No soft, No round, No distended, No pulsatile mass , No organomegaly, No guarding, No rebound, No tenderness, No hernia, No mass, No audible bowel sounds, No abnormal bowel sounds, No abdominal bruits, No spleenomegaly, No other Rectal: deferred Extremities: No normal range of motion, No non-tender, No normal inspection, No pedal edema, No calf tenderness, No normal capillary refill, No pelvis stable , No calf tenderness, No inflammation, No pedal edema, No slow capillary refill , No swelling, No other, No abrasion, No clubbing, No cyanosis, No ecchymosis, No laceration, No no lower extremity edema bilateral, No significant edema, No tenderness, No wound Neurologic/Psychiatric: No 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 desizing 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 operator II-XII nml as tested; no motor/sensory deficits ; No alert, No normal mood/affect, No oriented x 3, No abnormal cerebellar tests , No abnormal head end desizing machine operator II-XII, No abnormal gait, No aphasia, No EOM palsy, No facial droop, No motor weakness, No sensory deficit, No depressed affect; disoriented x 3; No other, No grossly intact, No power is 5/5 both on sides Skin: normal color, warm/dry; No cyanosis, No cool, No diaphoresis, No damp, No ecchymosis, No jaundice, No mottled, No pallor, No rash, No tattoos/piercings , No ulcerations, No rash on exposed areas, No ulcerations on exposed areas, No other Data Review Labs Laboratory Tests 07/24/18 11:20: White Blood Count 6.0, Red Blood Count 4.55, Hemoglobin 13.4, Hematocrit 45, Mean Corpuscular Volume 99, Mean Corpuscular Hemoglobin 30, Mean Corpuscular Hemoglobin Concent 30L, Red Cell Distribution Width 15.3H, Platelet Count 133, Mean Platelet Volume 10.6H, Neutrophils (%) (Auto) 90H, Lymphocytes (%) (Auto) 7L, Monocytes (%) (Auto) 3, Eosinophils (%) (Auto) 0, Basophils (%) (Auto) 0, Neutrophils # (Auto) 5.4, Lymphocytes # (Auto) 0.4L, Monocytes # (Auto) 0.2, Eosinophils # (Auto) 0.0, Basophils # (Auto) 0.0, Neutrophils % (Manual) 87, Lymphocytes % (Manual) 5, Monocytes % (Manual) 3, Band Neutrophils 5, Hypochromasia SLIGHT, Anisocytosis SLIGHT, Elliptocytes SLIGHT, Prothrombin Time 24.7H, INR Comment 2.2H, Activated Partial Thromboplast Time 33, Sodium Level 145, Potassium Level 5.3H, Chloride Level 101, Carbon Dioxide Level 33H, Anion Gap 11, Blood Urea Nitrogen 26H, Creatinine 1.22, Estimat Glomerular Filtration Rate 42, BUN/Creatinine Ratio 21, Glucose Level 124H, Lactic Acid Level 1.44, Calcium Level 9.6, Corrected Calcium 9.6, Total Bilirubin 1.1H, Aspartate Amino Transf (AST/SGOT) 72H, Alanine Aminotransferase (ALT/SGPT) 62H, Alkaline Phosphatase 127, B-Type Natriuretic Peptide 846.9H, Total Protein 7.1, Albumin 4.0, Digoxin Level 1.30 07/24/18 11:22: Glucometer 115H 07/24/18 11:45: Urine Color YELLOW, Urine Clarity CLEAR, Urine pH 5, Urine Specific [place] 1.025H, Urine Protein 2+H, Urine Glucose (UA) NEGATIVE, Urine Ketones NEGATIVE, Urine Nitrite NEGATIVE, Urine Bilirubin NEGATIVE, Urine Urobilinogen 1, Urine Leukocyte Esterase NEGATIVE, Urine RBC (Auto) 2+H, Urine RBC 0, Urine WBC 0, Urine Crystals PRESENTH, Urine Amorphous Sediment FEW JENNIFER URATESH, Urine Bacteria MODERATEH, Urine Casts PRESENT, Urine Coarse Granular Casts 2-5H, Urine Mucus NEGATIVE, Urine Culture Indicated NO 07/24/18 15:04: Blood Gas Puncture Site R RAD, Blood Gas Patient Temperature 98.2, Arterial Blood pH 7.23*L, Arterial Blood Partial Pressure CO2 80*H, Arterial Blood Partial Pressure O2 122H, Arterial Blood HCO3 33H, Arterial Blood Total CO2 35.2H, Arterial Blood Oxygen Saturation 98, Arterial Blood Base Excess 5.6H, Jose Test YES-POS, Blood Gas Ventilator Setting NO, Blood Gas Inspired Oxygen 3L Microbiology 07/24/18 Influenza Types A,B Antigen ([facility]) - Final, Complete ECG Impression ECG Initial ECG Impression: Atrial Fibrillation w/RVR A/P-Cardiology Assessment/Admission Diagnosis Acute diastolic congestive heart failure, Chronic atrial fibrillation with rapid ventricular rate, Dementia, UTI sepsis, Acute respiratory failure, Acidosis Plan Acute diastolic congestive heart failure, elevated BNP. Request an echocardiogram. Chronic atrial fibrillation with rapid ventricular rate, continue digoxin, continue oral anticoagulation. Dementia, UTI sepsis, on IV antibiotics. Defer to Dr. Starks and Dr. Mercado. Acute respiratory failure, acute hypercapnic respiratory failure. Acidosis- acute respiratory acidosis. With some metabolic compensation. Dr. Menon to take over care for cardiology tomorrow. Thank you for your consultation. Please call me if you have any questions. Jane Hutton MD, FACP, FACC, [facility] [place], [facility]RS, CCDS Interventional Cardiology Cardiac Electrophysiology Vascular Medicine and Endovascular Interventions Parker HUTTON MD Jul 24, 2018 3:08 pm
--- OUTSIDE RECORDS SUMMARY | 2018-07-24 15:12 | XMS REPORT | Continuity of Care Document ---
Author Author [facility] Organization [facility] Address Unknown Phone Unavailable Allergies Active Description Code Type Severity Reaction Onset Reported/Identified Relationship to Patient Clinical Status Yes nitrofurantoin [id number] Drug Allergy Moderate N/A 04/18/2015 Yes omeprazole [id number] Drug Allergy Mild N/A 04/18/2015 Yes Penicillins [id number] Drug Allergy Mild N/A 04/18/2015 Yes Sulfa (Sulfonamide Antibiotics) [id number] Drug Allergy Mild N/A 2014 Yes celecoxib [id number] Drug Allergy Unknown SICK TO STOMACH 04/18/2015 Yes guaifenesin [id number] Drug Allergy Unknown N/A 04/18/2015 Yes potassium guaiacolsulfonate [id number] Drug Allergy Unknown N/A 2014 Yes rosuvastatin [id number] Drug Allergy Unknown NAUSEA 04/18/2015 Yes Protoni [...] NOS 08/12/2011 Ot 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 [place] CORON 08/12/2011 Ot 424.1 AORTIC VALVE DISORDER 08/12/2011 Ot 794.30 ABN CARDIOVASC STUDY NOS 12/06/2012 Ot 272.4 HYPERLIPIDEMIA NEC/NOS 12/06/2012 Ot 401.9 HYPERTENSION NOS 12/06/2012 Ot 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 [place] CORON 12/06/2012 Ot 427.31 ATRIAL FIBRILLATION 12/06/2012 [...] MD E Ot 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 [place] CORON 02/15/2013 HARLEEN GREER MD Ot 427.31 [...] Ot 386.11 BENIGN PARXYSMAL VERTIGO 04/14/2015 MITZI ANGIUANO DO Ot 401.9 HYPERTENSION NOS 04/14/2015 MITZI ANGUIANO DO Ot 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 [place] CORON 04/14/2015 MITZI ANGUIANO DO Ot 425.4 [...] MD Ot V58.69 OTH MED,LT,CURRENT USE 04/20/2015 PEACE RAMOS DO S Ot 272.0 04/20/2015 EVANGELISTANDFUAD GALLARDO DOQUELINE S Ot 276.51 04/20/2015 EVANGELISTAND DOFUADPEACE S Ot 294.20 04/20/2015 EVANGELISTAND DO, PEACE S Ot 308.9 04/20/2015 EVANGELISTANDSAMI DOFUADPEACE S Ot 338.29 04/20/2015 EVANGELISTANDSAMI DOFUADPEACE S Ot 401.9 04/20/2015 EVANGELISTANDFUAD GALLARDO DOQUELINE S Ot 414.01 04/20/2015 EVANGELISTANDGURWINDER GALLARDO DOLINE S Ot 425.4 04/20/2015 EVANGELISTANDFUAD GALLARDO DOQUELINE S Ot 427.31 04/20/2015 ORENDER DO, PEACE S Ot 428.0 04/20/2015 ORENDER DO, PEACE S Ot 530.81 04/20/2015 ORENDER DO, PEACE S Ot 593.9 04/20/[address] S Ot 599.0 04/20/[address] [facility], [facility] S Ot 716.90 04/20/[address] [facility], [facility]ACE S Ot 724.5 04/20/[address] [facility] S Ot 733.00 04/20/[address] [facility], [facility] S Ot 782.0 04/20/[address] [facility] S Ot 788.30 04/20/[address] [facility] S Ot V15.88 04/21/[address] [facility], [facility] S Ot 272.0 04/21/[address] [facility], [facility] S Ot 276.51 04/21/[address] [facility], [facility] S Ot 294.20 04/21/[address] [facility], [facility] S Ot 308.9 04/21/[address] [facility], [facility] S Ot 338.29 04/21/[address] [facility] S Ot 401.9 04/21/[address] [facility] S Ot 414.01 04/21/[address] [facility] S Ot 425.4 04/21/[address] [facility], [facility] S Ot 427.31 04/21/[address] [facility], [facility] S Ot 428.0 04/21/[address] [facility], PEACE S Ot 530.81 04/21/[address] [facility], PEACE S Ot 593.9 04/21/[address] [facility], PEACE S Ot 599.0 04/21/[address] [facility], [facility] S Ot 716.90 04/21/[address] [facility], PEACE S Ot 724.5 04/21/[address] [facility], [facility] S Ot 733.00 04/21/[address] [facility], [facility] S Ot 782.0 04/21/[address] [facility], PEACE S Ot 788.30 04/21/[address] [facility], [facility] S Ot V15.88 04/22/[address] [facility], [facility] S Ot 272.0 04/22/[address] [facility], [facility] S Ot 276.51 04/22/[address] [facility], [facility]ACE S Ot 294.20 04/22/[address] [facility], [facility] S Ot 308.9 04/22/[address] [facility], [facility] S Ot 338.29 04/22/[address] [facility], [facility] S Ot 401.9 04/22/2015 [facility] DO, PEACE S Ot 414.01 04/22/2015 [facility] DO, PEACE S Ot 425.4 04/22/2015 [facility] DO, PEACE S Ot 427.31 04/22/2015 [facility] DO, PEACE S Ot 428.0 04/22/2015 [facility], PEACE S Ot 530.81 04/22/2015 [facility], PEACE S Ot 593.9 04/22/2015 [facility] DO, PEACE S Ot 599.0 04/22/2015 [facility] DO, PEACE S Ot 716.90 04/22/[address] [facility] [facility], [facility] S Ot 724.5 04/22/[address] [facility], [facility]ACE S Ot 733.00 04/22/[address] [facility], [facility] S Ot 782.0 04/22/[address] [facility] [facility], [facility] S Ot 788.30 04/22/[address] [facility] [facility], [facility] S Ot V15.88 04/22/[address] [facility], [facility]ACE S Ot 272.0 PURE HYPERCHOLESTEROLEM 04/22/[address] [facility], [facility] S Ot 276.51 DEHYDRATION 04/22/[address] [facility] 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 [facility], [facility]ACE S Ot 308.9 ACUTE STRESS REACT NOS 04/22/[address] [facility] S Ot 311 DEPRESSIVE DISORDER NEC 04/22/[address] [facility], PEACE S Ot 338.29 OTHER CHRONIC PAIN 04/22/2015 GURWINDER RAMOS DOLINE S Ot 401.9 HYPERTENSION NOS 04/22/2015 GURWINDER RAMOS DOLINE S Ot 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 [place] CORON 04/22/2015 MUSA VALDEZ PEACE S Ot 425.4 PRIM CARDIOMYOPATHY NEC 04/22/2015 GURWINDER RAMOS DOLINE S Ot 427.31 ATRIAL FIBRILLATION 04/22/2015 GURWINDER RAMOS DOLINE S Ot 428.0 CONGESTIVE HEART FAILURE NOS 04/22/2015 FUAD RAMOS DOQUELINE S Ot 530.81 ESOPHAGEAL REFLUX 04/22/2015 GURWINDER RAMOS DOLINE S Ot 593.9 RENAL URETERAL DIS NOS 04/22/2015 GURWINDER RAMOS DOLINE S Ot 599.0 URIN TRACT INFECTION NOS 04/22/2015 GURWINDER RAMOS DOLINE S Ot 716.90 ARTHROPATHY NOS-UNSPEC 04/22/2015 MUSA VALDEZ PEACE S Ot 724.5 BACKACHE NOS 04/22/2015 MUSA VALDEZ PEACE S Ot 733.00 OSTEOPOROSIS NOS 04/22/2015 GURWINDER RAMOS DOLINE S Ot 780.79 OTH MALAISE FATIGUE 04/22/2015 GURWINDER RAMOS DOLINE S Ot 782.0 SKIN SENSATION DISTURB 04/22/2015 GURWINDER RAMOS DOLINE S Ot 788.30 04/22/2015 MUSA VALDEZ PEACE S Ot V15.88 HISTORY OF FALL 05/21/2015 JAYCESAMI PEACE S Ot 427.31 05/21/2015 MUSA VALDEZ PEACE S Ot 428.0 06/05/2015 ADDIE MONTEIRO MD Ot V58.61 06/05/2015 ADDIE MONTEIRO MD Ot V58.83 06/24/2015 ADDIE MONTEIRO MD Ot V58.61 06/24/2015 ADDIE MONTEIRO MD Ot V58.83 12/30/2015 Ot V76.12 OTH SCREEN MAMMO-MALIGN NEOPLASM OF [place] 12/30/2015 Ot 429.3 CARDIOMEGALY 12/30/2015 Ot 786.2 COUGH 12/30/2015 Ot 786.50 CHEST PAIN NOS 12/30/2015 Ot 401.9 HYPERTENSION NOS 12/30/2015 Ot 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 [place] CORON 12/30/2015 Ot 786.50 CHEST PAIN NOS [...] MD Ot V67.9 FOLLOW-UP EXAM NOS 12/30/2015 PEACE RAMOS DO S Ot 397.0 TRICUSPID VALVE DISEASE 12/30/2015 GURWINDER RAMOS DOLINE S Ot 416.8 CHR PULMON HEART DIS NEC 12/30/2015 FUAD RAMOS DOQUELINE S Ot 424.0 MITRAL VALVE DISORDER 12/30/2015 GURWINDER RAMOS DOLINE S Ot 427.31 ATRIAL FIBRILLATION 12/30/2015 GURWINDER RAMOS DOLINE S Ot 433.10 CAROTID ARTERY OCCLUSION W O CEREBRAL IN 12/30/2015 GURWINDER RAMOS DOLINE S Ot 785.2 CARDIAC MURMURS NEC 12/30/2015 GURWINDER RAMOS DOLINE S Ot 427.31 ATRIAL FIBRILLATION 12/30/2015 GURWINDER RAMOS DOLINE S Ot 428.0 CONGESTIVE HEART FAILURE [...] MD Ot I25.10 ATHSCL HEART DISEASE OF [place] CORONARY 01/01/2016 ADDIE MONTEIRO MD Ot R07.9 CHEST PAIN, UNSPECIFIED 01/01/2016 ADDIE MONTEIRO MD Ot E78.2 MIXED HYPERLIPIDEMIA 01/01/2016 ADDIE MONTEIRO MD Ot I10 ESSENTIAL (PRIMARY) HYPERTENSION 01/01/2016 ADDIE MONTEIRO MD Ot I25.10 ATHSCL HEART DISEASE OF [place] CORONARY 01/01/2016 ADDIE MONTEIRO MD Ot R07.9 CHEST PAIN, UNSPECIFIED 01/03/2016 ADDIE MONTEIRO MD Ot E78.2 MIXED HYPERLIPIDEMIA 01/03/2016 ADDIE MONTEIRO MD Ot I10 ESSENTIAL (PRIMARY) HYPERTENSION 01/03/2016 ADDIE MONTEIRO MD Ot I25.10 ATHSCL HEART DISEASE OF [place] CORONARY 01/03/2016 ADDIE MONTEIRO MD Ot R07.9 CHEST PAIN, UNSPECIFIED 01/03/2016 ADDIE MONTEIRO MD Ot E78.2 MIXED HYPERLIPIDEMIA 01/03/2016 ADDIE MONTEIRO MD Ot I10 ESSENTIAL (PRIMARY) HYPERTENSION 01/03/2016 ADDIE MONTEIRO MD Ot I25.10 ATHSCL HEART DISEASE OF [place] CORONARY 01/03/2016 ADDIE MONTEIRO MD Ot R07.9 CHEST PAIN, UNSPECIFIED 01/21/2016 ADDIE MONTEIRO MD Ot E78.2 MIXED HYPERLIPIDEMIA 01/21/2016 ADDIE MONTEIRO MD Ot I10 ESSENTIAL (PRIMARY) HYPERTENSION 01/21/2016 ADDIE MONTEIRO MD Ot I25.10 ATHSCL HEART DISEASE OF [place] CORONARY 01/21/2016 ADDIE MONTEIRO MD Ot R07.9 CHEST PAIN, UNSPECIFIED 01/24/2016 ADDIE MONTEIRO MD Ot E78.2 MIXED HYPERLIPIDEMIA 01/24/2016 ADDIE MONTEIRO MD Ot I10 ESSENTIAL (PRIMARY) HYPERTENSION 01/24/2016 ADDIE MONTEIRO MD Ot I25.10 ATHSCL HEART DISEASE OF [place] CORONARY 01/24/2016 ADDIE MONTEIRO MD Ot R07.9 CHEST PAIN, UNSPECIFIED 02/04/2016 Ot V76.12 OTH SCREEN MAMMO-MALIGN NEOPLASM OF [place] 02/04/2016 Ot 429.3 CARDIOMEGALY 02/04/2016 Ot 786.2 COUGH 02/04/2016 Ot 786.50 CHEST PAIN NOS 02/04/2016 Ot 401.9 HYPERTENSION NOS 02/04/2016 Ot 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 [place] CORON 02/04/2016 Ot 786.50 CHEST PAIN NOS 02/04/2016 Ot V58.66 LONG-TERM ( CURRENT) USE OF ASPIRIN 02/04/2016 Ot V58.69 OTH MED,LT, CURRENT USE 02/04/2016 ADDIE MONTEIRO MD Ot 427.31 ATRIAL FIBRILLATION 02/04/2016 [...] MD Ot V67.9 FOLLOW-UP EXAM NOS 02/04/2016 PEACE RAMOS DO Ot 397.0 TRICUSPID VALVE DISEASE 02/04/2016 PEACE RAMOS DO Ot 416.8 CHR PULMON HEART DIS NEC 02/04/2016 PEACE RAMOS DO Ot 424.0 MITRAL VALVE DISORDER 02/04/2016 PEACE RAMOS DO Ot 427.31 ATRIAL FIBRILLATION 02/04/2016 PEACE RAMOS DO Ot 433.10 CAROTID ARTERY OCCLUSION W O CEREBRAL IN 02/04/2016 PEACE RAMOS DO Ot 785.2 CARDIAC MURMURS NEC 02/04/2016 PEACE RAMOS DO Ot 427.31 ATRIAL FIBRILLATION 02/04/2016 PEACE RAMOS DO Ot 428.0 CONGESTIVE HEART FAILURE NOS [...] MD Ot I25.10 ATHSCL HEART DISEASE OF [place] CORONARY 02/04/2016 ADDIE MONTEIRO MD Ot R07.9 [...] MD Ot I25.10 ATHSCL HEART DISEASE OF [place] CORONARY 02/12/2016 MARIFER DICKERSON MD Ot I42.9 [...] MD Ot I25.10 ATHSCL HEART DISEASE OF [place] CORONARY 02/12/2016 MARIFER DICKERSON MD Ot I42.9 CARDIOMYOPATHY, UNSPECIFIED 02/12/2016 MARIFER DICKERSON MD Ot I48.2 CHRONIC ATRIAL FIBRILLATION 02/12/2016 MARIFER DICKERSON MD Ot I50.9 HEART FAILURE, UNSPECIFIED 02/12/2016 MARIFER DICKERSON MD Ot I95.9 HYPOTENSION, UNSPECIFIED 02/12/2016 MARIFER DICKERSON MD Ot J95.821 ACUTE POSTPROCEDURAL RESPIRATORY FAILURE 02/12/2016 MARIFER DICEKRSON MD Ot K21.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 [...] MD Ot R64 CACHEXIA 02/20/2016 ORENDER DO, PEACE S Ot I10 ESSENTIAL (PRIMARY) HYPERTENSION 02/20/2016 ORENDER DO, PEACE S Ot Z79.01 MCFP (CURRENT) USE OF ANTICOAGULANT 03/17/2016 ORENDER DO, PEACE S Ot I10 ESSENTIAL (PRIMARY) HYPERTENSION 03/17/2016 FUAD RAMOS DOQUELINE S Ot Z79.01 DRAWING TENDER (CURRENT) USE OF ANTICOAGULANT 03/18/2016 ADDIE MONTEIRO MD, Ot Z79.01 DRAWING TENDER (CURRENT) USE OF ANTICOAGULANT 03/18/2016 ADDIE MONTEIRO MD Ot Z51.81 ENCOUNTER FOR THERAPEUTIC DRUG LEVEL MON 03/18/2016 ADDIE MONTEIRO MD Ot Z79.01 DRAWING TENDER (CURRENT) USE OF ANTICOAGULANT 03/20/2016 ADDIE MONTEIRO MD Ot Z51.81 ENCOUNTER FOR THERAPEUTIC DRUG LEVEL MON 03/20/2016 ADDIE MONTEIRO MD Ot Z79.01 MCFP (CURRENT) USE OF ANTICOAGULANT 04/10/2016 ADDIE MONTEIRO MD Ot Z51.81 ENCOUNTER FOR THERAPEUTIC DRUG LEVEL MON 04/10/2016 ADDIE MONTEIRO MD Ot Z79.01 [facility]FP (CURRENT) USE OF ANTICOAGULANT 04/17/2016 ADDIE MONTEIRO MD Ot Z51.81 ENCOUNTER FOR THERAPEUTIC DRUG LEVEL MON 04/17/2016 ADDIE MONTEIRO MD Ot Z79.01 DRAWING TENDER (CURRENT) USE OF ANTICOAGULANT 04/28/2016 Ot V76.12 OTH SCREEN MAMMO-MALIGN NEOPLASM OF [place] 04/28/2016 Ot 429.3 CARDIOMEGALY 04/28/2016 Ot 786.2 COUGH 04/28/2016 Ot 786.50 CHEST PAIN NOS 04/28/2016 Ot 401.9 HYPERTENSION NOS 04/28/2016 Ot 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 [place] CORON 04/28/2016 Ot 786.50 CHEST PAIN NOS [...] MD Ot V67.9 FOLLOW-UP EXAM NOS 04/28/2016 PEACE RAMOS DO S Ot 397.0 TRICUSPID VALVE DISEASE 04/28/2016 FUAD RAMOS DOQUELINE S Ot 416.8 CHR PULMON HEART DIS NEC 04/28/2016 FUAD RAMOS DOQUELINE S Ot 424.0 MITRAL VALVE DISORDER 04/28/2016 FUAD RAMOS DOQUELINE S Ot 427.31 ATRIAL FIBRILLATION 04/28/2016 FUAD RAMOS DOQUELINE S Ot 433.10 CAROTID ARTERY OCCLUSION W O CEREBRAL IN 04/28/2016 GURWINDER RAMOS DOLINE S Ot 785.2 CARDIAC MURMURS NEC 04/28/2016 FUAD RAMOS DOQUELINE S Ot 427.31 ATRIAL FIBRILLATION 04/28/2016 FUAD RAMOS DOQUELINE S Ot 428.0 CONGESTIVE HEART FAILURE [...] MD Ot I25.10 ATHSCL HEART DISEASE OF [place] CORONARY 04/28/2016 ADDIE MONTEIRO MD Ot R07.9 CHEST PAIN, UNSPECIFIED 04/28/2016 ORENDER GURWINDER VALDEZLINE S Ot I10 ESSENTIAL (PRIMARY) HYPERTENSION 04/28/2016 PEACE RAMOS DO S Ot Z79.01 MCFP (CURRENT) USE OF ANTICOAGULANT 04/28/2016 ADDIE MONTEIRO MD Ot Z51.81 ENCOUNTER FOR THERAPEUTIC DRUG LEVEL MON 04/28/2016 ADDIE MONTEIRO MD, Ot Z79.01 DRAWING TENDER (CURRENT) USE OF ANTICOAGULANT 04/28/2016 ADDIE MONTEIRO MD, Ot Z51.81 ENCOUNTER FOR THERAPEUTIC DRUG LEVEL MON 04/28/2016 ADDIE MONTEIRO MD, Ot Z79.01 DRAWING TENDER (CURRENT) USE OF ANTICOAGULANT 04/29/2016 ROBSON ADAIR MAITRE D' Ot R05 COUGH 04/29/2016 ROBSON ADAIR MAITRE D' Ot R20.2 PARESTHESIA OF SKIN 04/29/2016 ROBSON ADAIR MAITRE D' Ot Z86.73 PRSNL HX OF TIA (TIA), AND CEREB INFRC W 05/04/2016 ROBSON ADAIR MAITRE D' Ot R05 COUGH 05/04/2016 ROBSON ADAIR MAITRE D' Ot R20.2 PARESTHESIA OF SKIN 05/04/2016 ROBSON ADAIR MAITRE D' Ot Z86.73 PRSNL HX OF TIA (TIA), AND CEREB INFRC W 05/21/2016 MENDEL SALDANA MD, FACC, FACP CCDS Ot I25.10 ATHSCL HEART DISEASE OF [place] CORONARY 05/21/2016 MENDEL SALDANA MD, FACC, FACP CCDS Ot I25.10 ATHSCL HEART DISEASE OF [place] CORONARY 05/21/2016 MENDEL SALDANA MD, FACC, FACP CCDS Ot I34.0 NONRHEUMATIC MITRAL (VALVE) INSUFFICIENC 05/21/2016 MENDEL SALDANA MD, FACC, FACP CCDS Ot I48.2 CHRONIC ATRIAL FIBRILLATION 05/21/2016 LES MD FACC, ALI FACP CCDS Ot I51.7 CARDIOMEGALY 05/22/2016 LES BRENNAN [facility], MENDEL FACP CCDS Ot I25.10 ATHSCL HEART DISEASE OF [place] CORONARY 05/22/2016 LES BRENNAN FACC, MENDEL FACP CCDS Ot I34.0 NONRHEUMATIC MITRAL (VALVE) INSUFFICIENC 05/22/2016 LES NUÑEZ, MENDEL FACP CCDS Ot I48.2 CHRONIC ATRIAL FIBRILLATION 05/22/2016 LES BRENNAN FACC, MENDEL FACP CCDS Ot I51.7 CARDIOMEGALY 05/27/2016 ROBSON ADAIR MAITRE D' Ot R05 COUGH 05/27/2016 GIOVANY ROBSON N MAITRE D' Ot R20.2 PARESTHESIA OF SKIN 05/27/2016 GIOVANY ROBSON N MAITRE D' Ot Z86.73 PRSNL HX OF TIA (TIA), AND CEREB INFRC W 05/28/2016 ROBSON ADAIR MAITRE D' Ot R05 COUGH 05/28/2016 GIOVANY ROBSON N MAITRE D' Ot R20.2 PARESTHESIA OF SKIN 05/28/2016 ROBSON ADAIR MAITRE D' Ot Z86.73 PRSNL HX OF TIA (TIA), AND CEREB INFRC W 06/04/2016 Ot 429.3 CARDIOMEGALY 06/04/2016 Ot 786.2 COUGH 06/04/2016 Ot 786.50 CHEST PAIN NOS 06/04/2016 Ot 401.9 HYPERTENSION NOS 06/04/2016 Ot 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 [place] CORON 06/04/2016 Ot 786.50 CHEST PAIN NOS [...] Ot V67.9 FOLLOW-UP EXAM NOS 06/04/2016 FUAD RAMOS DOQUELINE S Ot 397.0 TRICUSPID VALVE DISEASE 06/04/2016 MUSA VALDEZ PEACE S Ot 416.8 CHR PULMON HEART DIS NEC 06/04/2016 MUSA VALDEZ PEACE S Ot 424.0 MITRAL VALVE DISORDER 06/04/2016 EVANGELISTANDSAMI DO, PEACE S Ot 427.31 ATRIAL FIBRILLATION 06/04/2016 MUSA VALDEZ PEACE S Ot 433.10 CAROTID ARTERY OCCLUSION W O CEREBRAL IN 06/04/2016 MUSA VALDEZ PEACE S Ot 785.2 CARDIAC MURMURS NEC 06/04/2016 MUSA VALDEZ PEACE S Ot 427.31 ATRIAL FIBRILLATION 06/04/2016 MUSA VALDEZ PEACE S Ot 428.0 CONGESTIVE HEART FAILURE NOS [...] MD Ot I25.10 ATHSCL HEART DISEASE OF [place] CORONARY 06/04/2016 ADDIE MONTEIRO MD Ot R07.9 CHEST PAIN, UNSPECIFIED 06/04/2016 FUAD RAMOS DOQUELINE S Ot I10 ESSENTIAL (PRIMARY) HYPERTENSION 06/04/2016 FUAD RAMOS DOQUELINE S Ot Z79.01 MCFP (CURRENT) USE OF ANTICOAGULANT 06/04/2016 ADDIE MONTEIRO MD Ot Z51.81 ENCOUNTER FOR THERAPEUTIC DRUG LEVEL MON 06/04/2016 ADDIE MONTEIRO MD, Ot Z79.01 DRAWING TENDER (CURRENT) USE OF ANTICOAGULANT 06/04/2016 ADDIE MONTEIRO MD Ot Z51.81 ENCOUNTER FOR THERAPEUTIC DRUG LEVEL MON 06/04/2016 ADDIE MONTEIRO MD Ot Z79.01 [facility] (CURRENT) USE OF ANTICOAGULANT 06/04/2016 LES BRENNAN FACC, MENDEL FACP CCDS Ot I25.10 ATHSCL HEART DISEASE OF [place] CORONARY 06/04/2016 LES BRENNAN FACC, ALI FACP CCDS Ot I34.0 NONRHEUMATIC MITRAL (VALVE) INSUFFICIENC 06/04/2016 LES BRENNAN FACC, MENDEL FACP CCDS Ot I48.2 CHRONIC ATRIAL FIBRILLATION 06/04/2016 LES BRENNAN FACC, ALI FACP CCDS Ot I51.7 CARDIOMEGALY 06/04/2016 ROBSON ADAIR MAITRE D' Ot R05 COUGH 06/04/2016 ROBSON ADAIR MAITRE D' Ot R20.2 PARESTHESIA OF SKIN 06/04/2016 ROBSON ADAIR MAITRE D' Ot Z86.73 PRSNL HX OF TIA (TIA), AND CEREB INFRC W 06/04/2016 CRISTAL BUSTAMANTE SPA MANAGER Ot I08.1 RHEUMATIC DISORDERS OF BOTH MITRAL AND T 06/04/2016 CRISTAL BUSTAMANTE SPA MANAGER Ot I10 ESSENTIAL (PRIMARY) HYPERTENSION 06/04/2016 CRISTAL BUSTAMANTE SPA MANAGER Ot I25.10 ATHSCL HEART DISEASE OF [place] CORONARY 06/04/2016 CRISTAL BUSTAMANTE SPA MANAGER Ot I48.2 CHRONIC ATRIAL FIBRILLATION 06/11/2016 LES BRENNAN FACC, MENDEL FACP CCDS Ot I25.10 ATHSCL HEART DISEASE OF [place] CORONARY 06/11/2016 LES BRENNAN FACC, MENDEL FACP CCDS Ot I34.0 NONRHEUMATIC MITRAL (VALVE) INSUFFICIENC 06/11/2016 LES BRENNAN FACC, ALI FACP CCDS Ot I48.2 CHRONIC ATRIAL FIBRILLATION 06/11/2016 LES BRENNAN FACC, ALI FACP CCDS Ot I51.7 CARDIOMEGALY 06/16/2016 LES BRENNAN FACC, ALI FACP CCDS Ot I25.10 ATHSCL HEART DISEASE OF [place] CORONARY 06/16/2016 LES BRENNAN FACC, ALI FACP CCDS Ot I34.0 NONRHEUMATIC MITRAL (VALVE) INSUFFICIENC 06/16/2016 LES BRENNAN FACC, ALI FACP CCDS Ot I48.2 CHRONIC ATRIAL FIBRILLATION 06/16/2016 LES BRENNAN [facility], ALI FACP CCDS Ot I51.7 CARDIOMEGALY 06/24/2016 CRISTAL BUSTAMANTE L SPA MANAGER Ot I08.1 RHEUMATIC DISORDERS OF BOTH MITRAL AND T 06/24/2016 BAIMA, CRISTAL L SPA MANAGER Ot I10 ESSENTIAL (PRIMARY) HYPERTENSION 06/24/2016 BAIMA, CRISTAL L SPA MANAGER Ot I25.10 ATHSCL HEART DISEASE OF [place] CORONARY 06/24/2016 BAIMA, CRISTAL L SPA MANAGER Ot I48.2 CHRONIC ATRIAL FIBRILLATION 06/26/2016 BAIMA, CRISTAL L SPA MANAGER Ot I08.1 RHEUMATIC DISORDERS OF BOTH MITRAL AND T 06/26/2016 BAIMA, CRISTAL L SPA MANAGER Ot I10 ESSENTIAL (PRIMARY) HYPERTENSION 06/26/2016 BAIMA, CRISTAL L SPA MANAGER Ot I25.10 ATHSCL HEART DISEASE OF [place] CORONARY 06/26/2016 JANJOANN WHITEHER L SPA MANAGER Ot I48.2 CHRONIC ATRIAL FIBRILLATION 07/30/2016 MADDIE [...] MD Ot I25.10 ATHSCL HEART DISEASE OF [place] CORONARY 08/26/2016 TENNILLE MCCRAY MD Ot I48.2 [...] STATUS 08/26/2016 TENNILLE MCCRAY MD Ot Z79.01 [facility] (CURRENT) USE OF ANTICOAGULANT 08/26/2016 TENNILLE MCCRAY MD Ot Z79.899 OTHER [facility] (CURRENT) DRUG THERAPY 08/26/2016 TENNILLE MCCRAY MD Ot 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 08/27/2016 TENNILLE MCCRAY MD Ot I10 ESSENTIAL (PRIMARY) HYPERTENSION 08/27/2016 TENNILLE MCCRAY MD Ot I25.10 ATHSCL HEART DISEASE OF [place] CORONARY 08/27/2016 TENNILLE MCCRAY MD Ot I48.2 CHRONIC ATRIAL FIBRILLATION 08/27/2016 TENNILLE MCCRAY MD Ot S05.8X1A OTHER INJURIES OF RIGHT EYE AND ORBIT, I 08/27/2016 TENNILLE MCCRAY MD, Ot W20.8XXA OTH CAUSE OF STRIKE BY THROWN, PROJECTED 08/27/2016 TENNILLE MCCRAY MD Ot Y92.512 [employer], 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 08/27/2016 TENNILLE MCCRAY MD Ot Y99.8 OTHER EXTERNAL CAUSE STATUS 08/27/2016 TENNILLE MCCRAY MD Ot Z79.01 [facility] (CURRENT) USE OF ANTICOAGULANT 08/27/2016 TENNILLE MCCRAY MD Ot Z79.899 OTHER [facility] (CURRENT) DRUG THERAPY 08/27/2016 TENNILLE MCCRAY MD Ot 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 09/30/2016 MADDIE KAYE MD Ot 348.9 BRAIN CONDITION NOS 09/30/2016 MADDIE KAYE MD Ot 427.31 ATRIAL FIBRILLATION 09/30/2016 MADDIE KAYE MD Ot 599.0 URIN TRACT INFECTION NOS 09/30/2016 MADDIE KAYE MD Ot 780.1 HALLUCINATIONS 09/30/2016 BRUEGGEMANN MD, MADDIE T Ot 780.97 ALTERED MENTAL STATUS 09/30/2016 MADDIE KAYE MD Ot V58.61 ANTICOAGULANTS,LT,CURRENT USE 09/30/2016 MADDIE KAYE MD T Ot V58.69 OTH MED,LT,CURRENT USE 10/28/2016 MADDIE KAYE MD Ot 348.9 BRAIN CONDITION NOS 10/28/2016 MADDIE KAYE MD Ot 427.31 ATRIAL FIBRILLATION 10/28/2016 MADDEI KAYE MD Ot 599.0 URIN TRACT INFECTION NOS 10/28/2016 MADDIE KAYE MD T Ot 780.1 HALLUCINATIONS 10/28/2016 MADDIE KAYE MD Ot 780.97 ALTERED MENTAL STATUS 10/28/2016 MADDIE KAYE MD Ot V58.61 ANTICOAGULANTS,LT,CURRENT USE 10/28/2016 MADDIE KAYE MD Ot V58.69 OTH MED,LT,CURRENT USE 11/03/2016 GURWINDER RAMOS DOLINE S Ot E78.5 HYPERLIPIDEMIA, UNSPECIFIED 11/03/2016 FUAD RAMOS DOQUELINE S Ot 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 11/03/2016 FUAD RAMOS DOQUELINE S Ot I11.0 HYPERTENSIVE HEART DISEASE WITH HEART FA 11/03/2016 MUSA VALDEZ PEACE S Ot I25.10 ATHSCL HEART DISEASE OF [place] CORONARY 11/03/2016 FUAD RAMOS DOQUELINE S Ot I27.2 OTHER SECONDARY PULMONARY HYPERTENSION 11/03/2016 FUAD RAMOS DOQUELINE S Ot I42.9 CARDIOMYOPATHY, UNSPECIFIED 11/03/2016 MUSA VALDEZ PEACE S Ot I48.2 CHRONIC ATRIAL FIBRILLATION 11/03/2016 FUAD RAMOS DOQUELINE S Ot I50.9 HEART FAILURE, UNSPECIFIED 11/03/2016 FUAD RAMOS DOQUELINE S Ot I65.23 OCCLUSION AND STENOSIS OF BILATERAL [place] 11/03/2016 MUSA VALDEZ PEACE S Ot I95.9 HYPOTENSION, UNSPECIFIED 11/03/2016 FUAD RAMOS DOQUELINE S Ot K21.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 11/03/2016 FUAD RAMOS DOQUELINE S Ot R07.89 OTHER CHEST PAIN 11/03/2016 EVANGELISTANDER DO, PEACE S Ot R53.1 WEAKNESS 11/03/2016 EVANGELISTANDER DO PEACE S Ot Z79.01 DRAWING TENDER (CURRENT) USE OF ANTICOAGULANT 11/03/2016 EVANGELISTANDER DO, PEACE S Ot E78.5 HYPERLIPIDEMIA, UNSPECIFIED 11/03/2016 EVANGELISTANDER DO, PEACE S Ot 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 11/03/2016 EVANGELISTANDER DO PEACE S Ot I11.0 HYPERTENSIVE HEART DISEASE WITH HEART FA 11/03/2016 EVANGELISTANDER DO PEACE S Ot I25.10 ATHSCL HEART DISEASE OF [place] CORONARY 11/03/2016 EVANGELISTAND DO PEACE S Ot I27.2 OTHER SECONDARY PULMONARY HYPERTENSION 11/03/2016 EVANGELISTANDER DO PEACE S Ot I42.9 CARDIOMYOPATHY, UNSPECIFIED 11/03/2016 EVANGELISTANDER DO PEACE S Ot I48.2 CHRONIC ATRIAL FIBRILLATION 11/03/2016 EVANGELISTANDER PEACE S Ot I50.9 HEART FAILURE, UNSPECIFIED 11/03/2016 EVANGELISTANDER DO PEACE S Ot I65.23 OCCLUSION AND STENOSIS OF BILATERAL [place] 11/03/2016 EVANGELISTANDER DO PEACE S Ot I95.9 HYPOTENSION, UNSPECIFIED 11/03/2016 EVANGELISTANDER DO, PEACE S Ot K21.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 11/03/2016 EVANGELISTANDER DO PEACE S Ot R07.89 OTHER CHEST PAIN 11/03/2016 EVANGELISTANDER DOFUADPEACE S Ot R53.1 WEAKNESS 11/03/2016 EVANGELISTANDER DO PEACE S Ot Z79.01 DRAWING TENDER (CURRENT) USE OF ANTICOAGULANT 11/12/2016 EVANGELISTANDER DO PEACE S Ot B96.20 UNSP ESCHERICHIA COLI THE CAUSE OF DI 11/12/2016 EVANGELISTANDER DO PEACE S Ot E78.00 PURE HYPERCHOLESTEROLEMIA, UNSPECIFIED 11/12/2016 EVANGELISTANDER DO, PEACE S Ot E83.42 HYPOMAGNESEMIA 11/12/2016 EVANGELISTANDER DOFUADPEACE S Ot F32.9 MAJOR DEPRESSIVE DISORDER, SINGLE EPISOD 11/12/2016 EVANGELISTANDER DO, PEACE S Ot H54.3 UNQUALIFIED VISUAL LOSS, BOTH EYES 11/12/2016 MUSA VALDEZ, PEACE S Ot H91.93 UNSPECIFIED HEARING LOSS, BILATERAL 11/12/2016 MUSA VALDEZ PEACE S Ot I10 ESSENTIAL (PRIMARY) HYPERTENSION 11/12/2016 MUSA VALDEZ, PEACE S Ot I25.10 ATHSCL HEART DISEASE OF [place] CORONARY 11/12/2016 MUSA VALDEZ PEACE S Ot I42.9 CARDIOMYOPATHY, UNSPECIFIED 11/12/2016 EVANGELISTANDSAMI VALDEZ, PEACE S Ot I48.2 CHRONIC ATRIAL FIBRILLATION 11/12/2016 MUSA VALDEZ, PEACE S Ot K21.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 11/12/2016 MUSA VALDEZ PEACE S Ot K56.7 ILEUS, UNSPECIFIED 11/12/2016 MUSA VALDEZ PEACE S Ot M19.91 PRIMARY OSTEOARTHRITIS, UNSPECIFIED SITE 11/12/2016 MUSA VALDEZ PEACE S Ot M54.9 DORSALGIA, UNSPECIFIED 11/12/2016 MUSA VALDEZ PEACE S Ot M81.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 11/12/2016 MUSA VALDEZ PEACE S Ot N39.0 URINARY TRACT INFECTION, SITE NOT SPECIF 11/12/2016 MUSA VALDEZ PEACE S Ot Z66 DO NOT RESUSCITATE 11/12/2016 MUSA VALDEZ PEACE S Ot Z79.01 [facility] (CURRENT) USE OF ANTICOAGULANT 11/12/2016 MUSA VALDEZ PEACE S Ot Z86.79 PERSONAL HISTORY OF OTHER DISEASES OF TH 11/13/2016 MUSA VALDEZ PEACE S Ot B96.20 UNSP ESCHERICHIA COLI THE CAUSE OF DI 11/13/2016 MUSA VALDEZ PEACE S Ot E78.00 PURE HYPERCHOLESTEROLEMIA, UNSPECIFIED 11/13/2016 MUSA VALDEZ PEACE S Ot E83.42 HYPOMAGNESEMIA 11/13/2016 MUSA VALDEZ PEACE S Ot F32.9 MAJOR DEPRESSIVE DISORDER, SINGLE EPISOD 11/13/2016 MUSA VALDEZ PEACE S Ot H54.3 UNQUALIFIED VISUAL LOSS, BOTH EYES 11/13/2016 MUSA VALDEZ PEACE S Ot H91.93 UNSPECIFIED HEARING LOSS, BILATERAL 11/13/2016 MUSA VALDEZ PEACE S Ot I10 ESSENTIAL (PRIMARY) HYPERTENSION 11/13/2016 MUSA VALDEZ PEACE S Ot I25.10 ATHSCL HEART DISEASE OF [place] CORONARY 11/13/2016 MUSA VALDEZ PEACE S Ot I42.9 CARDIOMYOPATHY, UNSPECIFIED 11/13/2016 MUSA VALDEZ PEACE S Ot I48.2 CHRONIC ATRIAL FIBRILLATION 11/13/2016 MUSA VALDEZ PEACE S Ot K21.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 11/13/2016 MUSA VALDEZ PEACE S Ot K56.7 ILEUS, UNSPECIFIED 11/13/2016 MUSA VALDEZ PEACE S Ot M19.91 PRIMARY OSTEOARTHRITIS, UNSPECIFIED SITE 11/13/2016 MUSA VALDEZ PEACE S Ot M54.9 DORSALGIA, UNSPECIFIED 11/13/2016 MUSA VALDEZ PEACE S Ot M81.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 11/13/2016 MUSA VALDEZ PEACE S Ot N39.0 URINARY TRACT INFECTION, SITE NOT SPECIF 11/13/2016 MUSA VALDEZ PEACE S Ot Z66 DO NOT RESUSCITATE 11/13/2016 MUSA VALDEZ PEACE S Ot Z79.01 DRAWING TENDER (CURRENT) USE OF ANTICOAGULANT 11/13/2016 MUSA VALDEZ PEACE S Ot Z86.79 PERSONAL HISTORY OF OTHER DISEASES OF TH 11/13/2016 MUSA VALDEZ PEACE S Ot B96.20 UNSP ESCHERICHIA COLI THE CAUSE OF DI 11/13/2016 MUSA VALDEZ PEACE S Ot E78.00 PURE HYPERCHOLESTEROLEMIA, UNSPECIFIED 11/13/2016 MUSA VALDEZ PEACE S Ot E83.42 HYPOMAGNESEMIA 11/13/2016 EVANGELISTAALEC VALDEZ PEACE S Ot F32.9 MAJOR DEPRESSIVE DISORDER, SINGLE EPISOD 11/13/2016 MUSA VALDEZ PEACE S Ot H54.3 UNQUALIFIED VISUAL LOSS, BOTH EYES 11/13/2016 MUSA VALDEZ PEACE S Ot H91.93 UNSPECIFIED HEARING LOSS, BILATERAL 11/13/2016 ORENDER DO, PEACE S Ot I10 ESSENTIAL (PRIMARY) HYPERTENSION 11/13/2016 EVANGELISTANDER , PEACE S Ot I25.10 ATHSCL HEART DISEASE OF [place] CORONARY 11/13/2016 EVANGELISTANDER DO, PEACE S Ot I42.9 CARDIOMYOPATHY, UNSPECIFIED 11/13/2016 EVANGELISTANDER DO, PEACE S Ot I48.2 CHRONIC ATRIAL FIBRILLATION 11/13/2016 EVANGELISTANDER , PEACE S Ot K21.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 11/13/2016 EVANGELISTANDER DO, PEACE S Ot K56.7 ILEUS, UNSPECIFIED 11/13/2016 EVANGELISTANDER DO, PEACE S Ot M19.91 PRIMARY OSTEOARTHRITIS, UNSPECIFIED SITE 11/13/2016 EVANGELISTANDER , PEACE S Ot M54.9 DORSALGIA, UNSPECIFIED 11/13/2016 EVANGELISTANDER DO, PEACE S Ot M81.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 11/13/2016 EVANGELISTANDSAMI VALDEZ, PEACE S Ot N39.0 URINARY TRACT INFECTION, SITE NOT SPECIF 11/13/2016 EVANGELISTANDER , PEACE S Ot Z66 DO NOT RESUSCITATE 11/13/2016 EVANGELISTANDSAMI VALDEZ, PEACE S Ot Z79.01 DRAWING TENDER (CURRENT) USE OF ANTICOAGULANT 11/13/2016 MUSA VALDEZ, PEACE S Ot Z86.79 PERSONAL HISTORY OF OTHER [...] R31.9 HEMATURIA, UNSPECIFIED 02/15/2017 JULIO CÉSAR PARKER MAITRE D' Ot R31.9 HEMATURIA, UNSPECIFIED 02/16/2017 JULIO CÉSAR PARKER MAITRE D' Ot R31.9 HEMATURIA, UNSPECIFIED 02/19/2017 ADDIE MONTEIRO [...] MD Ot V67.9 FOLLOW-UP EXAM NOS 02/19/2017 PEACE RAMOS DO S Ot 397.0 TRICUSPID VALVE DISEASE 02/19/2017 PEACE RAMOS DO S Ot 416.8 CHR PULMON HEART DIS NEC 02/19/2017 GURWINDER RAMOS DOLINE S Ot 424.0 MITRAL VALVE DISORDER 02/19/2017 GURWINDER RAMOS DOLINE S Ot 427.31 ATRIAL FIBRILLATION 02/19/2017 GURWINDER RAMOS DOLINE S Ot 433.10 CAROTID ARTERY OCCLUSION W O CEREBRAL IN 02/19/2017 GURWINDER RAMOS DOLINE S Ot 785.2 CARDIAC MURMURS NEC 02/19/2017 PEACE RAMOS DO S Ot 427.31 ATRIAL FIBRILLATION 02/19/2017 GURWINDER RAMOS DOLINE S Ot 428.0 CONGESTIVE HEART FAILURE [...] MD, Ot I25.10 ATHSCL HEART DISEASE OF [place] CORONARY 02/19/2017 ADDIE MONTEIRO MD Ot R07.9 CHEST PAIN, UNSPECIFIED 02/19/2017 ORENDER DO PEACE S Ot I10 ESSENTIAL (PRIMARY) HYPERTENSION 02/19/2017 ORENDER FUAD VALDEZPEACE S Ot Z79.01 DRAWING TENDER (CURRENT) USE OF ANTICOAGULANT 02/19/2017 ADDIE MONTEIRO MD, Ot Z51.81 ENCOUNTER FOR THERAPEUTIC DRUG LEVEL MON 02/19/2017 ADDIE MONTEIRO MD, Ot Z79.01 DRAWING TENDER (CURRENT) USE OF ANTICOAGULANT 02/19/2017 ADDIE MONTEIRO MD, Ot Z51.81 ENCOUNTER FOR THERAPEUTIC DRUG LEVEL MON 02/19/2017 ADDIE MONTEIRO MD, Ot Z79.01 [facility] (CURRENT) USE OF ANTICOAGULANT 02/19/2017 LES BRENNAN FACC, MENDEL FACFreddie CCDS Ot I25.10 ATHSCL HEART DISEASE OF [place] CORONARY 02/19/2017 LES BRENNAN FACC, MENDEL FACP CCDS Ot I34.0 NONRHEUMATIC MITRAL (VALVE) INSUFFICIENC 02/19/2017 LES BRENNAN FACC, MENDEL FACFreddie CCDS Ot I48.2 CHRONIC ATRIAL FIBRILLATION 02/19/2017 LES BRENNAN FACC, ALI FACP CCDS Ot I51.7 CARDIOMEGALY 02/19/2017 ROBSON ADAIR MAITRE D' Ot R05 COUGH 02/19/2017 ROBSON ADAIR MAITRE D' Ot R20.2 PARESTHESIA OF SKIN 02/19/2017 ROBSON ADAIR MAITRE D' Ot Z86.73 PRSNL HX OF TIA (TIA), AND CEREB INFRC W 02/19/2017 CRISTAL BUSTAMANTE SPA MANAGER Ot I08.1 RHEUMATIC DISORDERS OF BOTH MITRAL AND T 02/19/2017 CRISTAL BUSTAMANTE SPA MANAGER Ot I10 ESSENTIAL (PRIMARY) HYPERTENSION 02/19/2017 CRISTAL BUSTAMANTE SPA MANAGER Ot I25.10 ATHSCL HEART DISEASE OF [place] CORONARY 02/19/2017 CRISTAL BUSTAMANTE SPA MANAGER Ot I48.2 CHRONIC ATRIAL FIBRILLATION 02/19/2017 ELENA, JULIO CÉSAR R MAITRE D' Ot N30.91 CYSTITIS, UNSPECIFIED WITH HEMATURIA 02/24/2017 PEACE RAMOS DO Ot B96.20 UNSP ESCHERICHIA COLI THE CAUSE OF DI 02/24/2017 PEACE RAMOS DO Ot N39.0 URINARY TRACT INFECTION, SITE [...] APRN Ot I25.10 ATHSCL HEART DISEASE OF [place] CORONARY 03/01/2017 JHON RAHMAN APRN Ot I48.91 UNSPECIFIED ATRIAL FIBRILLATION 03/01/2017 JHON RAHMAN APRN Ot I50.9 HEART FAILURE, UNSPECIFIED 03/01/2017 JHON RAHMAN APRN Ot K21.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 03/01/2017 JHON RAHMAN APRN Ot M19.90 UNSPECIFIED OSTEOARTHRITIS, UNSPECIFIED 03/01/2017 JHON RAHMAN APRN Ot M54.9 DORSALGIA, UNSPECIFIED 03/01/2017 JHON RAHMAN APRN Ot M81.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 03/01/2017 JHON RAHMAN APRN Ot Z79.01 [facility] (CURRENT) USE OF ANTICOAGULANT 03/01/2017 JHON RAHMAN [...] APRN Ot I25.10 ATHSCL HEART DISEASE OF [place] CORONARY 03/04/2017 JHON RAHMAN APRN Ot I48.91 UNSPECIFIED ATRIAL FIBRILLATION 03/04/2017 JHON RAHMAN APRN Ot I50.9 HEART FAILURE, UNSPECIFIED 03/04/2017 JHON RAHMAN APRN Ot K21.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 03/04/2017 JHON RAHMAN APRN Ot M19.90 UNSPECIFIED OSTEOARTHRITIS, UNSPECIFIED 03/04/2017 JHON RAHMAN APRN Ot M54.9 DORSALGIA, UNSPECIFIED 03/04/2017 JHON RAHMAN APRN Ot M81.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 03/04/2017 JHON RAHMAN APRN Ot Z79.01 DRAWING TENDER (CURRENT) USE OF ANTICOAGULANT 03/04/2017 JHON RAHMAN APRN Ot Z93.0 TRACHEOSTOMY STATUS 03/04/2017 JHON RAHMAN APRN Ot 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 03/04/2017 JHON RAHMAN APRN Ot Z98.41 CATARACT EXTRACTION STATUS, RIGHT EYE 03/04/2017 JHON RAHMAN APRN Ot Z98.42 CATARACT EXTRACTION STATUS, LEFT EYE 03/08/2017 ELENAJULIO CÉSAR MAITRE D' Ot N30.91 CYSTITIS, UNSPECIFIED WITH HEMATURIA 03/22/2017 ORENDER DO, PEACE S Ot B96.20 UNSP ESCHERICHIA COLI THE CAUSE OF DI 03/22/2017 ORENDER DO, PEACE S Ot N39.0 URINARY TRACT INFECTION, SITE NOT SPECIF 03/26/2017 ORENDER DO, PEACE S Ot B96.20 UNSP ESCHERICHIA COLI THE CAUSE OF DI 03/26/2017 ORENDER DO, PEACE S Ot N39.0 URINARY TRACT INFECTION, SITE NOT SPECIF 05/20/2017 ORENDER DO, PEACE S Ot B96.20 UNSP ESCHERICHIA COLI THE CAUSE OF DI 05/20/2017 ORENDER DO, PEACE S Ot N39.0 URINARY TRACT INFECTION, SITE NOT SPECIF 05/24/2017 ORENDER DO, PEACE S Ot B96.20 UNSP ESCHERICHIA COLI THE CAUSE OF DI 05/24/2017 ORENDER DO, PEACE S Ot N39.0 URINARY TRACT INFECTION, SITE NOT SPECIF 09/03/2017 JHON RAHMAN APRN Ot E78.00 PURE HYPERCHOLESTEROLEMIA, UNSPECIFIED 09/03/2017 JHON RAHMAN APRN Ot F32.9 MAJOR DEPRESSIVE DISORDER, SINGLE EPISOD 09/03/2017 JHON RAHMAN APRN Ot I11.0 HYPERTENSIVE HEART DISEASE WITH HEART FA 09/03/2017 JHON RAHMAN APRN Ot I25.10 ATHSCL HEART DISEASE OF [place] CORONARY 09/03/2017 JHON RAHMAN APRN Ot I42.9 CARDIOMYOPATHY, UNSPECIFIED 09/03/2017 JHON RAHMAN APRN Ot I48.91 UNSPECIFIED ATRIAL FIBRILLATION 09/03/2017 JOHN RAHMAN APRN Ot I50.9 HEART FAILURE, UNSPECIFIED 09/03/2017 JHON RAHMAN APRN Ot K21.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 09/03/2017 JHON RAHMAN APRN Ot M81.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 09/03/2017 JHON RAHMAN APRN Ot S42.401A UNSP FRACTURE OF LOWER END OF RIGHT KATHERYN 09/03/2017 JHON RAHMAN APRN Ot W19.XXXA UNSPECIFIED FALL, INITIAL ENCOUNTER 09/03/2017 JHON RAHMAN APRN Ot Y92.[address] IN LONGTERM PLACE 09/03/2017 JHON RAHMAN APRN Ot Z79.01 DRAWING TENDER (CURRENT) USE OF ANTICOAGULANT 09/03/2017 JHON RAHMAN APRN Ot Z80.3 FAMILY HISTORY OF MALIGNANT NEOPLASM OF 09/03/2017 JHON RAHMAN APRN Ot Z86.010 PERSONAL HISTORY OF COLONIC POLYPS 09/03/2017 JHON RAHMAN APRN Ot Z87.01 PERSONAL HISTORY OF PNEUMONIA (RECURRENT 09/03/2017 JHON RAHMAN APRN Ot Z87.440 PERSONAL HISTORY OF URINARY (TRACT) INFE 09/03/2017 JHON RAHMAN APRN Ot Z90.710 ACQUIRED ABSENCE OF BOTH CERVIX AND UTER 09/03/2017 JHON RAHMAN APRN Ot Z93.0 TRACHEOSTOMY STATUS 09/29/2017 GURWINDER RAMOS DOLINE S Ot M25.511 PAIN IN RIGHT SHOULDER 09/29/2017 MUSA VALDEZ PEACE S Ot M25.531 PAIN IN RIGHT WRIST 09/29/2017 MUSA VALDEZ, PEACE S Ot S52.001A UNSP FRACTURE OF UPPER END OF RIGHT ULNA 09/29/2017 FUAD RAMOS DOQUELINE S Ot W19.XXXA UNSPECIFIED FALL, INITIAL ENCOUNTER 09/29/2017 JAYCESAMI DO PEACE S Ot Z87.81 PERSONAL HISTORY OF (HEALED) TRAUMATIC F 10/12/2017 MUSA VALDEZ PEACE S Ot M25.511 PAIN IN RIGHT SHOULDER 10/12/2017 MUSA VALDEZ PEACE S Ot M25.531 PAIN IN RIGHT WRIST 10/12/2017 FUAD RAMOS DOQUELINE S Ot S52.001A UNSP FRACTURE OF UPPER END OF RIGHT ULNA 10/12/2017 FUAD RAMOS DOQUELINE S Ot W19.XXXA UNSPECIFIED FALL, INITIAL ENCOUNTER 10/12/2017 JAYCESAMI FUAD VALDEZPEACE S Ot Z87.81 PERSONAL HISTORY OF (HEALED) TRAUMATIC F 01/16/2018 ADDIE MONTEIRO MD Ot 427.31 ATRIAL FIBRILLATION 01/16/2018 ADDIE MONTEIRO MD, Ot V58.61 ANTICOAGULANTS,LT,CURRENT USE 01/16/2018 ADDIE MONTEIRO MD Ot V58.83 ENCOUNTER FOR THERAPEUTIC DRUG MONITORIN 01/16/2018 ADDIE MONTEIRO MD Ot V58.61 ANTICOAGULANTS,LT,CURRENT USE 01/16/2018 ADDIE MONTEIRO MD, Ot V58.61 ANTICOAGULANTS,LT,CURRENT USE 01/16/2018 ADDIE MONTEIRO MD Ot V58.83 ENCOUNTER FOR THERAPEUTIC DRUG MONITORIN 01/16/2018 ADDIE MONTEIRO MD Ot V58.61 ANTICOAGULANTS,LT,CURRENT USE 01/16/2018 ADDIE MONTEIRO MD Ot V67.9 FOLLOW-UP EXAM NOS 01/16/2018 PEACE RAMOS DO S Ot 397.0 TRICUSPID VALVE DISEASE 01/16/2018 GURWINDER RAMOS DOLINE S Ot 416.8 CHR PULMON HEART DIS NEC 01/16/2018 FUAD RAMOS DOQUELINE S Ot 424.0 MITRAL VALVE DISORDER 01/16/2018 GURWINDER RAMOS DOLINE S Ot 427.31 ATRIAL FIBRILLATION 01/16/2018 FUAD RAMOS DOQUELINE S Ot 433.10 CAROTID ARTERY OCCLUSION W O CEREBRAL IN 01/16/2018 FUAD RAMOS DOQUELINE S Ot 785.2 CARDIAC MURMURS NEC 01/16/2018 PEACE RAMOS DO S Ot 427.31 ATRIAL FIBRILLATION 01/16/2018 FUAD RAMOS DOQUELINE S Ot 428.0 CONGESTIVE HEART FAILURE NOS 01/16/2018 ADDIE MONTEIRO MD Ot V58.61 ANTICOAGULANTS,LT,CURRENT USE 01/16/2018 ADDIE MONTEIRO MD Ot V58.83 ENCOUNTER FOR THERAPEUTIC DRUG MONITORIN 01/16/2018 ADDIE MONTEIRO MD Ot V58.61 ANTICOAGULANTS,LT,CURRENT USE 01/16/2018 ADDIE MONTEIRO MD Ot V58.83 ENCOUNTER FOR THERAPEUTIC DRUG MONITORIN 01/16/2018 ADDIE MONTEIRO MD Ot E78.2 MIXED HYPERLIPIDEMIA 01/16/2018 ADDIE MONTEIRO MD Ot I10 ESSENTIAL (PRIMARY) HYPERTENSION 01/16/2018 ADDIE MONTEIRO MD Ot I25.10 ATHSCL HEART DISEASE OF [place] CORONARY 01/16/2018 ADDIE MONTEIRO MD Ot R07.9 CHEST PAIN, UNSPECIFIED 01/16/2018 PEACE RAMOS DO S Ot I10 ESSENTIAL (PRIMARY) HYPERTENSION 01/16/2018 PEACE RAMOS DO S Ot Z79.01 MCFP (CURRENT) USE OF ANTICOAGULANT 01/16/2018 ADDIE MONTEIRO MD Ot Z51.81 ENCOUNTER FOR THERAPEUTIC DRUG LEVEL MON 01/16/2018 ADDIE MONTEIRO MD, Ot Z79.01 MCFP (CURRENT) USE OF ANTICOAGULANT 01/16/2018 ADDIE MONTEIRO MD Ot Z51.81 ENCOUNTER FOR THERAPEUTIC DRUG LEVEL MON 01/16/2018 ADDIE MONTEIRO MD, Ot Z79.01 DRAWING TENDER (CURRENT) USE OF ANTICOAGULANT 01/16/2018 LES BRENNAN FACC, MENDEL FACP CCDS Ot I25.10 ATHSCL HEART DISEASE OF [place] CORONARY 01/16/2018 LES BRENNAN FACC, MENDEL FACP CCDS Ot I34.0 NONRHEUMATIC MITRAL (VALVE) INSUFFICIENC 01/16/2018 LES BRENNAN FACC, MENDEL FACP CCDS Ot I48.2 CHRONIC ATRIAL FIBRILLATION 01/16/2018 LES BRENNAN FACC, MENDEL FACP CCDS Ot I51.7 CARDIOMEGALY 01/16/2018 ROBSON ADAIR MAITRE D' Ot R05 COUGH 01/16/2018 ROBSON ADAIR MAITRE D' Ot R20.2 PARESTHESIA OF SKIN 01/16/2018 ROBSON ADAIR MAITRE D' Ot Z86.73 PRSNL HX OF TIA (TIA), AND CEREB INFRC W 01/16/2018 CRISTAL BUSTAMANTE SPA MANAGER Ot I08.1 RHEUMATIC DISORDERS OF BOTH MITRAL AND T 01/16/2018 CRISTAL BUSTAMANTE SPA MANAGER Ot I10 ESSENTIAL (PRIMARY) HYPERTENSION 01/16/2018 CRISTAL BUSTAMANTE SPA MANAGER Ot I25.10 ATHSCL HEART DISEASE OF [place] CORONARY 01/16/2018 CRISTAL BUSTAMANTE SPA MANAGER Ot I48.2 CHRONIC ATRIAL FIBRILLATION 01/16/2018 JULIO CÉSAR PARKER MAITRE D' Ot N30.91 CYSTITIS, UNSPECIFIED WITH HEMATURIA 01/16/2018 PEACE RAMOS DO S Ot B96.20 UNSP ESCHERICHIA COLI THE CAUSE OF DI 01/16/2018 PEACE RAMOS DO S Ot N39.0 URINARY TRACT INFECTION, SITE NOT SPECIF 01/16/2018 PEACE RAMOS DO Ot M25.511 PAIN IN RIGHT SHOULDER 01/16/2018 PEACE RAMOS DO Ot M25.531 PAIN IN RIGHT WRIST 01/16/2018 PEACE RAMOS DO Ot S52.001A UNSP FRACTURE OF UPPER END OF RIGHT ULNA 01/16/2018 PEACE RAMOS DO Ot W19.XXXA UNSPECIFIED FALL, INITIAL ENCOUNTER 01/16/2018 PEACE RAMOS DO Ot Z87.81 PERSONAL HISTORY OF (HEALED) TRAUMATIC F 01/18/2018 PEACE RAMOS DO Ot E78.00 PURE HYPERCHOLESTEROLEMIA, UNSPECIFIED 01/18/2018 PEACE RAMOS DO Ot F32.9 MAJOR DEPRESSIVE DISORDER, SINGLE EPISOD 01/18/2018 PEACE RAMOS DO Ot I10 ESSENTIAL (PRIMARY) HYPERTENSION 01/18/2018 PEACE RAMOS DO Ot I25.10 ATHSCL HEART DISEASE OF [place] CORONARY 01/18/2018 PEACE RAMOS DO Ot I42.9 CARDIOMYOPATHY, UNSPECIFIED 01/18/2018 PEACE RAMOS DO Ot I48.2 CHRONIC ATRIAL FIBRILLATION 01/18/2018 PEACE RAMOS DO Ot J81.1 CHRONIC PULMONARY EDEMA 01/18/2018 PEACE RAMOS DO Ot K21.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 01/18/2018 PEACE RAMOS DO Ot M81.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 01/18/2018 PEACE RAMOS DO Ot N39.0 URINARY TRACT INFECTION, SITE NOT SPECIF 01/18/2018 PEACE RAMOS DO Ot R09.02 HYPOXEMIA 01/18/2018 PEACE RAMOS DO Ot Z86.010 PERSONAL HISTORY OF COLONIC POLYPS 01/18/2018 PEACE RAMOS DO Ot E78.00 PURE HYPERCHOLESTEROLEMIA, UNSPECIFIED 01/18/2018 PEACE RAMOS DO Ot F32.9 MAJOR DEPRESSIVE DISORDER, SINGLE EPISOD 01/18/2018 PEACE RAMOS DO Ot I10 ESSENTIAL (PRIMARY) HYPERTENSION 01/18/2018 GURWINDER RAMOS DOLINE S Ot I25.10 ATHSCL HEART DISEASE OF [place] CORONARY 01/18/2018 EVANGELISTANDER DO, PEACE S Ot I42.9 CARDIOMYOPATHY, UNSPECIFIED 01/18/2018 EVANGELISTANDER DO, PEACE S Ot I48.2 CHRONIC ATRIAL FIBRILLATION 01/18/2018 EVANGELISTANDER , PEACE S Ot J81.1 CHRONIC PULMONARY EDEMA 01/18/2018 EVANGELISTANDER DO, PEACE S Ot K21.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 01/18/2018 ORENDER DO, PEACE S Ot M81.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 01/18/2018 EVANGELISTANDER DO, PEACE S Ot N39.0 URINARY TRACT INFECTION, SITE NOT SPECIF 01/18/2018 EVANGELISTANDER DO, PEACE S Ot R09.02 HYPOXEMIA 01/18/2018 EVANGELISTAND DO PEACE S Ot Z86.010 PERSONAL HISTORY OF COLONIC POLYPS 01/20/2018 EVANGELISTAND , PEACE S Ot E78.00 PURE HYPERCHOLESTEROLEMIA, UNSPECIFIED 01/20/2018 EVANGELISTAND DO, PEACE S Ot F32.9 MAJOR DEPRESSIVE DISORDER, SINGLE EPISOD 01/20/2018 EVANGELISTANDER , PEACE S Ot I10 ESSENTIAL (PRIMARY) HYPERTENSION 01/20/2018 EVANGELISTABANNER MD [facility] PEACE S Ot I25.10 ATHSCL HEART DISEASE OF [place] CORONARY 01/20/2018 EVANGELISTANDER , PEACE S Ot I42.9 CARDIOMYOPATHY, UNSPECIFIED 01/20/2018 EVANGELISTANDER , PEACE S Ot I48.2 CHRONIC ATRIAL FIBRILLATION 01/20/2018 EVANGELISTAND , PEACE S Ot J81.1 CHRONIC PULMONARY EDEMA 01/20/2018 EVANGELISTANDER DO, PEACE S Ot K21.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 01/20/2018 ORENDER DO, PEACE S Ot M81.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 01/20/2018 EVANGELISTANDER DO, PEACE S Ot N39.0 URINARY TRACT INFECTION, SITE NOT SPECIF 01/20/2018 EVANGELISTANDER DO, PEACE S Ot R09.02 HYPOXEMIA 01/20/2018 EVANGELISTAND , PEACE S Ot Z86.010 PERSONAL HISTORY OF COLONIC POLYPS 01/20/2018 GURWINDER RAMOS DOLINE S Ot E78.00 PURE HYPERCHOLESTEROLEMIA, UNSPECIFIED 01/20/2018 MUSA VALDEZ, PEACE S Ot F32.9 MAJOR DEPRESSIVE DISORDER, SINGLE EPISOD 01/20/2018 MUSA VALDEZ, PEACE S Ot I10 ESSENTIAL (PRIMARY) HYPERTENSION 01/20/2018 FUAD RAMOS DOQUELINE S Ot I25.10 ATHSCL HEART DISEASE OF [place] CORONARY 01/20/2018 MUSA VALDEZ PEACE S Ot I42.9 CARDIOMYOPATHY, UNSPECIFIED 01/20/2018 MUSA VALDEZ, PEACE S Ot I48.2 CHRONIC ATRIAL FIBRILLATION 01/20/2018 MUSA VALDEZ PEACE S Ot J81.1 CHRONIC PULMONARY EDEMA 01/20/2018 MUSA VALDEZ PEACE S Ot K21.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 01/20/2018 MUSA VALDEZ PEACE S Ot M81.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 01/20/2018 MUSA VALDEZ PEACE S Ot N39.0 URINARY TRACT INFECTION, SITE NOT SPECIF 01/20/2018 MUSA VALDEZ PEACE S Ot R09.02 HYPOXEMIA 01/20/2018 MUSA VALDEZ PEACE S Ot Z86.010 PERSONAL HISTORY OF COLONIC POLYPS 05/26/2018 ADDIE MONTEIRO MD Ot 427.31 ATRIAL FIBRILLATION 05/26/2018 ADDIE MONTEIRO MD Ot V58.61 ANTICOAGULANTS,LT,CURRENT USE 05/26/2018 ADDIE MONTEIRO MD Ot V58.83 ENCOUNTER FOR THERAPEUTIC DRUG MONITORIN 05/26/2018 ADDIE MONTEIRO MD Ot V58.61 ANTICOAGULANTS,LT,CURRENT USE 05/26/2018 ADDIE MONTEIRO MD Ot V58.61 ANTICOAGULANTS,LT,CURRENT USE 05/26/2018 ADDIE MONTEIRO MD Ot V58.83 ENCOUNTER FOR THERAPEUTIC DRUG MONITORIN 05/26/2018 ADDIE MONTEIRO MD Ot V58.61 ANTICOAGULANTS,LT,CURRENT USE 05/26/2018 ADDIE MONTEIRO MD Ot V67.9 FOLLOW-UP EXAM NOS 05/26/2018 PEACE RAMOS DO S Ot 397.0 TRICUSPID VALVE DISEASE 05/26/2018 ORENDER DO, PEACE S Ot 416.8 CHR PULMON HEART DIS NEC 05/26/2018 MUSA DO, PEACE S Ot 424.0 MITRAL VALVE DISORDER 05/26/2018 EVANGELISTANDER DO, PEACE S Ot 427.31 ATRIAL FIBRILLATION 05/26/2018 EVAGNELISTANDER DO, PEACE S Ot 433.10 CAROTID ARTERY OCCLUSION W O CEREBRAL IN 05/26/2018 EVANGELISTANDSAMI DO, PEACE S Ot 785.2 CARDIAC MURMURS NEC 05/26/2018 EVANGELISTANDSAMI DO, PEACE S Ot 427.31 ATRIAL FIBRILLATION 05/26/2018 EVANGELISTANDSAMI DO, PEACE S Ot 428.0 CONGESTIVE HEART FAILURE NOS 05/26/2018 ADDIE MONTEIRO MD Ot V58.61 ANTICOAGULANTS,LT,CURRENT USE 05/26/2018 ADDIE MONTEIRO MD Ot V58.83 ENCOUNTER FOR THERAPEUTIC DRUG MONITORIN 05/26/2018 ADDIE MONTEIRO MD, Ot V58.61 ANTICOAGULANTS,LT,CURRENT USE 05/26/2018 ADDIE MONTEIRO MD, Ot V58.83 ENCOUNTER FOR THERAPEUTIC DRUG MONITORIN 05/26/2018 ADDIE MONTEIRO MD Ot E78.2 MIXED HYPERLIPIDEMIA 05/26/2018 ADDIE MONTEIRO MD Ot I10 ESSENTIAL (PRIMARY) HYPERTENSION 05/26/2018 ADDIE MONTEIRO MD Ot I25.10 ATHSCL HEART DISEASE OF [place] CORONARY 05/26/2018 ADDIE MONTEIRO MD Ot R07.9 CHEST PAIN, UNSPECIFIED 05/26/2018 EVANGELISTAALEC VALDEZ PEACE S Ot I10 ESSENTIAL (PRIMARY) HYPERTENSION 05/26/2018 EVANGELISTAALEC VALDEZ PEACE S Ot Z79.01 MCFP (CURRENT) USE OF ANTICOAGULANT 05/26/2018 ADDIE MONTEIRO MD Ot Z51.81 ENCOUNTER FOR THERAPEUTIC DRUG LEVEL MON 05/26/2018 ADDIE MONTEIRO MD Ot Z79.01 MCFP (CURRENT) USE OF ANTICOAGULANT 05/26/2018 ADDIE MONTEIRO MD Ot Z51.81 ENCOUNTER FOR THERAPEUTIC DRUG LEVEL MON 05/26/2018 ADDIE MONTEIRO MD, Ot Z79.01 DRAWING TENDER (CURRENT) USE OF ANTICOAGULANT 05/26/2018 LES BRENNAN FACC, MENDEL NUÑEZP CCDS Ot I25.10 ATHSCL HEART DISEASE OF [place] CORONARY 05/26/2018 LES BRENNAN FACC, MENDEL CARO CCDS Ot I34.0 NONRHEUMATIC MITRAL (VALVE) INSUFFICIENC 05/26/2018 LES BRENNAN FACC, MENDEL CARO CCDS Ot I48.2 CHRONIC ATRIAL FIBRILLATION 05/26/2018 LES BRENNAN FACC, MENDEL CARO CCDS Ot I51.7 CARDIOMEGALY 05/26/2018 GIOVANY ROBSON N MAITRE D' Ot R05 COUGH 05/26/2018 ROBSON ADAIR MAITRE D' Ot R20.2 PARESTHESIA OF SKIN 05/26/2018 GIOVANY ROBSON Kaushik MAITRE D' Ot Z86.73 PRSNL HX OF TIA (TIA), AND CEREB INFRC W 05/26/2018 CRISTAL BUSTAMANTE SPA MANAGER Ot I08.1 RHEUMATIC DISORDERS OF BOTH MITRAL AND T 05/26/2018 CRISTAL BUSTAMANTE SPA MANAGER Ot I10 ESSENTIAL (PRIMARY) HYPERTENSION 05/26/2018 CRISTAL BUSTAMANTE SPA MANAGER Ot I25.10 ATHSCL HEART DISEASE OF [place] CORONARY 05/26/2018 CRISTAL BUSTAMANTE SPA MANAGER Ot I48.2 CHRONIC ATRIAL FIBRILLATION 05/26/2018 JULIO CÉSAR PARKER MAITRE D' Ot N30.91 CYSTITIS, UNSPECIFIED WITH HEMATURIA 05/26/2018 PEACE RAMOS DO Ot B96.20 UNSP ESCHERICHIA COLI THE CAUSE OF DI 05/26/2018 PEACE RAMOS DO Ot N39.0 URINARY TRACT INFECTION, SITE NOT SPECIF 05/26/2018 PEACE RAMOS DO Ot M25.511 PAIN IN RIGHT SHOULDER 05/26/2018 PEACE RAMOS DO Ot M25.531 PAIN IN RIGHT WRIST 05/26/2018 PEACE RAMOS DO Ot S52.001A UNSP FRACTURE OF UPPER END OF RIGHT ULNA 05/26/2018 PAECE RAMOS DO Ot W19.XXXA UNSPECIFIED FALL, INITIAL ENCOUNTER 05/26/2018 PEACE RAMOS DO Ot Z87.81 PERSONAL HISTORY OF (HEALED) TRAUMATIC F Procedures Code Description Performed By Performed On 34.09 OTHER PLEURAL INCISION 12/06/2012 38.91 ARTERIAL CATHETERIZATION 12/06/2012 38.93 VENOUS CATHETERIZATION NEC 12/06/2012 88.72 DX ULTRASOUND-HEART 12/06/2012 96.04 INSERT ENDOTRACHEAL TUBE 12/06/2012 96.71 CONTINUOUS INVASIVE MECHANICAL VENTILATI 12/06/2012 [id number] RESECTION OF GALLBLADDER, PERCUTANEOUS E 02/07/2016 [id number] RESPIRATORY VENTILATION, LESS THAN 24 CO 02/07/2016 [id number] ROBOTIC ASSISTED PROCEDURE OF TRUNK LUISITO 02/07/2016 [...] culture - 11/07/16 20:28 Bacterial urine culture [id number] NRG COLONY COUNT >100,000/ML NRG FTX;REPORTABLE SENSITIVITY REPORTED 11/09/16 7:00 NR Bacterial susceptibility panel - 11/07/16 20:28 Gentamicin [...] test by minimum inhibitory concentration + NRG Complete blood count (CBC) with automated white blood cell (WBC) differential - 01/16/18 08:16 Blood leukocytes automated count (number/volume) 5.1 10*3/uL 4.3-11.0 Blood erythrocytes automated count (number/volume) 4.35 10*6/uL 4.35-5.85 Venous blood hemoglobin measurement (mass/volume) 12.1 g/dL 11.5-16.0 Blood hematocrit (volume fraction) 40 % 35-52 Automated erythrocyte mean corpuscular volume 92 [foz_us] 80-99 Automated erythrocyte mean corpuscular hemoglobin (mass per erythrocyte) 28 pg 25-34 Automated erythrocyte mean corpuscular hemoglobin concentration measurement ( mass/volume) 30 g/dL 32-36 Automated erythrocyte distribution width ratio 19.1 % 10.0-14.5 Automated blood platelet count (count/volume) 131 10*3/uL 130-400 Automated blood platelet mean volume measurement 11.1 [foz_us] 7.4-10.4 Automated blood neutrophils/100 leukocytes 88 % 42-75 Automated blood lymphocytes/100 leukocytes 8 % 12-44 Blood monocytes/100 leukocytes 4 % 0-12 Automated blood eosinophils/100 leukocytes 0 % 0-10 Automated blood basophils/100 leukocytes 0 % 0-10 Blood neutrophils automated count (number/volume) 4.5 10*3 1.8-7.8 Blood lymphocytes automated count (number/volume) 0.4 10*3 1.0-4.0 Blood monocytes automated count (number/volume) 0.2 10*3 0.0-1.0 Automated eosinophil count 0.0 10*3/uL 0.0-0.3 Automated blood basophil count (count/volume) 0.0 10*3/uL 0.0-0.1 Comprehensive metabolic panel - 01/16/18 08:16 Serum or plasma sodium measurement (moles/volume) 144 mmol/L 135-145 Serum or plasma potassium measurement (moles/volume) 4.8 mmol/L 3.6-5.0 Serum or plasma chloride measurement (moles/volume) 108 mmol/L 98-107 Carbon dioxide 28 mmol/L 21-32 Serum or plasma anion gap determination (moles/volume) 8 mmol/L 5-14 Serum or plasma urea nitrogen measurement (mass/volume) 19 mg/dL 7-18 Serum or plasma creatinine measurement (mass/volume) 0.92 mg/dL 0.60-1.30 Serum or plasma urea nitrogen/creatinine mass ratio 21 NRG Serum or plasma creatinine measurement with calculation of estimated glomerular filtration rate 58 NRG Serum or plasma glucose measurement (mass/volume) 112 mg/dL 70-105 Serum or plasma calcium measurement (mass/volume) 8.6 mg/dL 8.5-10.1 Serum or plasma total bilirubin measurement (mass/volume) 0.9 mg/dL 0.1-1.0 Serum or plasma alkaline phosphatase measurement (enzymatic activity/volume) 80 U/L 40-136 Serum or plasma aspartate aminotransferase measurement (enzymatic activity/ volume) 49 U/L 5-34 Serum or plasma alanine aminotransferase measurement (enzymatic activity/volume ) 49 U/L 0-55 Serum or plasma protein measurement (mass/volume) 5.7 g/dL 6.4-8.2 Serum or plasma albumin measurement (mass/volume) 3.4 g/dL 3.2-4.5 Blood manual differential performed detection - 01/16/18 08:16 Blood monocytes/100 leukocytes 5 % NRG Manual blood segmented neutrophils/100 leukocytes 83 % NRG Blood band neutrophils/100 leukocytes 1 % NRG Manual blood lymphocytes/100 leukocytes 11 % NRG Blood erythrocyte morphology finding identification NORMAL NRG Blood dohle body detection by light microscopy SLIGHT NRG Serum or plasma troponin i.cardiac measurement (mass/volume) - 01/16/18 08:16 Serum or plasma troponin i.cardiac measurement (mass/volume) < ng/ mL <0.30 Complete urinalysis with reflex to culture - 01/16/18 08:35 Urine color determination YELLOW NRG Urine clarity determination CLEAR NRG Urine pH measurement by test strip 5 5-9 Specific gravity of urine by test strip 1.025 1.016- 1.022 Urine protein assay by test strip, semi-quantitative 2+ NEGATIVE Urine glucose detection by automated test strip NEGATIVE NEGATIVE Erythrocytes detection in urine sediment by light microscopy 2+ NEGATIVE Urine ketones detection by automated test strip NEGATIVE NEGATIVE Urine nitrite detection by test strip POSITIVE NEGATIVE Urine total bilirubin detection by test strip NEGATIVE NEGATIVE Urine urobilinogen measurement by automated test strip (mass/volume) NORMAL NORMAL Urine leukocyte esterase detection by dipstick 3+ NEGATIVE Automated urine sediment erythrocyte count by microscopy (number/high power field) NONE NRG Automated urine sediment leukocyte count by microscopy (number/high power field ) > [HPF] NRG Bacteria detection in urine sediment by light microscopy LARGE NRG Squamous epithelial cells detection in urine sediment by light microscopy 2-5 NRG Crystals detection in urine sediment by light microscopy NONE NRG Casts detection in urine sediment by light microscopy NONE NRG Mucus detection in urine sediment by light microscopy MODERATE NRG Complete urinalysis with reflex to culture YES NRG Bacterial urine culture - 01/16/18 08:35 Bacterial urine culture [id number] NRG COLONY COUNT >100,000/ML NR FTX;REPORTABLE SENSITIVITY REPORTED BY [facility] 01/18/18 [facility] FREE TEXT ENTRY 2 AT 16:05 [facility] Sensitivity Panel - 01/16/18 08:35 Gentamicin susceptibility test by minimum inhibitory concentration < = NRG Trimethoprim/sulfamethoxazole susceptibility test by minimum inhibitoryconcentration <= NRG Levofloxacin susceptibility test by minimum inhibitory concentration <= NRG Ampicillin susceptibility test by minimum inhibitory concentration > NRG Cefazolin susceptibility test by minimum inhibitory concentration < = NRG Ceftriaxone susceptibility test by minimum inhibitory concentration <= NRG Ciprofloxacin susceptibility test by minimum inhibitory concentration <= NRG Meropenem susceptibility test by minimum inhibitory concentration < = NRG Nitrofurantoin susceptibility test by minimum inhibitory concentration 32 NRG Amoxicillin and clavulanate potassium susc SANTOS <= NRG PT panel in platelet poor plasma by coagulation assay - 01/16/18 17:22 Prothrombin time (PT) in platelet poor plasma by coagulation assay 29.1 s 12.2-14.7 INR in platelet poor plasma or blood by coagulation assay 2.8 0.8-1.4 Whole blood basic metabolic panel - 01/17/18 07:05 Serum or plasma sodium measurement (moles/volume) 143 mmol/L 135-145 Serum or plasma potassium measurement (moles/volume) 4.6 mmol/L 3.6-5.0 Serum or plasma chloride measurement (moles/volume) 102 mmol/L 98-107 Carbon dioxide 34 mmol/L 21-32 Serum or plasma anion gap determination (moles/volume) 7 mmol/L 5-14 Serum or plasma urea nitrogen measurement (mass/volume) 23 mg/dL 7-18 Serum or plasma creatinine measurement (mass/volume) 0.85 mg/dL 0.60-1.30 Serum or plasma urea nitrogen/creatinine mass ratio 27 NRG Serum or plasma creatinine measurement with calculation of estimated glomerular filtration rate > NRG Serum or plasma glucose measurement (mass/volume) 92 mg/dL 70-105 Serum or plasma calcium measurement (mass/volume) 8.6 mg/dL 8.5-10.1 PT panel in platelet poor plasma by coagulation assay - 01/17/18 07:05 Prothrombin time (PT) in platelet poor plasma by coagulation assay 29.7 s 12.2-14.7 INR in platelet poor plasma or blood by coagulation assay 2.8 0.8-1.4 Encounters ACCT No. Visit Date/Time Discharge Status Pt. Type Provider Facility Loc./Unit Complaint [id number] 01/16/2018 15:26:00 01/18/2018 14:11:00 DIS Inpatient ORENDER DO, PEACE S Via [facility] 4TH CHF [id number] 09/03/2017 12:26:00 09/03/2017 14:30:00 DIS Emergency JHON RAHMAN MAITRE D' [facility] ER ELBOW INJ [id number] 09/02/2017 15:27:00 09/02/2017 23:59:59 CLS Outpatient ORENDER DO, PEACE S Via [facility] RAD M79.601 [id number] 05/21/2017 00:20:00 05/21/2017 23:59:59 CLS Preadmit ORENDER DO, PEACE S Via [facility] UTI [id number] 02/21/2017 07:54:00 05/20/2017 00:01:00 DIS Outpatient ORENDER DO, PEACE S Via [facility] UTI [id number] 03/01/2017 21:27:00 03/01/2017 22:07:00 DIS Emergency JHON RAHMAN MAITRE D' [facility] ER CONTACT LENSE STUCK IN LT EYE [id number] 02/14/2017 11:15:00 02/14/2017 23:59:59 CLS Outpatient JULIO CÉSAR PARKER MAITRE D' Via [facility] LAB UTI W/ HEMATURIA SITE UNSPECIFIED [id number] 11/13/2016 08:56:00 11/13/2016 23:59:59 CLS Preadmit ORENDER DO, PEACE S SWB [id number] 11/07/2016 21:41:00 11/13/2016 14:50:00 DIS Inpatient ORENDER DO, PEACE S Via [address] ILEUS, ABDOMINAL PAIN , UTI [id number] 11/05/2016 07:48:00 11/05/2016 23:59:59 CLS Preadmit ORENDER DO, PEACE S Via [facility] ANTICOAG THERAPY [id number] 10/31/2016 11:30:00 11/03/2016 13:15:00 DIS Inpatient PEACE RAMOS DO S Via [facility] 4TH CHEST PAIN,POSSIBLE ANGIA [id number] 08/26/2016 12:30:00 08/26/2016 14:32:00 DIS Emergency TENNILLE MCCRAY MD Via [facility] ER FACIAL INJURY [id number] 06/03/2016 08:49:00 06/03/2016 23:59:59 CLS Outpatient CRISTAL BUSTAMANTE Via [facility] CAD,HTN,TR [id number] 05/21/2016 07:05:00 05/21/2016 23:59:59 CLS Outpatient LES BRENNAN FACC, MENDEL CARO CCDS Via [facility] CAD,LVH,MR [id number] 04/28/2016 12:35:00 04/28/2016 23:59:59 CLS Outpatient ROBSON ADAIR APRN [facility] RAD H/O TIAS, PARASTHESIAS, CHRONIC COUGH [id number] 03/19/2016 15:13:00 03/19/2016 23:59:59 CLS Outpatient ADDIE MONTEIRO MD Via [facility] ANTICOAG THERAPY [id number] 03/16/2016 13:54:00 03/16/2016 23:59:59 CLS Outpatient ADDIE MONTEIRO MD Via [facility] ANTICOAG THERAPY [id number] 02/19/2016 10:28:00 02/19/2016 23:59:59 CLS Outpatient MUSA VALDEZ PEACE Marley Via [facility] ANTICAOG THERAPY, HTN [id number] 02/06/2016 13:15:00 02/12/2016 12:17:00 DIS Inpatient TUAN BRENNAN, MARIFER Canales Via [facility] 4TH ABDOMINAL PAIN,UTI, CHOLELITHIASIS [id number] 12/30/2015 11:20:00 12/30/2015 23:59:59 CLS Outpatient ADDIE MONTEIRO MD Via [facility] CARD CAD,CHEST PAIN SYNDROME, HTN,MIXED HLP [id number] 06/21/2015 09:42:00 06/21/2015 23:59:59 CLS Preadmit ADDIE MONTEIRO MD Via [facility] ANTICOAGU THERAPY [id number] 05/28/2015 11:29:00 05/28/2015 23:59:59 CLS Outpatient ADDIE MONTEIRO MD Via [facility] ANTICOAG THERAPY [id number] 05/14/2015 10:10:00 05/14/2015 23:59:59 CLS Outpatient ADDIE MONTEIRO MD Via [facility] ANTICOAG THERAPY [id number] 04/29/2015 16:10:00 04/29/2015 23:59:59 CLS Outpatient PEACE RAMOS DO S Via [facility] AFIB, CHF [id number] 04/18/2015 11:36:00 04/22/2015 13:53:00 DIS Inpatient OREPEACE MICHAEL DO S Via [facility] 4TH UTI [id number] 04/16/2015 15:30:00 04/16/2015 17:29:00 DIS Emergency MADDIE KAYE MD Via [facility] ER AMS/FALL [id number] 04/14/2015 07:32:00 04/14/2015 10:45:00 DIS Emergency SILVIO DOMITZI K [facility] ER DIZZINESS,VOMITING [id number] 05/23/2014 10:39:00 05/23/2014 23:59:59 CLS Outpatient PEACE RAMOS DO S Via [facility] RIKA,AFIB, CARIDAC MURMUR [id number] 03/27/2013 11:30:00 03/27/2013 23:59:59 CLS Outpatient ADDIE MONTEIRO MD Via [facility] ANTICOAGULANT THERAPY [id number] 03/13/2013 10:25:00 03/13/2013 23:59:59 CLS Outpatient ADDIE MONTEIRO MD Via [facility] ANTICOAG THERAPY [id number] 03/06/2013 11:09:00 03/06/2013 23:59:59 CLS Outpatient ADDIE MONTEIRO MD Via [facility] ANTICOAGULANT THERAPY [id number] 02/27/2013 11:00:00 02/27/2013 23:59:59 CLS Outpatient ADDIE MONTEIRO MD Via [facility] ANTICOAG THERAPY [id number] 02/20/2013 10:25:00 02/20/2013 23:59:59 CLS Outpatient ADDIE MONTEIRO MD Via [facility] A FIB [id number] 01/27/2013 13:20:00 02/15/2013 10:25:00 DIS Inpatient HARLEEN GREER MD Via [facility] CRITICAL CARE MYOPATHY [id number] 04/20/2014 12:40:00 Document Registration [id number] 12/03/2012 23:41:00 Document Registration [id number] 08/12/2011 07:04:00 Document Registration [id number] 07/28/2011 10:25:00 Document Registration [id number] 07/21/2011 11:15:00 Document Registration [id number] 01/13/2011 08:55:00 Document Registration [id number] 01/05/2011 07:51:00 Document Registration [id number] 11/28/2010 12:09:00 Document Registration 02/11/15 06/30/2018 23:35:33 06/30/2018 23:59:59 CLS Outpatient Peace Ramos [id number] 05/29/2015 07:12:00 ACT Document Registration
[2018-07-24 15:17] LABS: ABG BASE EXCESS 5.6 MMOL/L (-2.5-2.5); ABG OXYGEN SATURATION 98 % (94-100); ABG PO2 122 MMHG (79-93); ABG TCO2 35.2 MMOL/L (21.0-31.0)
[2018-07-24 15:23] LABS: ABG PH 7.23 (7.37-7.43)
[2018-07-24 15:24] LABS: ABG PCO2 80 MMHG (35-45); ALLENS TEST YES-POS; INSPIRED O2 3L; PATIENT TEMP 98.2; VENTILATOR NO
[2018-07-24] MEDS ORDERED: methylPREDNISolone 40 MG/ML (Solu-MEDROL) VIAL IV ONE (15:45)
[2018-07-24] MEDS ORDERED: FLU QUADRIvalent (5+ YOA) 2018-2019 (AFLURIA) 0.5 ML IM ONE (17:00)
[2018-07-24] MEDS ORDERED: warFARin 5 MG (COUMADIN) TAB PO SCH (18:00)
[2018-07-24] MEDS ORDERED: HALOPERIDOL 5 MG/ML (HALDOL) AMP ONE (20:02)
[2018-07-24] MEDS ORDERED: LORazepam INJ 2 MG/ML (ATIVAN) VIAL ONE (20:02)
[2018-07-24] MEDS ORDERED: HALOPERIDOL 5 MG/ML (HALDOL) AMP IM PRN (21:00)
[2018-07-24] MEDS ORDERED: LORazepam INJ 2 MG/ML (ATIVAN) VIAL IVP PRN (21:00)
[2018-07-24 22:00] LABS: ABG OXYGEN SATURATION 95 % (94-100); ABG PO2 82 MMHG (79-93); ABG TCO2 36.7 MMOL/L (21.0-31.0); ALLENS TEST YES-POS; INSPIRED O2 30% BIPAP; PATIENT TEMP 97.3; VENTILATOR NO
[2018-07-24 22:02] LABS: ABG PCO2 80 MMHG (35-45); ABG PH 7.25 (7.37-7.43)
[2018-07-24] MEDS: methylPREDNISolone 40 MG/ML (Solu-MEDROL) VIAL IV SCH (22:08)
[2018-07-25] VITALS (35 sets, daily range): BP systolic 97–154; BP diastolic 67–109
[2018-07-25] MEDS ORDERED: NS (IVPB) 50 ML ONE (02:19)
[2018-07-25] MEDS: DEXMEDETOMIDINE INJECTION 200 MCG in NS (IVPB) 50 ML IV SCH ×4 (02:30→19:09)
[2018-07-25 03:32] LABS: ABG BASE EXCESS 5.1 MMOL/L (-2.5-2.5); ABG OXYGEN SATURATION 99 % (94-100); ABG PCO2 65 MMHG (35-45); ABG PO2 114 MMHG (79-93); ABG TCO2 33.1 MMOL/L (21.0-31.0)
[2018-07-25 03:33] LABS: ALLENS TEST YES-POS; INSPIRED O2 30% BIPAP; PATIENT TEMP 98.7; VENTILATOR NO
[2018-07-25 03:45] LABS: BASOPHILS % (AUTO) 0 % (0-10); EOSINOPHILS % (AUTO) 0 % (0-10); HEMATOCRIT 43 % (35-52); HEMOGLOBIN 13.1 G/DL (11.5-16.0); LYMPHOCYTES # (AUTO) 0.3 X 10^3 (1.0-4.0); LYMPHOCYTES % (AUTO) 5 % (12-44); MEAN CORPUSCULAR HEMOGLOBIN 30 PG (25-34); MEAN CORPUSCULAR HGB CONC 30 G/DL (32-36); MEAN CORPUSCULAR VOLUME 98 FL (80-99); MEAN PLATELET VOLUME 11.2 FL (7.4-10.4); MONOCYTES % (AUTO) 1 % (0-12); NEUTROPHILS # (AUTO) 5.1 X 10^3 (1.8-7.8); NEUTROPHILS % (AUTO) 95 % (42-75); PLATELET COUNT 120 10^3/uL (130-400); RED BLOOD COUNT 4.41 10^6/uL (4.35-5.85); RED CELL DISTRIBUTION WIDTH 15.2 % (10.0-14.5); WHITE BLOOD COUNT 5.4 10^3/uL (4.3-11.0)
[2018-07-25] MEDS ORDERED: DEXMEDETOMIDINE INJECTION 200 MCG in NS (IVPB) 50 ML IV SCH (03:45)
[2018-07-25 04:08] LABS: INR 2.6 (0.8-1.4); PROTHROMBIN TIME PATIENT 27.6 SEC (12.2-14.7)
[2018-07-25] MEDS: methylPREDNISolone 40 MG/ML (Solu-MEDROL) VIAL IV SCH ×4 (04:09→21:24)
[2018-07-25 04:15] LABS: CALCIUM 9.1 MG/DL (8.5-10.1); CREATININE SERUM 1.07 MG/DL (0.60-1.30); PHOSPHORUS 4.5 MG/DL (2.3-4.7); POTASSIUM 5.1 MMOL/L (3.6-5.0)
[2018-07-25] MEDS: POTASSIUM CL 10MEQ/50ML IVPB 50 ML IV SCH (05:42)
[2018-07-25] MEDS: MAGNESIUM 1 GM/100 ML IVPB 100 ML IV SCH (05:42)
[2018-07-25] MEDS: KCL 20 MEQ TAB (K-DUR) PO SCH (05:42)
--- NOTE | 2018-07-25 06:15 | Pulmonary Consultation ---
History of Present Illness History of Present Illness Date of Consultation 07/25/18 06:10 Date of Admission Allergies and Home Medications Allergies Coded Allergies: nitrofurantoin (Verified Allergy, Intermediate, 04/18/15) Penicillins (Verified Allergy, Mild, 04/18/15) Sulfa (Sulfonamide Antibiotics) (Verified Allergy, Mild, 04/18/15) omeprazole (Verified Allergy, Mild, 04/18/15) guaifenesin (Verified Allergy, Unknown, 04/18/15) potassium guaiacolsulfonate (Verified Allergy, Unknown, 04/18/15) celecoxib (Unverified Adverse Reaction, Unknown, SICK TO STOMACH, 04/18/15) rosuvastatin (Unverified Adverse Reaction, Unknown, NAUSEA, 04/18/15) Uncoded Allergies: Protoni (Allergy, Mild, 02/05/16) NOTE THAT PT TAKES PROTONIX AT HOME Home Medications Acetaminophen 500 Mg Tablet, 500 MG PO Q4H PRN for PAIN, (Reported) Atorvastatin Calcium 40 Mg Tablet, 40 MG PO HS, (Reported) Cefdinir 300 Mg Capsule, 300 MG PO BID Prescribed by: KAT VIGIL on 01/18/18 1416 Digoxin 250 Mcg Tablet, 250 MCG PO Q48H, (Reported) Diphenoxylate HCl/Atropine 1 Each Tablet, 1 TAB PO UD PRN for DIARRHEA, ( Reported) 2 TABS AFTER 1ST LOOSE STOOL THEN 1 TAB AFTER EACH LOOSE STOOL - MAX 8 TABS/ DAY Escitalopram Oxalate 10 Mg Tablet, 10 MG PO DAILY Prescribed by: KAT VIGIL on 11/13/16 1046 Furosemide 20 Mg Tablet, 20 MG PO DAILY Prescribed by: KAT VIGIL on 01/18/18 1411 Guaifenesin/Dextromethorphan 237 Ml Liquid, 5 ML PO Q4H PRN for COUGH, (Reported ) Hydrocodone/Acetaminophen 1 Each Tablet, 0.5 EACH PO Q4H PRN for PAIN-MODERATE TO SEVERE Prescribed by: JHON RAHMAN on 09/03/17 1303 Hypromellose 10 Gm Gel..gram., 1 DROP OD QID, (Reported) Loteprednol Etabonate 5 Ml Drops, 1 DROP OU DAILY, (Reported) Ondansetron HCl 4 Mg Tablet, 4 MG PO Q6H PRN for NAUSEA/VOMITING-1ST LINE, ( Reported) Pantoprazole Sodium 40 Mg Tablet.dr, 40 MG PO BID, (Reported) Potassium Chloride 8 Meq Capsule.er, 8 MEQ PO DAILY@0700 Prescribed by: KAT VIGIL on 01/18/18 1411 Vit #76/Iron,Carb/FA 1 Each Tablet, 1 EACH PO DAILY, (Reported) Warfarin Sodium 5 Mg Tablet, 5 MG PO DAILY, (Reported) Past Swbxeux-Annynl-Heysmn Hx Patient Social History Alcohol Use: Denies Use Recreational Drug Use: No Smoking Status: Never a Smoker 2nd Hand Smoke Exposure: No Recent Foreign Travel: No Contact w/Someone Who Travel: No Recent Infectious Disease Expo: No Recent Hopitalizations: No Physical Abuse: No Sexual Abuse: No Immunizations Up To Date Tetanus Booster (TDap): Less than 5yrs PED Vaccines UTD: No Date of Pneumonia Vaccine: Aug 30, 2015 Date of Influenza Vaccine: Jun 17, 2017 Seasonal Allergies Seasonal Allergies: No Past Medical History Surgeries: Yes (FISTULA REPAIR,CORNEA TRANSPLANT,CARDIAC CATH,SKYLAR W/ PERF ESOPHAGUS/REPAIR ) Abdominal, Cardiac, Eye Surgery, Gallbladder, Hysterectomy, Tracheostomy Respiratory: Yes (RESP.FAILURE-TRACH/VENTILATOR/REMOVAL, CHEST TUBE/REMOVAL) Pneumonia Currently Using CPAP: No Currently Using BIPAP: Yes Cardiac: Yes (CHF) Atrial Fibrillation, Cardiomyopathy, Coronary Artery Disease, High Cholesterol, Hypertension, Irregular Heartbeat Neurological: Yes (DENIES, BUT HAS PARESTHESIAS TO TOES) : No Reproductive Disorders: No Female 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 12-16) Cataract, Eye Injury Loss of Vision: Bilateral Hearing Impairment: Hard of Hearing, Bilateral Hearing Aide Cancer: No Did You Recieve Any Treatments: No Psychosocial: Yes Depression Integumentary: No Blood Disorders: No Adverse Reaction/Blood Tranf: No Family Medical History FH: arrhythmia FH: breast cancer Cancer Sepsis Event Evaluation Height, Weight, BMI Height: 5'6.00" Weight: 129lbs. 0.0oz. 58.919636jj; 20.8 BMI Method:Estimated Exam Exam Vital Signs Date Time Temp Pulse Resp B/P (MAP) Pulse Ox O2 Delivery O2 Flow Rate FiO2 07/25/18 06:00 80 14 99/79 (86) 99 NIV Bilevel 30.00 07/25/18 05:00 78 22 114/67 (83) 97 NIV Bilevel 30.00 07/25/18 04:18 107 24 98 30.00 07/25/18 04:00 NIV Bilevel 30 07/25/18 04:00 97.0 07/25/18 04:00 90 26 97/71 (80) 97 NIV Bilevel 30.00 07/25/18 04:00 NIV Bilevel 30 07/25/18 03:00 105 31 124/95 (105) 100 NIV Bilevel 30.00 07/25/18 02:34 103 22 98 30.00 07/25/18 02:00 112 13 154/82 (106) 97 NIV Bilevel 30.00 07/25/18 01:08 103 18 94 30.00 07/25/18 01:00 110 19 135/91 (106) 93 NIV Bilevel 30.00 07/25/18 01:00 110 07/25/18 00:36 97.2 NIV Bilevel 07/25/18 00:31 113 24 99 30.00 07/25/18 00:00 NIV Bilevel 30 07/25/18 00:00 NIV Bilevel 30 07/25/18 00:00 96 21 122/89 (100) 100 NIV Bilevel 30.00 07/24/18 23:00 101 19 96/78 (84) 100 NIV Bilevel 30.00 07/24/18 22:51 93 18 100 30.00 07/24/18 22:08 103 20 100 30.00 07/24/18 22:00 98 24 98/69 (79) 100 NIV Bilevel 30.00 07/24/18 21:00 109 24 96/68 (77) 100 NIV Bilevel 30.00 07/24/18 20:31 98 21 100 30.00 07/24/18 20:00 113 15 82/69 (73) 98 NIV Bilevel 30.00 07/24/18 20:00 NIV Bilevel 30 07/24/18 20:00 NIV Bilevel 30 07/24/18 19:01 95 26 100 30.00 07/24/18 19:00 99.4 98 17 116/87 (97) 100 NIV Bilevel 30.00 07/24/18 19:00 91 07/24/18 18:15 90 9 117/82 (94) 97 Room Air 07/24/18 18:00 100 19 101/67 (78) 100 Room Air 07/24/18 17:45 104 16 104/93 (97) 100 Room Air 07/24/18 17:30 96 15 101/74 (83) 100 Room Air 07/24/18 17:15 96 12 117/75 (89) 100 Room Air 07/24/18 17:00 93 18 112/73 (86) 95 Room Air 07/24/18 16:45 95 16 97/63 (74) 94 Room Air 07/24/18 16:41 NIV Bilevel 07/24/18 16:37 98.0 07/24/18 16:30 92 17 108/89 (95) 96 Room Air 07/24/18 16:21 98 28 97 30.00 07/24/18 16:15 87 15 133/65 (87) 93 Room Air 07/24/18 16:00 98.2 98 19 114/78 (90) 94 Room Air 07/24/18 11:04 100.9 105 50 102/69 (80) 66 Room Air I & O 07/25/18 07:00 Intake Total 1550 ml Output Total 870 ml Balance 680 ml Height & Weight Height: 5'6.00" Weight: 129lbs. 0.0oz. 58.754234ka; 20.8 BMI Method:Estimated General Appearance: No Apparent Distress, WD/WN HEENT: Other (right pupil clouded, presumably blind. Oropharynx very dry) Neck: Normal Inspection Respiratory: Normal Breath Sounds, No Accessory Muscle Use, No Respiratory Distress Cardiovascular: No Edema, Systolic Murmur, Tachycardia Capillary Refill: Greater Than 3 Seconds Extremity: Normal Inspection, No Pedal Edema Neurologic/Psychiatric: Other (very somnolent. Lethargic. Not able to speak comprehensively. Will follow some instructions such as opening eyes and squeezing hands. Moves all 4 extremities.) Results Lab Laboratory Tests 07/24/18 11:20 07/25/18 03:16 Assessment/Plan Assessment/Plan Acute on chronic respiratory failure -Currently on BiPAP -Precedex -PT is a DNR Pleural effusion -Monitor agitation/anxiety -precedex -Haldol Hypotension ARMANI CHENG DO Jul 25, 2018 6:15 am
--- NOTE | 2018-07-25 07:31 | Diagnostic Imaging Report ---
INDICATION: Respiratory failure and dyspnea. Upright portable AP view of the chest is obtained with comparison made study one day earlier. FINDINGS: There is cardiomegaly with bilateral air trapping and prominence of interstitial markings in the lungs. There is blunting of left costophrenic sulcus. There is questionable nodular density seen laterally in the left upper lobe which may be due to superimposition. No definite pneumothorax identified. IMPRESSION: Cardiomegaly with probable COPD and left pleural fluid. There may be left basilar pneumonitis or atypical pneumonia as well. This could be on the basis of aspiration. Questionable nodular density is seen in the lateral left upper lobe. This may be artifactual due to superimposition and followup PA and lateral views of the chest would be of use. Dictated by: Dictated on workstation # [id number]
--- NOTE | 2018-07-25 09:08 | Progress Note-Cardiology ---
Cardiology SOAP Progress Note Subjective: Sedated and on BiPAP. Not able to provide any history Objective: I&O/Vital Signs 07/24/18 07/24/18 07/24/18 07/24/18 22:00 22:08 22:51 23:00 Pulse 98 103 93 101 Resp 24 20 18 19 B/P (MAP) 98/69 (79) 96/78 (84) Pulse Ox 100 100 100 100 O2 Delivery NIV Bilevel NIV Bilevel O2 Flow Rate 30.00 30.00 30.00 30.00 07/25/18 07/25/18 07/25/18 07/25/18 00:00 00:00 00:00 00:31 Pulse 96 113 Resp 21 24 B/P (MAP) 122/89 (100) Pulse Ox 100 99 O2 Delivery NIV Bilevel NIV Bilevel NIV Bilevel O2 Flow Rate 30.00 30.00 FiO2 30 30 07/25/18 07/25/18 07/25/18 07/25/18 00:36 01:00 01:00 01:08 Temp 97.2 Pulse 110 110 103 Resp 19 18 B/P (MAP) 135/91 (106) Pulse Ox 93 94 O2 Delivery NIV Bilevel NIV Bilevel O2 Flow Rate 30.00 30.00 07/25/18 07/25/18 07/25/18 07/25/18 02:00 02:34 03:00 04:00 Pulse 112 103 105 Resp 13 22 31 B/P (MAP) 154/82 (106) 124/95 (105) Pulse Ox 97 98 100 O2 Delivery NIV Bilevel NIV Bilevel NIV Bilevel O2 Flow Rate 30.00 30.00 30.00 FiO2 30 07/25/18 07/25/18 07/25/18 07/25/18 04:00 04:00 04:00 04:18 Temp 97.0 Pulse 90 107 Resp 26 24 B/P (MAP) 97/71 (80) Pulse Ox 97 98 O2 Delivery NIV Bilevel NIV Bilevel O2 Flow Rate 30.00 30.00 FiO2 30 07/25/18 07/25/18 07/25/18 07/25/18 05:00 06:00 06:59 07:00 Pulse 78 80 104 75 Resp 22 14 14 B/P (MAP) 114/67 (83) 99/79 (86) Pulse Ox 97 99 99 O2 Delivery NIV Bilevel NIV Bilevel O2 Flow Rate 30.00 30.00 30.00 07/25/18 07/25/18 07/25/18 07:00 08:00 08:32 Pulse 66 84 104 Resp 13 12 14 B/P (MAP) 119/92 (101) 125/79 (94) Pulse Ox 99 98 100 O2 Delivery NIV Bilevel NIV Bilevel O2 Flow Rate 30.00 30.00 30.00 07/25/18 00:00 Intake Total 1550 ml Output Total 500 ml Balance 1050 ml Weight (Pounds): 135 Weight (Ounces): 0.0 Weight (Calculated Kilograms): 61.823493 Constitutional: other (thin-appearing, on BiPAP, does not appear in distress, drowsy and non-reponsive to questions) Respiratory: chest is bilaterally symmetric, other (fair bilat air entry, diminished at the bases) Cardiovascular: irregularly irregular, S1 and S2, diastolic murmur Gastrointestional: No tender, No guarding, No rebound; audible bowel sounds Extremities: No clubbing, No cyanosis, No significant edema Neurologic/Psychiatric: other (does not respond to questions, likely due to sedation, moves all limbs equally) Skin: normal color, warm/dry Results/Procedures: Labs Laboratory Tests 07/24/18 11:20: White Blood Count 6.0, Red Blood Count 4.55, Hemoglobin 13.4, Hematocrit 45, Mean Corpuscular Volume 99, Mean Corpuscular Hemoglobin 30, Mean Corpuscular Hemoglobin Concent 30L, Red Cell Distribution Width 15.3H, Platelet Count 133, Mean Platelet Volume 10.6H, Neutrophils (%) (Auto) 90H, Lymphocytes (%) (Auto) 7L, Monocytes (%) (Auto) 3, Eosinophils (%) (Auto) 0, Basophils (%) (Auto) 0, Neutrophils # (Auto) 5.4, Lymphocytes # (Auto) 0.4L, Monocytes # (Auto) 0.2, Eosinophils # (Auto) 0.0, Basophils # (Auto) 0.0, Neutrophils % (Manual) 87, Lymphocytes % (Manual) 5, Monocytes % (Manual) 3, Band Neutrophils 5, Hypochromasia SLIGHT, Anisocytosis SLIGHT, Elliptocytes SLIGHT, Prothrombin Time 24.7H, INR Comment 2.2H, Activated Partial Thromboplast Time 33, Sodium Level 145, Potassium Level 5.3H, Chloride Level 101, Carbon Dioxide Level 33H, Anion Gap 11, Blood Urea Nitrogen 26H, Creatinine 1.22, Estimat Glomerular Filtration Rate 42, BUN/Creatinine Ratio 21, Glucose Level 124H, Lactic Acid Level 1.44, Calcium Level 9.6, Corrected Calcium 9.6, Total Bilirubin 1.1H, Aspartate Amino Transf (AST/SGOT) 72H, Alanine Aminotransferase (ALT/SGPT) 62H, Alkaline Phosphatase 127, B-Type Natriuretic Peptide 846.9H, Total Protein 7.1, Albumin 4.0, Digoxin Level 1.30 07/24/18 11:22: Glucometer 115H 07/24/18 11:45: Urine Color YELLOW, Urine Clarity CLEAR, Urine pH 5, Urine Specific [place] 1.025H, Urine Protein 2+H, Urine Glucose (UA) NEGATIVE, Urine Ketones NEGATIVE, Urine Nitrite NEGATIVE, Urine Bilirubin NEGATIVE, Urine Urobilinogen 1, Urine Leukocyte Esterase NEGATIVE, Urine RBC (Auto) 2+H, Urine RBC 0, Urine WBC 0, Urine Crystals PRESENTH, Urine Amorphous Sediment FEW JENNIFER URATESH, Urine Bacteria MODERATEH, Urine Casts PRESENT, Urine Coarse Granular Casts 2-5H, Urine Mucus NEGATIVE, Urine Culture Indicated NO 07/24/18 15:04: Blood Gas Puncture Site R RAD, Blood Gas Patient Temperature 98.2, Arterial Blood pH 7.23*L, Arterial Blood Partial Pressure CO2 80*H, Arterial Blood Partial Pressure O2 122H, Arterial Blood HCO3 33H, Arterial Blood Total CO2 35.2H, Arterial Blood Oxygen Saturation 98, Arterial Blood Base Excess 5.6H, Jose Test YES-POS, Blood Gas Ventilator Setting NO, Blood Gas Inspired Oxygen 3L 07/24/18 21:57: Blood Gas Puncture Site R RAD, Blood Gas Patient Temperature 97.3, Arterial Blood pH 7.25*L, Arterial Blood Partial Pressure CO2 80*H, Arterial Blood Partial Pressure O2 82, Arterial Blood HCO3 34H, Arterial Blood Total CO2 36.7H , Arterial Blood Oxygen Saturation 95, Arterial Blood Base Excess 7.0H, Jose Test YES-POS, Blood Gas Ventilator Setting NO, Blood Gas Inspired Oxygen 30% BIPAP 07/25/18 03:15: Blood Gas Puncture Site R RAD, Blood Gas Patient Temperature 98.7, Arterial Blood pH 7.30*L, Arterial Blood Partial Pressure CO2 65H, Arterial Blood Partial Pressure O2 114H, Arterial Blood HCO3 31H, Arterial Blood Total CO2 33.1H, Arterial Blood Oxygen Saturation 99, Arterial Blood Base Excess 5.1H, Jose Test YES-POS, Blood Gas Ventilator Setting NO, Blood Gas Inspired Oxygen 30% BIPAP 07/25/18 03:16: White Blood Count 5.4, Red Blood Count 4.41, Hemoglobin 13.1, Hematocrit 43, Mean Corpuscular Volume 98, Mean Corpuscular Hemoglobin 30, Mean Corpuscular Hemoglobin Concent 30L, Red Cell Distribution Width 15.2H, Platelet Count 120L, Mean Platelet Volume 11.2H, Neutrophils (%) (Auto) 95H, Lymphocytes (%) (Auto) 5L, Monocytes (%) (Auto) 1, Eosinophils (%) (Auto) 0, Basophils (%) (Auto) 0, Neutrophils # (Auto) 5.1, Lymphocytes # (Auto) 0.3L, Monocytes # (Auto) 0.0, Eosinophils # (Auto) 0.0, Basophils # (Auto) 0.0, Prothrombin Time 27.6H, INR Comment 2.6H, Sodium Level 144, Potassium Level 5.1H, Chloride Level 103, Carbon Dioxide Level 27, Anion Gap 14, Blood Urea Nitrogen 30H, Creatinine 1.07 , Estimat Glomerular Filtration Rate 49, BUN/Creatinine Ratio 28, Glucose Level 147H, Calcium Level 9.1, Phosphorus Level 4.5, Magnesium Level 2.0 Microbiology 07/24/18 Influenza Types A,B Antigen (SANTOS) - Final, Complete Laboratory Tests 07/24/18 11:20 07/25/18 03:16 A/P: Assessment: Chronic, permanent, valvular A Fib (this presentation with RVR). 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 Normal regional wall motion. 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 Considerable wgt loss since that surgery, according to the patient Hypertension, controlled H/o elevated transaminases Hyperlipidemia, treated with statin therapy S/p bilateral corneal transplants Plan: * Complex management due to multiple comorbidities that are outlined above * I discussed her case with Dr Hutton who had been covering the Cardiology Svce until this am * She is not a suitable candidate for [facility] intervention for MS * Plan is to treat vent response and heart failure * Monitor labs * Prognosis guarded MENDEL SALDANA MD FACP FAC CCDS Jul 25, 2018 09:08
[2018-07-25] MEDS ORDERED: TOLT2TAB5 PO (10:20)
[2018-07-25] MEDS ORDERED: ESCI20TA45 PO (10:20)
[2018-07-25] MEDS ORDERED: PROP10DR4 OD (10:20)
[2018-07-25] MEDS ORDERED: QUET25TA73 PO (10:20)
[2018-07-25] MEDS ORDERED: MENT118G TP (10:20)
[2018-07-25] MEDS ORDERED: FURO20TA4 PO (10:20)
[2018-07-25] MEDS ORDERED: POTA8TAB6 PO (10:20)
[2018-07-25] MEDS ORDERED: PROP10DR2 OU (10:20)
[2018-07-25] MEDS ORDERED: cefTRIAXone 1 GM/NS 50 ML IVPB IV SCH ×2 (14:00)
[2018-07-25] MEDS: 1/2 NS IV SOLUTION 1,000 ML IV SCH (14:12)
[2018-07-25] MEDS: ENOXAPARIN 40 MG/0.4 ML (LOVENOX) SYR SC SCH (14:12)
--- NOTE | 2018-07-25 18:48 | History & Physicial ---
History of Present Illness History of Present Illness Reason for visit/HPI This is an 88 year old female with chronic atrial fibrillation and severe mitral stenosis who was brought to the emergency room due to weakness with altered mental status. She was hypoxic upon arrival and had to be placed on BIPAP. She is currently sedated in the ICU on BIPAP. Date of Admission Jul 24, 2018 at 2:07 pm Date Seen by a Provider: Jul 25, 2018 Time Seen by a Provider: 12:45 I consulted on this patient on 07/25/18 18:43 Attending Physician Karen Mercado DO Admitting Physician Kat Ramos DO Consult Allergies and Home Medications Allergies Coded Allergies: nitrofurantoin (Verified Allergy, Intermediate, 04/18/15) Penicillins (Verified Allergy, Mild, 04/18/15) Sulfa (Sulfonamide Antibiotics) (Verified Allergy, Mild, 04/18/15) omeprazole (Verified Allergy, Mild, 04/18/15) guaifenesin (Verified Allergy, Unknown, 04/18/15) potassium guaiacolsulfonate (Verified Allergy, Unknown, 04/18/15) celecoxib (Unverified Adverse Reaction, Unknown, SICK TO STOMACH, 04/18/15) rosuvastatin (Unverified Adverse Reaction, Unknown, NAUSEA, 04/18/15) Uncoded Allergies: Protoni (Allergy, Mild, 02/05/16) NOTE THAT PT TAKES PROTONIX AT HOME Home Medications Atorvastatin Calcium 40 Mg Tablet, 40 MG PO HS, (Reported) Digoxin 250 Mcg Tablet, 250 MCG PO Q48H, (Reported) Escitalopram Oxalate 20 Mg Tablet, 20 MG PO HS, (Reported) Furosemide 20 Mg Tablet, 20 MG PO DAILY, (Reported) Loteprednol Etabonate 5 Ml Drops, 1 DROP OU DAILY, (Reported) Menthol 118 Ml Gel..ml., TP HS, (Reported) Pantoprazole Sodium 40 Mg Tablet.dr, 40 MG PO HS, (Reported) Potassium Chloride 8 Meq Tablet.er, 8 MEQ PO DAILY, (Reported) Vit #76/Iron,Carb/FA 1 Each Tablet, 1 TAB PO HS, (Reported) Propylene Glycol/Peg 400 10 Ml Drops, 1 DROP OU QID, (Reported) Quetiapine Fumarate 25 Mg Tablet, 25 MG PO 1800, (Reported) Tolterodine Tartrate 2 Mg Tablet, 2 MG PO HS, (Reported) Warfarin Sodium 5 Mg Tablet, 5 MG PO 1700, (Reported) Patient Home Medication List Home Medication List Reviewed: Yes Past Zkhvviw-Mutple-Nsfbfp Hx Patient Social History Marrital Status: Employed/Student: retired Alcohol Use: Denies Use Recreational Drug Use: No Smoking Status: Never a Smoker 2nd Hand Smoke Exposure: No Physical Abuse Screen: No Sexual Abuse: No Recent Foreign Travel: No Contact w/other who traveled: No Recent Hopitalizations: No Recent Infectious Disease Expo: No Immunizations Up To Date Tetanus Booster (TDap): Less than 5yrs Pediatric: No Date of Pneumonia Vaccine: Aug 30, 2015 Date of Influenza Vaccine: Jun 17, 2017 Seasonal Allergies Seasonal Allergies: No Surgeries Yes (FISTULA REPAIR,CORNEA TRANSPLANT,CARDIAC CATH,SKYLAR W/ PERF ESOPHAGUS/REPAIR ) Abdominal, Cardiac, Eye Surgery, Gallbladder, Hysterectomy, Tracheostomy Respiratory Yes (RESP.FAILURE-TRACH/VENTILATOR/REMOVAL, CHEST TUBE/REMOVAL) Currently Using CPAP: No Currently Using BIPAP: Yes Cardiovascular Yes (CHF) Atrial Fibrillation, Cardiomyopathy, Coronary Artery Disease, High Cholesterol, Hypertension, Irregular Heartbeat Neurological Yes (DENIES, BUT HAS PARESTHESIAS TO TOES) Reproductive System : No Hx Reproductive Disorders: No Sexually Transmitted Disease: No HIV/AIDS: No Female Reproductive Disorders: Denies 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 12-16) HEENT Disorders: Cataract, Eye Injury Loss of Vision: Bilateral Hearing Impairment: Hard of Hearing, Bilateral Hearing Aide Cancer No Did You Recieve Any Treatments: No Psychosocial History of Psychiatric Problem: Yes Behavioral Health Disorders: Depression Integumentary History of Skin or Integumenta: No Blood Transfusions History of Blood Disorders: No Adverse Reaction to a Blood Tr: No Family Medical History Significant Family History: Cancer Family Hx: FH: arrhythmia FH: breast cancer Review of Systems Constitutional: fever, weakness EENTM: No see HPI, No no symptoms reported, No ear discharge, No hearing loss, No ear pain, No blurred vision, No double vision, No eye pain, No tearing, No vision loss, No dental problems, No hoarseness, No mouth pain, No mouth swelling , No epistaxis, No nose congestion, No nose pain, No throat pain, No throat swelling, No other Respiratory: No no symptoms reported, No see HPI, No cough, No dyspnea on exertion, No hemoptysis, No orthopnea, No phlegm, No short of breath, No stridor , No wheezing, No other Cardiovascular: No no symptoms reported, No see HPI, No chest pain, No edema, No Hx of Intervention, No palpitations, No syncope, No vascular heart diseas, No other Gastrointestinal: No RUQ, No LUQ, No RLQ, No LLQ, No no symptoms reported, No see HPI, No abdominal pain, No constipation, No diarrhea, No dysphagia, No hematemesis, No heartburn, No jaundice, No loss of appetite, No melena, No nausea, No vomiting, No other Genitourinary: No no symptoms reported, No see HPI, No decreased output, No discharge, No dysuria, No frequency, No hematuria, No hesitancy, No incontinence , No nocturia, No pain, No other Musculoskeletal: muscle weakness Skin: No no symptoms reported, No see HPI, No change in color, No change in hair/nails, No dryness, No hx of skin cancer, No lesions, No lumps, No pruritus , No rash, No other Psychiatric/Neurological: Pre-Existing Deficit, Weakness, Other (confusion) Physical Exam Vital Signs Vital Signs - First Documented 07/24/18 07/24/18 07/24/18 11:04 16:21 20:00 Temp 100.9 Pulse 105 Resp 50 B/P (MAP) 102/69 (80) Pulse Ox 66 O2 Delivery Room Air O2 Flow Rate 30.00 FiO2 30 Capillary Refill : Greater Than 3 Seconds Height, Weight, BMI Height: 5'6.00" Weight: 135lbs. 0.0oz. 61.517719dc; 20.8 BMI Method:Estimated General Appearance: Other (sedated on BIPAP) Neck: Supple Respiratory: Lungs Clear, Decreased Breath Sounds Cardiovascular: Systolic Murmur, Gallop/S4, Irregularly Irregular Gastrointestinal: Normal Bowel Sounds, Soft Back: No CVA Tenderness Extremity: No Pedal Edema Neurologic/Psychiatric: Other (sedated on ventilator) Skin: Warm/Dry Comments Laboratory Tests 07/24/18 11:20: White Blood Count 6.0, Red Blood Count 4.55, Hemoglobin 13.4, Hematocrit 45, Mean Corpuscular Volume 99, Mean Corpuscular Hemoglobin 30, Mean Corpuscular Hemoglobin Concent 30L, Red Cell Distribution Width 15.3H, Platelet Count 133, Mean Platelet Volume 10.6H, Neutrophils (%) (Auto) 90H, Lymphocytes (%) (Auto) 7L, Monocytes (%) (Auto) 3, Eosinophils (%) (Auto) 0, Basophils (%) (Auto) 0, Neutrophils # (Auto) 5.4, Lymphocytes # (Auto) 0.4L, Monocytes # (Auto) 0.2, Eosinophils # (Auto) 0.0, Basophils # (Auto) 0.0, Neutrophils % (Manual) 87, Lymphocytes % (Manual) 5, Monocytes % (Manual) 3, Band Neutrophils 5, Hypochromasia SLIGHT, Anisocytosis SLIGHT, Elliptocytes SLIGHT, Prothrombin Time 24.7H, INR Comment 2.2H, Activated Partial Thromboplast Time 33, Sodium Level 145, Potassium Level 5.3H, Chloride Level 101, Carbon Dioxide Level 33H, Anion Gap 11, Blood Urea Nitrogen 26H, Creatinine 1.22, Estimat Glomerular Filtration Rate 42, BUN/Creatinine Ratio 21, Glucose Level 124H, Lactic Acid Level 1.44, Calcium Level 9.6, Corrected Calcium 9.6, Total Bilirubin 1.1H, Aspartate Amino Transf (AST/SGOT) 72H, Alanine Aminotransferase (ALT/SGPT) 62H, Alkaline Phosphatase 127, B-Type Natriuretic Peptide 846.9H, Total Protein 7.1, Albumin 4.0, Digoxin Level 1.30 07/24/18 11:22: Glucometer 115H 07/24/18 11:45: Urine Color YELLOW, Urine Clarity CLEAR, Urine pH 5, Urine Specific [place] 1.025H, Urine Protein 2+H, Urine Glucose (UA) NEGATIVE, Urine Ketones NEGATIVE, Urine Nitrite NEGATIVE, Urine Bilirubin NEGATIVE, Urine Urobilinogen 1, Urine Leukocyte Esterase NEGATIVE, Urine RBC (Auto) 2+H, Urine RBC 0, Urine WBC 0, Urine Crystals PRESENTH, Urine Amorphous Sediment FEW JENNIFER URATESH, Urine Bacteria MODERATEH, Urine Casts PRESENT, Urine Coarse Granular Casts 2-5H, Urine Mucus NEGATIVE, Urine Culture Indicated NO 07/24/18 15:04: Blood Gas Puncture Site R RAD, Blood Gas Patient Temperature 98.2, Arterial Blood pH 7.23*L, Arterial Blood Partial Pressure CO2 80*H, Arterial Blood Partial Pressure O2 122H, Arterial Blood HCO3 33H, Arterial Blood Total CO2 35.2H, Arterial Blood Oxygen Saturation 98, Arterial Blood Base Excess 5.6H, Jose Test YES-POS, Blood Gas Ventilator Setting NO, Blood Gas Inspired Oxygen 3L 07/24/18 21:57: Blood Gas Puncture Site R RAD, Blood Gas Patient Temperature 97.3, Arterial Blood pH 7.25*L, Arterial Blood Partial Pressure CO2 80*H, Arterial Blood Partial Pressure O2 82, Arterial Blood HCO3 34H, Arterial Blood Total CO2 36.7H , Arterial Blood Oxygen Saturation 95, Arterial Blood Base Excess 7.0H, Jose Test YES-POS, Blood Gas Ventilator Setting NO, Blood Gas Inspired Oxygen 30% BIPAP 07/25/18 03:15: Blood Gas Puncture Site R RAD, Blood Gas Patient Temperature 98.7, Arterial Blood pH 7.30*L, Arterial Blood Partial Pressure CO2 65H, Arterial Blood Partial Pressure O2 114H, Arterial Blood HCO3 31H, Arterial Blood Total CO2 33.1H, Arterial Blood Oxygen Saturation 99, Arterial Blood Base Excess 5.1H, Jose Test YES-POS, Blood Gas Ventilator Setting NO, Blood Gas Inspired Oxygen 30% BIPAP 07/25/18 03:16: White Blood Count 5.4, Red Blood Count 4.41, Hemoglobin 13.1, Hematocrit 43, Mean Corpuscular Volume 98, Mean Corpuscular Hemoglobin 30, Mean Corpuscular Hemoglobin Concent 30L, Red Cell Distribution Width 15.2H, Platelet Count 120L, Mean Platelet Volume 11.2H, Neutrophils (%) (Auto) 95H, Lymphocytes (%) (Auto) 5L, Monocytes (%) (Auto) 1, Eosinophils (%) (Auto) 0, Basophils (%) (Auto) 0, Neutrophils # (Auto) 5.1, Lymphocytes # (Auto) 0.3L, Monocytes # (Auto) 0.0, Eosinophils # (Auto) 0.0, Basophils # (Auto) 0.0, Prothrombin Time 27.6H, INR Comment 2.6H, Sodium Level 144, Potassium Level 5.1H, Chloride Level 103, Carbon Dioxide Level 27, Anion Gap 14, Blood Urea Nitrogen 30H, Creatinine 1.07 , Estimat Glomerular Filtration Rate 49, BUN/Creatinine Ratio 28, Glucose Level 147H, Calcium Level 9.1, Phosphorus Level 4.5, Magnesium Level 2.0 Assessment/Plan Assessment and Plan 1. Acute Respiratory Failure with Hypoxia--sedated on BIPAP, on solumedrol and rocephin due to fever on admission 2. Acute on Chronic Diastolic CHF due to severe mitral stenosis--not a candidate for intervention except for medical management 3. Chronic atrial fibrillation--coumadin resumed but patient too sedated to take so will give lovenox for dvt prophylaxis and check PT/INR 4. Dementia--exacerbated with recent illness Admission Diagnosis Admission Status: Inpatient Order (span 2 midnights) Reason for Inpatient Admission: Patient in respiratory failure and requring sedation for BIPAP Clinical Quality Measures DVT/VTE Risk/Contraindication: Risk Factor Score Per Nursin RFS Level Per Nursing on Admit: 4+=Very High KAT RAMOS DO Jul 25, 2018 6:48 pm
[2018-07-25] MEDS ORDERED: FAMOTIDINE 20MG/2ML IV (PEPCID) IVP SCH (21:00)
[2018-07-25] MEDS: FAMOTIDINE 20MG/2ML IV (PEPCID) IVP SCH (21:19)
[2018-07-26] VITALS (26 sets, daily range): BP systolic 116–160; BP diastolic 69–108
[2018-07-26] MEDS: DEXMEDETOMIDINE INJECTION 200 MCG in NS (IVPB) 50 ML IV SCH ×3 (01:47→20:45)
[2018-07-26 03:32] LABS: BASOPHILS % (AUTO) 0 % (0-10); EOSINOPHILS % (AUTO) 0 % (0-10); HEMATOCRIT 40 % (35-52); HEMOGLOBIN 12.6 G/DL (11.5-16.0); LYMPHOCYTES # (AUTO) 0.5 X 10^3 (1.0-4.0); LYMPHOCYTES % (AUTO) 7 % (12-44); MEAN CORPUSCULAR HEMOGLOBIN 29 PG (25-34); MEAN CORPUSCULAR HGB CONC 31 G/DL (32-36); MEAN CORPUSCULAR VOLUME 94 FL (80-99); MEAN PLATELET VOLUME 11.2 FL (7.4-10.4); MONOCYTES # (AUTO) 0.3 X 10^3 (0.0-1.0); MONOCYTES % (AUTO) 4 % (0-12); NEUTROPHILS # (AUTO) 5.7 X 10^3 (1.8-7.8); NEUTROPHILS % (AUTO) 89 % (42-75); PLATELET COUNT 110 10^3/uL (130-400); RED BLOOD COUNT 4.31 10^6/uL (4.35-5.85); RED CELL DISTRIBUTION WIDTH 15.1 % (10.0-14.5); WHITE BLOOD COUNT 6.4 10^3/uL (4.3-11.0)
[2018-07-26] MEDS: 1/2 NS IV SOLUTION 1,000 ML IV SCH ×2 (03:50→15:54)
[2018-07-26] MEDS: methylPREDNISolone 40 MG/ML (Solu-MEDROL) VIAL IV SCH ×4 (03:50→21:35)
[2018-07-26 03:54] LABS: CALCIUM 8.9 MG/DL (8.5-10.1); CREATININE SERUM 1.05 MG/DL (0.60-1.30); MAGNESIUM 2.2 MG/DL (1.8-2.4); PHOSPHORUS 3.5 MG/DL (2.3-4.7); POTASSIUM 4.7 MMOL/L (3.6-5.0)
[2018-07-26 04:04] LABS: DIGOXIN 0.67 NG/ML (0.80-2.00)
[2018-07-26 05:05] LABS: INR 4.9 (0.8-1.4)
[2018-07-26 05:07] LABS: PROTHROMBIN TIME PATIENT 46.6 SEC (12.2-14.7)
[2018-07-26] MEDS: MAGNESIUM 1 GM/100 ML IVPB 100 ML IV SCH (05:19)
[2018-07-26] MEDS: POTASSIUM CL 10MEQ/50ML IVPB 50 ML IV SCH (05:19)
[2018-07-26] MEDS: KCL 20 MEQ TAB (K-DUR) PO SCH (05:19)
[2018-07-26 06:17] LABS: ABG OXYGEN SATURATION 97 % (94-100); ABG PCO2 49 MMHG (35-45); ABG PO2 89 MMHG (79-93); ABG TCO2 31.2 MMOL/L (21.0-31.0)
[2018-07-26 06:20] LABS: ALLENS TEST POSITIVE; INSPIRED O2 30%; PATIENT TEMP 97.8; VENTILATOR NO
--- NOTE | 2018-07-26 07:04 | Pulmonary Progress Note ---
Sepsis Event Evaluation Height, Weight, BMI Height: 5'6.00" Weight: 132lbs. 3.0oz. 59.799711xt; 20.8 BMI Method:Estimated Focused Exam Lactate Level 07/24/18 11:20: Lactic Acid Level 1.44 Exam Exam Vital Signs Date Time Temp Pulse Resp B/P (MAP) Pulse Ox O2 Delivery O2 Flow Rate FiO2 07/26/18 06:37 61 25 96 25.00 07/26/18 06:00 64 13 152/97 (115) 98 NIV Bilevel 30.00 07/26/18 05:00 74 20 153/89 (110) 97 NIV Bilevel 30.00 07/26/18 04:00 65 21 132/77 (95) 98 NIV Bilevel 30.00 07/26/18 03:50 99 NIV Bilevel 30 07/26/18 03:50 97.1 86 18 96 NIV Bilevel 30.00 07/26/18 03:00 71 23 116/71 (86) 90 NIV Bilevel 30.00 07/26/18 02:20 69 14 96 25.00 07/26/18 02:00 68 16 148/93 (111) 95 NIV Bilevel 30.00 07/26/18 01:00 78 07/26/18 01:00 78 17 155/96 (115) 98 NIV Bilevel 30.00 07/26/18 00:35 67 24 160/100 (120) 99 NIV Bilevel 30.00 07/26/18 00:01 80 16 100 25.00 07/26/18 00:00 98.6 NIV Bilevel 30.00 07/25/18 23:35 96 NIV Bilevel 30 07/25/18 23:00 72 28 145/81 (102) 96 NIV Bilevel 30.00 07/25/18 23:00 80 21 94 30.00 07/25/18 22:00 70 32 112/84 (93) 99 NIV Bilevel 30.00 07/25/18 21:00 82 22 126/81 (96) 99 NIV Bilevel 30.00 07/25/18 20:00 98.4 92 18 124/92 (103) 98 NIV Bilevel 30.00 07/25/18 20:00 98 NIV Bilevel 30 07/25/18 19:00 74 23 146/91 (109) 100 NIV Bilevel 30.00 07/25/18 19:00 74 07/25/18 18:20 88 16 97 30.00 07/25/18 18:00 75 13 149/97 (114) 99 NIV Bilevel 30.00 07/25/18 17:00 85 17 146/96 (113) 98 NIV Bilevel 30.00 07/25/18 16:44 89 17 93 30.00 07/25/18 16:34 97.6 NIV Bilevel 30.00 07/25/18 16:34 NIV Bilevel 30 07/25/18 16:00 72 10 141/79 (99) 98 NIV Bilevel 30.00 07/25/18 15:00 95 12 145/77 (99) 99 NIV Bilevel 30.00 07/25/18 14:31 63 19 100 30.00 07/25/18 14:00 74 10 122/84 (97) 100 NIV Bilevel 30.00 07/25/18 13:00 75 13 138/86 (103) 98 NIV Bilevel 30.00 07/25/18 13:00 73 07/25/18 12:44 94 22 97 30.00 07/25/18 12:39 98.5 NIV Bilevel 30.00 07/25/18 12:39 NIV Bilevel 30 07/25/18 12:00 75 18 113/102 (106) 97 NIV Bilevel 30.00 07/25/18 11:00 74 24 118/92 (101) 99 NIV Bilevel 30.00 07/25/18 10:50 88 14 99 30.00 07/25/18 10:00 80 11 107/91 (96) 99 NIV Bilevel 30.00 07/25/18 09:00 61 23 123/83 (96) 99 NIV Bilevel 30.00 07/25/18 08:32 104 14 100 30.00 07/25/18 08:20 97.6 NIV Bilevel 30.00 07/25/18 08:20 NIV Bilevel 30 07/25/18 08:00 84 12 125/79 (94) 98 NIV Bilevel 30.00 I & O 07/26/18 07:00 Intake Total 1231 ml Output Total 757 ml Balance 474 ml Height & Weight Height: 5'6.00" Weight: 132lbs. 3.0oz. 59.127377od; 20.8 BMI Method:Estimated General Appearance: Other (sedated on BIPAP) HEENT: Other (right pupil clouded, presumably blind. Oropharynx very dry) Neck: Supple Respiratory: Lungs Clear, Decreased Breath Sounds Cardiovascular: Systolic Murmur, Gallop/S4, Irregularly Irregular Capillary Refill: Greater Than 3 Seconds Extremity: No Pedal Edema Neurologic/Psychiatric: Other (sedated on ventilator) Skin: Warm/Dry Results Lab Laboratory Tests 07/24/18 11:20 07/25/18 03:16 07/26/18 03:25 Assessment/Plan Assessment/Plan Acute on chronic respiratory failure -Currently on BiPAP -Precedex -PT is a DNR Pleural effusion -Monitor agitation/anxiety -precedex -Haldol Hypotension ARMANI CHENG DO Jul 26, 2018 07:04
--- NOTE | 2018-07-26 08:00 | Pulmonary Progress Note ---
Subjective Time Seen by a Provider: 07:59 Subjective/Events-last exam Pt currently on BiPAP and sedated. Sepsis Event Evaluation Height, Weight, BMI Height: 5'6.00" Weight: 132lbs. 3.0oz. 59.849809ma; 20.8 BMI Method:Estimated Focused Exam Lactate Level 07/24/18 11:20: Lactic Acid Level 1.44 Exam Exam Vital Signs Date Time Temp Pulse Resp B/P (MAP) Pulse Ox O2 Delivery O2 Flow Rate FiO2 07/26/18 06:37 61 25 96 25.00 07/26/18 06:00 64 13 152/97 (115) 98 NIV Bilevel 30.00 07/26/18 05:00 74 20 153/89 (110) 97 NIV Bilevel 30.00 07/26/18 04:00 65 21 132/77 (95) 98 NIV Bilevel 30.00 07/26/18 03:50 99 NIV Bilevel 30 07/26/18 03:50 97.1 86 18 96 NIV Bilevel 30.00 07/26/18 03:00 71 23 116/71 (86) 90 NIV Bilevel 30.00 07/26/18 02:20 69 14 96 25.00 07/26/18 02:00 68 16 148/93 (111) 95 NIV Bilevel 30.00 07/26/18 01:00 78 07/26/18 01:00 78 17 155/96 (115) 98 NIV Bilevel 30.00 07/26/18 00:35 67 24 160/100 (120) 99 NIV Bilevel 30.00 07/26/18 00:01 80 16 100 25.00 07/26/18 00:00 98.6 NIV Bilevel 30.00 07/25/18 23:35 96 NIV Bilevel 30 07/25/18 23:00 72 28 145/81 (102) 96 NIV Bilevel 30.00 07/25/18 23:00 80 21 94 30.00 07/25/18 22:00 70 32 112/84 (93) 99 NIV Bilevel 30.00 07/25/18 21:00 82 22 126/81 (96) 99 NIV Bilevel 30.00 07/25/18 20:00 98.4 92 18 124/92 (103) 98 NIV Bilevel 30.00 07/25/18 20:00 98 NIV Bilevel 30 07/25/18 19:00 74 23 146/91 (109) 100 NIV Bilevel 30.00 07/25/18 19:00 74 07/25/18 18:20 88 16 97 30.00 07/25/18 18:00 75 13 149/97 (114) 99 NIV Bilevel 30.00 07/25/18 17:00 85 17 146/96 (113) 98 NIV Bilevel 30.00 07/25/18 16:44 89 17 93 30.00 07/25/18 16:34 97.6 NIV Bilevel 30.00 07/25/18 16:34 NIV Bilevel 30 07/25/18 16:00 72 10 141/79 (99) 98 NIV Bilevel 30.00 07/25/18 15:00 95 12 145/77 (99) 99 NIV Bilevel 30.00 07/25/18 14:31 63 19 100 30.00 07/25/18 14:00 74 10 122/84 (97) 100 NIV Bilevel 30.00 07/25/18 13:00 75 13 138/86 (103) 98 NIV Bilevel 30.00 07/25/18 13:00 73 07/25/18 12:44 94 22 97 30.00 07/25/18 12:39 98.5 NIV Bilevel 30.00 07/25/18 12:39 NIV Bilevel 30 07/25/18 12:00 75 18 113/102 (106) 97 NIV Bilevel 30.00 07/25/18 11:00 74 24 118/92 (101) 99 NIV Bilevel 30.00 07/25/18 10:50 88 14 99 30.00 07/25/18 10:00 80 11 107/91 (96) 99 NIV Bilevel 30.00 07/25/18 09:00 61 23 123/83 (96) 99 NIV Bilevel 30.00 07/25/18 08:32 104 14 100 30.00 07/25/18 08:20 97.6 NIV Bilevel 30.00 07/25/18 08:20 NIV Bilevel 30 07/25/18 08:00 84 12 125/79 (94) 98 NIV Bilevel 30.00 I & O 07/26/18 07:00 Intake Total 1231 ml Output Total 757 ml Balance 474 ml Height & Weight Height: 5'6.00" Weight: 132lbs. 3.0oz. 59.944061yh; 20.8 BMI Method:Estimated General Appearance: Moderate Distress, Other (sedated on BIPAP) HEENT: Other (right pupil clouded, presumably blind. Oropharynx very dry) Neck: Supple Respiratory: Lungs Clear, Decreased Breath Sounds Cardiovascular: Systolic Murmur, Gallop/S4, Irregularly Irregular Capillary Refill: Greater Than 3 Seconds Extremity: No Pedal Edema Neurologic/Psychiatric: Other (sedated on ventilator) Skin: Warm/Dry Results Lab Laboratory Tests 07/24/18 11:20 07/25/18 03:16 07/26/18 03:25 Assessment/Plan Assessment/Plan Acute on chronic respiratory failure -Currently on BiPAP sedated - D/C Ativan and Precedex -trial patient off BiPAP and on Vapotherm -Precedex -- D/C -PT is a DNR Pleural effusion -Monitor agitation/anxiety -Haldol PRN Hypotension Consult Hospice for education. ARMANI CHENG DO Jul 26, 2018 08:00
--- NOTE | 2018-07-26 08:27 | Diagnostic Imaging Report ---
Indication: Dyspnea. Comparison: 07/25/2018. Findings: Stable marked enlargement of cardiac silhouette. Chronic linear opacities in the perihilar and basilar regions are unchanged. Possible trace left pleural effusion is also stable. No pneumothorax. No new airspace opacities. Impression: No interval worsening or improvement. Dictated by: Dictated on workstation # [id number]
--- NOTE | 2018-07-26 10:07 | Progress Note-Cardiology ---
Cardiology SOAP Progress Note Subjective: Unable to obtain any information from patient d/t lethargy Objective: I&O/Vital Signs 07/26/18 07/26/18 07/26/18 07/26/18 21:00 22:00 23:00 23:30 Pulse 68 74 78 Resp 15 7 21 B/P (MAP) 135/81 (99) 127/82 (97) 145/85 (105) Pulse Ox 100 100 100 99 O2 Delivery Vapotherm Vapotherm Vapotherm Vapotherm O2 Flow Rate 25.00 25.00 25.00 10.00 10.00 10.00 10.00 FiO2 25 07/26/18 07/27/18 07/27/18 07/27/18 23:30 00:00 01:00 01:00 Temp 97.5 Pulse 77 79 80 Resp 28 21 B/P (MAP) 142/59 (86) 129/79 (96) Pulse Ox 91 100 O2 Delivery Vapotherm Vapotherm Vapotherm O2 Flow Rate 25.00 25.00 25.00 10.00 10.00 10.00 07/27/18 07/27/18 07/27/18 07/27/18 01:25 01:29 02:00 03:00 Pulse 72 79 Resp 21 15 B/P (MAP) 134/78 (96) 124/64 (84) Pulse Ox 100 100 100 O2 Delivery Vapotherm Vapotherm Vapotherm Vapotherm O2 Flow Rate 10.00 21.00 21.00 21.00 10.00 10.00 10.00 FiO2 25 07/27/18 07/27/18 07/27/18 07/27/18 03:45 03:45 04:00 05:00 Temp 98.0 Pulse 72 84 Resp 10 17 B/P (MAP) 135/84 (101) 112/57 (75) Pulse Ox 99 100 95 O2 Delivery Vapotherm Vapotherm Vapotherm Vapotherm O2 Flow Rate 21.00 10.00 21.00 21.00 10.00 10.00 10.00 FiO2 21 07/27/18 07/27/18 07/27/18 07/27/18 06:00 06:37 06:45 06:47 Pulse 81 Resp 16 B/P (MAP) 128/77 (94) Pulse Ox 100 100 O2 Delivery Vapotherm Vapotherm Nasal Cannula Nasal Cannula O2 Flow Rate 21.00 10.00 2.00 2.00 10.00 FiO2 21 100 07/27/18 07:44 Temp 98.4 Pulse 98 Resp 26 B/P (MAP) 138/74 (95) Pulse Ox 97 O2 Delivery Nasal Cannula O2 Flow Rate 2.00 07/27/18 00:00 Intake Total 1662 ml Output Total 425 ml Balance 1237 ml Weight (Pounds): 132 Weight (Ounces): 3.0 Weight (Calculated Kilograms): 59.314114 Constitutional: other (thin-appearing, does not appear in distress, drowsy and non-reponsive to questions) Respiratory: chest is bilaterally symmetric, other (fair bilat air entry, diminished at the bases) Cardiovascular: irregularly irregular, S1 and S2, diastolic murmur Gastrointestional: No tender, No guarding, No rebound; audible bowel sounds Extremities: No clubbing, No cyanosis, No significant edema Neurologic/Psychiatric: other (does not respond to questions, likely due to sedation, moves all limbs equally) Skin: normal color, warm/dry Results/Procedures: Labs Laboratory Tests 07/27/18 03:25: White Blood Count 8.6, Red Blood Count 4.23L, Hemoglobin 12.4, Hematocrit 39, Mean Corpuscular Volume 92, Mean Corpuscular Hemoglobin 29, Mean Corpuscular Hemoglobin Concent 32, Red Cell Distribution Width 15.2H, Platelet Count 118L, Mean Platelet Volume 11.7H, Neutrophils (%) (Auto) 95H, Lymphocytes (%) (Auto) 3L, Monocytes (%) (Auto) 3, Eosinophils (%) (Auto) 0, Basophils (%) (Auto) 0, Neutrophils # (Auto) 8.2H, Lymphocytes # (Auto) 0.2L, Monocytes # (Auto) 0.2, Eosinophils # (Auto) 0.0, Basophils # (Auto) 0.0, Prothrombin Time 40.2H, INR Comment 4.1H, Sodium Level 139, Potassium Level 4.5, Chloride Level 103, Carbon Dioxide Level 26, Anion Gap 10, Blood Urea Nitrogen 44H, Creatinine 0.80, Estimat Glomerular Filtration Rate > 60, BUN/Creatinine Ratio 55, Glucose Level 114H, Calcium Level 9.0, Phosphorus Level 2.8, Magnesium Level 2.0 Microbiology 07/24/18 Blood Culture - Preliminary, Resulted No growth 07/24/18 Influenza Types A,B Antigen (SANTOS) - Final, Complete 07/24/18 Urine Culture - Final, Complete Escherichia coli Procedures NAME: RISHI CHILEL [facility] REC#: [id number] PT STATUS: ADM IN : 1930 PHYSICIAN: ARMANI CHENG DO ADMIT DATE: 07/24/18/ICU Draft Date of Exam:07/26/18 CHEST 1 VIEW, AP/PA ONLY Indication: Dyspnea. Comparison: 07/25/2018. Findings: Stable marked enlargement of cardiac silhouette. Chronic linear opacities in the perihilar and basilar regions are unchanged. Possible trace left pleural effusion is also stable. No pneumothorax. No new airspace opacities. Impression: No interval worsening or improvement. Dictated on workstation # [id number] Dict: 07/26/18 08 Trans: 07/26/18 08 CVB [id number] Interpreted by: OTILIO BURNS MD Electronically signed by: A/P: Assessment: Chronic, permanent, valvular A Fib (this presentation with RVR). 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 Normal regional wall motion. 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 Considerable wgt loss since that surgery, according to the patient Hypertension - not well controlled H/o elevated transaminases Hyperlipidemia, treated with statin therapy S/p bilateral corneal transplants Plan: * Complex management due to multiple comorbidities that are outlined above * She is not a suitable candidate for [facility] intervention for MS * Plan is to treat vent response and heart failure * Supra-therapeutic INR - warfarin being withheld * Mild thrombocytopenia of undetermined etiology - management per medical services * Monitor labs * Prognosis guarded CRISTAL BUSTAMANTE Jul 26, 2018 10:07
[2018-07-26] MEDS: ENOXAPARIN 40 MG/0.4 ML (LOVENOX) SYR SC SCH (12:41)
[2018-07-26] MEDS ORDERED: MEROPENEM 500 MG in NS (IVPB) 100 ML IV ONE (13:00)
[2018-07-26] MEDS: MEROPENEM 500 MG in NS (IVPB) 100 ML IV SCH ×2 (13:36→20:35)
--- NOTE | 2018-07-26 17:00 | Progress Note-Cardiology ---
Cardiology SOAP Progress Note Subjective: Denies cp or palp or syncope or shortness of breath Does not know why she is here Objective: I&O/Vital Signs 07/26/18 07/26/18 07/26/18 07/26/18 05:00 06:00 06:37 07:00 Pulse 74 64 61 55 Resp 20 13 25 12 B/P (MAP) 153/89 (110) 152/97 (115) 156/91 (112) Pulse Ox 97 98 96 98 O2 Delivery NIV Bilevel NIV Bilevel NIV Bilevel O2 Flow Rate 30.00 30.00 25.00 30.00 07/26/18 07/26/18 07/26/18 07/26/18 07:00 08:00 08:05 08:56 Temp 98.4 Pulse 65 69 Resp 13 B/P (MAP) 159/99 (119) Pulse Ox 96 97 O2 Delivery NIV Bilevel Vapotherm Vapotherm O2 Flow Rate 30.00 20.00 30.00 FiO2 50 07/26/18 07/26/18 07/26/18 07/26/18 08:56 09:00 09:56 10:00 Pulse 63 59 Resp 18 16 B/P (MAP) 144/97 (113) 144/106 (119) Pulse Ox 99 99 100 O2 Delivery Vapotherm Vapotherm Vapotherm Vapotherm O2 Flow Rate 20.00 30.00 20.00 30.00 FiO2 60 40 07/26/18 07/26/18 07/26/18 07/26/18 11:00 12:00 12:29 12:29 Temp 98.2 Pulse 65 62 Resp 8 18 B/P (MAP) 152/79 (103) 148/108 (121) Pulse Ox 97 97 96 O2 Delivery Vapotherm Vapotherm Vapotherm O2 Flow Rate 30.00 30.00 15.00 FiO2 30 07/26/18 07/26/18 07/26/18 07/26/18 12:42 13:00 15:54 15:54 Temp 97.3 Pulse 63 Pulse Ox 94 94 O2 Delivery Vapotherm Vapotherm Vapotherm O2 Flow Rate 15.00 30.00 15.00 15.00 FiO2 30 30 07/26/18 00:00 Intake Total 102 ml Output Total 335 ml Balance -233 ml Weight (Pounds): 132 Weight (Ounces): 3.0 Weight (Calculated Kilograms): 59.236134 Constitutional: No AAO x 3, No apparent distress; other (thin-appearing) Respiratory: chest is bilaterally symmetric, other (fair bilat air entry, diminished at the bases) Cardiovascular: irregularly irregular, S1 and S2, diastolic murmur Gastrointestional: No tender, No guarding, No rebound; audible bowel sounds Extremities: No clubbing, No cyanosis, No significant edema Neurologic/Psychiatric: other (moves all limbs equally, is disoriented) Skin: normal color, warm/dry; No rash on exposed areas, No ulcerations on exposed areas Results/Procedures: Labs Laboratory Tests 07/26/18 03:25: White Blood Count 6.4, Red Blood Count 4.31L, Hemoglobin 12.6, Hematocrit 40, Mean Corpuscular Volume 94, Mean Corpuscular Hemoglobin 29, Mean Corpuscular Hemoglobin Concent 31L, Red Cell Distribution Width 15.1H, Platelet Count 110L, Mean Platelet Volume 11.2H, Neutrophils (%) (Auto) 89H, Lymphocytes (%) (Auto) 7L, Monocytes (%) (Auto) 4, Eosinophils (%) (Auto) 0, Basophils (%) (Auto) 0, Neutrophils # (Auto) 5.7, Lymphocytes # (Auto) 0.5L, Monocytes # (Auto) 0.3, Eosinophils # (Auto) 0.0, Basophils # (Auto) 0.0, Prothrombin Time 46.6*H, INR Comment 4.9H, Sodium Level 143, Potassium Level 4.7, Chloride Level 105, Carbon Dioxide Level 26, Anion Gap 12, Blood Urea Nitrogen 49H, Creatinine 1.05, Estimat Glomerular Filtration Rate 50, BUN/Creatinine Ratio 47, Glucose Level 173H, Calcium Level 8.9, Phosphorus Level 3.5, Magnesium Level 2.2, Digoxin Level 0.67L 07/26/18 06:10: Blood Gas Puncture Site LEFT RADIAL, Blood Gas Patient Temperature 97.8, Arterial Blood pH 7.40, Arterial Blood Partial Pressure CO2 49H, Arterial Blood Partial Pressure O2 89, Arterial Blood HCO3 30H, Arterial Blood Total CO2 31.2H , Arterial Blood Oxygen Saturation 97, Arterial Blood Base Excess 5.0H, Jose Test POSITIVE, Blood Gas Ventilator Setting NO, Blood Gas Inspired Oxygen 30% Microbiology 07/24/18 Blood Culture - Preliminary, Resulted No growth 07/24/18 Influenza Types A,B Antigen (SANTOS) - Final, Complete 07/24/18 Urine Culture - Final, Complete Escherichia coli Laboratory Tests 07/25/18 03:16 07/26/18 03:25 A/P: Assessment: Chronic, permanent, valvular A Fib (this presentation with RVR). 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 Normal regional wall motion. 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 Considerable wgt loss since that surgery, according to the patient Hypertension - not well controlled H/o elevated transaminases Hyperlipidemia, treated with statin therapy S/p bilateral corneal transplants Plan: * Complex management due to multiple comorbidities that are outlined above * She is not a suitable candidate for [facility] intervention for mitral stenosis * Plan is to treat vent response and heart failure * Supra-therapeutic INR - warfarin being withheld * Stop enoxaparin because INR is supra-therapeutic and there is mild thrombocytopenia * Monitor labs * Prognosis guarded MENDEL SALDANA MD FACP [facility] Jul 26, 2018 17:00
[2018-07-26] MEDS ORDERED: MEROPENEM 500 MG in NS (IVPB) 100 ML IV SCH (18:00)
--- NOTE | 2018-07-26 19:22 | Progress Note (SOAP) ---
Subjective Date Seen by a Provider: Jul 26, 2018 Time Seen by a Provider: 12:45 Subjective/Events-last exam Fwup acute respiratory failure, acute on chronic diastolic CHF with severe mitral valve stenosis, chronic atrial fibrillation, dementia with behavior disorder. Off BIPAP and on vapotherm. Still sedated mildly on precedex. Focused Exam Lactate Level 07/24/18 11:20: Lactic Acid Level 1.44 Objective Exam Vital Signs Date Time Temp Pulse Resp B/P (MAP) Pulse Ox O2 Delivery O2 Flow Rate FiO2 07/26/18 17:47 Vapotherm 25.00 10.00 07/26/18 17:00 61 21 132/72 (92) 95 Vapotherm 30.00 15.00 07/26/18 16:00 77 9 153/97 (115) 92 Vapotherm 30.00 15.00 07/26/18 15:54 94 Vapotherm 15.00 30 07/26/18 15:54 97.3 Vapotherm 30.00 15.00 07/26/18 15:00 75 19 129/71 (90) 93 Vapotherm 30.00 15.00 07/26/18 14:00 69 17 150/89 (109) 97 Vapotherm 30.00 15.00 07/26/18 13:00 63 14 144/90 (108) 95 Vapotherm 30.00 15.00 07/26/18 13:00 63 07/26/18 12:42 94 Vapotherm 15.00 30 07/26/18 12:29 96 Vapotherm 15.00 30 07/26/18 12:29 98.2 07/26/18 12:00 62 18 148/108 (121) 97 Vapotherm 30.00 07/26/18 11:00 65 8 152/79 (103) 97 Vapotherm 30.00 07/26/18 10:00 59 16 144/106 (119) 100 Vapotherm 30.00 07/26/18 09:56 Vapotherm 20.00 40 07/26/18 09:00 63 18 144/97 (113) 99 Vapotherm 30.00 07/26/18 08:56 99 Vapotherm 20.00 60 07/26/18 08:56 98.4 Vapotherm 30.00 07/26/18 08:05 97 Vapotherm 20.00 50 07/26/18 08:00 69 13 159/99 (119) 96 NIV Bilevel 30.00 07/26/18 07:00 65 07/26/18 07:00 55 12 156/91 (112) 98 NIV Bilevel 30.00 07/26/18 06:37 61 25 96 25.00 07/26/18 06:00 64 13 152/97 (115) 98 NIV Bilevel 30.00 07/26/18 05:00 74 20 153/89 (110) 97 NIV Bilevel 30.00 07/26/18 04:00 65 21 132/77 (95) 98 NIV Bilevel 30.00 07/26/18 03:50 99 NIV Bilevel 30 07/26/18 03:50 97.1 86 18 96 NIV Bilevel 30.00 07/26/18 03:00 71 23 116/71 (86) 90 NIV Bilevel 30.00 07/26/18 02:20 69 14 96 25.00 07/26/18 02:00 68 16 148/93 (111) 95 NIV Bilevel 30.00 07/26/18 01:00 78 07/26/18 01:00 78 17 155/96 (115) 98 NIV Bilevel 30.00 07/26/18 00:35 67 24 160/100 (120) 99 NIV Bilevel 30.00 07/26/18 00:01 80 16 100 25.00 07/26/18 00:00 98.6 NIV Bilevel 30.00 07/25/18 23:35 96 NIV Bilevel 30 07/25/18 23:00 72 28 145/81 (102) 96 NIV Bilevel 30.00 07/25/18 23:00 80 21 94 30.00 07/25/18 22:00 70 32 112/84 (93) 99 NIV Bilevel 30.00 07/25/18 21:00 82 22 126/81 (96) 99 NIV Bilevel 30.00 07/25/18 20:00 98.4 92 18 124/92 (103) 98 NIV Bilevel 30.00 07/25/18 20:00 98 NIV Bilevel 30 I & O 07/26/18 07:00 Intake Total 1231 ml Output Total 757 ml Balance 474 ml Capillary Refill : Greater Than 3 Seconds General Appearance: No Apparent Distress Neck: Supple Respiratory: Lungs Clear Cardiovascular: Systolic Murmur, Gallop/S4, Irregularly Irregular Gastrointestinal: normal bowel sounds, non tender, soft Extremity: Non Tender, No Calf Tenderness, No Pedal Edema Neurologic/Psychiatric: Other (sedated on precedex) Skin: Warm/Dry Results Lab Laboratory Tests 07/26/18 03:25: White Blood Count 6.4, Red Blood Count 4.31L, Hemoglobin 12.6, Hematocrit 40, Mean Corpuscular Volume 94, Mean Corpuscular Hemoglobin 29, Mean Corpuscular Hemoglobin Concent 31L, Red Cell Distribution Width 15.1H, Platelet Count 110L, Mean Platelet Volume 11.2H, Neutrophils (%) (Auto) 89H, Lymphocytes (%) (Auto) 7L, Monocytes (%) (Auto) 4, Eosinophils (%) (Auto) 0, Basophils (%) (Auto) 0, Neutrophils # (Auto) 5.7, Lymphocytes # (Auto) 0.5L, Monocytes # (Auto) 0.3, Eosinophils # (Auto) 0.0, Basophils # (Auto) 0.0, Prothrombin Time 46.6*H, INR Comment 4.9H, Sodium Level 143, Potassium Level 4.7, Chloride Level 105, Carbon Dioxide Level 26, Anion Gap 12, Blood Urea Nitrogen 49H, Creatinine 1.05, Estimat Glomerular Filtration Rate 50, BUN/Creatinine Ratio 47, Glucose Level 173H, Calcium Level 8.9, Phosphorus Level 3.5, Magnesium Level 2.2, Digoxin Level 0.67L 07/26/18 06:10: Blood Gas Puncture Site LEFT RADIAL, Blood Gas Patient Temperature 97.8, Arterial Blood pH 7.40, Arterial Blood Partial Pressure CO2 49H, Arterial Blood Partial Pressure O2 89, Arterial Blood HCO3 30H, Arterial Blood Total CO2 31.2H , Arterial Blood Oxygen Saturation 97, Arterial Blood Base Excess 5.0H, Jose Test POSITIVE, Blood Gas Ventilator Setting NO, Blood Gas Inspired Oxygen 30% Microbiology 07/24/18 Blood Culture - Preliminary, Resulted No growth 07/24/18 Influenza Types A,B Antigen (SANTOS) - Final, Complete 07/24/18 Urine Culture - Final, Complete Escherichia coli Assessment/Plan Assessment/Plan Assess & Plan/Chief Complaint 1. Acute Respiratory Failure--down to vapotherm 2. Acute on Chronic Diastolic Dysfunction with Severe Mitral Valve Stenosis-- not a candidate for any intervention 3. Chronic Atrial Fibrillation--coumadin on hold and INR 4.9 today--will recheck PT/INR in AM 4. Dementia with current behavior disorder--on low dose precedex 5. UTI with E. coli--change to meropenem Clinical Quality Measures Admission Status Admission Dx 1. Acute Respiratory Failure with Hypoxia--sedated on BIPAP, on solumedrol and rocephin due to fever on admission 2. Acute on Chronic Diastolic CHF due to severe mitral stenosis--not a candidate for intervention except for medical management 3. Chronic atrial fibrillation--coumadin resumed but patient too sedated to take so will give lovenox for dvt prophylaxis and check PT/INR 4. Dementia--exacerbated with recent illness DVT/VTE Risk/Contraindication: Risk Factor Score Per Nursin RFS Level Per Nursing on Admit: 4+=Very High KAT VIGIL DO Jul 26, 2018 7:22 pm
[2018-07-26] MEDS: FAMOTIDINE 20MG/2ML IV (PEPCID) IVP SCH (20:35)
[2018-07-27] VITALS (15 sets, daily range): BP systolic 112–142; BP diastolic 57–99
[2018-07-27] MEDS: methylPREDNISolone 40 MG/ML (Solu-MEDROL) VIAL IV SCH (03:51)
[2018-07-27] MEDS: 1/2 NS IV SOLUTION 1,000 ML IV SCH (03:51)
[2018-07-27 04:00] LABS: BASOPHILS % (AUTO) 0 % (0-10); EOSINOPHILS % (AUTO) 0 % (0-10); HEMATOCRIT 39 % (35-52); HEMOGLOBIN 12.4 G/DL (11.5-16.0); LYMPHOCYTES # (AUTO) 0.2 X 10^3 (1.0-4.0); LYMPHOCYTES % (AUTO) 3 % (12-44); MEAN CORPUSCULAR HEMOGLOBIN 29 PG (25-34); MEAN CORPUSCULAR HGB CONC 32 G/DL (32-36); MEAN CORPUSCULAR VOLUME 92 FL (80-99); MEAN PLATELET VOLUME 11.7 FL (7.4-10.4); MONOCYTES # (AUTO) 0.2 X 10^3 (0.0-1.0); MONOCYTES % (AUTO) 3 % (0-12); NEUTROPHILS # (AUTO) 8.2 X 10^3 (1.8-7.8); NEUTROPHILS % (AUTO) 95 % (42-75); PLATELET COUNT 118 10^3/uL (130-400); RED BLOOD COUNT 4.23 10^6/uL (4.35-5.85); RED CELL DISTRIBUTION WIDTH 15.2 % (10.0-14.5); WHITE BLOOD COUNT 8.6 10^3/uL (4.3-11.0)
[2018-07-27] MEDS: MEROPENEM 500 MG in NS (IVPB) 100 ML IV SCH ×3 (04:07→21:19)
[2018-07-27 04:10] LABS: INR 4.1 (0.8-1.4); PROTHROMBIN TIME PATIENT 40.2 SEC (12.2-14.7)
[2018-07-27 04:22] LABS: BUN/CREATININE RATIO 55; CARBON DIOXIDE 26 MMOL/L (21-32); CHLORIDE 103 MMOL/L (98-107); GFR ESTIMATED > 60; GLUCOSE 114 MG/DL (70-105); PHOSPHORUS 2.8 MG/DL (2.3-4.7); POTASSIUM 4.5 MMOL/L (3.6-5.0); SODIUM 139 MMOL/L (135-145)
[2018-07-27] MEDS: POTASSIUM CL 10MEQ/50ML IVPB 50 ML IV SCH (04:28)
[2018-07-27] MEDS: MAGNESIUM 1 GM/100 ML IVPB 100 ML IV SCH (04:28)
[2018-07-27] MEDS: KCL 20 MEQ TAB (K-DUR) PO SCH (04:28)
--- NOTE | 2018-07-27 06:32 | Pulmonary Progress Note ---
Subjective Time Seen by a Provider: 06:34 Subjective/Events-last exam Pt appears to be doing better. SHe is more awake however confused. She is on Vapotherm however only at 21%. Sepsis Event Evaluation Height, Weight, BMI Height: 5'6.00" Weight: 134lbs. 0.0oz. 60.349045ed; 20.8 BMI Method:Estimated Focused Exam Lactate Level 07/24/18 11:20: Lactic Acid Level 1.44 Exam Exam Vital Signs Date Time Temp Pulse Resp B/P (MAP) Pulse Ox O2 Delivery O2 Flow Rate FiO2 07/27/18 05:00 84 17 112/57 (75) 95 Vapotherm 21.00 10.00 07/27/18 04:00 72 10 135/84 (101) 100 Vapotherm 21.00 10.00 07/27/18 03:45 99 Vapotherm 10.00 21 07/27/18 03:45 98.0 Vapotherm 21.00 10.00 07/27/18 03:00 79 15 124/64 (84) 100 Vapotherm 21.00 10.00 07/27/18 02:00 72 21 134/78 (96) 100 Vapotherm 21.00 10.00 07/27/18 01:29 Vapotherm 21.00 10.00 07/27/18 01:25 100 Vapotherm 10.00 25 07/27/18 01:00 80 07/27/18 01:00 79 21 129/79 (96) 100 Vapotherm 25.00 10.00 07/27/18 00:00 77 28 142/59 (86) 91 Vapotherm 25.00 10.00 07/26/18 23:30 97.5 Vapotherm 25.00 10.00 07/26/18 23:30 99 Vapotherm 10.00 25 07/26/18 23:00 78 21 145/85 (105) 100 Vapotherm 25.00 10.00 07/26/18 22:00 74 7 127/82 (97) 100 Vapotherm 25.00 10.00 07/26/18 21:00 68 15 135/81 (99) 100 Vapotherm 25.00 10.00 07/26/18 20:10 100 Vapotherm 10.00 25 07/26/18 20:00 71 10 126/73 (90) 89 Vapotherm 25.00 10.00 07/26/18 19:30 93 Vapotherm 10.00 25 07/26/18 19:00 80 07/26/18 19:00 97.7 73 12 117/69 (85) 93 Vapotherm 25.00 10.00 07/26/18 17:47 Vapotherm 25.00 10.00 07/26/18 17:00 61 21 132/72 (92) 95 Vapotherm 30.00 15.00 07/26/18 16:00 77 9 153/97 (115) 92 Vapotherm 30.00 15.00 07/26/18 15:54 94 Vapotherm 15.00 30 07/26/18 15:54 97.3 Vapotherm 30.00 15.00 07/26/18 15:00 75 19 129/71 (90) 93 Vapotherm 30.00 15.00 07/26/18 14:00 69 17 150/89 (109) 97 Vapotherm 30.00 15.00 07/26/18 13:00 63 14 144/90 (108) 95 Vapotherm 30.00 15.00 07/26/18 13:00 63 07/26/18 12:42 94 Vapotherm 15.00 30 07/26/18 12:29 96 Vapotherm 15.00 30 07/26/18 12:29 98.2 07/26/18 12:00 62 18 148/108 (121) 97 Vapotherm 30.00 07/26/18 11:00 65 8 152/79 (103) 97 Vapotherm 30.00 07/26/18 10:00 59 16 144/106 (119) 100 Vapotherm 30.00 07/26/18 09:56 Vapotherm 20.00 40 07/26/18 09:00 63 18 144/97 (113) 99 Vapotherm 30.00 07/26/18 08:56 99 Vapotherm 20.00 60 07/26/18 08:56 98.4 Vapotherm 30.00 07/26/18 08:05 97 Vapotherm 20.00 50 07/26/18 08:00 69 13 159/99 (119) 96 NIV Bilevel 30.00 07/26/18 07:00 65 07/26/18 07:00 55 12 156/91 (112) 98 NIV Bilevel 30.00 07/26/18 06:37 61 25 96 25.00 I & O 07/27/18 07:00 Intake Total 2942 ml Output Total 1300 ml Balance 1642 ml Height & Weight Height: 5'6.00" Weight: 134lbs. 0.0oz. 60.981232to; 20.8 BMI Method:Estimated General Appearance: No Apparent Distress HEENT: Other (right pupil clouded, presumably blind. Oropharynx very dry) Neck: Supple Respiratory: Lungs Clear Cardiovascular: Systolic Murmur, Gallop/S4, Irregularly Irregular Capillary Refill: Greater Than 3 Seconds Gastrointestinal: normal bowel sounds, non tender, soft Extremity: Non Tender, No Calf Tenderness, No Pedal Edema Neurologic/Psychiatric: Other (sedated on precedex) Skin: Warm/Dry Results Lab Laboratory Tests 07/26/18 03:25 07/27/18 03:25 Assessment/Plan Assessment/Plan Acute on chronic respiratory failure -Currently on Vapotherm however only on 21% -Will d/c and use NC as needed -PT is a DNR Pleural effusion -Monitor -Hep lock IVF UTI with MDR Ecoli probable ESBL + -Continue Merrem -Currently has colvin - consider d/c colvin Afib- controlled. -Coumadin coagulopathy -Coumadin is on hold Severe mitral stenosis agitation/anxiety -Haldol PRN Consult Hospice for education. ARMANI CHENG DO Jul 27, 2018 06:32
--- NOTE | 2018-07-27 07:49 | Diagnostic Imaging Report ---
INDICATION: Dyspnea. COMPARISON: 07/26/2018. FINDINGS: Unchanged marked cardiomegaly. Small bilateral pleural effusions have increased or redistributed. Central interstitial opacities are unchanged. No pneumothorax. IMPRESSION: Progression versus redistribution of small bilateral pleural effusions. Stable cardiomegaly with central vascular congestion. Dictated by: Dictated on workstation # [id number]
--- NOTE | 2018-07-27 08:54 | Progress Note-Cardiology ---
Cardiology SOAP Progress Note Subjective: More alert and conversive today. Remains confused. Oriented to self only. Denies any c/o. Objective: I&O/Vital Signs 07/28/18 07/28/18 07/28/18 07/28/18 00:10 04:15 07:38 07:44 Temp 99.3 99.2 Pulse 99 106 Resp 20 20 B/P (MAP) 138/77 (97) 124/82 (96) Pulse Ox 90 90 95 O2 Delivery Room Air Room Air Room Air Nasal Cannula O2 Flow Rate 2.00 07/28/18 00:00 Intake Total 250 ml Balance 250 ml Weight (Pounds): 134 Weight (Ounces): 0.0 Weight (Calculated Kilograms): 60.103098 Constitutional: No AAO x 3, No apparent distress; other (thin-appearing) Respiratory: chest is bilaterally symmetric, other (fair bilat air entry, diminished at the bases) Cardiovascular: irregularly irregular, S1 and S2, diastolic murmur Gastrointestional: No tender, No guarding, No rebound; audible bowel sounds Extremities: No clubbing, No cyanosis, No significant edema Neurologic/Psychiatric: other (moves all limbs equally, is disoriented) Skin: normal color, warm/dry; No rash on exposed areas, No ulcerations on exposed areas Results/Procedures: Labs Laboratory Tests 07/28/18 03:45: White Blood Count 12.2H, Red Blood Count 4.46, Hemoglobin 13.1, Hematocrit 41, Mean Corpuscular Volume 91, Mean Corpuscular Hemoglobin 29, Mean Corpuscular Hemoglobin Concent 32, Red Cell Distribution Width 15.4H, Platelet Count 132, Mean Platelet Volume 11.0H, Neutrophils (%) (Auto) 84H, Lymphocytes (%) (Auto) 6L, Monocytes (%) (Auto) 11, Eosinophils (%) (Auto) 0, Basophils (%) (Auto) 0, Neutrophils # (Auto) 10.2H, Lymphocytes # (Auto) 0.7L, Monocytes # (Auto) 1.3H, Eosinophils # (Auto) 0.0, Basophils # (Auto) 0.0, Prothrombin Time 22.2H, INR Comment 1.9H, Sodium Level 143, Potassium Level 3.8, Chloride Level 107, Carbon Dioxide Level 25, Anion Gap 11, Blood Urea Nitrogen 32H, Creatinine 0.77, Estimat Glomerular Filtration Rate > 60, BUN/Creatinine Ratio 42, Glucose Level 91, Calcium Level 9.2, Phosphorus Level 2.3, Magnesium Level 2.0, B-Type Natriuretic Peptide 1298.9H Microbiology 07/24/18 Blood Culture - Preliminary, Resulted No growth 07/24/18 Influenza Types A,B Antigen (SANTOS) - Final, Complete 07/24/18 Urine Culture - Final, Complete Escherichia coli Procedures NAME: [facility] REC#: [id number] PT STATUS: ADM IN : 1930 PHYSICIAN: ARMANI CHENG DO ADMIT DATE: 07/24/18/ICU Draft Date of Exam:07/27/18 CHEST 1 VIEW, AP/PA ONLY INDICATION: Dyspnea. COMPARISON: 07/26/2018. FINDINGS: Unchanged marked cardiomegaly. Small bilateral pleural effusions have increased or redistributed. Central interstitial opacities are unchanged. No pneumothorax. IMPRESSION: Progression versus redistribution of small bilateral pleural effusions. Stable cardiomegaly with central vascular congestion. Dictated on workstation # [id number] Dict: 07/27/18 0746 Trans: 07/27/18 0749 [facility] [id number] Interpreted by: OTILIO BURNS MD Electronically signed by: A/P: Assessment: Chronic, permanent, valvular A Fib (this presentation with RVR). 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 Normal regional wall motion. 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 Considerable wgt loss since that surgery, according to the patient Hypertension - not well controlled H/o elevated transaminases Hyperlipidemia, treated with statin therapy S/p bilateral corneal transplants Plan: * Complex management due to multiple comorbidities that are outlined above * She is not a suitable candidate for [place] intervention for mitral stenosis * Plan is to treat vent response and heart failure * INR 1.9 today - resume warfarin at a lower dose * Monitor labs CRISTAL BUSTAMANTE Jul 27, 2018 08:54
--- NOTE | 2018-07-27 09:43 | Progress Note-Cardiology ---
Cardiology SOAP Progress Note Subjective: Does not report cp or palp or syncope or shortness of breath. Wishes to go home Objective: I&O/Vital Signs 07/26/18 07/26/18 07/26/18 07/26/18 22:00 23:00 23:30 23:30 Temp 97.5 Pulse 74 78 Resp 7 21 B/P (MAP) 127/82 (97) 145/85 (105) Pulse Ox 100 100 99 O2 Delivery Vapotherm Vapotherm Vapotherm Vapotherm O2 Flow Rate 25.00 25.00 10.00 25.00 10.00 10.00 10.00 FiO2 25 07/27/18 07/27/18 07/27/18 07/27/18 00:00 01:00 01:00 01:25 Pulse 77 79 80 Resp 28 21 B/P (MAP) 142/59 (86) 129/79 (96) Pulse Ox 91 100 100 O2 Delivery Vapotherm Vapotherm Vapotherm O2 Flow Rate 25.00 25.00 10.00 10.00 10.00 FiO2 25 07/27/18 07/27/18 07/27/18 07/27/18 01:29 02:00 03:00 03:45 Temp 98.0 Pulse 72 79 Resp 21 15 B/P (MAP) 134/78 (96) 124/64 (84) Pulse Ox 100 100 O2 Delivery Vapotherm Vapotherm Vapotherm Vapotherm O2 Flow Rate 21.00 21.00 21.00 21.00 10.00 10.00 10.00 10.00 07/27/18 07/27/18 07/27/18 07/27/18 03:45 04:00 05:00 06:00 Pulse 72 84 81 Resp 10 17 16 B/P (MAP) 135/84 (101) 112/57 (75) 128/77 (94) Pulse Ox 99 100 95 100 O2 Delivery Vapotherm Vapotherm Vapotherm Vapotherm O2 Flow Rate 10.00 21.00 21.00 21.00 10.00 10.00 10.00 FiO2 21 07/27/18 07/27/18 07/27/18 07/27/18 06:37 06:45 06:47 07:00 Pulse 70 Pulse Ox 100 O2 Delivery Vapotherm Nasal Cannula Nasal Cannula O2 Flow Rate 10.00 2.00 2.00 FiO2 21 100 07/27/18 07/27/18 07/27/18 07/27/18 07:00 07:44 08:00 08:58 Temp 98.4 Pulse 86 98 92 Resp 21 26 24 B/P (MAP) 138/74 (95) 138/74 (95) 141/99 (113) Pulse Ox 100 97 97 100 O2 Delivery Room Air Nasal Cannula Room Air Nasal Cannula O2 Flow Rate 2.00 2.00 07/27/18 09:00 Pulse 89 Resp 15 B/P (MAP) 129/68 (88) Pulse Ox 100 O2 Delivery Room Air 07/27/18 00:00 Intake Total 1662 ml Output Total 425 ml Balance 1237 ml Weight (Pounds): 134 Weight (Ounces): 0.0 Weight (Calculated Kilograms): 60.982404 Constitutional: No AAO x 3, No apparent distress; other (thin-appearing) Respiratory: chest is bilaterally symmetric, other (fair bilat air entry, diminished at the bases) Cardiovascular: irregularly irregular, S1 and S2, diastolic murmur Gastrointestional: No tender, No guarding, No rebound; audible bowel sounds Extremities: No clubbing, No cyanosis, No significant edema Neurologic/Psychiatric: other (moves all limbs equally, is disoriented) Skin: normal color, warm/dry; No rash on exposed areas, No ulcerations on exposed areas Results/Procedures: Labs Laboratory Tests 07/27/18 03:25: White Blood Count 8.6, Red Blood Count 4.23L, Hemoglobin 12.4, Hematocrit 39, Mean Corpuscular Volume 92, Mean Corpuscular Hemoglobin 29, Mean Corpuscular Hemoglobin Concent 32, Red Cell Distribution Width 15.2H, Platelet Count 118L, Mean Platelet Volume 11.7H, Neutrophils (%) (Auto) 95H, Lymphocytes (%) (Auto) 3L, Monocytes (%) (Auto) 3, Eosinophils (%) (Auto) 0, Basophils (%) (Auto) 0, Neutrophils # (Auto) 8.2H, Lymphocytes # (Auto) 0.2L, Monocytes # (Auto) 0.2, Eosinophils # (Auto) 0.0, Basophils # (Auto) 0.0, Prothrombin Time 40.2H, INR Comment 4.1H, Sodium Level 139, Potassium Level 4.5, Chloride Level 103, Carbon Dioxide Level 26, Anion Gap 10, Blood Urea Nitrogen 44H, Creatinine 0.80, Estimat Glomerular Filtration Rate > 60, BUN/Creatinine Ratio 55, Glucose Level 114H, Calcium Level 9.0, Phosphorus Level 2.8, Magnesium Level 2.0 Microbiology 07/24/18 Blood Culture - Preliminary, Resulted No growth 07/24/18 Influenza Types A,B Antigen (SANTOS) - Final, Complete 07/24/18 Urine Culture - Final, Complete Escherichia coli Laboratory Tests 07/26/18 03:25 07/27/18 03:25 A/P: Assessment: Chronic, permanent, valvular A Fib (this presentation with RVR). 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 Normal regional wall motion. 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 Considerable wgt loss since that surgery, according to the patient Hypertension - not well controlled H/o elevated transaminases Hyperlipidemia, treated with statin therapy S/p bilateral corneal transplants Plan: * Complex management due to multiple comorbidities that are outlined above * She is not a suitable candidate for [facility] intervention for mitral stenosis * Plan is to treat vent response and heart failure * Supra-therapeutic INR - warfarin and Lovenox being withheld - INR improving * Monitor labs * Prognosis guarded MENDEL SALDANA MD [facility] Jul 27, 2018 09:43
--- NOTE | 2018-07-27 10:03 | Physician Query Clarification ---
PQ-Uncertain Diagnosis Admission/Discharge Admission Date: Jul 24, 2018 at 14:07 Discharge Date: The medical record reflects the following clinical scenario: History/Risk Factors: UTI Mental status change Clinical Findings: WBC 6.0, Band neutrophils 5, T 100.9, Pulse 105, Resp 50, BP 102/69, Blood culture-No growth. Treatment: IV Rocephin Question: Is Sepsis a clinically valid diagnosis? Sepsis was documented in the 07/[address] Hutton with no further documentation in the medical record. Please document a response below. PHYSICIAN RESPONSE Diagnosis clinically valid: No, conditon ruled out In responding to this query, please exercise your independent professional judgment. The purpose of this communication is to more accurately reflect the complexity of your patients condition. The fact that a question is asked does not imply that any particular answer is desired or expected. Thank you for your timely response to this clarification. Requestors name: Lisa Gutierrez [facility] Phone # ext [phone] or [phone] THIS PHYSICIAN QUERY FORM IS A PERMANENT PART OF THE MEDICAL RECORD LISA GUTIERREZ Jul 27, 2018 10:03 KAT VIGIL DO Jul 28, 2018 18:27
--- NOTE | 2018-07-27 15:47 | Physical Therapy Progress Note ---
Therapy Progress Note Attempted PT eval. Pt had just returned to bed after a bath. Will return for eval on 07/28/18. Nursing aware. LUIS SHULTZ PT Jul 27, 2018 15:47
--- NOTE | 2018-07-27 18:33 | Progress Note (SOAP) ---
Subjective Date Seen by a Provider: Jul 27, 2018 Time Seen by a Provider: 12:30 Subjective/Events-last exam Fwup acute respiratory failure, acute on chronic diastolic CHF with severe mitral valve stenosis, chronic atrial fibrillation, dementia with behavior disorder. Off oxygen. Sitting up in chair eating. Some confusion. Asking to go home. Objective Exam Vital Signs Date Time Temp Pulse Resp B/P (MAP) Pulse Ox O2 Delivery O2 Flow Rate FiO2 07/27/18 18:21 92 Room Air 07/27/18 16:29 100 Room Air 07/27/18 16:28 99.2 81 17 136/97 (110) 92 Room Air 07/27/18 15:03 92 Room Air 07/27/18 12:35 100 Nasal Cannula 2.00 07/27/18 11:47 98.7 90 16 136/87 (103) 94 Room Air 07/27/18 10:47 94 Room Air 07/27/18 10:00 89 15 129/68 (88) 100 Room Air 07/27/18 09:00 89 15 129/68 (88) 100 Room Air 07/27/18 08:58 100 Nasal Cannula 2.00 07/27/18 08:00 92 24 141/99 (113) 97 Room Air 07/27/18 07:44 98.4 98 26 138/74 (95) 97 Nasal Cannula 2.00 07/27/18 07:00 86 21 138/74 (95) 100 Room Air 07/27/18 07:00 70 07/27/18 06:47 Nasal Cannula 2.00 07/27/18 06:45 100 Nasal Cannula 2.00 07/27/18 06:37 100 Vapotherm 10.00 21 07/27/18 06:00 81 16 128/77 (94) 100 Vapotherm 21.00 10.00 07/27/18 05:00 84 17 112/57 (75) 95 Vapotherm 21.00 10.00 07/27/18 04:00 72 10 135/84 (101) 100 Vapotherm 21.00 10.00 07/27/18 03:45 99 Vapotherm 10.00 21 07/27/18 03:45 98.0 Vapotherm 21.00 10.00 07/27/18 03:00 79 15 124/64 (84) 100 Vapotherm 21.00 10.00 07/27/18 02:00 72 21 134/78 (96) 100 Vapotherm 21.00 10.00 07/27/18 01:29 Vapotherm 21.00 10.00 07/27/18 01:25 100 Vapotherm 10.00 25 07/27/18 01:00 80 07/27/18 01:00 79 21 129/79 (96) 100 Vapotherm 25.00 10.00 07/27/18 00:00 77 28 142/59 (86) 91 Vapotherm 25.00 10.00 07/26/18 23:30 97.5 Vapotherm 25.00 10.00 07/26/18 23:30 99 Vapotherm 10.00 25 07/26/18 23:00 78 21 145/85 (105) 100 Vapotherm 25.00 10.00 07/26/18 22:00 74 7 127/82 (97) 100 Vapotherm 25.00 10.00 07/26/18 21:00 68 15 135/81 (99) 100 Vapotherm 25.00 10.00 07/26/18 20:10 100 Vapotherm 10.00 25 07/26/18 20:00 71 10 126/73 (90) 89 Vapotherm 25.00 10.00 07/26/18 19:30 93 Vapotherm 10.00 25 07/26/18 19:00 80 07/26/18 19:00 97.7 73 12 117/69 (85) 93 Vapotherm 25.00 10.00 I & O 07/27/18 07:00 Intake Total 3167 ml Output Total 1300 ml Balance 1867 ml Capillary Refill : Greater Than 3 Seconds General Appearance: No Apparent Distress Respiratory: Lungs Clear Cardiovascular: Systolic Murmur, Gallop/S4, Irregularly Irregular Gastrointestinal: normal bowel sounds, non tender, soft Extremity: Non Tender, No Calf Tenderness, No Pedal Edema Neurologic/Psychiatric: Alert, Disoriented Skin: Warm/Dry Results Lab Laboratory Tests 07/27/18 03:25: White Blood Count 8.6, Red Blood Count 4.23L, Hemoglobin 12.4, Hematocrit 39, Mean Corpuscular Volume 92, Mean Corpuscular Hemoglobin 29, Mean Corpuscular Hemoglobin Concent 32, Red Cell Distribution Width 15.2H, Platelet Count 118L, Mean Platelet Volume 11.7H, Neutrophils (%) (Auto) 95H, Lymphocytes (%) (Auto) 3L, Monocytes (%) (Auto) 3, Eosinophils (%) (Auto) 0, Basophils (%) (Auto) 0, Neutrophils # (Auto) 8.2H, Lymphocytes # (Auto) 0.2L, Monocytes # (Auto) 0.2, Eosinophils # (Auto) 0.0, Basophils # (Auto) 0.0, Prothrombin Time 40.2H, INR Comment 4.1H, Sodium Level 139, Potassium Level 4.5, Chloride Level 103, Carbon Dioxide Level 26, Anion Gap 10, Blood Urea Nitrogen 44H, Creatinine 0.80, Estimat Glomerular Filtration Rate > 60, BUN/Creatinine Ratio 55, Glucose Level 114H, Calcium Level 9.0, Phosphorus Level 2.8, Magnesium Level 2.0 Microbiology 07/24/18 Blood Culture - Preliminary, Resulted No growth 07/24/18 Influenza Types A,B Antigen (SANTOS) - Final, Complete 07/24/18 Urine Culture - Final, Complete Escherichia coli Assessment/Plan Assessment/Plan Assess & Plan/Chief Complaint 1. Acute Respiratory Failure--off oxygen 2. Acute on Chronic Diastolic Dysfunction with Severe Mitral Valve Stenosis-- not a candidate for any intervention 3. Chronic Atrial Fibrillation--coumadin on hold and INR 4.1 today--will recheck PT/INR in AM 4. Dementia with current behavior disorder--improving now 5. UTI with E. coli--continue meropenem 6. Transfer to medical floor if able to get a sitter Clinical Quality Measures Admission Status Admission Dx 1. Acute Respiratory Failure with Hypoxia--sedated on BIPAP, on solumedrol and rocephin due to fever on admission 2. Acute on Chronic Diastolic CHF due to severe mitral stenosis--not a candidate for intervention except for medical management 3. Chronic atrial fibrillation--coumadin resumed but patient too sedated to take so will give lovenox for dvt prophylaxis and check PT/INR 4. Dementia--exacerbated with recent illness DVT/VTE Risk/Contraindication: Risk Factor Score Per Nursin RFS Level Per Nursing on Admit: 4+=Very High KAT VIGIL DO Jul 27, 2018 6:33 pm
[2018-07-27] MEDS: FAMOTIDINE 20MG/2ML IV (PEPCID) IVP SCH (21:19)
[2018-07-28] VITALS (7 sets, daily range): BP systolic 122–150; BP diastolic 71–91
[2018-07-28 03:57] LABS: BASOPHILS % (AUTO) 0 % (0-10); EOSINOPHILS % (AUTO) 0 % (0-10); HEMATOCRIT 41 % (35-52); HEMOGLOBIN 13.1 G/DL (11.5-16.0); LYMPHOCYTES # (AUTO) 0.7 X 10^3 (1.0-4.0); LYMPHOCYTES % (AUTO) 6 % (12-44); MEAN CORPUSCULAR HEMOGLOBIN 29 PG (25-34); MEAN CORPUSCULAR HGB CONC 32 G/DL (32-36); MEAN CORPUSCULAR VOLUME 91 FL (80-99); MONOCYTES # (AUTO) 1.3 X 10^3 (0.0-1.0); MONOCYTES % (AUTO) 11 % (0-12); NEUTROPHILS # (AUTO) 10.2 X 10^3 (1.8-7.8); NEUTROPHILS % (AUTO) 84 % (42-75); PLATELET COUNT 132 10^3/uL (130-400); RED BLOOD COUNT 4.46 10^6/uL (4.35-5.85); RED CELL DISTRIBUTION WIDTH 15.4 % (10.0-14.5); WHITE BLOOD COUNT 12.2 10^3/uL (4.3-11.0)
[2018-07-28 04:06] LABS: INR 1.9 (0.8-1.4); PROTHROMBIN TIME PATIENT 22.2 SEC (12.2-14.7)
[2018-07-28 04:11] LABS: BUN/CREATININE RATIO 42; CALCIUM 9.2 MG/DL (8.5-10.1); CARBON DIOXIDE 25 MMOL/L (21-32); CHLORIDE 107 MMOL/L (98-107); CREATININE SERUM 0.77 MG/DL (0.60-1.30); GFR ESTIMATED > 60; GLUCOSE 91 MG/DL (70-105); PHOSPHORUS 2.3 MG/DL (2.3-4.7); POTASSIUM 3.8 MMOL/L (3.6-5.0); SODIUM 143 MMOL/L (135-145)
[2018-07-28] MEDS: MEROPENEM 500 MG in NS (IVPB) 100 ML IV SCH ×3 (05:15→20:39)
--- NOTE | 2018-07-28 07:20 | Pulmonary Progress Note ---
Sepsis Event Evaluation Height, Weight, BMI Height: 5'6.00" Weight: 132lbs. 0.0oz. 59.058179og; 20.8 BMI Method:Estimated Exam Exam Vital Signs Date Time Temp Pulse Resp B/P (MAP) Pulse Ox O2 Delivery O2 Flow Rate FiO2 07/28/18 04:15 99.2 106 20 124/82 (96) 90 Room Air 07/28/18 00:10 99.3 99 20 138/77 (97) 90 Room Air 07/27/18 20:00 100 Room Air 07/27/18 19:00 99.1 93 20 142/93 (109) 93 Room Air 07/27/18 18:21 92 Room Air 07/27/18 16:29 100 Room Air 07/27/18 16:28 99.2 81 17 136/97 (110) 92 Room Air 07/27/18 15:03 92 Room Air 07/27/18 12:35 100 Nasal Cannula 2.00 07/27/18 11:47 98.7 90 16 136/87 (103) 94 Room Air 07/27/18 10:47 94 Room Air 07/27/18 10:00 89 15 129/68 (88) 100 Room Air 07/27/18 09:00 89 15 129/68 (88) 100 Room Air 07/27/18 08:58 100 Nasal Cannula 2.00 07/27/18 08:00 92 24 141/99 (113) 97 Room Air 07/27/18 07:44 98.4 98 26 138/74 (95) 97 Nasal Cannula 2.00 I & O 07/28/18 07:00 Intake Total 700 ml Output Total 550 ml Balance 150 ml Height & Weight Height: 5'6.00" Weight: 132lbs. 0.0oz. 59.089171me; 20.8 BMI Method:Estimated General Appearance: No Apparent Distress HEENT: Other (right pupil clouded, presumably blind. Oropharynx very dry) Neck: Supple Respiratory: Lungs Clear Cardiovascular: Systolic Murmur, Gallop/S4, Irregularly Irregular Capillary Refill: Greater Than 3 Seconds Gastrointestinal: normal bowel sounds, non tender, soft Extremity: Non Tender, No Calf Tenderness, No Pedal Edema Neurologic/Psychiatric: Alert, Disoriented Skin: Warm/Dry Results Lab Laboratory Tests 07/27/18 03:25 07/28/18 03:45 Assessment/Plan Assessment/Plan Acute on chronic respiratory failure -pt now on RA -PT is a DNR Pleural effusion -Monitor -Hep lock IVF -repeat BNP UTI with MDR Ecoli probable ESBL + -Continue Merrem -Currently has colvin - consider d/c colvin Afib- controlled. -Coumadin coagulopathy -Coumadin is on hold Severe mitral stenosis agitation/anxiety -Haldol PRN ARMANI CHENG DO Jul 28, 2018 07:20
--- NOTE | 2018-07-28 08:44 | Progress Note-Cardiology ---
Cardiology SOAP Progress Note Objective: I&O/Vital Signs 07/28/18 07/28/18 07/28/18 07/28/18 07:38 07:44 08:00 12:10 Temp 98.4 98.6 Pulse 114 116 Resp 18 18 B/P (MAP) 143/91 (108) 132/81 (98) Pulse Ox 95 91 92 O2 Delivery Room Air Nasal Cannula Room Air Room Air O2 Flow Rate 2.00 07/28/18 15:40 Temp 99.1 Pulse 102 Resp 20 B/P (MAP) 150/83 (105) Pulse Ox 93 O2 Delivery Room Air 07/28/18 00:00 Intake Total 250 ml Balance 250 ml Weight (Pounds): 132 Weight (Ounces): 0.0 Weight (Calculated Kilograms): 59.131423 Constitutional: No AAO x 3, No apparent distress; other (thin-appearing) Respiratory: chest is bilaterally symmetric, other (fair bilat air entry, diminished at the bases) Cardiovascular: irregularly irregular, S1 and S2, diastolic murmur Gastrointestional: No tender, No guarding, No rebound; audible bowel sounds Extremities: No clubbing, No cyanosis, No significant edema Neurologic/Psychiatric: other (moves all limbs equally, is disoriented) Skin: normal color, warm/dry; No rash on exposed areas, No ulcerations on exposed areas Results/Procedures: Labs Laboratory Tests 07/28/18 03:45: White Blood Count 12.2H, Red Blood Count 4.46, Hemoglobin 13.1, Hematocrit 41, Mean Corpuscular Volume 91, Mean Corpuscular Hemoglobin 29, Mean Corpuscular Hemoglobin Concent 32, Red Cell Distribution Width 15.4H, Platelet Count 132, Mean Platelet Volume 11.0H, Neutrophils (%) (Auto) 84H, Lymphocytes (%) (Auto) 6L, Monocytes (%) (Auto) 11, Eosinophils (%) (Auto) 0, Basophils (%) (Auto) 0, Neutrophils # (Auto) 10.2H, Lymphocytes # (Auto) 0.7L, Monocytes # (Auto) 1.3H, Eosinophils # (Auto) 0.0, Basophils # (Auto) 0.0, Prothrombin Time 22.2H, INR Comment 1.9H, Sodium Level 143, Potassium Level 3.8, Chloride Level 107, Carbon Dioxide Level 25, Anion Gap 11, Blood Urea Nitrogen 32H, Creatinine 0.77, Estimat Glomerular Filtration Rate > 60, BUN/Creatinine Ratio 42, Glucose Level 91, Calcium Level 9.2, Phosphorus Level 2.3, Magnesium Level 2.0, B-Type Natriuretic Peptide 1298.9H Microbiology 07/24/18 Blood Culture - Preliminary, Resulted No growth 07/24/18 Influenza Types A,B Antigen (SANTOS) - Final, Complete 07/24/18 Urine Culture - Final, Complete Escherichia coli A/P: Assessment: Chronic, permanent, valvular A Fib (this presentation with RVR). 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 Normal regional wall motion. 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 Considerable wgt loss since that surgery, according to the patient Hypertension - not well controlled H/o elevated transaminases Hyperlipidemia, treated with statin therapy S/p bilateral corneal transplants Plan: * Complex management due to multiple comorbidities that are outlined above * She is not a suitable candidate for [facility] intervention for mitral stenosis * Plan is to treat vent response and heart failure * INR 1.9 today - resume warfarin at a lower dose * Monitor labs * Hospice consult CRISTAL BUSTAMANTE Jul 28, 2018 08:44
--- NOTE | 2018-07-28 09:39 | Physical Therapy Evaluation ---
PT Evaluation-General Medical Diagnosis Admission Date Jul 24, 2018 at 14:07 Medical Diagnosis: Respiratory Failure Onset Date: Jul 24, 2018 Therapy Diagnosis Therapy Diagnosis: General weakness/ Debilty Height/Weight Height (Feet): 5 Height (Inches): 6.00 Weight (Pounds): 132 Weight (Ounces): 0.0 Precautions Precautions/Isolations: Contact Isolation, Fall Prevention, Standard Precautions, Pressure Ulcer Weight Bear Status Right Lower Extremity: Right Weight Bearing/Tolerated Left Lower Extremity: Left Weight Bearing/Tolerated Referral Physician: Richard Reason for Referral: Evaluation/Treatment Medical History Pertinent Medical History: Atrial Fib, CAD, Dementia, GERD, Heart Failure, HTN Current History Pt brought to ER by daughter for altered mental status and weakness. Reviewed History: Yes Social History Home: Assisted Living Patient unable to answer majority of questions due to her dementia. Prior/Core FIM Prior Level of Function Functional [place] Measure 0=Not Assessed/NA 4=Minimal Assistance 1=Total Assistance 5=Supervision or Setup 2=Maximal Assistance 6=Modified [place] 3=Moderate Assistance 7=Complete [place] IRFPAI Quality Coding Scale 6 Independent with activity with or without an assistive device 5 Patient requires set up or clean up by helper. Patient completes activity by themselves 4 Supervision or touching assist (CGA). [place] provide cues , steadying assist 3 The helper provides less than half the effort to complete the activity 2 The helper provides more than half the effort to complete the activity 1 Dependent. The helper does all the effort to complete an activity 7 Patient refused to complete or attempt activity 9 The patient did not perform the activity before the current illness or injury 88 Not attempted due to Medical conditions or safety concerns Functional Abilities and Goals 3. Independent: Patient completed the activities by him/herself, with or without an assistive device, with no assistance from a helper. 2. Needed Some Help: Patient needed partial assistance from another person to complete activities. 1. Dependent: A helper completed the activities for the patient. 8. Unknown: 9. Not Applicable: Bed Mobility: 5 Transfers (B,C,W/C) (FIM): 5 Gait: 5 Indoor Mobility (Ambulation): Independent Stairs: Not Applicalbe Prior Devices Use: Walker PT Evaluation-Current Subjective Pt awake in bed eating breakfast when PT entered room. Pt agreed to PT evaluation. Pain Numeric Pain Scale: 0-No Pain Location: No Pain Reported Objective Patient Orientation: Person, Confused, Mumbles Problem Solving: Poor ROM/Strength ROM Upper Extremities WNL ROM Lower Extremities WNL Strength Upper Extremities NT Strength Lower Extremities 3+5 grossly/Unable to follow directions Integumentary/Posture Integumentary refer to nursing notes Bowel Incontinence: No Neuromuscular (Tone, Coordination, Reflexes) Patient resists movement and pushes backward when coming to a stand Sensory Vision: Functional Hearing: Functional Sensation Right Upper Extremit: Intact Sensation Left Upper Extremity: Intact Sensation Right Lower Extremit: Intact Sensation Left Lower Extremity: Intact Transfers Functional [place] Measure 0=Not Assessed/NA 4=Minimal Assistance 1=Total Assistance 5=Supervision or Setup 2=Maximal Assistance 6=Modified [place] 3=Moderate Assistance 7=Complete [place] Transfers (B, C, W/C) (FIM): 1 Scootin Rollin Supine to/from Sit: 2 Sit to/from Stand: 1 Gait Mode of Locomotion: Walk Anticipated Mode of Locomotion: Walk Balance Sitting Static: Poor Sitting Dynamic: Poor Standing Static: Poor Standing Dynamic: Poor Assessment/Needs Patient is unable to follow direction throughout assessment due to her dementia. Patient is dependent in transfers for bed mobility. Patient is dependent transfer for sit/stand and requires the x 2 therapist when pivoting over to bedside recliner. Pt will continue therapy to prevent deterioration in patients current level of function. Rehab Potential: Guarded PT Substance Abuse Rn Goals Fpc Goals PT Substance Abuse Rn Goals Time Frame: Aug 06, 2018 Transfers (B,C,W/C) (FIM): 4 Gait (FIM): 2 Gait distance (FIM): 0=494-86 ft Distance: 100' Gait Level of Assist: 4 Gait Assistive Device: FWW PT Plan Problem List Problem List: Activity Tolerance, Functional Strength, Safety, Balance, Gait, Transfer, Bed Mobility, ROM Treatment/Plan Treatment Plan: Continue Plan of Care Treatment Plan: Bed Mobility, Education, Functional Activity Monty, Functional Strength, Group Therapy, Gait, Safety, Therapeutic Exercise, Transfers Treatment Duration: Aug 06, 2018 Frequency: 6 times per week Estimated Hrs Per Day: .25 hour per day Patient and/or Family Agrees t: Yes Discharge Recommendations Therapy D/C Recommendations: Assisted Living, Snf Placement, Shelter (TCU/NH) Time/GCodes Time In: 843 Time Out: 857 Total Billed Treatment Time: 14 [facility] MARTINEZ PT Jul 28, 2018 09:39
--- NOTE | 2018-07-28 12:46 | Progress Note-Cardiology ---
Cardiology SOAP Progress Note Subjective: No new symptoms Objective: I&O/Vital Signs 07/28/18 07/28/18 07/28/18 07/28/18 04:15 07:38 07:44 08:00 Temp 99.2 98.4 Pulse 106 114 Resp 20 18 B/P (MAP) 124/82 (96) 143/91 (108) Pulse Ox 90 95 91 O2 Delivery Room Air Room Air Nasal Cannula Room Air O2 Flow Rate 2.00 07/28/18 12:10 Temp 98.6 Pulse 116 Resp 18 B/P (MAP) 132/81 (98) Pulse Ox 92 O2 Delivery Room Air 07/28/18 00:00 Intake Total 250 ml Balance 250 ml Weight (Pounds): 132 Weight (Ounces): 0.0 Weight (Calculated Kilograms): 59.851757 Constitutional: No AAO x 3, No apparent distress; other (thin-appearing) Respiratory: chest is bilaterally symmetric, other (fair bilat air entry, diminished at the bases) Cardiovascular: irregularly irregular, S1 and S2, diastolic murmur Gastrointestional: No tender, No guarding, No rebound; audible bowel sounds Extremities: No clubbing, No cyanosis, No significant edema Neurologic/Psychiatric: other (moves all limbs equally, is disoriented) Skin: normal color, warm/dry; No rash on exposed areas, No ulcerations on exposed areas Results/Procedures: Labs Laboratory Tests 07/28/18 03:45: White Blood Count 12.2H, Red Blood Count 4.46, Hemoglobin 13.1, Hematocrit 41, Mean Corpuscular Volume 91, Mean Corpuscular Hemoglobin 29, Mean Corpuscular Hemoglobin Concent 32, Red Cell Distribution Width 15.4H, Platelet Count 132, Mean Platelet Volume 11.0H, Neutrophils (%) (Auto) 84H, Lymphocytes (%) (Auto) 6L, Monocytes (%) (Auto) 11, Eosinophils (%) (Auto) 0, Basophils (%) (Auto) 0, Neutrophils # (Auto) 10.2H, Lymphocytes # (Auto) 0.7L, Monocytes # (Auto) 1.3H, Eosinophils # (Auto) 0.0, Basophils # (Auto) 0.0, Prothrombin Time 22.2H, INR Comment 1.9H, Sodium Level 143, Potassium Level 3.8, Chloride Level 107, Carbon Dioxide Level 25, Anion Gap 11, Blood Urea Nitrogen 32H, Creatinine 0.77, Estimat Glomerular Filtration Rate > 60, BUN/Creatinine Ratio 42, Glucose Level 91, Calcium Level 9.2, Phosphorus Level 2.3, Magnesium Level 2.0, B-Type Natriuretic Peptide 1298.9H Microbiology 07/24/18 Blood Culture - Preliminary, Resulted No growth 07/24/18 Influenza Types A,B Antigen (SANTOS) - Final, Complete 07/24/18 Urine Culture - Final, Complete Escherichia coli Laboratory Tests 07/27/18 03:25 07/28/18 03:45 A/P: Assessment: Chronic, permanent, valvular A Fib (this presentation with RVR). 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 Normal regional wall motion. 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 Considerable wgt loss since that surgery, according to the patient Hypertension - not well controlled H/o elevated transaminases Hyperlipidemia, treated with statin therapy S/p bilateral corneal transplants Plan: * Complex management due to multiple comorbidities that are outlined above * She is not a suitable candidate for [facility] intervention for mitral stenosis * Plan is to treat vent response and heart failure * INR 1.9 today - resume warfarin at a lower dose * Monitor labs * Hospice consult MENDEL SALDANA MD [facility] Jul 28, 2018 12:46
--- NOTE | 2018-07-28 15:02 | Occupational Therapy Eval ---
OT Evaluation-General/PLF Medical Diagnosis Admission Date Jul 24, 2018 at 14:07 Medical Diagnosis: Respiratory Failure with hypoxia Onset Date: Jul 24, 2018 Therapy Diagnosis Therapy Diagnosis: decr self care, weakness, decr funct mobility, decr cognition Height/Weight Height (Feet): 5 Height (Inches): 6.00 Weight (Pounds): 132 Weight (Ounces): 0.0 Precautions Precautions/Isolations: Contact Isolation, Fall Prevention, Standard Precautions, Pressure Ulcer Safety Interventions: Bed Exit Alarm, Reorient-PRN Referral Physician: Richard Referral Reason: Evaluation/Treatment Medical History Pertinent Medical History: Atrial Fib, Arthritis, CAD, Dementia, GERD, Heart Failure, HTN Additional Medical History Chronic back pain. Depression. cardiomyopathy. Paresthesia to toes. Chronic UTI. Current History Admitted with fever, confusion, weakness, lethargy. UTI Reviewed History: Yes Social History Home: Assisted Living ([facility]) ADL-Prior Level of Function Functional [place] Measure 0=Not Assessed/NA 4=Minimal Assistance 1=Total Assistance 5=Supervision or Setup 2=Maximal Assistance 6=Modified [place] 3=Moderate Assistance 7=Complete [place] IRFPAI Quality Coding Scale 6 Independent with activity with or without an assistive device 5 Patient requires set up or clean up by helper. Patient completes activity by themselves 4 Supervision or touching assist (CGA). [place] provide cues , steadying assist 3 The helper provides less than half the effort to complete the activity 2 The helper provides more than half the effort to complete the activity 1 Dependent. The helper does all the effort to complete an activity 7 Patient refused to complete or attempt activity 9 The patient did not perform the activity before the current illness or injury 88 Not attempted due to Medical conditions or safety concerns Functional Abilities and Goals 3. Independent: Patient completed the activities by him/herself, with or without an assistive device, with no assistance from a helper. 2. Needed Some Help: Patient needed partial assistance from another person to complete activities. 1. Dependent: A helper completed the activities for the patient. 8. Unknown: 9. Not Applicable: ADL PLOF Comments Unknown PLOF. Pt used FWW. Hard of hearing OT Current Status Subjective pt seen in room, up in recliner, agreeable to OT. No pain mentioned. Appearance Oriented to name only. Thought she was at [facility] Mental Status/Objective Patient Orientation: Person Current Upper Extremity ROM Unable to follow instructions for ROM assessment Upper Extremity Strength Unable to follow instructions for assessing strength. ADL-Treatment ADL-Current Nursing reported that she fed herself two bites of banana and otherwise requires assist to eat. He was able to transfer her [place] [facility] [place]iner with one person assist, max help. She needed mod cues to wash her face and hands, including demonstration. PT evaluation demonstrated dependant transfer. Pt left up in recliner, telesitter present. Functional [place] Measure 0=Not Assessed/NA 4=Minimal Assistance 1=Total Assistance 5=Supervision or Setup 2=Maximal Assistance 6=Modified [place] 3=Moderate Assistance 7=Complete [place] IRFPAI Quality Coding Scale 6 Independent with activity with or without an assistive device 5 Patient requires set up or clean up by helper. Patient completes activity by themselves 4 Supervision or touching assist (CGA). [place] provide cues , steadying assist 3 The helper provides less than half the effort to complete the activity 2 The helper provides more than half the effort to complete the activity 1 Dependent. The helper does all the effort to complete an activity 7 Patient refused to complete or attempt activity 9 The patient did not perform the activity before the current illness or injury 88 Not attempted due to Medical conditions or safety concerns Education OT Patient Education: Purpose of tx/functional activities Teaching Recipient: Patient Teaching Methods: Discussion Response to Teaching: Verbalize Understanding, Reinforcement Needed OT Short Term Goals Short Term Goals 1=Demonstrate adherence to instructed precautions during ADL tasks. 2=Patient will verbalize/demonstrate understanding of assistive devices/ modifications for ADL. 3=Patient will improve strength/tolerance for activity to enable patient to perform ADL's. OT Tailor Garment Fitter Goals Tailor Garment Fitter Goals Time Frame: Aug 04, 2018 Eating (FIM): 5 Grooming(FIM): 5 Bathing(FIM): 3 Toileting(FIM): 4 Toilet/Commode Transfer(FIM): 4 Additional Goals: 3-ImproveStrength/Monty 1=Demonstrate adherence to instructed precautions during ADL tasks. 2=Patient will verbalize/demonstrate understanding of assistive devices/ modifications for ADL. 3=Patient will improve strength/tolerance for activity to enable patient to perform ADL's. OT Education/Plan Problem List/Assessment Assessment: Decreased Safety Aware, Decreased UE Strength, Dependent Transfers , Impaired Cognition, Impaired Self-Care Skills Pt would benefit from skilled OT to maximize her independence in basic self care Discharge Recommendations Plan/Recommendations: Continue POC Therapy D/C Recommendations: Longterm (TCU/NH) (OT) Treatment Plan/Plan of Care Treatment,Training & Education: Yes Patient would benefit from OT for education, treatment and training to promote independence in ADL's, mobility, safety and/or upper extremity function for ADL' s. Plan of Care: ADL Retraining, Functional Mobility Treatment Duration: Aug 04, 2018 Frequency: 5 times per week Estimated Hrs Per Day: .25 hour per day Agreement: No (unable to agree) Rehab Potential: Guarded Time/GCodes Start Time: 14:37 Stop Time: 14:49 Total Time Billed (hr/min): 12 Billed Treatment Time visit, 12 minutes evaluation moderate intensity SABA BRONSON OT Jul 28, 2018 15:02
[2018-07-28] MEDS: warFARin 3 MG (COUMADIN) TAB PO SCH (17:32)
[2018-07-28] MEDS ORDERED: meTOprolol TARTRATE 25 MG (LOPRESSOR) TABLET PO NR (18:15)
--- NOTE | 2018-07-28 18:17 | Progress Note (SOAP) ---
Subjective Date Seen by a Provider: Jul 28, 2018 Time Seen by a Provider: 12:30 Subjective/Events-last exam Fwup acute respiratory failure, acute on chronic diastolic CHF with severe mitral valve stenosis, chronic atrial fibrillation, dementia with behavior disorder. Confused. Still off oxygen. Palliative care has discussed hospice with family but no decisions yet. Objective Exam Vital Signs Date Time Temp Pulse Resp B/P (MAP) Pulse Ox O2 Delivery O2 Flow Rate FiO2 07/28/18 15:40 99.1 102 20 150/83 (105) 93 Room Air 07/28/18 12:10 98.6 116 18 132/81 (98) 92 Room Air 07/28/18 08:00 98.4 114 18 143/91 (108) 91 Room Air 07/28/18 07:44 Nasal Cannula 2.00 07/28/18 07:38 95 Room Air 07/28/18 04:15 99.2 106 20 124/82 (96) 90 Room Air 07/28/18 00:10 99.3 99 20 138/77 (97) 90 Room Air 07/27/18 20:00 100 Room Air 07/27/18 19:00 99.1 93 20 142/93 (109) 93 Room Air 07/27/18 18:21 92 Room Air I & O 07/28/18 07:00 Intake Total 700 ml Output Total 550 ml Balance 150 ml Capillary Refill : Greater Than 3 Seconds General Appearance: No Apparent Distress Neck: Supple Respiratory: Lungs Clear Cardiovascular: Systolic Murmur, Irregularly Irregular Gastrointestinal: normal bowel sounds, non tender, soft Extremity: Non Tender, No Calf Tenderness, No Pedal Edema Neurologic/Psychiatric: Alert, Disoriented Skin: Warm/Dry Results Lab Laboratory Tests 07/28/18 03:45: White Blood Count 12.2H, Red Blood Count 4.46, Hemoglobin 13.1, Hematocrit 41, Mean Corpuscular Volume 91, Mean Corpuscular Hemoglobin 29, Mean Corpuscular Hemoglobin Concent 32, Red Cell Distribution Width 15.4H, Platelet Count 132, Mean Platelet Volume 11.0H, Neutrophils (%) (Auto) 84H, Lymphocytes (%) (Auto) 6L, Monocytes (%) (Auto) 11, Eosinophils (%) (Auto) 0, Basophils (%) (Auto) 0, Neutrophils # (Auto) 10.2H, Lymphocytes # (Auto) 0.7L, Monocytes # (Auto) 1.3H, Eosinophils # (Auto) 0.0, Basophils # (Auto) 0.0, Prothrombin Time 22.2H, INR Comment 1.9H, Sodium Level 143, Potassium Level 3.8, Chloride Level 107, Carbon Dioxide Level 25, Anion Gap 11, Blood Urea Nitrogen 32H, Creatinine 0.77, Estimat Glomerular Filtration Rate > 60, BUN/Creatinine Ratio 42, Glucose Level 91, Calcium Level 9.2, Phosphorus Level 2.3, Magnesium Level 2.0, B-Type Natriuretic Peptide 1298.9H Microbiology 07/24/18 Blood Culture - Preliminary, Resulted No growth 07/24/18 Influenza Types A,B Antigen (SANTOS) - Final, Complete 07/24/18 Urine Culture - Final, Complete Escherichia coli Assessment/Plan Assessment/Plan Assess & Plan/Chief Complaint 1. Acute Respiratory Failure--off oxygen 2. Acute on Chronic Diastolic Dysfunction with Severe Mitral Valve Stenosis-- not a candidate for any intervention 3. Chronic Atrial Fibrillation--coumadin restarted at lower dose, resume digoxin 4. Dementia with current behavior disorder--improving now 5. UTI with E. coli--continue meropenem 6. Weakness--PT/OT started Clinical Quality Measures Admission Status Admission Dx 1. Acute Respiratory Failure with Hypoxia--sedated on BIPAP, on solumedrol and rocephin due to fever on admission 2. Acute on Chronic Diastolic CHF due to severe mitral stenosis--not a candidate for intervention except for medical management 3. Chronic atrial fibrillation--coumadin resumed but patient too sedated to take so will give lovenox for dvt prophylaxis and check PT/INR 4. Dementia--exacerbated with recent illness DVT/VTE Risk/Contraindication: Risk Factor Score Per Nursin RFS Level Per Nursing on Admit: 4+=Very High KAT VIGIL DO Jul 28, 2018 18:17
[2018-07-28] MEDS: DIGOXIN 0.25 MG (LANOXIN) TAB PO SCH (18:46)
[2018-07-28] MEDS: ATORVASTATIN 40 MG (LIPITOR) TABLET PO SCH (20:40)
[2018-07-28] MEDS: FAMOTIDINE 20 MG (PEPCID) TABLET PO SCH (20:40)
[2018-07-28] MEDS: ARTIFICAL TEARS 0.4 ML UNIT DOSE (REFRESH PLUS) OU SCH (20:40)
[2018-07-28] MEDS ORDERED: NON-FORMULARY MEDICATION 1 EA EA (Escitalopram Oxalate 20 MG) PO SCH (21:00)
[2018-07-28] MEDS ORDERED: SYSTANE EYE DROPS 15 ML (NON-FORMULARY) OP SCH (21:00)
[2018-07-29 04:05] VITALS: BP 153/86
[2018-07-29 04:29] LABS: BASOPHILS % (AUTO) 0 % (0-10); EOSINOPHILS % (AUTO) 0 % (0-10); HEMATOCRIT 40 % (35-52); HEMOGLOBIN 12.5 G/DL (11.5-16.0); LYMPHOCYTES # (AUTO) 0.6 X 10^3 (1.0-4.0); LYMPHOCYTES % (AUTO) 8 % (12-44); MEAN CORPUSCULAR HEMOGLOBIN 29 PG (25-34); MEAN CORPUSCULAR HGB CONC 32 G/DL (32-36); MEAN CORPUSCULAR VOLUME 92 FL (80-99); MEAN PLATELET VOLUME 11.2 FL (7.4-10.4); MONOCYTES # (AUTO) 0.7 X 10^3 (0.0-1.0); MONOCYTES % (AUTO) 9 % (0-12); NEUTROPHILS # (AUTO) 6.5 X 10^3 (1.8-7.8); NEUTROPHILS % (AUTO) 83 % (42-75); PLATELET COUNT 128 10^3/uL (130-400); RED BLOOD COUNT 4.28 10^6/uL (4.35-5.85); RED CELL DISTRIBUTION WIDTH 15.5 % (10.0-14.5); WHITE BLOOD COUNT 7.8 10^3/uL (4.3-11.0)
[2018-07-29 04:45] LABS: INR 1.8 (0.8-1.4); PROTHROMBIN TIME PATIENT 20.5 SEC (12.2-14.7)
[2018-07-29 04:53] LABS: BUN/CREATININE RATIO 32; CALCIUM 8.9 MG/DL (8.5-10.1); CARBON DIOXIDE 27 MMOL/L (21-32); CHLORIDE 106 MMOL/L (98-107); CREATININE SERUM 0.68 MG/DL (0.60-1.30); GFR ESTIMATED > 60; GLUCOSE 90 MG/DL (70-105); PHOSPHORUS 2.5 MG/DL (2.3-4.7); POTASSIUM 3.8 MMOL/L (3.6-5.0); SODIUM 143 MMOL/L (135-145)
[2018-07-29] MEDS: MEROPENEM 500 MG in NS (IVPB) 100 ML IV SCH ×3 (05:43→21:23)
[2018-07-29 08:00] VITALS: BP 143/93
--- NOTE | 2018-07-29 08:13 | Pulmonary Progress Note ---
Subjective Time Seen by a Provider: 08:14 Subjective/Events-last exam No complications noted. Sepsis Event Evaluation Height, Weight, BMI Height: 5'6.00" Weight: 129lbs. 2.0oz. 58.821551fw; 20.8 BMI Method:Estimated Exam Exam Vital Signs Date Time Temp Pulse Resp B/P (MAP) Pulse Ox O2 Delivery O2 Flow Rate FiO2 07/29/18 07:39 Nasal Cannula 2.00 07/29/18 04:05 98.0 99 18 153/86 (108) 95 Nasal Cannula 2.00 07/28/18 23:53 98.7 100 18 122/71 (88) 94 Nasal Cannula 2.00 07/28/18 21:00 92 Room Air 07/28/18 19:30 99.0 104 20 143/85 (104) 92 Room Air 07/28/18 15:40 99.1 102 20 150/83 (105) 93 Room Air 07/28/18 12:10 98.6 116 18 132/81 (98) 92 Room Air I & O 07/29/18 07:00 Intake Total 400 ml Balance 400 ml Height & Weight Height: 5'6.00" Weight: 129lbs. 2.0oz. 58.576586hp; 20.8 BMI Method:Estimated General Appearance: No Apparent Distress Neck: Supple Respiratory: Lungs Clear Cardiovascular: Systolic Murmur, Irregularly Irregular Capillary Refill: Greater Than 3 Seconds Gastrointestinal: normal bowel sounds, non tender, soft Extremity: Non Tender, No Calf Tenderness, No Pedal Edema Neurologic/Psychiatric: Alert, Disoriented Skin: Warm/Dry Results Lab Laboratory Tests 07/28/18 03:45 07/29/18 04:23 Assessment/Plan Assessment/Plan Acute on chronic respiratory failure -pt now on RA -PT is a DNR Pleural effusion -Monitor -Hep lock IVF -repeat BNP UTI with MDR Ecoli probable ESBL + - Merrem -Currently has colvin - consider d/c colvin Afib- controlled. -Coumadin coagulopathy -Coumadin is on hold Severe mitral stenosis agitation/anxiety -Haldol PRN Family is considering hospice care. ARMANI CHENG DO Jul 29, 2018 08:13
--- NOTE | 2018-07-29 08:34 | Progress Note-Cardiology ---
Cardiology SOAP Progress Note Subjective: Sitting up in a chair at the bedside. C/O occ cough. No c/o pain or dyspnea. Objective: I&O/Vital Signs 07/29/18 07/29/18 07/29/18 07/29/18 04:05 07:39 08:00 12:00 Temp 98.0 99.1 99.6 Pulse 99 105 109 Resp 18 20 20 B/P (MAP) 153/86 (108) 143/93 (110) 127/85 (99) Pulse Ox 95 98 92 O2 Delivery Nasal Cannula Nasal Cannula Nasal Cannula Nasal Cannula O2 Flow Rate 2.00 2.00 2.00 2.00 07/29/18 00:00 Intake Total 300 ml Balance 300 ml Weight (Pounds): 129 Weight (Ounces): 2.0 Weight (Calculated Kilograms): 58.237752 Constitutional: No AAO x 3, No apparent distress; other (thin-appearing) Respiratory: chest is bilaterally symmetric, other (fair bilat air entry, diminished at the bases) Cardiovascular: irregularly irregular, S1 and S2, diastolic murmur Gastrointestional: No tender, No guarding, No rebound; audible bowel sounds Extremities: No clubbing, No cyanosis; significant edema (mild bilat LE edema) Neurologic/Psychiatric: other (moves all limbs equally, is disoriented) Skin: normal color, warm/dry; No rash on exposed areas, No ulcerations on exposed areas Results/Procedures: Labs Laboratory Tests 07/29/18 04:23: White Blood Count 7.8, Red Blood Count 4.28L, Hemoglobin 12.5, Hematocrit 40, Mean Corpuscular Volume 92, Mean Corpuscular Hemoglobin 29, Mean Corpuscular Hemoglobin Concent 32, Red Cell Distribution Width 15.5H, Platelet Count 128L, Mean Platelet Volume 11.2H, Neutrophils (%) (Auto) 83H, Lymphocytes (%) (Auto) 8L, Monocytes (%) (Auto) 9, Eosinophils (%) (Auto) 0, Basophils (%) (Auto) 0, Neutrophils # (Auto) 6.5, Lymphocytes # (Auto) 0.6L, Monocytes # (Auto) 0.7, Eosinophils # (Auto) 0.0, Basophils # (Auto) 0.0, Prothrombin Time 20.5H, INR Comment 1.8H, Sodium Level 143, Potassium Level 3.8, Chloride Level 106, Carbon Dioxide Level 27, Anion Gap 10, Blood Urea Nitrogen 22H, Creatinine 0.68, Estimat Glomerular Filtration Rate > 60, BUN/Creatinine Ratio 32, Glucose Level 90, Calcium Level 8.9, Phosphorus Level 2.5, Magnesium Level 2.0 Microbiology 07/24/18 Blood Culture - Preliminary, Resulted No growth 07/24/18 Influenza Types A,B Antigen (SANTOS) - Final, Complete 07/24/18 Urine Culture - Final, Complete Escherichia coli Laboratory Tests 07/28/18 03:45 07/29/18 04:23 A/P: Assessment: Chronic, permanent, valvular A Fib (this presentation with RVR). 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 Normal regional wall motion. 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 Considerable wgt loss since that surgery, according to the patient Hypertension - not well controlled H/o elevated transaminases Hyperlipidemia, treated with statin therapy S/p bilateral corneal transplants Plan: * Complex management due to multiple comorbidities that are outlined above * She is not a suitable candidate for [facility] intervention for mitral stenosis * Plan is to treat vent response and heart failure - give diuretics * INR 1.8 today - warfarin resumed - cover with Lovenox until therapeutic * Monitor labs * HR and BP not well controlled - add BB and adjust as indicted Physician Assessment Physician Assessment Not able to provide any meaningful history. Does not report cp or palp or shortness of breath Lungs: fair to good air entry Cor: irreg Ext: no c/c/e Neuro: disoriented, moves all limbs A&R * As documented in our note above that I updated (italics) * Continue patient's card regimen * Please monitor INR and adjust warfarin to keep INR between 2 and 3. D/c enoxaparin when INR 2 or greater C[facility]STAL [facility] Jul 29, 2018 08:34 MENDEL SALDANA MD FACP [facility] Jul 29, 2018 14:13
[2018-07-29] MEDS ORDERED: FUROSEMIDE 40 MG/4 ML INJ (LASIX) IVP NR (08:45)
[2018-07-29] MEDS ORDERED: KCL 20 MEQ TAB (K-DUR) PO NR (08:45)
[2018-07-29] MEDS ORDERED: NON-FORMULARY MEDICATION 1 EA EA (Loteprednol Etabonate (Lotemax) 1 DROP) OU SCH (09:00)
[2018-07-29] MEDS: meTOprolol TARTRATE 25 MG (LOPRESSOR) TABLET PO SCH ×2 (11:25→20:55)
--- NOTE | 2018-07-29 11:25 | Physical Therapy Progress Note ---
Therapy Progress Note PT in to assist nursing staff on patient returning to bed. Patient is in recliner and leaning to left over the side of the chair. Patient required dependent assist x 2 for sit to stand and bed mobility transfers. Patient incontinent BM requiring dependent assist to cleanse and change. Patient is unable to follow simple direction and does not require skilled therapy intervention. PT to dismiss patient from services at this time. 1 visit COURTNEY MARTINEZ PT Jul 29, 2018 11:25
[2018-07-29] MEDS: ARTIFICAL TEARS 0.4 ML UNIT DOSE (REFRESH PLUS) OU SCH ×4 (11:26→21:23)
[2018-07-29] MEDS: ENOXAPARIN 60 MG/0.6 ML (LOVENOX) SYR SC SCH ×2 (11:26→22:36)
[2018-07-29 12:00] VITALS: BP 127/85
--- NOTE | 2018-07-29 12:43 | Progress Note (SOAP) ---
Subjective Date Seen by a Provider: Jul 29, 2018 Time Seen by a Provider: 12:40 Subjective/Events-last exam Fwup acute respiratory failure, acute on chronic diastolic CHF with severe mitral valve stenosis, chronic atrial fibrillation, dementia with behavior disorder. More confused today. Not tracking to do PT. Refusing to drink and choked while trying to eat. Objective Exam Vital Signs Date Time Temp Pulse Resp B/P (MAP) Pulse Ox O2 Delivery O2 Flow Rate FiO2 07/29/18 07:39 Nasal Cannula 2.00 07/29/18 04:05 98.0 99 18 153/86 (108) 95 Nasal Cannula 2.00 07/28/18 23:53 98.7 100 18 122/71 (88) 94 Nasal Cannula 2.00 07/28/18 21:00 92 Room Air 07/28/18 19:30 99.0 104 20 143/85 (104) 92 Room Air 07/28/18 15:40 99.1 102 20 150/83 (105) 93 Room Air I & O 07/29/18 07:00 Intake Total 400 ml Balance 400 ml Capillary Refill : Greater Than 3 Seconds General Appearance: Mild Distress Neck: Supple Respiratory: Lungs Clear Cardiovascular: Systolic Murmur, Irregularly Irregular Gastrointestinal: normal bowel sounds, non tender, soft Extremity: Non Tender, No Calf Tenderness, No Pedal Edema Neurologic/Psychiatric: Alert, Disoriented Skin: Warm/Dry Results Lab Laboratory Tests 07/29/18 04:23: White Blood Count 7.8, Red Blood Count 4.28L, Hemoglobin 12.5, Hematocrit 40, Mean Corpuscular Volume 92, Mean Corpuscular Hemoglobin 29, Mean Corpuscular Hemoglobin Concent 32, Red Cell Distribution Width 15.5H, Platelet Count 128L, Mean Platelet Volume 11.2H, Neutrophils (%) (Auto) 83H, Lymphocytes (%) (Auto) 8L, Monocytes (%) (Auto) 9, Eosinophils (%) (Auto) 0, Basophils (%) (Auto) 0, Neutrophils # (Auto) 6.5, Lymphocytes # (Auto) 0.6L, Monocytes # (Auto) 0.7, Eosinophils # (Auto) 0.0, Basophils # (Auto) 0.0, Prothrombin Time 20.5H, INR Comment 1.8H, Sodium Level 143, Potassium Level 3.8, Chloride Level 106, Carbon Dioxide Level 27, Anion Gap 10, Blood Urea Nitrogen 22H, Creatinine 0.68, Estimat Glomerular Filtration Rate > 60, BUN/Creatinine Ratio 32, Glucose Level 90, Calcium Level 8.9, Phosphorus Level 2.5, Magnesium Level 2.0 Microbiology 07/24/18 Blood Culture - Preliminary, Resulted No growth 07/24/18 Influenza Types A,B Antigen (SANTOS) - Final, Complete 07/24/18 Urine Culture - Final, Complete Escherichia coli Assessment/Plan Assessment/Plan Assess & Plan/Chief Complaint 1. Acute Respiratory Failure--back on oxygen 2. Acute on Chronic Diastolic Dysfunction with Severe Mitral Valve Stenosis-- not a candidate for any intervention 3. Chronic Atrial Fibrillation--coumadin restarted at lower dose, resumed digoxin 4. Dementia with current behavior disorder and worsening confusion 5. UTI with E. coli--continue meropenem 6. Weakness--unable to do PT/OT due to not tracking 7. Did discuss hospice with son and DIL and they are agreeable to this plan but would ultimately like her to be able to return to [facility] with hospice-- they understand the poor prognosis 8. Dysphagia--will switch to pureed diet and get ST for swallow eval. Clinical Quality Measures Admission Status Admission Dx 1. Acute Respiratory Failure with Hypoxia--sedated on BIPAP, on solumedrol and rocephin due to fever on admission 2. Acute on Chronic Diastolic CHF due to severe mitral stenosis--not a candidate for intervention except for medical management 3. Chronic atrial fibrillation--coumadin resumed but patient too sedated to take so will give lovenox for dvt prophylaxis and check PT/INR 4. Dementia--exacerbated with recent illness DVT/VTE Risk/Contraindication: Risk Factor Score Per Nursin RFS Level Per Nursing on Admit: 4+=Very High KAT VIGIL DO Jul 29, 2018 12:43 pm
--- NOTE | 2018-07-29 13:33 | Speech Therapy Progress Note ---
Therapy Progress Note attempted to complete a Bedside Dysphagia Evaluation this afternoon. The patient was raised in her bed with tactile prompts to wake up. Patient was unable to arouse enough for safety of any oral intake at this time. MARCIA ALVARADO Jul 29, 2018 13:33
--- NOTE | 2018-07-29 13:52 | Occ Therapy Progress Note ---
Therapy Progress Note [id number] Pt unable to participant in OT. Mutters and is not understandable. Unable to follow commands. DC OT due to medical decline and inability to participate. visit SABA BRONSON OT Jul 29, 2018 13:52
[2018-07-29 16:09] VITALS: BP 132/82
[2018-07-29] MEDS: warFARin 3 MG (COUMADIN) TAB PO SCH (17:40)
[2018-07-29 20:00] VITALS: BP 122/80
[2018-07-29] MEDS: ATORVASTATIN 40 MG (LIPITOR) TABLET PO SCH (20:55)
[2018-07-29] MEDS: FAMOTIDINE 20 MG (PEPCID) TABLET PO SCH (20:55)
[2018-07-30] VITALS: BP 127/77
[2018-07-30 04:00] VITALS: BP 130/68
[2018-07-30] MEDS: MEROPENEM 500 MG in NS (IVPB) 100 ML IV SCH ×3 (05:20→20:54)
[2018-07-30] MEDS: KCL 10 MEQ TAB (MICRO K) PO SCH (06:16)
[2018-07-30 06:23] LABS: BASOPHILS % (AUTO) 0 % (0-10); EOSINOPHILS % (AUTO) 0 % (0-10); HEMATOCRIT 46 % (35-52); HEMOGLOBIN 13.9 G/DL (11.5-16.0); LYMPHOCYTES # (AUTO) 0.5 X 10^3 (1.0-4.0); LYMPHOCYTES % (AUTO) 5 % (12-44); MEAN CORPUSCULAR HEMOGLOBIN 29 PG (25-34); MEAN CORPUSCULAR HGB CONC 30 G/DL (32-36); MEAN CORPUSCULAR VOLUME 97 FL (80-99); MEAN PLATELET VOLUME 11.2 FL (7.4-10.4); MONOCYTES # (AUTO) 0.7 X 10^3 (0.0-1.0); MONOCYTES % (AUTO) 7 % (0-12); NEUTROPHILS # (AUTO) 7.6 X 10^3 (1.8-7.8); NEUTROPHILS % (AUTO) 87 % (42-75); PLATELET COUNT 112 10^3/uL (130-400); RED BLOOD COUNT 4.79 10^6/uL (4.35-5.85); RED CELL DISTRIBUTION WIDTH 15.5 % (10.0-14.5); WHITE BLOOD COUNT 8.7 10^3/uL (4.3-11.0)
[2018-07-30 06:33] LABS: INR 1.5 (0.8-1.4); PROTHROMBIN TIME PATIENT 17.7 SEC (12.2-14.7)
[2018-07-30 06:46] LABS: BUN/CREATININE RATIO 29; CALCIUM 9.2 MG/DL (8.5-10.1); CARBON DIOXIDE 34 MMOL/L (21-32); CHLORIDE 102 MMOL/L (98-107); CREATININE SERUM 0.77 MG/DL (0.60-1.30); GFR ESTIMATED > 60; GLUCOSE 73 MG/DL (70-105); PHOSPHORUS 3.7 MG/DL (2.3-4.7); POTASSIUM 3.9 MMOL/L (3.6-5.0); SODIUM 147 MMOL/L (135-145)
[2018-07-30 08:00] VITALS: BP_SYST 124; BP_DIAS 0; BP_DIAS 70
[2018-07-30] MEDS: meTOprolol TARTRATE 25 MG (LOPRESSOR) TABLET PO SCH ×2 (09:12→21:26)
[2018-07-30] MEDS: FUROSEMIDE 40 MG (LASIX) TAB PO SCH (09:12)
[2018-07-30] MEDS: ARTIFICAL TEARS 0.4 ML UNIT DOSE (REFRESH PLUS) OU SCH ×4 (09:20→20:53)
[2018-07-30] MEDS: ENOXAPARIN 60 MG/0.6 ML (LOVENOX) SYR SC SCH ×2 (11:34→22:03)
[2018-07-30 12:00] VITALS: BP 126/74
--- NOTE | 2018-07-30 12:23 | Progress Note-Hospitalist ---
Subjective HPI/CC On Admission Date Seen by Provider: Jul 30, 2018 Time Seen by Provider: 11:30 Subjective/Events-last exam Patient appears to be at the end of her life Will initiate comfort care protocol if declines further Hospice discussed with family by primary care provider yesterday Overall decline status appears to have no chance of recovery Review of Systems General: Fatigue Objective Exam Vital Signs Vital Signs Date Time Temp Pulse Resp B/P (MAP) Pulse Ox O2 Delivery O2 Flow Rate FiO2 07/30/18 12:00 97.6 70 16 126/74 (91) 98 Nasal Cannula 2.00 07/27/18 06:45 Capillary Refill : Greater Than 3 Seconds General Appearance: No Apparent Distress, WD/WN, Chronically ill, Cachetic Respiratory: Chest Non Tender, Lungs Clear, Normal Breath Sounds, No Accessory Muscle Use, No Respiratory Distress Cardiovascular: Regular Rate, Rhythm, No Edema, No Gallop, No JVD, No Murmur, Normal Peripheral Pulses Neurologic/Psychiatric: Alert, Disoriented Results/Procedures Lab Laboratory Tests 07/30/18 05:40 Patient resulted labs reviewed. Assessment/Plan Assessment and Plan Assess & Plan/Chief Complaint Assessment: Respiratory failure End-of-life status needs hospice Plan: Continue treatment plan If patient declines further we'll need comfort care orders Diagnosis/Problems Diagnosis/Problems (1) End of life care Status: Acute (2) Respiratory failure with hypoxia Status: Acute Qualifiers: Chronicity: acute on chronic Qualified Codes: J96.21 - Acute and chronic respiratory failure with hypoxia (3) Altered mental status Status: Acute Qualifiers: Altered mental status type: unspecified Qualified Codes: R41.82 - Altered mental status, unspecified (4) Atrial fibrillation Status: Acute Qualifiers: Atrial fibrillation type: chronic Qualified Codes: I48.2 - Chronic atrial fibrillation (5) Congestive heart failure Status: Acute Qualifiers: Heart failure type: unspecified Heart failure chronicity: unspecified Qualified Codes: I50.9 - Heart failure, unspecified Clinical Quality Measures DVT/VTE Risk/Contraindication: Risk Factor Score Per Nursin RFS Level Per Nursing on Admit: 4+=Very High SALVATORE GIRALDO DO Jul 30, 2018 12:23
--- NOTE | 2018-07-30 13:45 | Cardiology Progress Note ---
Subjective Date Seen by Provider: Jul 30, 2018 Time Seen by Provider: 13:42 Subjective/Events-last exam Patient is laying down in bed, feeling better. Denied any chest pain. No palpitation. Confused. Review of Systems General: No Chills, No Night Sweats; Fatigue, Malaise; No Appetite, No Other HEENT: No Head Aches, No Visual Changes, No Eye Pain, No Ear Pain, No Dysphasia , No Sinus Congestion, No Post Nasal Drip, No Sore Throat, No Other Pulmonary: No Dyspnea, No Cough, No Pleuritic Chest Pain, No Other Cardiovascular: No: Chest Pain, Palpitations, Orthopnea, Paroxysmal Noc. Dyspnea, Edema, Lt Headedness, Other Objective-Cardiology Exam Last Set of Vital Signs Vital Signs 07/27/18 07/30/18 06:37 12:00 Temp 97.6 Pulse 70 Resp 16 B/P (MAP) 126/74 (91) Pulse Ox 98 O2 Delivery Nasal Cannula O2 Flow Rate 2.00 FiO2 21 Capillary Refill : Greater Than 3 Seconds I&O Intake and Output 07/30/18 00:00 Intake Total 370 ml Balance 370 ml Intake Oral 370 ml # Voids 5 # Urine Diapers 3 # Bowel Movements 4 General: Alert, Cooperative, Mild Distress HEENT: Atraumatic, PERRLA Neck: Supple, No JVD Lungs: Clear to Auscultation, Normal Air Movement Heart: Normal S1, Normal S2, Other (A. fib) Abdomen: Normal Bowel Sounds Extremities: No Clubbing, No Cyanosis Skin: No Breakdown Neuro: Normal Speech Results Lab Laboratory Tests 07/30/18 05:40 A/P-Cardiology Admission Diagnosis Chronic atrial fibrillation Hypertension Urinary tract infection Dementia Assessment/Plan Chronic, permanent, valvular A Fib (this presentation with RVR). 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 Normal regional wall motion. 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 Considerable wgt loss since that surgery, according to the patient Hypertension - not well controlled H/o elevated transaminases Hyperlipidemia, treated with statin therapy S/p bilateral corneal transplants Clinical Quality Measures DVT/VTE Risk/Contraindication: Risk Factor Score Per Nursin RFS Level Per Nursing on Admit: 4+=Very High ADDIE CARTER MD Jul 30, 2018 13:45
[2018-07-30 16:00] VITALS: BP 137/75
[2018-07-30] MEDS: warFARin 3 MG (COUMADIN) TAB PO SCH (18:10)
[2018-07-30] MEDS: DIGOXIN 0.25 MG (LANOXIN) TAB PO SCH (18:10)
[2018-07-30 19:54] VITALS: BP 162/67
[2018-07-30] MEDS: ATORVASTATIN 40 MG (LIPITOR) TABLET PO SCH (21:26)
[2018-07-30] MEDS: FAMOTIDINE 20 MG (PEPCID) TABLET PO SCH (21:27)
[2018-07-31] VITALS: BP 122/76
[2018-07-31 04:00] VITALS: BP 137/84
[2018-07-31] MEDS: MEROPENEM 500 MG in NS (IVPB) 100 ML IV SCH ×3 (04:34→20:23)
[2018-07-31 05:52] LABS: BASOPHILS % (AUTO) 0 % (0-10); EOSINOPHILS % (AUTO) 0 % (0-10); HEMATOCRIT 42 % (35-52); HEMOGLOBIN 12.7 G/DL (11.5-16.0); LYMPHOCYTES # (AUTO) 0.4 X 10^3 (1.0-4.0); LYMPHOCYTES % (AUTO) 4 % (12-44); MEAN CORPUSCULAR HEMOGLOBIN 29 PG (25-34); MEAN CORPUSCULAR HGB CONC 31 G/DL (32-36); MEAN CORPUSCULAR VOLUME 96 FL (80-99); MEAN PLATELET VOLUME 11.3 FL (7.4-10.4); MONOCYTES # (AUTO) 0.7 X 10^3 (0.0-1.0); MONOCYTES % (AUTO) 9 % (0-12); NEUTROPHILS # (AUTO) 7.5 X 10^3 (1.8-7.8); NEUTROPHILS % (AUTO) 87 % (42-75); PLATELET COUNT 112 10^3/uL (130-400); RED BLOOD COUNT 4.34 10^6/uL (4.35-5.85); RED CELL DISTRIBUTION WIDTH 15.3 % (10.0-14.5); WHITE BLOOD COUNT 8.6 10^3/uL (4.3-11.0)
[2018-07-31 06:11] LABS: BUN/CREATININE RATIO 37; CALCIUM 8.9 MG/DL (8.5-10.1); CARBON DIOXIDE 33 MMOL/L (21-32); CHLORIDE 104 MMOL/L (98-107); CREATININE SERUM 0.65 MG/DL (0.60-1.30); GFR ESTIMATED > 60; GLUCOSE 104 MG/DL (70-105); MAGNESIUM 1.8 MG/DL (1.8-2.4); PHOSPHORUS 2.3 MG/DL (2.3-4.7); SODIUM 146 MMOL/L (135-145)
[2018-07-31] MEDS: KCL 10 MEQ TAB (MICRO K) PO SCH (06:19)
[2018-07-31 08:00] VITALS: BP 152/86
[2018-07-31] MEDS: FUROSEMIDE 40 MG (LASIX) TAB PO SCH (08:37)
[2018-07-31] MEDS: meTOprolol TARTRATE 25 MG (LOPRESSOR) TABLET PO SCH ×2 (08:37→20:27)
[2018-07-31] MEDS: ARTIFICAL TEARS 0.4 ML UNIT DOSE (REFRESH PLUS) OU SCH ×4 (08:37→20:23)
--- NOTE | 2018-07-31 09:16 | Cardiology Progress Note ---
Subjective Date Seen by Provider: Jul 31, 2018 Time Seen by Provider: 09:14 Subjective/Events-last exam Patient is in bed, complaining of back pain, no chest pain Review of Systems General: No Chills, No Night Sweats; Fatigue, Malaise; No Appetite, No Other HEENT: No Head Aches, No Visual Changes, No Eye Pain, No Ear Pain, No Dysphasia , No Sinus Congestion, No Post Nasal Drip, No Sore Throat, No Other Pulmonary: No Dyspnea, No Cough, No Pleuritic Chest Pain, No Other Cardiovascular: No: Chest Pain, Palpitations, Orthopnea, Paroxysmal Noc. Dyspnea, Edema, Lt Headedness, Other Objective-Cardiology Exam Last Set of Vital Signs Vital Signs 07/27/18 07/31/18 06:37 08:00 Temp 98.7 Pulse 86 Resp 20 B/P (MAP) 152/86 (108) Pulse Ox 93 O2 Delivery Nasal Cannula O2 Flow Rate 2.00 FiO2 21 Capillary Refill : Greater Than 3 Seconds I&O Intake and Output 07/31/18 00:00 Intake Total 930 ml Balance 930 ml Intake Oral 830 ml IV Total 100 ml # Voids 5 # Urine Diapers 1 General: Alert, Cooperative, Mild Distress HEENT: Atraumatic, PERRLA Neck: Supple, No JVD Lungs: Clear to Auscultation, Normal Air Movement Heart: Normal S1, Normal S2, Other (A. fib) Abdomen: Normal Bowel Sounds Extremities: No Clubbing, No Cyanosis Skin: No Breakdown Neuro: Normal Speech Results Lab Laboratory Tests 07/31/18 05:15 A/P-Cardiology Admission Diagnosis Chronic atrial fibrillation Hypertension Urinary tract infection Dementia Assessment/Plan Chronic, permanent, valvular A Fib (this presentation with RVR). 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 Normal regional wall motion. 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 Considerable wt loss since that surgery, according to the patient Hypertension - not well controlled H/o elevated transaminases Hyperlipidemia, treated with statin therapy S/p bilateral corneal transplants Clinical Quality Measures DVT/VTE Risk/Contraindication: Risk Factor Score Per Nursin RFS Level Per Nursing on Admit: 4+=Very High ADDIE CARTER MD Jul 31, 2018 09:16
[2018-07-31] MEDS: ENOXAPARIN 60 MG/0.6 ML (LOVENOX) SYR SC SCH ×2 (10:35→22:19)
--- NOTE | 2018-07-31 11:27 | Progress Note-Hospitalist ---
Subjective HPI/CC On Admission Date Seen by Provider: Jul 31, 2018 Time Seen by Provider: 10:45 Subjective/Events-last exam Patient about the same RN needs IV pain meds Pt awakens but poor responses Stable vitals Objective Exam Vital Signs Vital Signs Date Time Temp Pulse Resp B/P (MAP) Pulse Ox O2 Delivery O2 Flow Rate FiO2 07/31/18 12:00 99.0 62 18 123/72 (89) 97 Nasal Cannula 2.00 07/27/18 06:45 Capillary Refill : Greater Than 3 Seconds General Appearance: No Apparent Distress, WD/WN, Chronically ill, Cachetic Respiratory: Chest Non Tender, Lungs Clear, Normal Breath Sounds, No Accessory Muscle Use, No Respiratory Distress Cardiovascular: Regular Rate, Rhythm, No Edema, No Gallop, No JVD, No Murmur, Normal Peripheral Pulses Neurologic/Psychiatric: Alert, Disoriented Results/Procedures Lab Laboratory Tests 07/31/18 05:15 Patient resulted labs reviewed. Assessment/Plan Assessment and Plan Assess & Plan/Chief Complaint Assessment: Respiratory failure End-of-life status needs hospice Plan: Continue treatment plan If patient declines further we'll need comfort care orders Diagnosis/Problems Diagnosis/Problems (1) End of life care Status: Acute (2) Respiratory failure with hypoxia Status: Acute Qualifiers: Chronicity: acute on chronic Qualified Codes: J96.21 - Acute and chronic respiratory failure with hypoxia (3) Altered mental status Status: Acute Qualifiers: Altered mental status type: unspecified Qualified Codes: R41.82 - Altered mental status, unspecified (4) Atrial fibrillation Status: Acute Qualifiers: Atrial fibrillation type: chronic Qualified Codes: I48.2 - Chronic atrial fibrillation (5) Congestive heart failure Status: Acute Qualifiers: Heart failure type: unspecified Heart failure chronicity: unspecified Qualified Codes: I50.9 - Heart failure, unspecified Clinical Quality Measures DVT/VTE Risk/Contraindication: Risk Factor Score Per Nursin RFS Level Per Nursing on Admit: 4+=Very High SALVATORE GIRALDO DO Jul 31, 2018 11:27
[2018-07-31] MEDS ORDERED: fentaNYL INJECTION 100 MCG/2 ML AMP IVP PRN (11:30)
[2018-07-31 12:00] VITALS: BP 123/72
[2018-07-31 16:00] VITALS: BP 136/77
[2018-07-31] MEDS: warFARin 3 MG (COUMADIN) TAB PO SCH (17:10)
[2018-07-31 20:00] VITALS: BP 113/65
[2018-07-31] MEDS: FAMOTIDINE 20 MG (PEPCID) TABLET PO SCH (20:27)
[2018-07-31] MEDS: ATORVASTATIN 40 MG (LIPITOR) TABLET PO SCH (20:27)
[2018-08-01 00:10] VITALS: BP 101/63
[2018-08-01 04:00] VITALS: BP 97/56
[2018-08-01] MEDS: MEROPENEM 500 MG in NS (IVPB) 100 ML IV SCH (05:04)
[2018-08-01] MEDS: KCL 10 MEQ TAB (MICRO K) PO SCH (06:31)
[2018-08-01 07:07] LABS: BASOPHILS % (AUTO) 0 % (0-10); EOSINOPHILS % (AUTO) 0 % (0-10); HEMATOCRIT 33 % (35-52); LYMPHOCYTES # (AUTO) 0.5 X 10^3 (1.0-4.0); LYMPHOCYTES % (AUTO) 5 % (12-44); MEAN CORPUSCULAR HEMOGLOBIN 29 PG (25-34); MEAN CORPUSCULAR HGB CONC 30 G/DL (32-36); MEAN CORPUSCULAR VOLUME 97 FL (80-99); MEAN PLATELET VOLUME 11.6 FL (7.4-10.4); MONOCYTES # (AUTO) 0.7 X 10^3 (0.0-1.0); MONOCYTES % (AUTO) 6 % (0-12); NEUTROPHILS # (AUTO) 9.8 X 10^3 (1.8-7.8); NEUTROPHILS % (AUTO) 89 % (42-75); PLATELET COUNT 131 10^3/uL (130-400); RED CELL DISTRIBUTION WIDTH 14.8 % (10.0-14.5); WHITE BLOOD COUNT 11.1 10^3/uL (4.3-11.0)
--- NOTE | 2018-08-01 07:10 | Pulmonary Progress Note ---
Subjective Time Seen by a Provider: 07:13 Subjective/Events-last exam Pt is lethargic Sepsis Event Evaluation Height, Weight, BMI Height: 5'6.00" Weight: 123lbs. 2.0oz. 55.254754ig; 20.8 BMI Method:Estimated Exam Exam Vital Signs Date Time Temp Pulse Resp B/P (MAP) Pulse Ox O2 Delivery O2 Flow Rate FiO2 08/01/18 00:10 98.9 92 24 101/63 (76) 98 Nasal Cannula 3.00 07/31/18 21:00 Nasal Cannula 2.00 07/31/18 20:02 Nasal Cannula 2.00 07/31/18 20:00 97.7 88 20 113/65 (81) 98 Nasal Cannula 3.00 07/31/18 16:00 98.0 88 18 136/77 (96) 97 Nasal Cannula 3.00 07/31/18 12:00 99.0 62 18 123/72 (89) 97 Nasal Cannula 2.00 07/31/18 10:54 Nasal Cannula 3.00 07/31/18 09:00 Nasal Cannula 2.00 07/31/18 08:00 98.7 86 20 152/86 (108) 93 Nasal Cannula 2.00 I & O 08/01/18 06:59 Intake Total 1040 ml Balance 1040 ml Height & Weight Height: 5'6.00" Weight: 123lbs. 2.0oz. 55.381283ms; 20.8 BMI Method:Estimated General Appearance: No Apparent Distress, WD/WN, Chronically ill, Cachetic Neck: Supple Respiratory: Chest Non Tender, Lungs Clear, Normal Breath Sounds, No Accessory Muscle Use, No Respiratory Distress Cardiovascular: Regular Rate, Rhythm, No Edema, No Gallop, No JVD, No Murmur, Normal Peripheral Pulses Capillary Refill: Less Than 3 Seconds Gastrointestinal: normal bowel sounds, non tender, soft Extremity: Non Tender, No Calf Tenderness, No Pedal Edema Neurologic/Psychiatric: Alert, Disoriented Skin: Warm/Dry Results Lab Laboratory Tests 07/31/18 05:15 Assessment/Plan Assessment/Plan Acute on chronic respiratory failure -PT is a DNR Pleural effusion -Monitor UTI with MDR Ecoli probable ESBL + - Merrem -Currently has colvin - consider d/c colvin Afib- controlled. Severe mitral stenosis agitation/anxiety -Haldol PRN Family is considering hospice care. ARMANI CHENG DO Aug 01, 2018 07:10
[2018-08-01 07:25] LABS: CALCIUM 8.9 MG/DL (8.5-10.1); CREATININE SERUM 1.08 MG/DL (0.60-1.30); MAGNESIUM 1.9 MG/DL (1.8-2.4); PHOSPHORUS 4.9 MG/DL (2.3-4.7); POTASSIUM 4.5 MMOL/L (3.6-5.0)
[2018-08-01 07:29] LABS: BAND NEUTROPHILS 3 %; BASOPHILS % (MANUAL) 0 %; ELLIPT/OVALOCYTES SLIGHT; EOSINOPHILS % (MANUAL) 0 %; LYMPHOCYTES % (MANUAL) 6 %; MONOCYTES % (MANUAL) 2 %; NEUTROPHILS % (MANUAL) 89 %
[2018-08-01 08:00] VITALS: BP 80/48
--- NOTE | 2018-08-01 08:41 | Progress Note-Cardiology ---
Cardiology SOAP Progress Note Subjective: Unresponsive Objective: I&O/Vital Signs 08/01/18 08/01/18 08/01/18 08/01/18 00:10 04:00 08:00 08:38 Temp 98.9 96.5 95.6 Pulse 92 55 51 Resp 24 24 24 B/P (MAP) 101/63 (76) 97/56 (70) 80/48 (59) Pulse Ox 98 98 98 O2 Delivery Nasal Cannula Nasal Cannula Nasal Cannula Nasal Cannula O2 Flow Rate 3.00 2.00 2.00 3.00 08/01/18 09:00 O2 Delivery Nasal Cannula O2 Flow Rate 2.00 08/01/18 00:00 Intake Total 1020 ml Balance 1020 ml Weight (Pounds): 118 Weight (Ounces): 0.0 Weight (Calculated Kilograms): 53.639591 Constitutional: No AAO x 3, No apparent distress; other (thin-appearing) Respiratory: chest is bilaterally symmetric, other (shallow resp) Cardiovascular: irregularly irregular, S1 and S2, diastolic murmur Gastrointestional: No tender, No guarding, No rebound; audible bowel sounds Extremities: No clubbing, No cyanosis; significant edema (mild bilat LE edema) Neurologic/Psychiatric: other (unresponsive) Skin: normal color, warm/dry; No rash on exposed areas, No ulcerations on exposed areas Results/Procedures: Labs Laboratory Tests 08/01/18 06:53: White Blood Count 11.1H, Red Blood Count 3.40L, Hemoglobin 10.0#L, Hematocrit 33L, Mean Corpuscular Volume 97, Mean Corpuscular Hemoglobin 29, Mean Corpuscular Hemoglobin Concent 30L, Red Cell Distribution Width 14.8H, Platelet Count 131, Mean Platelet Volume 11.6H, Neutrophils (%) (Auto) 89H, Lymphocytes ( %) (Auto) 5L, Monocytes (%) (Auto) 6, Eosinophils (%) (Auto) 0, Basophils (%) ( Auto) 0, Neutrophils # (Auto) 9.8H, Lymphocytes # (Auto) 0.5L, Monocytes # (Auto ) 0.7, Eosinophils # (Auto) 0.0, Basophils # (Auto) 0.0, Neutrophils % (Manual) 89, Lymphocytes % (Manual) 6, Monocytes % (Manual) 2, Eosinophils % (Manual) 0, Basophils % (Manual) 0, Band Neutrophils 3, Elliptocytes SLIGHT, Sodium Level 143, Potassium Level 4.5, Chloride Level 99, Carbon Dioxide Level 32, Anion Gap 12, Blood Urea Nitrogen 27H, Creatinine 1.08, Estimat Glomerular Filtration Rate 48, BUN/Creatinine Ratio 25, Glucose Level 222H, Calcium Level 8.9, Phosphorus Level 4.9H, Magnesium Level 1.9, Digoxin Level 0.76L Microbiology 07/24/18 Blood Culture - Final, Complete No growth 07/24/18 Influenza Types A,B Antigen ([facility]OS) - Final, Complete 07/24/18 Urine Culture - Final, Complete Escherichia coli A/P: Assessment: Unresponsive Chronic, permanent, valvular A Fib (this presentation with RVR). 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 Normal regional wall motion. 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 Considerable wgt loss since that surgery, according to the patient Hypertension - not well controlled H/o elevated transaminases Hyperlipidemia, treated with statin therapy S/p bilateral corneal transplants Plan: * Complex management due to multiple comorbidities that are outlined above * End of Life Care * Plan is discharge to [place] with Hospice Care Physician Assessment Physician Assessment Unresponsive at the time of my exam this am Lungs: fair air entry; agonal breathing Cor: irreg Ext: no c/c/e Skin: gen pallor A&R * As documented in our note above that I updated (italics) * Prognosis poor [facility] Aug 01, 2018 08:41 MENDEL SALDANA MD [facility] Aug 01, 2018 11:24
[2018-08-01] MEDS: meTOprolol TARTRATE 25 MG (LOPRESSOR) TABLET PO SCH (09:00)
[2018-08-01] MEDS: FUROSEMIDE 40 MG (LASIX) TAB PO SCH (09:00)
[2018-08-01] MEDS ORDERED: ENOXAPARIN 60 MG/0.6 ML (LOVENOX) SYR SC SCH (11:00)
--- NOTE | 2018-08-01 19:11 | Discharge Summary ---
Diagnosis/Chief Complaint Date of Admission Jul 24, 2018 at 14:07 Date of Discharge Discharge Diagnosis 1. Acute Respiratory Failure-- at 9:15 AM on 08/01/18 2. Acute on Chronic Diastolic Dysfunction with Severe Mitral Valve Stenosis-- not a candidate for any intervention 3. Chronic Atrial Fibrillation--chronic 4. Dementia with current behavior disorder and worsening confusion 5. UTI with E. coli--ESBL 6. Weakness--unable to do PT/OT due to not tracking 7. Dysphagia due to declining status Reason Hospital Visit This is an 88 year old female with chronic atrial fibrillation and severe mitral stenosis who was brought to the emergency room due to weakness with altered mental status. She was hypoxic upon arrival and had to be placed on BIPAP. She is currently sedated in the ICU on BIPAP. Discharge Summary Hospital Course Hospital Course This is an 88 year old female with chronic atrial fibrillation and severe mitral stenosis who was brought to the emergency room due to weakness with altered mental status. She was hypoxic upon arrival and had to be placed on BIPAP. She was initially sedated in the ICU on BIPAP. She required precedex for sedation her first 2 days due to agitation and to be able to tolerate the BIPAP. After 24hrs on BIPAP she was weaned to vapotherm and over the next 24hrs she was weaned to a nasal cannula. Once the precedex was weaned, she was transferred to the medical floor and PT and OT were started. However, the patient had a difficult time tracking and therefore was not able to participate in PT and OT. She also had very poor oral intake and had some choking so she was changed to a pureed diet and ST was consulted for a swallow evaluation. Due to the patient's grave condition, hospice was discussed with the family. It was decided to properly treat her ESBL positive UTI with meropenem through the weekend and see if she could be discharged back to [place] with hospice the following Wednesday. However, over the weekend she had worsening of her condition and on the morning of 08/01/18 at 9:15 AM. Labs Laboratory Tests 07/30/18 05:40: Mean Corpuscular Hemoglobin Concent 30L, Red Cell Distribution Width 15.5H, Platelet Count 112L, Mean Platelet Volume 11.2H, Neutrophils (%) (Auto) 87H, Lymphocytes (%) (Auto) 5L, Lymphocytes # (Auto) 0.5L, Prothrombin Time 17.7H, INR Comment 1.5H, Sodium Level 147H, Carbon Dioxide Level 34H, Blood Urea Nitrogen 22H 07/31/18 05:15: Mean Corpuscular Hemoglobin Concent 31L, Red Cell Distribution Width 15.3H, Platelet Count 112L, Mean Platelet Volume 11.3H, Neutrophils (%) (Auto) 87H, Lymphocytes (%) (Auto) 4L, Lymphocytes # (Auto) 0.4L, Sodium Level 146H, Carbon Dioxide Level 33H, Blood Urea Nitrogen 24H, Red Blood Count 4.34L 08/01/18 06:53: Mean Corpuscular Hemoglobin Concent 30L, Red Cell Distribution Width 14.8H, Mean Platelet Volume 11.6H, Neutrophils (%) (Auto) 89H, Lymphocytes (%) (Auto) 5L, Lymphocytes # (Auto) 0.5L, Blood Urea Nitrogen 27H, Red Blood Count 3.40L, White Blood Count 11.1H, Hemoglobin 10.0#L, Hematocrit 33L, Neutrophils # (Auto ) 9.8H, Glucose Level 222H, Phosphorus Level 4.9H, Digoxin Level 0.76L Procedures None. Discharge Physical Examination Allergies: Coded Allergies: nitrofurantoin (Verified Allergy, Intermediate, 04/18/15) Penicillins (Verified Allergy, Mild, 04/18/15) Sulfa (Sulfonamide Antibiotics) (Verified Allergy, Mild, 04/18/15) omeprazole (Verified Allergy, Mild, 04/18/15) guaifenesin (Verified Allergy, Unknown, 04/18/15) potassium guaiacolsulfonate (Verified Allergy, Unknown, 04/18/15) celecoxib (Unverified Adverse Reaction, Unknown, SICK TO STOMACH, 04/18/15) rosuvastatin (Unverified Adverse Reaction, Unknown, NAUSEA, 04/18/15) Uncoded Allergies: Protoni (Allergy, Mild, 02/05/16) NOTE THAT PT TAKES PROTONIX AT HOME Vitals & I&Os Vital Signs Date Time Temp Pulse Resp B/P (MAP) Pulse Ox O2 Delivery O2 Flow Rate FiO2 08/01/18 09:00 Nasal Cannula 2.00 08/01/18 08:00 95.6 51 24 80/48 (59) 98 07/27/18 06:45 General Appearance: Other () Discharge Home Medications Reviewed and agree with Discharge Medication list on patient's Discharge Instruction sheet Instructions to Patient/Family Please see electronic discharge instructions given to patient. Clinical Quality Measures DVT/VTE Risk/Contraindication: Risk Factor Score Per Nursin RFS Level Per Nursing on Admit: 4+=Very High KAT VIGIL DO Aug 01, 2018 19:11
== END 2018-08-01 09:15 | disposition expired | DRG 189 ==
LOC: EDUNIT# 11:04 → ER 11:06 → ICU 14:07 → 4TH 07-25 16:02 → ICU 07-25 16:02 → 4TH 07-27 18:45
PROVIDERS: ADMIT Internal Medicine; ATTEND Internal Medicine
DX: J96.21 Acute and chronic respiratory failure with hypoxia (principal); J96.22 Acute and chronic respiratory failure with hypercapnia; I05.2 Rheumatic mitral stenosis with insufficiency; I50.33 Acute on chronic diastolic (congestive) heart failure; I42.9 Cardiomyopathy, unspecified; E87.2 Acidosis; N39.0 Urinary tract infection, site not specified; Z66 Do not resuscitate; B96.20 Unspecified Escherichia coli [E. coli] as the cause of diseases classified elsewhere; F03.91 Unspecified dementia, unspecified severity, with behavioral disturbance; R13.10 Dysphagia, unspecified; I10 Essential (primary) hypertension; I25.10 Atherosclerotic heart disease of native coronary artery without angina pectoris; E78.00 Pure hypercholesterolemia, unspecified; I95.9 Hypotension, unspecified; K21.9 Gastro-esophageal reflux disease without esophagitis; F41.9 Anxiety disorder, unspecified; F32.9 Major depressive disorder, single episode, unspecified; M81.0 Age-related osteoporosis without current pathological fracture; M19.91 Primary osteoarthritis, unspecified site; M54.9 Dorsalgia, unspecified; R20.2 Paresthesia of skin; H91.93 Unspecified hearing loss, bilateral; D69.6 Thrombocytopenia, unspecified; Z94.7 Corneal transplant status; Z97.4 Presence of external hearing-aid; Z79.01 Long term (current) use of anticoagulants
CPT/HCPCS: 36415; 36600; 51702; 71045; 80048; 80053; 80162; 81000; 82805; 82962; 83605; 83735; 83880; 84100; 85007; 85025; 85027; 85610; 85730; 87040; 87077; 87088; 87184; 87186; 87804; 93005; 93041; 93306; 94660; 94760; 96361; 96365; 96375; 99291